=== PATIENT | male | born 1950 | race Caucasian/White ===

== ENCOUNTER 2023-02-16 10:03 | Outpatient (OUT) | payer MEDICARE, SELFPAY ==
[2023-02-16 11:19] LABS: Alanine Aminotransferase 26 U/L (16-63); Albumin Globulin Ratio 1.3; Albumin Level 3.7 g/dL (3.4-5.0); Alkaline Phosphatase 49 U/L (46-116); Anion Gap 11.6; Aspartate Amino Transferase 23 U/L (15-37); BUN Creatinine Ratio 17.6; Calcium 8.9 mg/dL (8.5-10.1); Carbon Dioxide 27.8 mmol/L (21.0-32.0); Chloride 104 mmol/L (98-107); Estimated GFR (African America >60 (>=60); Estimated GFR (Non-African Ame >60 (>=60); Globulin 2.8 g/dL; Glucose 138 mg/dL (74-106); Potassium 4.4 mmol/L (3.5-5.1); Sodium 139 mmol/L (136-145); Total Protein 6.5 g/dL (6.4-8.2)
== END 2023-02-16 10:04 | disposition home or self-care (01) ==
PROVIDERS: PCP Family Medicine
DX: E11.65 Type 2 diabetes mellitus with hyperglycemia (principal); E55.9 Vitamin D deficiency, unspecified; E53.8 Deficiency of other specified B group vitamins
CPT/HCPCS: 36415; 80053; 82306; 82607

== ENCOUNTER 2024-03-13 09:52 | Outpatient (OUT) | payer MEDICARE, SELFPAY ==
[2024-03-13 10:32] LABS: Alanine Aminotransferase 27 U/L (16-63); Albumin Globulin Ratio 1.1; Albumin Level 3.4 g/dL (3.4-5.0); Alkaline Phosphatase 61 U/L (46-116); Anion Gap 14.4; Aspartate Amino Transferase 20 U/L (15-37); Bilirubin Total 0.7 mg/dL (0.2-1.0); Calcium 9.3 mg/dL (8.5-10.1); Carbon Dioxide 27.1 mmol/L (21.0-32.0); Chloride 104 mmol/L (98-107); Chol HDL Ratio 2.5; Cholesterol 150 mg/dL (<=200); Estimated GFR (African America >60 (>=60 mL/min/1.73m^2); Estimated GFR (Non-African Ame >60 (>=60 mL/min/1.73m^2); Globulin 3.1 g/dL; Glucose 175 mg/dL (74-106); HDL Cholesterol 60 mg/dL (40-60); LDL Cholesterol Calculated 64.2 mg/dL; Potassium 4.5 mmol/L (3.5-5.1); Sodium 141 mmol/L (136-145); Total Protein 6.5 g/dL (6.4-8.2); Triglycerides 129 mg/dL (<=150); VLDL CHOLESTEROL 25.8 mg/dL
[2024-03-14 04:11] LABS: Vitamin B12 722 pg/mL (232-1245)
== END 2024-03-13 09:53 | disposition home or self-care (01) ==
LOC: LAB 09:54
PROVIDERS: PCP Family Medicine; Visit Provider Nurse Practitioner Family
DX: E78.5 Hyperlipidemia, unspecified (principal); I10 Essential (primary) hypertension; E55.9 Vitamin D deficiency, unspecified; E11.65 Type 2 diabetes mellitus with hyperglycemia; Z79.4 Long term (current) use of insulin; E53.8 Deficiency of other specified B group vitamins
CPT/HCPCS: 36415; 80053; 80061; 82306; 82607

== ENCOUNTER 2024-07-25 07:14 | Day surgery (SDC) | payer MEDICARE, SELFPAY ==
[2024-07-25] VITALS (9 sets, daily range): BP systolic 157–181; BP diastolic 72–93; PULSE 76–91; TEMP 36.4–36.8; O2SAT 93–95; BMI 28.2
--- NOTE | 2024-07-25 | HP_ITS ---
Date: 07/25/2024 HISTORY OF PRESENT ILLNESS: Patient is a 74-year-old male with a history of type 2 diabetes requiring insulin, hypertension, hyperlipidemia, gastroesophageal reflux disease, who presented to the emergency room this morning with food impaction from last evening. He reports he was eating chicken around 6:00 p.m. and had a piece get lodged in his distal esophagus. He was unable any liquids or even his own saliva. He did present to the emergency room this morning for evaluation. He reports he has had two previous episodes, does not recall how long, but the last one was several years ago. One required EGD. One was treated with medications. He is not on any blood thinners. Denies any pain currently, just the food impaction. Did have a workup in the emergency room including neck x-rays and chest x-ray, as well as laboratory evaluation and EKG, which were all unremarkable. He denies any previous abdominal operations, is on no aspirin, nonsteroidal anti-inflammatory drugs. ALLERGIES: Patient has allergies to penicillin. HOME MEDICATIONS: Include Jardiance, Tresiba, insulin, losartan, magnesium, metformin, potassium, simvastatin, Vitamin B12. PAST SURGICAL HISTORY: He denies previous surgical operations. FAMILY HISTORY: Noncontributory. SOCIAL HISTORY: Patient denies tobacco use or illicit drug use. REVIEW OF SYSTEMS: Ten system review of systems is negative for recent weight loss or weight gain. Denies increased fatigue or light-headedness. Has had no earache or tinnitus. No sinus congestion. No sore throat or hoarseness. No chest pain, palpitations or syncope. No chronic cough, shortness of breath or hemoptysis. No abdominal pain, nausea or vomiting. No diarrhea, constipation or decreased caliber of the stool. No melena, hematochezia or bright red blood per rectum. No dysuria, frequency, urgency or hematuria. No headaches, seizures or tremors. No easy bruising or bleeding. No heat or cold intolerance. No polydipsia, polyphagia or polyuria. PHYSICAL EXAM: VITAL SIGNS: Patient is afebrile. Blood pressure is 171/76. Pulse is 86 and regular. Respiratory rate is 16. O2 saturation is 95% on room air. GENERAL: In general, he is an obese male, in no acute distress. HEENT: Normocephalic, atraumatic. Sclerae anicteric. Conjunctiva not injected. Oral mucosa is moist without lesions. NECK: Supple. There is no adenopathy, thyromegaly or JVD. LUNGS: Clear bilaterally. CARDIAC EXAM: Regular rhythm and rate without appreciable murmurs, rubs or gallops. ABDOMEN: Obese, soft. There are normal bowel sounds. There are no masses, hepatosplenomegaly or hernias. No CVA tenderness. SKIN: Warm and dry without lesions, rashes or ulcers. NEURO EXAM: Non-focal. Non-lateralizing. LABORATORY EVALUATION: Reveals a slight elevation of the white blood cell count at 12,800. H&H and platelet count are normal. Electrolytes are unremarkable. ASSESSMENT: A 74-year-old male with distal food impaction with two previous episodes. PLAN: To proceed with EGD under general anesthesia with removal/reduction of the food bolus. Indications, risks, benefits, alternatives of proceeding were explained extensively to the patient, including risks of bleeding, aspiration, esophageal/gastric/duodenal perforation or anesthetic complications. All of his questions were answered. Informed consent was obtained. CC: Whit Titus M.D. JF
--- NOTE | 2024-07-25 | OP_ITS ---
OPERATION DATE: 07/25/2024 PREOPERATIVE DIAGNOSIS: Food impaction. POSTOPERATIVE DIAGNOSIS: Food impaction with distal esophagitis. PROCEDURE: EGD with removal and reduction of distal esophageal food bolus of chicken. SURGEON: Maik Govea M.D. ANESTHESIA: General endotracheal. ESTIMATED BLOOD LOSS: Zero. INDICATIONS AND CONSENT: Patient is a 74-year-old male with history of food impaction since 6:00 p.m. yesterday. Does have a history of two previous episodes in the past, one requiring EGD. Indications, risks, benefits, alternatives of proceeding with EGD with removal/reduction of food bolus were explained extensively to the patient, including the risks of bleeding, aspiration, esophageal/gastric/duodenal perforation or anesthetic complications. All of his questions were answered. Informed consent was obtained. PROCEDURE: Patient brought to the operating room, placed in the supine position. General anesthesia was induced. He was then placed in the left lateral decubitus position and appropriately monitored and padded. Bite block was placed in the patient?s mouth. Scope was inserted into the oropharynx. Under direct visualization, it was advanced into the esophagus, past the cricopharyngeus, down to the distal esophagus. There was noted to be a large piece of chicken as well as some fluid. The fluid was aspirated. Several pieces of the chicken were grasped with the endoscopic biopsy forceps and brought out through the oropharynx. This allowed breaking up the large food bolus. It was unable to be reduced into the stomach. There was noted to be distal esophagitis, as well as a tortuous distal esophagus. The scope was retroflexed. There was no significant hiatal hernia. The GE junction was noted at approximately 40 cm. There was distal esophagitis and inflammation. No ulceration. No stricture. The remainder of the esophagus was unremarkable. The scope was then withdrawn. Patient tolerated procedure well, was extubated and sent to recovery room in good condition. CC: Whit Titus M.D. JF
--- OUTSIDE RECORDS SUMMARY | 2024-07-25 07:26 | XMS_ITS | CCD ---
Author Organization [facility] Care Team Providers Care Special Education Teachers Name Role Phone Whit Loja Unavailable Scally, Kathryn Unavailable DAMON WOODRUFF Admitting Unavailable DAMON WOODRUFF Consulting Unavailable DAMON WOODRUFF Attending Unavailable FREEDOM, DR WHIT Hernandez Primary Care Unavailable REINECK, DR CARMELO Santacruz Admitting Unavailabl e REINECK, DR CARMELO Santacruz Consulting Unavailabl e REINECK, DR CARMELO Santacruz Attending Unavailabl e LOJA, DR WHIT Hernandez Primary Care Unavailable CHAD MIRANDA Consulting Unavailable REQUEST, NONE LISTED Attending Unavaila ble FREEDOM, DR WHIT Hernandez Primary Care Unavailable REQUEST, NONE LISTED Admitting Unavaila ble REQUEST, NONE LISTED Consulting Unavaila ble REQUEST, NONE LISTED Attending Unavaila ble LOJA, DR WHIT Hernandez Primary Care Unavailable REQUEST, NONE LISTED Admitting Unavaila ble REQUEST, NONE LISTED Consulting Unavaila ble SCALLY, KATHRYN Admitting Unavailable SCALLY, KATHRYN Consulting Unavailable SCALLY KATHRYN Attending Unavailable FREEDOM, DR WHIT Hernandez Primary Care Unavailable MD Whit Loja Primary Care Provider [phone] MD Whit Loja Attending Provider Whit Loja Attending Unavailable Whit Loja Admitting Unavailable Whit Loja Primary Care Unavailable Whit Loja Primary Care Unavailable Scally, Kathryn C Admitting Unavailable Scally, Kathryn C Attending Unavailable SUZIE FISHER Attending Unavailable Allergies Allergy Classification Reported Allergen(s) Allergy Type Date of Onset Reaction(s) Facility (17 sources) Angiotensin-conv erting enzyme inhibitor agent Drug allergy Unknown [facility] Other (18 sources) Penicillin; 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: [penicillin] Drug Allergy Unknown [facility] Repository (1 source) Angiotensin Converting Enzyme (Sukh) Inhibitors Drug allergy (disorder) 12-26-2023 [facility] Repository (1 source) Penicillins Drug allergy (disorder) 07-04-2023 [facility] Repository Medications Current Medications Medication Drug Class(es) Dates Sig (Normalized) Sig (Original) Blood-Glucose Meter (True Metrix Glucose Meter) misc (1 source) Start: 07-01-2023 Blood-Glucose Meter (True Metrix Glucose Meter) misc Active 0 .Route July 01, 2023 12:00am As directed Blood-Glucose Meter,Continuous (Dexcom G7 Brand Marketing Specialist) misc (1 source) Start: 07-01-2023 Blood-Glucose Meter,Continuous (Dexcom G7 Brand Marketing Specialist) misc Active 0 .Route July 01, 2023 12:00am As directed Blood-Glucose Sensor (Dexcom G7 Sensor) device (1 source) Start: 07-01-2023 Blood-Glucose Sensor (Dexcom G7 Sensor) device Active 0 .Route July 01, 2023 12:00am As directed Dexcom G7 Brand Marketing Specialist - (16 sources) Start: 07-13-2022 Dexcom G7 Brand Marketing Specialist - Use to test BG In Vitro Daily for 365 days E11.65 Jun, Active Dexcom G7 Sensor - (20 sources) Start: 09-06-2022 Dexcom G7 Sensor - as directed [facility] Aug, Active Start: 07-13-2022 Dexcom G7 Sens or - Use to test BG In Vitro Change Every 10 days for 90 days E11.65 Jun, Active Dexcom G7 Sensor - as directed [facility] Active empagliflozin 25 mg oral tablet (8 sources) Sodium-Glucose Cotransporter 2 Inhibitor Start: 07-01-2023 take 25 mg by mouth once daily Empagliflozin Active 25 MG PO Daily July 01, 2023 12:00am Start: 02-01-2023 take 1 tablet by tj th every twenty-four hours Jardiance 10 MG 1 tablet Orally Once a day for 14 days samples Jan, Active Start: 02-01-2023 take 1 tablet by tj th every twenty-four hours Jardiance 25 MG 1 tablet Orally Once a day Jan, Active Fish Oils (2 sources) take 1 capsule by mouth once daily Fish Oil 1000 MG 1 capsule Orally Once a day Active glipiZIDE er 10 mg 24 hr extended release oral tablet (1 source) Sulfonylurea take 1 tablet by mouth once daily glipiZIDE ER 10 mg TAKE 1 TABLET BY MOUTH DAILY STOP IF HAVING LOW POST MEAL BLOOD SUGARS Active 3 ml insulin detemir 100 unt/ml pen injector (20 sources) Insulin Analog Start: 06-30-2022 Levemir FlexPen 100 UNIT/ML 25 u Subcutaneous daily for 90 days Jun, Active Levemir FlexPen 100 UNIT/ML 20 u Subcutaneous daily Active 3 ml insulin lispro-aabc 100 unt/ml pen injector (17 sources) Insulin Analog Start: 06-30-2022 Lyumjev KwikPen 100 UNIT/ML as directed Subcutaneous 4 x day for 30 days E11.65 ICR 1:10 and Correction of 1:50 with meals . Expect up to 40 u per day Jun, Active Insulin Lispro-Aabc (1 source) Start: 07-01-2023 inject 1 dose by subcutaneous injection once before mealtime Insulin Lispro-Aabc Active 1 sliding scale dose SUBCUT 3x/Day before meals & bedtime July 01, 2023 12:00am Levemir FlexPen 100 UNIT/ML (4 sources) Start: 06-30-2022 Levemir FlexPen 100 UNIT/ML 25 u Subcutaneous daily for 90 days Jun, Active losartan potassium 25 mg oral tablet (17 sources) Angiotensin 2 Receptor Natalia take 1 tablet by mouth once daily Losartan Potassium 25 mg TAKE ONE TABLET BY MOUTH ONCE DAILY for 90 Active Magnesium (17 sources) take 1 tablet by mouth once daily Magnesium 400 MG 1 tablet with a meal Orally Once a day Active Magnesium - as d irected Orally Active metFORMIN hydrochloride 1000 mg oral tablet (18 sources) Biguanide Start: 07-01-2023 take 1000 mg by mouth twice daily at mealtime Metformin Active 1000 MG PO Twice daily with meals July 01, 2023 12:00am metFORMIN HCl 10 00 MG 1 tablet with a meals BID Orally Twice a day for 90 days Active OneTouch Ultra Mini w/Device (17 sources) OneTouch Ultra M ini w/Device as directed Active potassium 99 mg extended release oral tablet (2 sources) take 1 tablet by mouth once daily Potassium 99 MG 1 tablet Orally Once a day Active simvastatin 40 mg oral tablet (17 sources) HMG-CoA Reductase Inhibitor take 1 tablet by mouth once daily at bedtime Simvastatin 40 mg TAKE ONE TABLET BY MOUTH ONCE DAILY AT BEDTIME for 90 Active True Metrix Blood Glucose Test - (17 sources) True Metrix Bloo d Glucose Test - check blood sugars In Vitro 4 times daily for 90 days or insurance preferred Active Vitamin B 12 100 MCG (9 sources) Vitamin B 12 100 MCG as directed Orally Active vitamin b12 0.1 mg oral lozenge (2 sources) Vitamin B12 Vitamin B 12 100 MCG as directed Orally Active Completed/Discontinued Medications Medication Drug Class(es) Dates Sig (Normalized) Sig (Original) Cholecalciferol (20 sources) Vitamin D Start: 07-12-2022 take 1 capsule by mouth every week Cholecalciferol 1.25 MG (31427 UT) 1 capsule Orally once weekly for 56 days follow with 4000iu OTC daily Jun, Not-Taking Start: 07-12-2022 take 1 capsule by mo ut every week Cholecalciferol 1.25 MG (22811 UT) 1 capsule Orally once weekly for 56 days follow with 4000iu OTC daily Jun, Active take 1 capsule by mo ut every twenty-four hours Vitamin D3 50 MCG (2000 UT) 1 capsule Orally Once a day Active Dexcom G6 Brand Marketing Specialist - (12 sources) Start: 06-30-2022 Dexcom G6 Rece iver - as directed -- daily for 365 day [facility] Jun, Not-Taking Start: 06-30-2022 Dexcom G6 Rece iver - as directed -- daily for 365 day [facility] Jun, Active Dexcom G6 Sensor - (12 sources) Start: 06-30-2022 Dexcom G6 Sens or - as directed sub q change every 10 days for 90 days [facility] Jun, Not-Taking Start: 06-30-2022 Dexcom G6 Sens or - as directed sub q change every 10 days for 90 days [facility] Jun, Active Dexcom G6 Transmitter - (12 sources) Start: 06-30-2022 Dexcom G6 Aldridge smitter - as directed sub q change every 90 days for 90 days [facility] Jun, Not-Taking Start: 06-30-2022 Dexcom G6 Aldridge smitter - as directed sub q change every 90 days for 90 days [facility] Jun, Active Problems Active Problems Problem Classification Problem Date Documented Date Episodic/Chronic Administrative/social admission (7 sources) Dietary counseling and surveillance; 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: [Patient encounter status] Episodic Diabetes mellitus with complications (20 sources) Hyperglycemia due to type 2 diabetes mellitus; 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: [Type 2 diabetes mellitus with hyperglycemia] Onset: 07-06-2022 Chronic Disorders of lipid metabolism (20 sources) Hyperlipidemia; 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: [Hyperlipidemia, unspecified] Onset: 07-09-2022 Chronic E Codes: Natural/environment (2 sources) Exposure to other specified factors, initial encounter; 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: [Bitten or stung by nonvenomous insect and other nonvenomous arthropods, initial encounter] Onset: 09-23-2022 Episodic Essential hypertension (20 sources) Essential hypertension; 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: [Essential (primary) hypertension] Chronic Nutritional deficiencies (20 sources) Vitamin D deficiency; 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: [Vitamin D deficiency, unspecified] Onset: 07-09-2022 Chronic Nutritional deficiencies (6 sources) Deficiency of other specified B group vitamins; 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: [Cobalamin deficiency] Episodic Other aftercare (20 sources) Long-term current use of insulin; 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] 07-01-2023 Episodic Other aftercare (12 sources) [facility] (current) use of insulin; 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: [Long-term (current) use of insulin] Onset: 09-23-2022 Episodic Other aftercare (1 source) Other assisted (current) drug therapy; 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: [OTH PRISON CURRENT DRUG THERAPY] Onset: 09-23-2022 Episodic Other aftercare (1 source) [facility] (current) use of oral hypoglycemic drugs; 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: [PRISON USE ORAL HYPOGLYCEMIC DX] Onset: 09-23-2022 Episodic Other circulatory disease (17 sources) Elevated blood-pressure reading without diagnosis of hypertension; 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: [Elevated blood-pressure reading, without diagnosis of hypertension] Episodic Other injuries and conditions due to external causes (4 sources) Food in esophagus causing other injury, initial encounter; 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: [FOOD ESOPH CAUS OTH INJURY INIT ENC] Onset: 09-22-2022 Episodic Other nervous system disorders (17 sources) Moreland's palsy; 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] Episodic Other non-traumatic joint disorders (17 sources) Pain in right hip joint; 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: [Pain in right hip] Episodic Other non-traumatic joint disorders (7 sources) Shoulder pain; 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: [Pain in left shoulder] Episodic Other non-traumatic joint disorders (10 sources) Pain in left shoulder; 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: [Left shoulder pain] Episodic Other nutritional; endocrine; and metabolic disorders (17 sources) Body mass index 25-29 - overweight; 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: [Body mass index (BMI) 28.0-28.9, adult] Episodic Other nutritional; endocrine; and metabolic disorders (3 sources) Body mass index (BMI) 28.0-28.9, adult Episodic Other nutritional; endocrine; and metabolic disorders (2 sources) Body mass index (BMI) 27.0-27.9, adult; 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: [Body Mass Index 27.0-27.9, adult] Episodic Other nutritional; endocrine; and metabolic disorders (1 source) Overweight in adulthood with body mass index of 25 or more but less than 30; 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: [Body mass index (BMI) 27.0-27.9, adult] 07-01-2023 Episodic Superficial injury; contusion (1 source) Insect bite (nonvenomous), right lower leg, initial encounter Episodic Past or Other Problems Problem Classification Problem Date Documented Da te Episodic/Chronic Other connective tissue disease (3 sources) Facial weakness; 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: [FACIAL WEAKNESS] Onset: 02-25-2022 Episodic Other nervous system disorders (1 source) Moreland's palsy; 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: [BELLS PALSY] Onset: 02-26-2022 Episodic Results Test Name Value Interpretation Reference Range Facility A1C HEMOGLOBINon 05-10-2023 HbA1c (Bld) [Mass fraction] 6.7 % [facility] Other Glucose - FINGER STICKon Glucose [Mass/Vol] 116 mg/dL [facility] Other HbA1c (Bld) [Mass fraction]o n 05-10-2023 [facility] A[facility]C HEMOGLOBINon 02-01-2023 HbA1c (Bld) [Mass fraction] 6.8 % [facility] Other Glucose - FINGER STICKon Glucose [Mass/Vol] 173 mg/dL [facility] Other HbA1c (Bld) [Mass fraction]o n 02-01-2023 A1C HEMOGLOBIN [facility] Other Glucose - FINGER STICKon Glucose [Mass/Vol] 129 mg/dL [facility] Other CBC AUTO DIFFon 09-22-2022 BASO # 0.1 103/ul Normal 0.0-0.1 [facility] Comment on above: Performed By: #### V ITB12, VITAD #### [facility] [address] [place] [address] Dr. Ev Perez Basophils/100 WBC (Bld) 0.7 % Normal 0.2-2.0 [facility] Comment on above: Performed By: #### V ITB12, VITAD #### [facility] [address] [place] [address] Dr. Ev Perez EO # 0.2 103/ul Normal 0.0-0.7 [facility] Comment on above: Performed By: #### V ITB12, VITAD #### [facility] [address] [place] [address] Dr. Ev Perez Eosinophils/100 WBC (Bld) 1.5 % Normal 0.9-7.0 [facility] Comment on above: Performed By: #### V ITB12, VITAD #### [facility] [address] [place] [address] Dr. Ev Perez Erythrocyte distribution width (RBC) [Ratio] 12.6 % Normal 11.0-15.0 [facility] Comment on above: Performed By: #### V ITB12, VITAD #### [facility] [address] [place] [address] Dr. Ev Perez Hematocrit (Bld) [Volume fraction] 44.1 % Normal 42.0-54.0 [facility] Comment on above: Performed By: #### V ITB12, VITAD #### [facility] [address] [place] [address] Dr. Ev Perez Hemoglobin (Bld) [Mass/Vol] 15.1 g/dL Normal 14.0-18.0 [facility] Comment on above: Performed By: #### V ITB12, VITAD #### [facility] [address] [place] [address] Dr. Ev Perez IG # 0.01 10e3/ul Normal 0.00-0.03 [facility] Comment on above: Performed By: #### V ITB12, VITAD #### [facility] [address] [place] [address] Dr. Ev Perez IG % 0.1 % Normal 0.0-0.5 [facility] Comment on above: Performed By: #### V ITB12, VITAD #### [facility] [address] [place] [address] Dr. Ev Perez LYMPH # 1.5 103/ul Normal 1.2-3.8 [facility] Comment on above: Performed By: #### V ITB12, VITAD #### [facility] [address] [place] [address] Dr. Ev Perez Lymphocytes/100 WBC (Bld) 15.6 % Critically low 20.5-60.0 [facility] Comment on above: Performed By: #### V ITB12, VITAD #### [facility] [address] [place] [address] Dr. Ev Perez MANUAL DIFF REQ NO Normal [facility] Comment on above: Performed By: #### V ITB12, VITAD #### [facility] [address] [place] [address] Dr. Ev Perez MCH (RBC) [Entitic mass] 29.5 pg Normal 25.9-34.0 [facility] Comment on above: Performed By: #### V ITB12, VITAD #### [facility] [address] [place] [address] Dr. Ev Perez MCHC (RBC) [Mass/Vol] 34.2 g/dL Normal 29.9-35.2 [facility] Comment on above: Performed By: #### V ITB12, VITAD #### [facility] [address] [place] [address] Dr. Ev Perez MCV (RBC) [Entitic vol] 86.3 fL Normal 80.0-94.0 [facility] Comment on above: Performed By: #### V ITB12, VITAD #### [facility] [address] [place] [address] Dr. Ev Perez MONO # 0.6 103/ul Normal 0.3-0.8 [facility] Comment on above: Performed By: #### V ITB12, VITAD #### [facility] [address] [place] [address] Dr. Ev Perez Monocytes/100 WBC (Bld) 5.6 % Normal 1.7-12.0 [facility] Comment on above: Performed By: #### V ITB12, VITAD #### [facility] [address] [place] [address] Dr. Ev Perez NEUT # 7.4 103/ul Critically high 1.4-6.5 [facility] Comment on above: Performed By: #### V ITB12, VITAD #### [facility] [address] [place] [address] Dr. Ev Perez Neutrophils/100 WBC (Bld) 76.5 % Critically high 43.0-75.0 [facility] Comment on above: Performed By: #### V ITB12, VITAD #### [facility] [address] [place] [address] Dr. Ev Perez Platelet mean volume (Bld) [Entitic vol] 11.4 fL Normal 9.5-13.5 [facility] Comment on above: Performed By: #### V ITB12, VITAD #### [facility] [address] [place] [address] Dr. Ev Perez PLT 180 103/ul Normal 150-450 [facility] Comment on above: Performed By: #### V ITB12, VITAD #### [facility] [address] [place] [address] Dr. Ev Perez RBC 5.11 106/ul Normal 4.70-6.10 [facility] Comment on above: Performed By: #### V ITB12, VITAD #### [facility] [address] [place] [address] Dr. Ev Perez WBC 9.7 103/ul Normal 4.0-11.0 [facility] Comment on above: Performed By: #### V ITB12, VITAD #### [facility] [address] [place] [address] Dr. Ev Perez PROF CHEM 8 (BAS METB)on Anion gap [Moles/Vol] 13.9 mmol/L Normal [facility] Comment on above: Performed By: #### V ITB12, VITAD #### [facility] [address] [place] [address] Dr. Ev Perez Calcium [Mass/Vol] 9.2 mg/dL Normal 8.5-10.1 [facility] Comment on above: Performed By: #### V ITB12, VITAD #### [facility] [address] [place] [address] Dr. Ev Perez Chloride [Moles/Vol] 106 mmol/L Normal 98-107 [facility] Comment on above: Performed By: #### V ITB12, VITAD #### [facility] [address] [place] [address] Dr. Ev Perez CO2 [Moles/Vol] 24.4 mmol/L Normal 21.0-32.0 [facility] Comment on above: Performed By: #### V ITB12, VITAD #### [facility] [address] [place] [address] Dr. Ev Perez Creatinine [Mass/Vol] 0.91 mg/dL Normal 0.70-1.30 [facility] Comment on above: Performed By: #### V ITB12, VITAD #### [facility] [address] [place] [address] Dr. Ev Perez EGFR-AF NEW ZEALANDER >60 Normal >=60 [facility] Comment on above: Performed By: #### V ITB12, VITAD #### [facility] [address] [place], [place] [id number] Dr. Ev Perez EGFR-NON AF NEW ZEALANDER >60 Normal >=60 [facility] Comment on above: Performed By: #### V ITB12, VITAD #### [facility] [address] [address] [address] Ev Perez Glucose [Mass/Vol] 160 mg/dL Critically high 74-106 [facility] Comment on above: Performed By: #### V ITB12, VITAD #### [facility] [address] [address] [address] Ev Perez Potassium [Moles/Vol] 4.3 mmol/L Normal 3.5-5.1 [facility] Comment on above: Performed By: #### V ITB12, VITAD #### [facility] [address] [place] [address] Dr. Ev Perez Sodium [Moles/Vol] 140 mmol/L Normal 136-145 [facility] Comment on above: Performed By: #### V ITB12, VITAD #### [facility] [address] [place] [address] Dr. Ev Perez Urea nitrogen [Mass/Vol] 24.0 mg/dL Critically high 7.0-18.0 [facility] Comment on above: Performed By: #### V ITB12, VITAD #### [facility] [address] [place] [address] Dr. Ev Perez Urea nitrogen/Creatinine [Mass ratio] 26.4 mg/mg Normal [facility] Comment on above: Performed By: #### V ITB12, VITAD #### [facility] [address] [place] [address] Dr. Ev Perez A1C HEMOGLOBINon 09-06-2022 HbA1c (Bld) [Mass fraction] 7.5 % [facility] Other Glucose - FINGER STICKon Glucose [Mass/Vol] 126 mg/dL [facility] Other HbA1c (Bld) [Mass fraction]o n 09-06-2022 A1C HEMOGLOBIN [facility]ring[facility] [employer] Other LIPID PROFILEon 07-06-2022 CHOL-HDL RATIO NORM SEE BELOW Normal [facility] Comment on above: Result Comment: 3.3 - 4.4 LOW RISK 4.4 - 7.1 AVERAGE RISK 7.1 - 11.0 MODERATE RISK >11.0 HIGH RISK Performed By: #### T SH, LIPID, CMP #### [facility] [address] [address] [address] Ev Perez Cholesterol [Mass/Vol] 123 mg/dL Normal <=200 [facility] Comment on above: Performed By: #### T SH, LIPID, CMP #### [facility] [address] [place] [address] Dr. Ev Perez Cholesterol in HDL [Mass/Vol] 47 mg/dL Normal 40-60 [facility] Comment on above: Performed By: #### T SH, LIPID, CMP #### [facility] [address] [place] [address] Dr. Ev Perez Cholesterol in LDL [Mass/Vol] 60.4 mg/dL Normal [facility] Comment on above: Performed By: #### T SH, LIPID, CMP #### [facility] [address] [address] [address] Ev Perez Cholesterol.total/Ch olesterol in HDL [Mass ratio] 2.6 {ratio} Normal [facility] Comment on above: Performed By: #### T SH, LIPID, CMP #### [facility] [address] [place] [address] Dr. Ev Perez HDL NORMAL > or = 60 mg/dl - LOW CARDIOVASCULAR RISK <40 mg/dl - HIGH CARDIOVASCULAR RISK Normal [facility] Comment on above: Performed By: #### T SH, LIPID, CMP #### [facility] [address] [place] [address] Dr. Ev Perez LDL CALC NORMAL SEE BELOW Normal [facility] Comment on above: Result Comment: <100 mg/dl OPTIMAL 100 - 129 mg/dl NEAR OR ABOVE OPTIMAL 130 - 159 mg/dl BORDERLINE HIGH 160 - 189 mg/dl HIGH >190 mg/dl VERY HIGH Performed By: #### T SH, LIPID, CMP #### [facility] [address] [address] [address] Ev Perez Triglyceride [Mass/Vol] 78 mg/dL Normal <=150 [facility] Comment on above: Performed By: #### T SH, LIPID, CMP #### [facility] [address] [address] [address] Ev Perez VLDL CALC 15.6 mg/dL Normal [facility] Comment on above: Performed By: #### T SH, LIPID, CMP #### [facility] [address] [address] [address] Ev Perez MICROALB CREAT RATIO RANDOMo n 07-06-2022 mALB 1.3 mg/L Normal <=30.0 [facility] Comment on above: Performed By: #### M CRR #### [facility] [address] [place] [address] Dr. Ev POWERS CR RATIO 7.2 mg/g Normal 0.0-29.9 [facility] Comment on above: Performed By: #### M CRR #### [facility] [address] [address] [address] Ev Perez MALB CR RATIO RANGE SEE BELOW Normal [facility] Comment on above: Result Comment: NO M ICROALBUMINURIA 0-29 MG/G CLINICAL MICROALBUMINURIA 30-300 MG/G MACROALBUMINURIA >300 MG/G Performed By: #### M CRR #### [facility] [address] [address] [address] Ev Perez URINE CREAT 180.37 mg/dL Normal 20.00-300.00 [facility] Comment on above: Performed By: #### M CRR #### [facility] [address] [address] [address] Ev Perez PROF 14(COMP METB)on 023 Albumin [Mass/Vol] 3.6 g/dL Normal 3.4-5.0 [facility] Comment on above: Performed By: #### T SH, LIPID, CMP #### [facility] [address] [address] [address] Ev Perez Albumin/Globulin [Mass ratio] 1.4 {ratio} Normal [facility] Comment on above: Performed By: #### T SH, LIPID, CMP #### [facility] [address] [address] [address] Ev Perez ALP [Catalytic activity/Vol] 66 U/L Normal 46-116 [facility] Comment on above: Performed By: #### T SH, LIPID, CMP #### [facility] [address] [address] [address] Ev Perez ALT [Catalytic activity/Vol] 35 U/L Normal 16-63 [facility] Comment on above: Performed By: #### T SH, LIPID, CMP #### [facility] [address] [place] [address] Dr. Ev Perez Anion gap [Moles/Vol] 9.2 mmol/L Normal [facility] Comment on above: Performed By: #### T SH, LIPID, CMP #### [facility] [address] [place] [address] Dr. Ev Perez AST [Catalytic activity/Vol] 30 U/L Normal 15-37 [facility] Comment on above: Performed By: #### T SH, LIPID, CMP #### [facility] [address] [place] [address] Dr. Ev Perez Bilirubin [Mass/Vol] 0.7 mg/dL Normal 0.2-1.0 [facility] Comment on above: Performed By: #### T SH, LIPID, CMP #### [facility] [address] [place] [address] Dr. Ev Perez Calcium [Mass/Vol] 9.2 mg/dL Normal 8.5-10.1 [facility] Comment on above: Performed By: #### T SH, LIPID, CMP #### [facility] [address] [place] [address] Dr. Ev Perez Chloride [Moles/Vol] 105 mmol/L Normal 98-107 [facility] Comment on above: Performed By: #### T SH, LIPID, CMP #### [facility] [address] [address] [address] Ev Perez CO2 [Moles/Vol] 30.5 mmol/L Normal 21.0-32.0 [facility] Comment on above: Performed By: #### T SH, LIPID, CMP #### [facility] [address] [address] [address] Ev Perez Creatinine [Mass/Vol] 0.82 mg/dL Normal 0.70-1.30 [facility] Comment on above: Performed By: #### T SH, LIPID, CMP #### [facility] [address] [address] [address] Ev Perez EGFR-AF NEW ZEALANDER >60 Normal >=60 [facility] Comment on above: Performed By: #### T SH, LIPID, CMP #### [facility] [address] [address] [address] Ev Perez EGFR-NON AF NEW ZEALANDER >60 Normal >=60 [facility] Comment on above: Performed By: #### T SH, LIPID, CMP #### [facility] [address] [address] [address] Ev Perez Globulin (S) [Mass/Vol] 2.6 g/dL Normal [facility] Comment on above: Performed By: #### T SH, LIPID, CMP #### [facility] [address] [address] [address] Ev Perez Glucose [Mass/Vol] 194 mg/dL Critically high 74-106 [facility] Comment on above: Performed By: #### T SH, LIPID, CMP #### [facility] [address] [address] [address] Ev Perez Potassium [Moles/Vol] 4.7 mmol/L Normal 3.5-5.1 [facility] Comment on above: Performed By: #### T SH, LIPID, CMP #### [facility] [address] [address] [address] Ev Perez Protein [Mass/Vol] 6.2 g/dL Critically low 6.4-8.2 [facility] Comment on above: Performed By: #### T SH, LIPID, CMP #### [facility] [address] [place] [address] Dr. Ev Perez Sodium [Moles/Vol] 140 mmol/L Normal 136-145 [facility] Comment on above: Performed By: #### T SH, LIPID, CMP #### [facility] [address] [place] [address] Dr. Ev Perez Urea nitrogen [Mass/Vol] 16.0 mg/dL Normal 7.0-18.0 [facility] Comment on above: Performed By: #### T SH, LIPID, CMP #### [facility] [address] [place] [address] Dr. Ev Perez Urea nitrogen/Creatinine [Mass ratio] 19.5 mg/mg Normal [facility] Comment on above: Performed By: #### T SH, LIPID, CMP #### [facility] [address] [place] [address] Dr. Ev Perez TSHon 07-06-2022 TSH 1.954 uIU/mL Normal 0.358-3.740 [facility] Comment on above: Performed By: #### T GUALBERTO, LIPID, CMP #### [facility] [address] [place] [address] Dr. Ev Perez VITAMIN B12on 07-06-2022 Cobalamin (Vitamin B12) [Mass/Vol] 170.0 pg/mL Critically low 193.0-986.0 [facility] Comment on above: Performed By: #### V ITB12, VITAD #### [facility] [address] [place] [address] Dr. Ev Perez VITAMIN D 25 OHon 07-06-2022 VIT D 25-OH 21.9 ng/mL Normal [facility] Comment on above: Performed By: #### V ITB12, VITAD #### [facility] [address] [place] [address] Dr. Ev Perez VIT D RANGES SEE BELOW Normal [facility] Comment on above: Result Comment: <20 ng/mL Vit D deficient 20 - <30 ng/mL Vit D insufficient 30 - 100 ng/mL Vit D sufficient >100 ng/mL Potential Toxicity Performed By: #### V ITB12, VITAD #### [facility] [address] [address] [address] Ev Perez Glucose - FINGER STICKon Glucose [Mass/Vol] 302 mg/dL [facility] Other GLYCOHEMOGLOBIN A1Con 2022 ADA RECOMMENDATION SEE BELOW Normal [facility] Comment on above: Result Comment: ADA RECOMMENDED LIMIT 4.0 - 6.0 ADA THERAPEUTIC TARGET < 7.0 ACTION SUGGESTED > 7.0 Performed By: #### V ITB12, VITAD #### [facility] [address] [place] [address] Dr. Ev Perez Glucose [Mass/Vol] 243 mg/dL Normal [facility] Comment on above: Performed By: #### V ITB12, VITAD #### [facility] [address] [place] [address] Dr. Ev Perez HbA1c (Bld) [Mass fraction] 10.1 % Critically high 4.5-6.2 [facility] Comment on above: Performed By: #### V ITB12, VITAD #### [facility] [address] [place] [address] Dr. Ev Perez CBC AUTO DIFFon 02-25-2022 BASO # 0.1 103/ul Normal 0.0-0.1 [facility] Comment on above: Performed By: #### C BC #### [facility] [address] [place] [address] Dr. Ev Perez Basophils/100 WBC (Bld) 0.8 % Normal 0.2-2.0 [facility] Comment on above: Performed By: #### C BC #### [facility] [address] [place] [address] Dr. Ev Perez EO # 0.5 103/ul Normal 0.0-0.7 [facility] Comment on above: Performed By: #### C BC #### [facility] [address] [place] [address] Dr. Ev Perez Eosinophils/100 WBC (Bld) 6.4 % Normal 0.9-7.0 [facility] Comment on above: Performed By: #### C BC #### [facility] [address] [place] [address] Dr. Ev Perez Erythrocyte distribution width (RBC) [Ratio] 12.5 % Normal 11.0-15.0 [facility] Comment on above: Performed By: #### C BC #### [facility] [address] [place] [address] Dr. Ev Perez Hematocrit (Bld) [Volume fraction] 43.9 % Normal 42.0-54.0 [facility] Comment on above: Performed By: #### C BC #### [facility] [address] [place] [address] Dr. Ev Perez Hemoglobin (Bld) [Mass/Vol] 15.0 g/dL Normal 14.0-18.0 [facility] Comment on above: Performed By: #### C BC #### [facility] [address] [place] [address] Dr. Ev Perez IG # 0.02 10e3/ul Normal 0.00-0.03 [facility] Comment on above: Performed By: #### C BC #### [facility] [address] [place] [address] Dr. Ev Perez IG % 0.3 % Normal 0.0-0.5 [facility] Comment on above: Performed By: #### C BC #### [facility] [address] [place] [address] Dr. Ev Perez LYMPH # 2.2 103/ul Normal 1.2-3.8 [facility] Comment on above: Performed By: #### C BC #### [facility] [address] [place] [address] Dr. Ev Perez Lymphocytes/100 WBC (Bld) 30.6 % Normal 20.5-60.0 [facility] Comment on above: Performed By: #### C BC #### [facility] [address] [place] [address] Dr. Ev Perez MANUAL DIFF REQ NO Normal [facility] Comment on above: Performed By: #### C BC #### [facility] [address] [address] [address] Ev Perez MCH (RBC) [Entitic mass] 29.6 pg Normal 25.9-34.0 [facility] Comment on above: Performed By: #### C BC #### [facility] [address] [address] [address] Ev Perez MCHC (RBC) [Mass/Vol] 34.2 g/dL Normal 29.9-35.2 [facility] Comment on above: Performed By: #### C BC #### [facility] [address] [place] [address] Dr. Ev Perez MCV (RBC) [Entitic vol] 86.6 fL Normal 80.0-94.0 [facility] Comment on above: Performed By: #### C BC #### [facility] [address] [place] [address] Dr. Ev Perez MONO # 0.5 103/ul Normal 0.3-0.8 [facility] Comment on above: Performed By: #### C BC #### [facility] [address] [place] [address] Dr. Ev Perez Monocytes/100 WBC (Bld) 6.7 % Normal 1.7-12.0 [facility] Comment on above: Performed By: #### C BC #### [facility] [address] [place] [address] Dr. Ev Perez NEUT # 3.9 103/ul Normal 1.4-6.5 [facility] Comment on above: Performed By: #### C BC #### [facility] [address] [place] [address] Dr. Ev Perez Neutrophils/100 WBC (Bld) 55.2 % Normal 43.0-75.0 [facility] Comment on above: Performed By: #### C BC #### [facility] [address] [place] [address] Dr. Ev Perez Platelet mean volume (Bld) [Entitic vol] 11.9 fL Normal 9.5-13.5 [facility] Comment on above: Performed By: #### C BC #### [facility] [address] [place], [place] [address] Dr. Ev Perez PLT 154 103/ul Normal 150-450 [facility] Comment on above: Performed By: #### C BC #### [facility] [address] [place], [place] [address] Dr. Ev Perez RBC 5.07 106/ul Normal 4.70-6.10 [facility] Comment on above: Performed By: #### C BC #### [facility] [address] [place], [place] [address] Dr. Ev Perez WBC 7.1 103/ul Normal 4.0-11.0 [facility] Comment on above: Performed By: #### C BC #### [facility] [address] [place], [place] [address] STROKE HEAD WOon 02-26-[address] STROKE HEAD WO Begin Addendum #1 Findings were discussed with Dr. Maame Pruitt at 12:34 hours. Original Report EXAMINATION: CT STROKE HEAD WO HISTORY: Weakness of face muscles left side neck pain x few days, left side facial droop since yesterday COMPARISON: None. TECHNIQUE: CT head spine without IV contrast. Coronal and sagittal reformations were performed. Dose reduction techniques were achieved by using automated exposure control and/or adjustment of mA and/or kV according to patient size and/or use of iterative reconstruction technique. FINDINGS: The lateral ventricles are mildly enlarged. The third and fourth ventricles are midline. There is mild abnormal diminished attenuation in the periventricular white matter and centrum semiovale. A mass is not identified. No intracranial hemorrhage is detected. There is mild symmetrical widening of cortical sulci. A fracture or cortical irregularity is not identified. The visualized paranasal sinuses are clear. The mastoid air cells are normally pneumatized. IMPRESSION: 1. Mild abnormal diminished attenuation in the periventricular white matter and centrum semiovale. Although nonspecific, the most common explanation would be mild chronic small vessel ischemic change. 2. An acute abnormality is not identified. Normal [facility] PROF 14(COMP METB)on 022 Albumin [Mass/Vol] 3.7 g/dL Normal 3.4-5.0 [facility] Comment on above: Performed By: #### C MP #### [facility] [address] [place] [address] Dr. Ev Perez Albumin/Globulin [Mass ratio] 1.3 {ratio} Normal [facility] Comment on above: Performed By: #### C MP #### [facility] [address] [address] [address] Ev Perez ALP [Catalytic activity/Vol] 61 U/L Normal 46-116 [facility] Comment on above: Performed By: #### C MP #### [facility] [address] [place] [address] Dr. Ev Perez ALT [Catalytic activity/Vol] 39 U/L Normal 16-63 [facility] Comment on above: Performed By: #### C MP #### [facility] [address] [place] [address] Dr. Ev Perez Anion gap [Moles/Vol] 11.9 mmol/L Normal [facility] Comment on above: Performed By: #### C MP #### [facility] [address] [place] [address] Dr. Ev Perez AST [Catalytic activity/Vol] 27 U/L Normal 15-37 [facility] Comment on above: Performed By: #### C MP #### [facility] [address] [place] [address] Dr. Ev Perez Bilirubin [Mass/Vol] 1.2 mg/dL Critically high 0.2-1.0 [facility] Comment on above: Performed By: #### C MP #### [facility] [address] [place] [address] Dr. Ev Perez Calcium [Mass/Vol] 9.1 mg/dL Normal 8.5-10.1 [facility] Comment on above: Performed By: #### C MP #### [facility] [address] [place] [address] Dr. Ev Perez Chloride [Moles/Vol] 103 mmol/L Normal 98-107 [facility] Comment on above: Performed By: #### C MP #### [facility] [address] [address] [address] Ev Perez CO2 [Moles/Vol] 25.9 mmol/L Normal 21.0-32.0 [facility] Comment on above: Performed By: #### C MP #### [facility] [address] [address] [address] Ev Perez Creatinine [Mass/Vol] 0.91 mg/dL Normal 0.70-1.30 [facility] Comment on above: Performed By: #### C MP #### [facility] [address] [address] [address] Ev Perez EGFR-AF NEW ZEALANDER >60 Normal >=60 [facility] Comment on above: Performed By: #### C MP #### [facility] [address] [address] [address] Ev Perez EGFR-NON AF NEW ZEALANDER >60 Normal >=60 [facility] Comment on above: Performed By: #### C MP #### [facility] [address] [address] [address] Ev Perez Globulin (S) [Mass/Vol] 2.9 g/dL Normal [facility] Comment on above: Performed By: #### C MP #### [facility] [address] [address] [address] Ev Perez Glucose [Mass/Vol] 269 mg/dL Critically high 74-106 [facility] Comment on above: Performed By: #### C MP #### [facility] [address] [address] [address] Ev Perez Potassium [Moles/Vol] 4.8 mmol/L Normal 3.5-5.1 [facility] Comment on above: Performed By: #### C MP #### [facility] [address] [address] [address] Ev Perez Protein [Mass/Vol] 6.6 g/dL Normal 6.4-8.2 [facility] Comment on above: Performed By: #### C MP #### [facility] [address] [place] [address] Dr. Ev Perez Sodium [Moles/Vol] 136 mmol/L Normal 136-145 [facility] Comment on above: Performed By: #### C MP #### [facility] [address] [place] [address] Dr. Ev Perez Urea nitrogen [Mass/Vol] 15.0 mg/dL Normal 7.0-18.0 [facility] Comment on above: Performed By: #### C MP #### [facility] [address] [place] [address] Dr. Ev Perez Urea nitrogen/Creatinine [Mass ratio] 16.5 mg/mg Normal [facility] Comment on above: Performed By: #### C MP #### [facility] [address] [place] [address] Dr. Ev Perez PROTIMEon 02-25-2022 INR Coag (PPP) [Relative time] 1.03 {INR} Normal [facility] Comment on above: Performed By: #### P T, PTT #### [facility] [address] [place] [address] Dr. Ev Perez INR GUIDELINES SEE BELOW Normal [facility] Comment on above: Result Comment: JESUS RED INR: 2.0 - 3.0 CONDITIONS NOT LISTED BELOW 2.5 - 3.5 FOR PROSTHETIC HEART VALVE REPLACEMENT 2.5 - 3.5 RECURRENT THROMBOSIS Performed By: #### P T, PTT #### [facility] [address] [place] [address] Dr. Ev Perez PT Coag (PPP) [Time] 11.1 s Normal 9.0-11.6 [facility] Comment on above: Performed By: #### P T, PTT #### [facility] [address] [place] [address] Dr. Ev Perez PTTon 02-25-2022 aPTT Coag (Bld) [Time] 26.5 s Normal 22.3-36.2 [facility] Comment on above: Performed By: #### V ITB12, VITAD #### [facility] [address] [place] [address] Dr. Ev Perez TROPONIN, HIGH SENSITIVITYon 02-25-2022 HSTROP 7.0 pg/mL Normal 4.0-76.1 [facility] Comment on above: Result Comment: CUT- OFF POINTS HAVE BEEN ESTABLISHED BASED ON THE FOURTH UNIVERSAL DEFINITIONS OF MYOCARDIAL INFARCTION. THE UPPER REFERENCE LIMIT (URL) OF TROPONIN, DEFINED THE 99TH PERCENTILE OF cTnI DISTRIBUTION IN A REFERENCE POPULATION, HAS BEEN CONFIRMED THE DECISION THRESHOLD FOR [place] DIAGNOSIS. Performed By: #### V ITB12, VITAD #### [facility] [address] [address] [address] Ev Perez GLYCOHEMOGLOBIN A1Con 2021 ADA RECOMMENDATION SEE BELOW Normal [facility] Comment on above: Result Comment: ADA RECOMMENDED LIMIT 4.0 - 6.0 ADA THERAPEUTIC TARGET < 7.0 ACTION SUGGESTED > 7.0 Performed By: #### V ITB12, VITAD #### [facility] [address] [address] [address] Ev Perez Glucose [Mass/Vol] 258 mg/dL Normal [facility] Comment on above: Performed By: #### V ITB12, VITAD #### [facility] [address] [address] [address] Ev Perez HbA1c (Bld) [Mass fraction] 10.6 % Critically high 4.5-6.2 [facility] Comment on above: Performed By: #### V ITB12, VITAD #### [facility] [address] [address] [address] Ev Perez Vital Signs Date Time Vital Sign Value Performing Clinician Facility 07-04-2023 12:26-0500 Diastolic blood pressure 72 mm[Hg] MD Whit Loja Work Phone: [facility] 07-04-2023 12:26-0500 Systolic blood pressure 148 mm[Hg] MD Whit Loja Work Phone: [facility] 07-04-2023 11:37-0500 Body height 168.91 cm MD Whit Loja Work Phone: [facility] 07-04-2023 11:37-0500 Body mass index (BMI) [Ratio] 27.8 kg/m2 MD Whit Loja Work Phone: [facility] 07-04-2023 11:37-0500 Body weight 79.43 kg MD Whit Loja Work Phone: [facility] 07-04-2023 11:37-0500 Heart rate 70 /min MD Whit Loja Work Phone: [facility] 07-04-2023 11:37-0500 Respiratory rate 18 /min MD Whit Loja Work Phone: [facility] 07-04-2023 11:37-0500 SaO2% (BldA) [Mass fraction] 95 % MD Whit Loja Work Phone: [facility] 05-10-2023 10:15-0500 Body height 168.91 cm Kathryn Scally Other [facility] 05-10-2023 10:15-0500 Body mass index (BMI) [Ratio] 27.28 kg/m2 Kathryn Scally Other [facility] Other 05-10-2023 10:15-0500 Body weight 77.84 kg Kathryn Scally Other [facility] Other 05-10-2023 10:15-0500 Body weight 77.83 kg MD Whit Loja Work Phone: [facility] 05-10-2023 10:15-0500 Diastolic blood pressure 84 mm[Hg] Kathryn Scally Other [facility] 05-10-2023 10:15-0500 Respiratory rate 18 /min Kathryn Scally Other [facility] Other 05-10-2023 10:15-0500 SaO2% (BldA) [Mass fraction] 95 % Kathryn Scally Other [facility] Other 05-10-2023 10:15-0500 Systolic blood pressure 144 mm[Hg] Kathryn Scally Other [facility] 02-01-2023 10:15-0400 Body height 168.91 cm Kathryn Scally Other [facility] Other 02-01-2023 10:15-0400 Body mass index (BMI) [Ratio] 28.69 kg/m2 Kathryn Scally Other [facility] Other 02-01-2023 10:15-0400 Body weight 81.87 kg Kathryn Scally Other [facility] Other 02-01-2023 10:15-0400 Diastolic blood pressure 74 mm[Hg] Kathryn Scally Other [facility] Other 02-01-2023 10:15-0400 Respiratory rate 18 /min Kathryn Scally Other [facility] Other 02-01-2023 10:15-0400 SaO2% (BldA) [Mass fraction] 97 % Kathryn Scally Other [facility] Other 02-01-2023 10:15-0400 Systolic blood pressure 142 mm[Hg] Kathryn Scally Other [facility] Other 12-29-2022 11:45-0400 Body height 168.91 cm Whit Loja Other [facility] Other 12-29-2022 11:45-0400 Body mass index (BMI) [Ratio] 30.05 kg/m2 Whit Loja Other [facility] Other 12-29-2022 11:45-0400 Body weight 85.73 kg Whit Loja Other [facility] Other 12-29-2022 11:45-0400 Diastolic blood pressure 78 mm[Hg] Whit Loja Other [facility] Other 12-29-2022 11:45-0400 Systolic blood pressure 142 mm[Hg] Whit Loja Other [facility] Other 11-25-2022 11:00-0400 Body height 168.91 cm Whit Loja Other [facility] Other 11-25-2022 11:00-0400 Body mass index (BMI) [Ratio] 28.61 kg/m2 Whit Loja Other [facility] Other 11-25-2022 11:00-0400 Body weight 81.65 kg Whit Loja Other [facility] Other 11-25-2022 11:00-0400 Diastolic blood pressure 71 mm[Hg] Whit Loja Other [facility] Other 11-25-2022 11:00-0400 Systolic blood pressure 138 mm[Hg] Whit Loja Other [facility] Other 10-26-2022 12:45-0400 Body height 168.91 cm Kathryn Resendiz Other [facility] Other 10-26-2022 12:45-0400 Body mass index (BMI) [Ratio] 28.44 kg/m2 Kathryn Scally Other [facility] Other 10-26-2022 12:45-0400 Body weight 81.15 kg Kathryn Scally Other [facility] Other 10-26-2022 12:45-0400 Diastolic blood pressure 74 mm[Hg] Kathryn Scally Other [facility] Other 10-26-2022 12:45-0400 Respiratory rate 18 /min Kathryn Scally Other [facility] Other 10-26-2022 12:45-0400 SaO2% (BldA) [Mass fraction] 97 % Kathryn Scally Other [facility] Other 10-26-2022 12:45-0400 Systolic blood pressure 138 mm[Hg] Kathryn Scally Other [facility] Other 09-06-2022 11:15-0400 Body height 168.91 cm Kathryn Scally Other [facility] Other 09-06-2022 11:15-0400 Body mass index (BMI) [Ratio] 28.92 kg/m2 Kathryn Scally Other [facility] Other 09-06-2022 11:15-0400 Body weight 82.51 kg Kathryn Scally Other [facility] Other 09-06-2022 11:15-0400 Diastolic blood pressure Kathryn Scally Other [facility] Other 09-06-2022 11:15-0400 Respiratory rate 18 /min Kathryn Scally Other [facility] Other 09-06-2022 11:15-0400 SaO2% (BldA) [Mass fraction] 95 % Kathryn Scally Other [facility] Other 09-06-2022 11:15-0400 Systolic blood pressure 148 mm[Hg] Kathryn Scally Other [facility] Other 06-30-2022 12:00-0500 Body height 168.91 cm Kathryn Scally Other [facility] Other 06-30-2022 12:00-0500 Body mass index (BMI) [Ratio] 29.38 kg/m2 Kathryn Scally Other [facility] Other 06-30-2022 12:00-0500 Body weight 83.83 kg Kathryn Scally Other [facility] Other 06-30-2022 12:00-0500 Diastolic blood pressure 84 mm[Hg] Kathryn Scally Other [facility] Other 06-30-2022 12:00-0500 Respiratory rate 18 /min Kathryn Scally Other [facility] Other 06-30-2022 12:00-0500 SaO2% (BldA) [Mass fraction] 95 % Kathryn Scally Other [facility] Other 06-30-2022 12:00-0500 Systolic blood pressure 152 mm[Hg] Kathryn Scally Other [facility] Other 05-28-2022 11:00-0500 Body height 168.91 cm Whit Loja Other [facility] Other 05-28-2022 11:00-0500 Body mass index (BMI) [Ratio] 29.09 kg/m2 Whit Loja Other [facility] Other 05-28-2022 11:00-0500 Body weight 83.01 kg Whit Loja Other [facility] Other 05-28-2022 11:00-0500 Diastolic blood pressure 82 mm[Hg] Whit Loja Other [facility] [facility] Other 05-28-2022 11:00-0500 SaO2% (BldA) [Mass fraction] 98 % Whit Loja Other [facility] Other 05-28-2022 11:00-0500 Systolic blood pressure 140 mm[Hg] Whit Loja Other [facility] Other Encounters Encounter Date Encounter Type Care Provider Facility Start: 11-29-2023 End: 11-29-2023 ambulatory SUZIE FISHER Not Available Start: 07-04-2023 ambulatory Whit Loja Facility :[facility] Start: 07-04-2023 End: 07-04-2023 Patient encounter procedure MD Whit Loja Work Phone: [facility] Work Phone: Start: 05-19-2023 End: 05-19-2023 ambulatory Kathryn Resendiz Other [facility] Other Start: 05-19-2023 Telephone encounter Kathryn [facility] Start: 05-10-2023 (DM) Diabetes Kathryn [facility] Start: 05-10-2023 End: 05-11-2023 ambulatory MD Whit Loja Work Phone: [facility] Other Start: 05-10-2023 End: 05-10-2023 Discharged Recurring MD Whit Loja Work Phone: [facility] Work Phone: Start: 05-10-2023 End: 05-10-2023 Patient encounter procedure MD Whit Loja Work Phone: [facility] Work Phone: Start: 03-29-2023 End: 03-29-2023 ambulatory Kathryn Resendiz Other [facility] Other Start: 03-29-2023 Nursing evaluation o f patient and report Kathryn Resendiz [facility] Start: 02-01-2023 (DM) Diabetes Kathryn Resendiz [facility] Start: 02-01-2023 End: 02-01-2023 ambulatory Kathryn Resendiz Other [facility] Other Start: 12-29-2022 End: 12-29-2022 ambulatory Whit Loja Other [facility] Other Start: 12-29-2022 Office outpatient vi sit 15 minutes Whit Loja [facility] Start: 12-27-2022 End: 12-27-2022 ambulatory Whit Loja Other [facility] Other Start: 12-27-2022 Telephone encounter Whit Loja [facility] Start: 11-25-2022 End: 11-25-2022 ambulatory Whit Loja Other [facility] Other Start: 11-25-2022 Patient encounter procedure Whit Loja [facility] Start: 10-26-2022 (PUMP/CGM) Pump / Sensor Kathryn Resendiz [facility] Start: 10-26-2022 End: 10-26-2022 ambulatory Kathryn Resendiz Other [facility] Other Start: 10-19-2022 End: 10-19-2022 ambulatory Whit Loja Other [facility] Other Start: 10-19-2022 Telephone encounter Whit Freedom [facility] Start: 10-18-2022 End: 10-18-2022 ambulatory Whit Loja Other [facility] Other Start: 10-18-2022 Telephone encounter Whit Loja [facility] Start: 09-22-2022 End: 09-22-2022 ambulatory DAMON RANJAN Facility: Start: 09-06-2022 (PUMP/CGM) Pump / Sensor Kathryn Resendiz [facility] Start: 09-06-2022 End: 09-06-2022 ambulatory Kathryn Resendiz Other [facility] Other Start: 07-29-2022 End: 07-29-2022 ambulatory Kathryn Resendiz Other [facility] Other Start: 07-29-2022 Nursing evaluation o f patient and report Kathryn Resendiz [facility] Start: 07-13-2022 End: 07-13-2022 ambulatory Kathryn Salasly Other [facility] Other Start: 07-13-2022 Telephone encounter Kathryndiane Salasly [facility] [facility] [facility] Start: 07-06-2022 Telephone encounter Kathryn Josuely [facility] Start: 07-06-2022 End: 07-07-2022 ambulatory KATHRYN SCALLY [employer] Other Start: 07-05-2022 End: 07-05-2022 ambulatory Kathryn Scally Other [facility] Other Start: 07-05-2022 Telephone encounter Kathryn g[facility] Start: 06-30-2022 (New DM) New Diabetes Kathryn Resendiz [facility] Start: 06-30-2022 End: 06-30-2022 ambulatory Kathryn Resendiz Other [facility] Other Start: 05-28-2022 End: 05-28-2022 ambulatory Whit Loja Other [facility] Other Start: 05-28-2022 Office outpatient vi sit 15 minutes Whit Loja [facility] Start: 05-24-2022 Adult health examination Whit Loja Other [facility] Other Start: 05-24-2022 End: 05-25-2022 ambulatory NONE LISTED REQUEST Facility:[facility] Start: 02-25-2022 End: 02-25-[address] CARMELO PRUITT Facility:[facility] Start: 12-09-2021 End: 12-10-2021 ambulatory NONE LISTED REQUEST Facility: Payers Date Payer Category Payer Self-pay 1960 Medicare [id number] 1960 Self-pay [id number] 1950 Unknown [id number] 1950 Unknown [id number] 1950 Unknown [id number] 1950 Unknown [id number] Unknown [id number]..84 [id number] Unknown [id number] Unknown [id number] [id number] Unknown [id number] Social History Date Type Detail Facility Unknown if ever smoked [facility] Other Sex Assigned At Sex Assigned At Bir th [facility] Other Start: 1950 Sex Assigned At Male F [facility] Medical Equipment Procedure Code Equipment Code Equipment Origin al Text Equipment Identifier Dates Start: 07-05-2022 Blood Sugar Diagnostic (Onetouch Ultra Test) strip Start: 07-01-2023 Lancets Start: 07-01-2023 Pen Needle, Diab etic (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) 31 gauge x 5/16 needle Start: 07-01-2023 Clinical Notes 05-28-2022 to 05-19-2023 Note Date & Type Note Facility 05-19-2023 Evaluation note Encounter Date Diagnosis Assessment Notes May, Type 2 diabetes mellitus with hyperglycemia (ICD-10 - E11.65) [facility] Other 12-26-2023 Evaluation note* Encounter Date Diagnosis Assessment Notes Treatment Notes Treatment Clinical Notes Apr, Type 2 diabetes mellitus with hyperglycemia (ICD-10 - E11.65) ASSESSMENT: 1. Controlled, a Type 2 diabetes with A1c of 6.7% down from 7.5. GMI today 6.9 % 2. Progressive improvement in glycemia. Continued reduction of overbasalization appropriately. Will further reduce Levemir to 16 u once daily, soften ISS to 1:50, and dicussed reduction of ICR to 1:15 (from 1:10) if postprandial drops BG. Does well monitoring BG with Dexcom. Tolerating Jardiance (some cost concern but insurance changing). He will continue metformin 1000 mg twice daily we will consider GLP-1 when assured no further low BG. Stressed maintaining hydration encouraged vitamin D and B12, he will have labs soon. We will have him return to clinic in 8 weeks for download see me in 3 months. MAINTAIN SIMPLICITY. BMI improving. DL 8 weeks appt and attempt to initate GLP Ongoing will necessitate CGM for titration of insulin. Research shows that stamina with the current regime may fatigue, as would outcomes and CGM is equitable compared to disease instability. Patient also maintains active lifestyle which increases cumbersome nature of current regime. 3. Patient is alert, oriented and receptive to making changes or counseling. Notes: Seen for an assessment of current glucose pattern, changes in treatment plan, counseling and coordination of care related to diabetes, risks, and benefits of treatment, medications, side effects. Given handouts to reinforce concepts reviewed during counseling, see scanned notes. TOPICS REVIEWED: 1. Time was spent reviewing: a. Basic concepts of diabetes, progressive beta cell , concepts of basal/bolus/correcti ve insulin requirements. Basal: The goal is fasting blood glucose of 90-130mg. IF fasting blood glucose starts to run under 100mg 3x's/ week, decrease dose by 10%. Bolus: The goal is to hold the blood glucose level steady meal to meal. If pt. is going to have increased physical activity after a meal, decrease the schedule meal dose prior to the activity by 30-50%. If pt. skips a meal do not take this dose. Correction: The goal is to correct an elevated glucose back into the 100-150mg range b. Nutrition: Concepts of healthy diet, encouraged to decrease saturated fat in diet and increase non-starchy vegetables and fruits in diet. BMI: Pt. needs to select one small change to decrease caloric intake or increase physical activity to help decrease weight. c. Correct treatment of hypoglycemia, carry a glucose source at all times on your person, in vehicles, and at bedside. Can use glucose tablets/4, four ounces of pop or juice equal to 15 G of carbohydrate. Blood glucose should be 100 mg/dl or higher when driving. d. ADA glucose goals for age and medical complexity reviewed e. Patient questions addressed 2. Activity/exercise: Encouraged to start any form of physical activity. Start low level and increase slowly to a minimal goal of 150 minutes/week. Limit activity to what is allowed by other issues such as cardiac, pulmonary or orthopedic restrictions. 3. Standards of care: Reminded to have an annual dilated eye exam, A1C every 3 months, urine testing for microalbumin once/year, check feet daily and report any cuts or sores that do not appear to be healing. 4. Meter: Plan to check blood glucose: Please check blood glucose levels 4 times/day. Back to back meals reveal effectiveness of bolus dosing. The blood glucose data is used to determine insulin doses and confirm symptoms for hypoglycemia and hyperglcyemia. 5. [facility] 3 [facility]. Contact office if any issues or concerns with patterns of hypoglycemia, hyperglycemia, or diabetes medication issues. 6. Prescriptions: Request refills for Metformin 05-10-2023 uses [employer]. Apr, Vitamin D deficiency (ICD-10 - E55.9) [facility] Vitamin D material was published to portal Apr, Dietary counseling and surveillance (ICD-10 - Z71.3) [facility] Healthy Weight material was published to portal Apr, HTN (hypertension) (ICD-10 - I10) High Blood Pressure: Care Instructions material was published to portal Slightly above goal today, goal systolic under 130, diastolic under 80.-- continue to monitor at home, if sustained above goal notify PCP Apr, [facility] current use of insulin (ICD-10 - Z79.4) Apr, Insulin long-term use (ICD-10 - Z79.4) Apr, Hyperlipidemia LDL goal <100 (ICD-10 - E78.5) [facility] High Cholesterol material was published to portal Apr, Vitamin B 12 deficiency (ICD-10 - E53.8) OTC B12 sublingually 1000 mcg daily. Apr, BMI 27.0-27.9,adult (ICD-10 - Z68.27) Apr, Other [facility] High Cholesterol material was published to [facility] Other 11-14-2023 Evaluation note* Encounter Date Diagnosis Assessment Notes Treatment Notes Treatment Clinical Notes Mar, Type 2 diabetes mellitus with hyperglycemia (ICD-10 - E11.65) Sy came in today for download and evaluation of his Dexcom Report. His average BG was 148 (down from 168), time in range 83% (up from 68%), high 15% (down from 27%), very high 1% (down from 5%), Low less than 1% (up from 0%). The only change that was made at his last visit was adding Jardiance 25mg daily. He said that he is not having any issues with Hydration or urination. He is to continue Lyumjev, Levemir, and Metformin as prescribed. 15 minutes were spent evaluating the patient's report and discussing its findings with him by Elis Borrego RN, [facility]. [place] [facility] Other 09-19-2023 Evaluation note* Encounter Date Diagnosis Assessment Notes Treatment Notes Treatment Clinical Notes Jan, Type 2 diabetes mellitus with hyperglycemia (ICD-10 - E11.65) ASSESSMENT: 1. Uncontrolled, a Type 2 diabetes with A1c of 6.8% down from 7.5. GMI today 7.4 % 2. Progressive improvement in glycemia. Slight overbasalization and making room for Jardiance, will reduce Levemir to 20 units once daily noting decreased vegetables at any time of day running under 100 consistently a.m. fasting or otherwise. We will continue Lyumjev insulin to carb ratio of 1 unit for every 10 carbohydrates and 1 unit for every 40 mg/dL above goal. He will continue metformin 1000 mg twice daily we will consider GLP-1 in the future. We will start Jardiance 10 mg x 2 weeks then escalate to prescription dose of 25 mg thereafter. Stressed maintaining hydration encouraged vitamin D and B12, he will have labs soon. We will have him return to clinic in 8 weeks for download see me in 3 months. Consider GLP1RA next. MAINTAIN SIMPLICITY. He does desire some weight loss, defers today return to clinic in 3 months. Ongoing will necessitate CGM for titration of insulin. Research shows that stamina with the current regime may fatigue, as would outcomes and CGM is equitable compared to disease instability. Patient also maintains active lifestyle which increases cumbersome nature of current regime. 3. Patient is alert, oriented and receptive to making changes or counseling. Notes: Seen for an assessment of current glucose pattern, changes in treatment plan, counseling and coordination of care related to diabetes, risks, and benefits of treatment, medications, side effects. Given handouts to reinforce concepts reviewed during counseling, see scanned notes. TOPICS REVIEWED: 1. Time was spent reviewing: a. Basic concepts of diabetes, progressive beta cell , concepts of basal/bolus/correcti ve insulin requirements. Basal: The goal is fasting blood glucose of 90-130mg. IF fasting blood glucose starts to run under 100mg 3x's/ week, decrease dose by 10%. Bolus: The goal is to hold the blood glucose level steady meal to meal. If pt. is going to have increased physical activity after a meal, decrease the schedule meal dose prior to the activity by 30-50%. If pt. skips a meal do not take this dose. Correction: The goal is to correct an elevated glucose back into the 100-150mg range b. Nutrition: Concepts of healthy diet, encouraged to decrease saturated fat in diet and increase non-starchy vegetables and fruits in diet. BMI: Pt. needs to select one small change to decrease caloric intake or increase physical activity to help decrease weight. c. Correct treatment of hypoglycemia, carry a glucose source at all times on your person, in vehicles, and at bedside. Can use glucose tablets/4, four ounces of pop or juice equal to 15 G of carbohydrate. Blood glucose should be 100 mg/dl or higher when driving. d. ADA glucose goals for age and medical complexity reviewed e. Patient questions addressed 2. Activity/exercise: Encouraged to start any form of physical activity. Start low level and increase slowly to a minimal goal of 150 minutes/week. Limit activity to what is allowed by other issues such as cardiac, pulmonary or orthopedic restrictions. 3. Standards of care: Reminded to have an annual dilated eye exam, A1C every 3 months, urine testing for microalbumin once/year, check feet daily and report any cuts or sores that do not appear to be healing. 4. Meter: Plan to check blood glucose: Please check blood glucose levels 4 times/day. Back to back meals reveal effectiveness of bolus dosing. The blood glucose data is used to determine insulin doses and confirm symptoms for hypoglycemia and hyperglcyemia. 5. [facility] 3 months. Contact office if any issues or concerns with patterns of hypoglycemia, hyperglycemia, or diabetes medication issues. 6. Prescriptions: None needed at this time 02-01-2023. Jan, Vitamin D deficiency (ICD-10 - E55.9) [facility] Vitamin D material was published to portal Jan, Dietary counseling and surveillance (ICD-10 - Z71.3) [facility] [employer] Healthy Weight material was published to portal Jan, HTN (hypertension) (ICD-10 - I10) High Blood Pressure: Care Instructions material was published to portal Slightly above goal today, 138/74, goal systolic under 130, diastolic under 80. Jan, [employer] [employer] current use of insulin (ICD-10 - Z79.4) Jan, Insulin long-term use (ICD-10 - Z79.4) Jan, Hyperlipidemia LDL goal <100 (ICD-10 - E78.5) [facility] High Cholesterol material was published to portal Jan, BMI 28.0-28.9,adult (ICD-10 - Z68.28) Jan, Vitamin B 12 deficiency (ICD-10 - E53.8) OTC B12 sublingually 1000 mcg daily. Jan, Other [facility] About High Cholesterol material was published to portal [facility] Other 08-16-2023 Evaluation note* Encounter Date Diagnosis Assessment Notes Treatment Notes Treatment Clinical Notes Dec, Insect bite (nonvenomous), right lower leg, initial encounter (ICD-10 - S80.861A) Does not appear infected. Pt states it is improved. No further med or treatment is indicated. Dec, Bitten or stung by nonvenomous insect and other nonvenomous arthropods, initial encounter (ICD-10 - W57.XXXA) Dec, Hyperglycemia due to type 2 diabetes mellitus (ICD-10 - E11.65) Healthy diet and exercise encouraged. Weight loss helps to reduce blood sugars and A1C. Wear supportive shoes, avoid open toed shoes. Check feet daily. [facility] Other 07-13-2023 Evaluation note* Encounter Date Diagnosis Assessment Notes Treatment Notes Treatment Clinical Notes Nov, Medicare annual wellness visit, subsequent (ICD-10 - Z00.00) Personalized health advice was given to the beneficiary including a written plan for screenings discussed and provided. Advanced care planning reviewed and/or information given as requested. Additional counseling was provided here today in regards to, [ ]. The above visit was performed by [ ], under direct supervision of [ ]. Document reviewed and amended by provider signed below. Nov, Vitamin D deficiency (ICD-10 - E55.9) chronic problem. taking supplement. reviewed labs from 11/24 w pt Nov, Type 2 diabetes mellitus with hyperglycemia (ICD-10 - E11.65) chronic problem A1C 6.6 - immensely improved. Was previously consistently >10. Continue to follow with diabetes clinic. [facility] Other 06-13-2023 Evaluation note* Encounter Date Diagnosis Assessment Notes Treatment Notes Treatment Clinical Notes Oct, Type 2 diabetes mellitus with hyperglycemia (ICD-10 - E11.65) ASSESSMENT: 1. Uncontrolled, a Type 2 diabetes with A1c of 7.5% down from 10.1. GMI today 7.3% 2. Blood glucose showing significant improvement likely component of Dexcom surveillance, GMI today is consistent with hemoglobin A1c. We will reduce his Levemir to 23 units once daily, I have increased his prandial coverage from 1-50 to 1-40 insulin sliding scale and insulin to carb ratio was maintained at 1 unit for every 10 g carbohydrates. He is able to provide good examples. He will also continue metformin 1000 mg twice daily. We did discuss vitamin B12 sublingually secondary to metformin and vitamin B12 deficiency. Marisela hernandez will consider GLP-1 RA or SGLT2 next visit. He does desire some weight loss, defers today return to clinic in 3 months. Ongoing will necessitate CGM for titration of insulin. Research shows that stamina with the current regime may fatigue, as would outcomes and CGM is equitable compared to disease instability. Patient also maintains active lifestyle which increases cumbersome nature of current regime. 3. Patient is alert, oriented and receptive to making changes or counseling. Notes: Seen for an assessment of current glucose pattern, changes in treatment plan, counseling and coordination of care related to diabetes, risks, and benefits of treatment, medications, side effects. Given handouts to reinforce concepts reviewed during counseling, see scanned notes. TOPICS REVIEWED: 1. Time was spent reviewing: a. Basic concepts of diabetes, progressive beta cell , concepts of basal/bolus/correc tive insulin requirements. Basal: The goal is fasting blood glucose of 90-130mg. IF fasting blood glucose starts to run under 100mg 3x's/ week, decrease dose by 10%. Bolus: The goal is to hold the blood glucose level steady meal to meal. If pt. is going to have increased physical activity after a meal, decrease the schedule meal dose prior to the activity by 30-50%. If pt. skips a meal do not take this dose. Correction: The goal is to correct an elevated glucose back into the 100-150mg range b. Nutrition: Concepts of healthy diet, encouraged to decrease saturated fat in diet and increase non-starchy vegetables and fruits in diet. BMI: Pt. needs to select one small change to decrease caloric intake or increase physical activity to help decrease weight. c. Correct treatment of hypoglycemia, carry a glucose source at all times on your person, in vehicles, and at bedside. Can use glucose tablets/4, four ounces of pop or juice equal to 15 G of carbohydrate. Blood glucose should be 100 mg/dl or higher when driving. d. ADA glucose goals for age and medical complexity reviewed e. Patient questions addressed 2. Activity/exercise: Encouraged to start any form of physical activity. Start low level and increase slowly to a minimal goal of 150 minutes/week. Limit activity to what is allowed by other issues such as cardiac, pulmonary or orthopedic restrictions. 3. Standards of care: Reminded to have an annual dilated eye exam, A1C every 3 months, urine testing for microalbumin once/year, check feet daily and report any cuts or sores that do not appear to be healing. 4. Meter: Plan to check blood glucose: Please check blood glucose levels 4 times/day. Back to back meals reveal effectiveness of bolus dosing. The blood glucose data is used to determine insulin doses and confirm symptoms for hypoglycemia and hyperglcyemia. 5. [facility] in 3 months. Contact office if any issues or concerns with patterns of hypoglycemia, hyperglycemia, or diabetes medication issues. 6. Prescriptions: None needed at this time Oct, Vitamin D deficiency (ICD-10 - E55.9) Learning About Vitamin D material was published to portal Oct, Dietary counseling and surveillance (ICD-10 - Z71.3) Learning About Healthy Weight material was published to portal Oct, HTN (hypertension) (ICD-10 - I10) High Blood Pressure: Care Instructions material was published to portal Slightly above goal today, 138/74, goal systolic under 130, diastolic under 80. Oct, [employer] [employer] current use of insulin (ICD-10 - Z79.4) Oct, Insulin long-term use (ICD-10 - Z79.4) Oct, Hyperlipidemia LDL goal <100 (ICD-10 - E78.5) [facility] High Cholesterol material was published to portal 13 Sean, 2023 BMI 28.0-28.9,adult (ICD-10 - Z68.28) Oct, Vitamin B 12 deficiency (ICD-10 - E53.8) OTC B12 sublingually 1000 mcg daily. Oct, Other Learning About High Cholesterol material was published to portal [facility] Other 06-06-2023 Evaluation note* Encounter Date Diagnosis Assessment Notes Treatment Notes Treatment Clinical Notes Oct, Type 2 diabetes mellitus with hyperglycemia (ICD-10 - E11.65) [facility] Other 06-05-2023 Evaluation note* Encounter Date Diagnosis Assessment Notes Treatment Notes Treatment Clinical Notes Oct, Type 2 diabetes mellitus with hyperglycemia (ICD-10 - E11.65) [facility] Other 04-24-2023 Evaluation note* Encounter Date Diagnosis Assessment Notes Treatment Notes Treatment Clinical Notes Aug, Type 2 diabetes mellitus with hyperglycemia (ICD-10 - E11.65) ASSESSMENT: 1. Uncontrolled, a Type 2 diabetes with A1c of 7.5% down from 10.1. 2. Blood glucose showing significant improvement likely component of Dexcom surveillance, GMI today is consistent with hemoglobin A1c. We will reduce his Levemir to 24 units once daily, I have increased his prandial coverage from 1-50 to 1-40 insulin sliding scale and insulin to carb ratio was maintained at 1 unit for every 10 g carbohydrates. He is able to provide good examples. He will also continue metformin 1000 mg twice daily. We did discuss vitamin B12 sublingually secondary to metformin and vitamin B12 deficiency. We will consider GLP-1 RA or SGLT2 next visit. He does desire some weight loss, no cardiovascular history. Return to clinic in 8 weeks Ongoing will necessitate CGM for titration of insulin. Research shows that stamina with the current regime may fatigue, as would outcomes and CGM is equitable compared to disease instability. Patient also maintains active lifestyle which increases cumbersome nature of current regime. 3. Patient is alert, oriented and receptive to making changes or counseling. Notes: Seen for an assessment of current glucose pattern, changes in treatment plan, counseling and coordination of care related to diabetes, risks, and benefits of treatment, medications, side effects. Given handouts to reinforce concepts reviewed during counseling, see scanned notes. TOPICS REVIEWED: 1. Time was spent reviewing: a. Basic concepts of diabetes, progressive beta cell , concepts of basal/bolus/correct brittany insulin requirements. Basal: The goal is fasting blood glucose of 90-130mg. IF fasting blood glucose starts to run under 100mg 3x's/ week, decrease dose by 10%. Bolus: The goal is to hold the blood glucose level steady meal to meal. If pt. is going to have increased physical activity after a meal, decrease the schedule meal dose prior to the activity by 30-50%. If pt. skips a meal do not take this dose. Correction: The goal is to correct an elevated glucose back into the 100-150mg range b. Nutrition: Concepts of healthy diet, encouraged to decrease saturated fat in diet and increase non-starchy vegetables and fruits in diet. BMI: Pt. needs to select one small change to decrease caloric intake or increase physical activity to help decrease weight. c. Correct treatment of hypoglycemia, carry a glucose source at all times on your person, in vehicles, and at bedside. Can use glucose tablets/4, four ounces of pop or juice equal to 15 G of carbohydrate. Blood glucose should be 100 mg/dl or higher when driving. d. ADA glucose goals for age and medical complexity reviewed e. Patient questions addressed 2. Activity/exercise: Encouraged to start any form of physical activity. Start low level and increase slowly to a minimal goal of 150 minutes/week. Limit activity to what is allowed by other issues such as cardiac, pulmonary or orthopedic restrictions. 3. Standards of care: Reminded to have an annual dilated eye exam, A1C every 3 months, urine testing for microalbumin once/year, check feet daily and report any cuts or sores that do not appear to be healing. 4. Meter: Plan to check blood glucose: Please check blood glucose levels 4 times/day. Back to back meals reveal effectiveness of bolus dosing. The blood glucose data is used to determine insulin doses and confirm symptoms for hypoglycemia and hyperglcyemia. 5. [facility] Contact office if any issues or concerns with patterns of hypoglycemia, hyperglycemia, or diabetes medication issues. 6. Prescriptions: None needed at this time 09-06-2022. Aug, Vitamin D deficiency (ICD-10 - E55.9) Learning About Vitamin D material was published to portal Aug, Dietary counseling and surveillance (ICD-10 - Z71.3) Learning About Healthy Weight material was published to [email or web address] Aug, HTN (hypertension) (ICD-10 - I10) High Blood Pressure: Care Instructions material was published to portal Above goal today, discussed goal of <130/80-- Could lconsider Jardiance Aug, [facility] current use of insulin (ICD-10 - Z79.4) Aug, Insulin long-term use (ICD-10 - Z79.4) Aug, Hyperlipidemia LDL goal <100 (ICD-10 - E78.5) Learning About High Cholesterol material was published to [email or web address] Aug, BMI 28.0-28.9,adult (ICD-10 - Z68.28) Aug, Vitamin B 12 deficiency (ICD-10 - E53.8) OTC B12 sublingually 1000 mcg daily. Aug, Other Learning About High Cholesterol material was published to [employer] Other 03-16-2023 Evaluation note* Encounter Date Diagnosis Assessment Notes Treatment Notes Treatment Clinical Notes Jul, Type 2 diabetes mellitus with hyperglycemia (ICD-10 - E11.65) Sy came in today for Dexcom G7 training. He brought a sensor and a reciever. He installed the G7 coleman on his phone and logged in. He was taught how to apply the sensor using the coleman instructions and handouts. He successfully applied the sensor to the back of his right arm and was assisted in placing the over patch by Mikayla Rene Pharm-D Candidate. His [employer] account was linked with the office account. He brought his cholecalciferol 1.25 (50,000 IU) with him and asked if 50,0000Iu was dangerous. We explained that taking it weekly is recomended and that after 8 weeks he to switch to 4000IU daily. He was also told to take 1000mcg B12 OTC daily. 45 minutes were spent Educating the pateint by Elis Borrego RN, [facility]. [facility] Other 02-15-2023 Evaluation note* Encounter Date Diagnosis Assessment Notes Treatment Notes Treatment Clinical Notes Jun, Type 2 diabetes mellitus with hyperglycemia (ICD-10 - E11.65) ASSESSMENT: 1. Uncontrolled, a Type 2 diabetes with A1c of 10.1% 05/24/22 2. Blood glucose levels are persistently above goal May A1c is consistent of mid year 2021 in the 10% range. He is on Levemir 25 units once daily has been since 2020 i [employer], having only daily BG levels and once daily checks. He takes metformin 1000 mg p.o. twice daily both of these medication should continue for now. Will optimize with Lab work and review Dexcom pro (placed today) for further evaluation he is to continue glipizide 10 mg with meals but discontinue if he has postmeal low blood sugars. He will initiate Lyumjev 1 unit for every 50 mg/dL above goal. This should be cut in half at hour of sleep and scale starts greater than 200 mg/dL. Ongoing will necessitate CGM for titration of insulin. Research shows that stamina with the current regime may fatigue, as would outcomes and CGM is equitable compared to disease instability. Patient also maintains active lifestyle which increases cumbersome nature of current regime. Instructed to have fasting labs soon and return for DexcomPro download in 10 days. He should RTC with me in 8 weeks 3. Patient is alert, oriented and receptive to making changes or counseling. Notes: Seen for an assessment of current glucose pattern, changes in treatment plan, counseling and coordination of care related to diabetes, risks, and benefits of treatment, medications, side effects. Given handouts to reinforce concepts reviewed during counseling, see scanned notes. TOPICS REVIEWED: 1. Time was spent reviewing: a. Basic concepts of diabetes, progressive beta cell , concepts of basal/bolus/correc tive insulin requirements. Basal: The goal is fasting blood glucose of 90-130mg. IF fasting blood glucose starts to run under 100mg 3x's/ week, decrease dose by 10%. Bolus: The goal is to hold the blood glucose level steady meal to meal. If pt. is going to have increased physical activity after a meal, decrease the schedule meal dose prior to the activity by 30-50%. If pt. skips a meal do not take this dose. Correction: The goal is to correct an elevated glucose back into the 100-150mg range b. Nutrition: Concepts of healthy diet, encouraged to decrease saturated fat in diet and increase non-starchy vegetables and fruits in diet. BMI: Pt. needs to select one small change to decrease caloric intake or increase physical activity to help decrease weight. c. Correct treatment of hypoglycemia, carry a glucose source at all times on your person, in vehicles, and at bedside. Can use glucose tablets/4, four ounces of pop or juice equal to 15 G of carbohydrate. Blood glucose should be 100 mg/dl or higher when driving. d. ADA glucose goals for age and medical complexity reviewed e. Patient questions addressed 2. Activity/exercise: Encouraged to start any form of physical activity. Start low level and increase slowly to a minimal goal of 150 minutes/week. Limit activity to what is allowed by other issues such as cardiac, pulmonary or orthopedic restrictions. 3. Standards of care: Reminded to have an annual dilated eye exam, A1C every 3 months, urine testing for microalbumin once/year, check feet daily and report any cuts or sores that do not appear to be healing. 4. Meter: Plan to check blood glucose: Please check blood glucose levels 4 times/day. Back to back meals reveal effectiveness of bolus dosing. The blood glucose data is used to determine insulin doses and confirm symptoms for hypoglycemia and hyperglcyemia. 5. [facility]. Contact office if any issues or concerns with patterns of hypoglycemia, hyperglycemia, or diabetes medication issues. 6. Prescriptions: None needed at this time. Jun, Vitamin D deficiency (ICD-10 - E55.9) Learning About Vitamin D material was published to portal Jun, Dietary counseling and surveillance (ICD-10 - Z71.3) Learning About Healthy Weight material was published to portal Jun, HTN (hypertension) (ICD-10 - I10) High Blood Pressure: Care Instructions material was published to portal Jun, [facility] [employer] current use of insulin (ICD-10 - Z79.4) Jun, Insulin long-term use (ICD-10 - Z79.4) Jun, Hyperlipidemia LDL goal <100 (ICD-10 - E78.5) Learning About High Cholesterol material was published to portal Jun, Other Learning About High Cholesterol material was published to portal [facility] Other 01-13-2023 Evaluation note* Encounter Date Diagnosis Assessment Notes Treatment Notes Treatment Clinical Notes May, Hyperglycemia due to type 2 diabetes mellitus (ICD-10 - E11.65) Increasing levemir from 20 to 25 units pt agrees to referral to [facility]. 13 May, 2022 Essential hypertension (ICD-10 - I10) Blood pressure remains well controlled at this time. Denies cardiac symptoms. Shows no signs or symptoms or poor control. Patient to continue with above medication and we will continue to monitor. Advised to pay attention to body and symptoms. Any developing patterns. Stay well hydrated. [facility] Other Chief complaint+Reason for visit Narrative* Chief Complaint Dm DM Reason for Visit BMI 27.0-27.9,adult Dietary counseling and surveillance HTN (hypertension) Hyperlipidemia [facility] current use of insulin Type 2 diabetes mellitus with hyperglycemia Vitamin B 12 deficiency Vitamin D deficiency [facility] Work Phone: Evaluation noteNo InformationNort [employer] Other Evaluation note* Diagnosis Onset Date Resolution Status BMI 27.0-27.9,adult acute Dietary counseling and surveillance acute HTN (hypertension) acute Hyperlipidemia acute [facility] [employer] current use of insulin acute Type 2 diabetes mellitus with hyperglycemia acute Vitamin B 12 deficiency acut e Vitamin D deficiency acute [facility] Work Phone: History general Narrative - Reported* Type Description Date 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 Medical History BMI 28.0-28.9,adult Medical History Essential hypertension Medical History Hyperglycemia due to type 2 diab etes mellitus Medical History Left shoulder pain Medical History Hyperlipidemia Medical History Right hip pain Medical History Encounter for wellness examinati on in adult Surgical History tonsillectomy Surgical History EGD for food bolus 2017 Surgical History cataract surgery 01/2022, 2 Hospitalization History See Above Hospitalization History Moreland's Palsy 02/2022 [facility] Other History general Narrative - Reported* Type Description Date 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 Medical History BMI 28.0-28.9,adult Medical History Essential hypertension Medical History Hyperglycemia due to type 2 diab etes mellitus Medical History Left shoulder pain Medical History Hyperlipidemia Medical History Right hip pain Medical History Encounter for wellness examinati on in adult Surgical History tonsillectomy Surgical History EGD for food bolus 2017 Surgical History cataract surgery 01/2022, 11/202 2 Hospitalization History See Above Hospitalization History Moreland's Palsy 02/2022 Hospitalization History [facility] [place] [place] [facility] Other Reason for visit NarrativeDM 3 month F/U, Referral Whit [facility] Other Reason for visit NarrativeDM, DM 3 month F/U, Referral [facility] Other Reason for Referral Reason 06/30/22 Type 2 di abetes. A1C 10.1 Diagnosis 1 Hyperglycemia due to type 2 diabetes mellitus (E11.65) Referral Organization [facility] Referring Provider First Name Whit Referring Provider Last Name Freedom Referring Provider Specialty [facility] Referred Organization [facility] Referred Provider Kathryn Resenidz Referred Address [address],[place], [place],[address] Referred Provider Specialty Nurse Glenn melendez Referral Priority Routine Referral Appointment Date 2022-06-30 General Notes Meenu Kearney 03:40:17 PM >received today, notes locked, attachments made, referral faxed Meenu Kearney 06/04/2022 11:06:33 AM >pt scheduled Meenu Kearney 07/01/2022 12:18:44 PM >waiting for notes to be locked Meenu Kearney 07/06/2022 02:56:18 PM >consult notes are locked and TE was sent for review. closing referral Summary Purpose Family History No Family History Records Found Relationship Condition Age at Onset Recorded Date/T ike father Unknown Disorder of lung Unknown Not Specified Unknown Advance Directives No Advanced Directives Records Found Advance Directive Response Recorded Date/ Time Advance Directives No June 11:01am Additional Source Comments REASON FOR VISIT (unrecogniz ed section and content) 3 MONTH CHECK UP MBReferral Whit Rodgers refill pen needlesREFERRAL NOTESDCS DexcomDEXCOM G7DM, Referral Whit SadlerillRefillReferral Whit PegueronessClinicalRED AND ITCHY AROUND BUG BITE R CALF/ANKLEdownload dexcomDS Refill Metformin (unrecognized sect ion and content) No Status Records FoundNo Status Records FoundNo Status Records Found INFORMATION SOURCE (unrecogn ized section and content) DATE CREATED AUTHOR 09/24/2022 [facility] DATE CREATED AUTHOR AUTHOR'S ORGANIZ ATION 07/05/2023 [facility] DATE CREATED AUTHOR AUTHOR'S ORGANIZ ATION 12/03/2023 [facility] [employer] Care Teams (unrecognized sec tion and content) Team Status: Active Member Role Status Dates Whit Loja MD Primary Care Provider Active Team Status: Inactive Member Role Status Dates Kathryn Resendiz APRN Attending Provider Active Start: May 10, 2023 End: May 10, 2023 Team Status: Inactive Member Role Status Dates Wiht Loja MD Primary Care Provide r, Attending Provider Active Start: May 10, 2023 End: May 10, 2023 Team Status: Inactive Member Role Status Dates Whit Loja MD Primary Care Provider Active Start: July 04, 2023 End: July 04, 2023 Kathryn Resendiz APRN Attending Provider Active Start: July 04, 2023 End: July 04, 2023 Goals (unrecognized section and content) Goals may be documented in a n alternate section FOR RECORDS PERTAINING TO PATIENTS WHO ARE OR HAVE BEEN ENROLLED IN A CHEMICAL DEPENDENCY/SUBSTANCEABUSE PROGRAM, SOME INFORMATION MAY BE OMITTED. This clinical summary was aggregated from multiple sources. Caution should be exercised in using it in the provision of clinical care. This summary normalizes information from multiple sources, and as a consequence, information in this document may materially change the coding, format and clinical context of patient data. In addition, data may be omitted in some cases. CLINICAL DECISIONS SHOULD BE BASED ON THE PRIMARY CLINICAL RECORDS. [employer] provides no warranty or guarantee of the accuracy or completeness of information in this document.
[2024-07-25] MEDS: GLUCAGON 1 MG/ML VIAL IV (07:41)
--- NOTE | 2024-07-25 07:46 | PC.NURSE ---
PT HERE FOR FOOD BOLUS SINCE LAST NIGHT AFTER EATING CHICKEN. H/O HIATAL HERNIA. UNABLE TO KEEP DOWN SECRETIONS
--- NOTE | 2024-07-25 08:08 | XR_ITS ---
The [address] [address] Patient Name: SY ELI MRN: [id number] date: 1950 Sex: M Assigned Patient Location: ER Current Patient Location: ER Accession/Order Number: [id number] Exam Date: 07/25/2024 08:23 Report Date: 07/25/2024 08:27 At the request of: NASEEM KO DO Procedure: XR chest 2V CLINICAL DATA: History of hiatal hernia. Difficulty keeping food down after eating chicken. Possible food stuck in esophagus. SOFT TISSUE NECK - 2 views COMPARISON: None AP and lateral views were obtained. The epiglottis appears slightly prominent. There is no enlargement of the tonsils or adenoids. No prevertebral soft tissue swelling or subcutaneous air is seen. The airway is patent. There is mild degenerative change at the spine. No radiopaque foreign bodies are noted. XR/XR chest 2V IMPRESSION: NO RADIOPAQUE FOREIGN BODIES. POSSIBLE MILDLY PROMINENT EPIGLOTTIS. CLINICAL CORRELATION IS RECOMMENDED. PA AND LATERAL CHEST: COMPARISON: None There is no focal parenchymal consolidation, effusion or pneumothorax. The cardiac, hilar and mediastinal silhouettes are within normal limits. There is no vascular congestion. The visualized bony thorax is intact. Mild endplate spurring is seen at the spine. No radiopaque foreign bodies are noted. IMPRESSION: NO ACUTE CARDIOPULMONARY ABNORMALITY. Impression dictated by: Jeimy Estrada M.D.07/25/2024 8:27 AM Dictation Location: [place] [address] Electronically authenticated by: [id number] Y Date: 07/25/2024 08:27
--- NOTE | 2024-07-25 08:08 | XR_ITS ---
The [address] [address] Patient Name: SY ELI MRN: [id number] date: 1950 Sex: M Assigned Patient Location: ER Current Patient Location: ER Accession/Order Number: [id number] Exam Date: 07/25/2024 08:23 Report Date: 07/25/2024 08:27 At the request of: NASEEM KO DO Procedure: XR chest 2V CLINICAL DATA: History of hiatal hernia. Difficulty keeping food down after eating chicken. Possible food stuck in esophagus. SOFT TISSUE NECK - 2 views COMPARISON: None AP and lateral views were obtained. The epiglottis appears slightly prominent. There is no enlargement of the tonsils or adenoids. No prevertebral soft tissue swelling or subcutaneous air is seen. The airway is patent. There is mild degenerative change at the spine. No radiopaque foreign bodies are noted. XR/XR soft tissue neck IMPRESSION: NO RADIOPAQUE FOREIGN BODIES. POSSIBLE MILDLY PROMINENT EPIGLOTTIS. CLINICAL CORRELATION IS RECOMMENDED. PA AND LATERAL CHEST: COMPARISON: None There is no focal parenchymal consolidation, effusion or pneumothorax. The cardiac, hilar and mediastinal silhouettes are within normal limits. There is no vascular congestion. The visualized bony thorax is intact. Mild endplate spurring is seen at the spine. No radiopaque foreign bodies are noted. IMPRESSION: NO ACUTE CARDIOPULMONARY ABNORMALITY. Impression dictated by: Jeimy Estrada M.D.07/25/2024 8:27 AM Dictation Location: [place] [address] Electronically authenticated by: [id number] Y Date: 07/25/2024 08:27
--- NOTE | 2024-07-25 08:14 | ED.GENADUL1 ---
HPI HPI - General Adult General Chief complaint: Dental/Oral Stated complaint: DIFFICULTY SWALLOWING Time Seen by Provider: 07/25/24 07:48 Source: patient Mode of arrival: walk-in Limitations: no limitations History of Present Illness HPI narrative: Patient presents to ED complaining of esophageal food bolus. He said this has happened twice in the past. At one time he was able to pass it with medication here and another time he had to go get a scope to get it taken out. He said he ate chicken last night and it got stuck. He said it has been stuck for about 12 hours. He said even his spit will come back up. He has tried everything he can try at home but has been unable to get any relief. If he tries to drink water it just stays down for a few seconds and then comes back out. Patient denies any abdominal pain or chest pain he just said he feels that something is stuck. He is alert and oriented no acute distress, airway intact. Related Data Home Medications ?Medication ?Instructions ?Recorded ?Confirmed empagliflozin 25 mg tablet 25 mg PO DAILY 07/25/24 07/25/24 (Jardiance) insulin degludec 100 unit/mL (3 14 unit subcut DAILY 07/25/24 07/25/24 mL) subcutaneous pen (Tresiba FlexTouch U-100 insulin) insulin lispro-aabc 100 unit/mL 1 sliding scale dose subcut 07/25/24 07/25/24 subcutaneous pen (Lyumjev KwikPen USEASDIRECTD U-100 Insulin) losartan 100 mg tablet 100 mg PO DAILY 07/25/24 07/25/24 magnesium 500 mg tablet 500 mg PO DAILY 07/25/24 07/25/24 metformin 1,000 mg tablet 1,000 mg PO BID 07/25/24 07/25/24 potassium 99 mg tablet 99 mg PO DAILY 07/25/24 07/25/24 simvastatin 40 mg tablet 40 mg PO .qhs 07/25/24 07/25/24 vitamin B12 1,000 mcg-folic acid 1 tab sublingual DAILY 07/25/24 07/25/24 400 mcg sublingual tablet Previous Rx's ?Medication ?Instructions ?Recorded pantoprazole 40 mg tablet,delayed 40 mg PO DAILY 8 weeks #56 tabs 07/25/24 release (Protonix) Allergies Allergy/AdvReac Type Severity Reaction Status Date / Time Penicillins Allergy Unknown Unknown Verified 07/25/24 07:27 Opioid HPI Opioid Management Most Recent Opioid Data: Last Pain Assessment 07/25/24 10:20 Review of Systems ROS Status of ROS 10 or more systems reviewed and unremarkable except as noted in history and below [facility] Medical History (Updated 07/25/24 @ 09:27 by Josseline Dai) GERD (gastroesophageal reflux disease) ?K21.9 - Gastro-esophageal reflux disease without esophagitis (ICD-10) Elevated cholesterol ?E78.00 - Pure hypercholesterolemia, unspecified (ICD-10) Hypertension ?I10 - Essential (primary) hypertension (ICD-10) Diabetes ?E11.9 - Type 2 diabetes mellitus without complications (ICD-10) Social History Little interest or pleasure in doing things: not at all Feeling down, depressed, or hopeless: not at all Exam Narrative Exam Narrative: General: alert, no acute distress Cardiovascular: regular rate and rhythm, normal peripheral perfusion. Respiratory: Lungs CTA, respirations non labored. Extremities: no deformity, no trauma. Neurological: oriented x 4, LOC appropriate for age. Abdomen soft nontender nondistended no rebound no guarding Airway intact Constitutional Vital Signs, click to edit/add: Last Vital Signs Temp 97.6 F 07/25/24 10:05 Pulse 86 07/25/24 10:05 Resp 14 07/25/24 10:05 BP 171/76 H 07/25/24 10:05 Pulse Ox 95 07/25/24 10:05 O2 Del Method Room Air 07/25/24 10:20 Course Vital Signs Vital signs: Vital Signs Temperature 98.2 F 07/25/24 07:21 Pulse Rate 91 H 07/25/24 07:21 Respiratory Rate 18 07/25/24 07:21 Blood Pressure 181/93 H 07/25/24 07:21 Pulse Oximetry 95 07/25/24 07:21 Oxygen Delivery Method Room Air 07/25/24 07:21 Temperature 97.6 F 07/25/24 10:05 Pulse Rate 86 07/25/24 10:05 Respiratory Rate 14 07/25/24 10:05 Blood Pressure 171/76 H 07/25/24 10:05 Pulse Oximetry 95 07/25/24 10:05 Oxygen Delivery Method Room Air 07/25/24 10:20 Medical Decision Making MDM Narrative Medical decision making narrative: Patient was given IV glucagon without success. He thought maybe when he vomited he relieved some of the obstruction however when we tried water again he was unable to keep anything down. He is also not able to keep secretions in. He has had this issue for 12 hours now without relief. I called and spoke to Dr. Beasley who is here in OR today. He said he would send down for the patient requested some labs and an EKG and they will do a scope to relieve the esophageal food bolus. Patient was comfortable with this care plan. Patient was sent from ED up to the OR for a scope. Patient was stable. Differential Diagnosis Differential Diagnosis: Esophageal food bolus esophageal stricture Medical Records Medical records reviewed: Yes I reviewed the patient's medical records Lab Data Lab results reviewed: Yes I reviewed the patient's lab results Labs: Lab Results 07/25/24 Range/Units 08:49 WBC 12.8 H (4.0-11.0) 10^3/uL RBC 5.55 (4.70-6.10) 10^6/uL Hgb 16.3 (14.0-18.0) g/dL Hct 50.0 (42.0-54.0) % MCV 90.1 (80.0-94.0) fL MCH 29.4 (25.9-34.0) pg MCHC 32.6 (29.9-35.2) g/dL RDW 12.6 (11.0-15.0) % Plt Count 183 (150-450) 10^3/uL MPV 11.4 (9.5-13.5) fL Neut % (Auto) 81.5 H (43.0-75.0) % Lymph % (Auto) 12.1 L (20.5-60.0) % [place]ome % (Auto) 4.9 (1.7-12.0) % Eos % (Auto) 0.6 L (0.9-7.0) % Baso % (Auto) 0.5 (0.2-2.0) % Neut # (Auto) 10.4 H (1.4-6.5) 10^3/uL Lymph # (Auto) 1.5 (1.2-3.8) 10^3/uL [place] # (Auto) 0.6 (0.3-0.8) 10^3/uL Eos # (Auto) 0.1 (0.0-0.7) 10^3/uL Baso # (Auto) 0.1 (0.0-0.1) 10^3/uL Abs Immat Gran (auto) 0.05 H (0.00-0.03) 10^3/uL Imm/Tot Granulo (auto) 0.4 (0.0-0.5) % Sodium 142 (136-145) mmol/L Potassium 4.5 (3.5-5.1) mmol/L Chloride 106 (98-107) mmol/L Carbon Dioxide 26.0 (21.0-32.0) mmol/L Anion Gap 14.5 BUN 27.0 H (7.0-18.0) mg/dL Creatinine 1.07 (0.70-1.30) mg/dL Est GFR ( Amer) >60 (>=60 mL/min/1.73m^2) Est GFR (Non-Af Amer) >60 (>=60 mL/min/1.73m^2) BUN/Creatinine Ratio 25.2 Glucose 153 H (74-106) mg/dL Calcium 9.5 (8.5-10.1) mg/dL Total Bilirubin 0.9 (0.2-1.0) mg/dL AST 25 (15-37) U/L ALT 22 (16-63) U/L Alkaline Phosphatase 63 (46-116) U/L Total Protein 6.9 (6.4-8.2) g/dL Albumin 4.1 (3.4-5.0) g/dL Globulin 2.8 g/dL Albumin/Globulin Ratio 1.5 ECG Data Attestation: ?I have reviewed the pertinent ECG results. Discharge Plan Discharge Patient Disposition: Admitted to Surgery Discharge Date/Time: 07/25/24 09:00
--- NOTE | 2024-07-25 08:37 | ECG_ITS ---
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 Measurements Intervals [place] Rate: 75 P: 36 AK: 172 QRS: 18 QRSD: 138 T: 11 QT: 396 QTc: 425 Interpretive Statements 1100 Sinus rhythm 2450 Right bundle branch block 6220 Possible left atrial enlargement 7300 Indeterminate axis 9150 abnormal ECG Compared to ECG 02/25/2022 11:52:38 Right bundle-branch block now present Left-axis deviation no longer present Electronically Signed On 07-25-2024 9:30:44 EDT by ANISHA OLMSTEAD M.D.
[2024-07-25 08:59] LABS: Basophils Absolute Auto 0.1 10^3/uL (0.0-0.1); Basophils Percent Auto 0.5 % (0.2-2.0); Eosinophils Absolute Auto 0.1 10^3/uL (0.0-0.7); Eosinophils Percent Auto 0.6 % (0.9-7.0); Hemoglobin 16.3 g/dL (14.0-18.0); Immature Granulocytes Abs Auto 0.05 10^3/uL (0.00-0.03); Immature Granulocytes Pct Auto 0.4 % (0.0-0.5); Lymphocytes Absolute Auto 1.5 10^3/uL (1.2-3.8); Lymphocytes Percent Auto 12.1 % (20.5-60.0); Mean Corpuscular HGB Conc 32.6 g/dL (29.9-35.2); Mean Corpuscular Hemoglobin 29.4 pg (25.9-34.0); Mean Corpuscular Volume 90.1 fL (80.0-94.0); Mean Platelet Volume 11.4 fL (9.5-13.5); Monocytes Absolute Auto 0.6 10^3/uL (0.3-0.8); Monocytes Percent Auto 4.9 % (1.7-12.0); Neutrophils Absolute Auto 10.4 10^3/uL (1.4-6.5); Neutrophils Percent Auto 81.5 % (43.0-75.0); Platelet Count 183 10^3/uL (150-450); Red Blood Count 5.55 10^6/uL (4.70-6.10); Red Cell Distribution Width 12.6 % (11.0-15.0); White Blood Count 12.8 10^3/uL (4.0-11.0)
[2024-07-25] MEDS: LACTATED RINGER'S SOLUTION 1,000 ML 50 ML IV (09:00)
[2024-07-25 09:19] LABS: Alanine Aminotransferase 22 U/L (16-63); Albumin Globulin Ratio 1.5; Albumin Level 4.1 g/dL (3.4-5.0); Alkaline Phosphatase 63 U/L (46-116); Anion Gap 14.5; Aspartate Amino Transferase 25 U/L (15-37); BUN Creatinine Ratio 25.2; Bilirubin Total 0.9 mg/dL (0.2-1.0); Calcium 9.5 mg/dL (8.5-10.1); Chloride 106 mmol/L (98-107); Estimated GFR (African America >60 (>=60 mL/min/1.73m^2); Estimated GFR (Non-African Ame >60 (>=60 mL/min/1.73m^2); Globulin 2.8 g/dL; Glucose 153 mg/dL (74-106); Potassium 4.5 mmol/L (3.5-5.1); Sodium 142 mmol/L (136-145); Total Protein 6.9 g/dL (6.4-8.2)
--- NOTE | 2024-07-25 09:21 | PC.NURSE ---
Emesis of foamy sputum
--- OUTSIDE RECORDS SUMMARY | 2024-07-25 09:32 | XMS_ITS | CCD ---
Author Organization [facility] Care Team Providers Care Metaphysicist Name Role Phone Whit Loja Unavailable Scally, [...] Unavailable MD Whit Loja Primary Care Provider MD Whit Loja Attending Provider Whit Loja Attending Unavailable Whit Loja Admitting Unavailable Whit Loja Primary Care Unavailable Whit Loja Primary Care Unavailable Scally, Kathryn C Admitting Unavailable Scally, Kathryn C Attending Unavailable SUZIE FISHER Attending Unavailable Allergies Allergy Classification Reported Allergen(s) Allergy Type Date of Onset Reaction(s) Facility (17 sources) Angiotensin-conv erting enzyme inhibitor agent Drug allergy Unknown inDplay Other (18 sources) Penicillin; 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: [penicillin] Drug Allergy Unknown [facility] Repository (1 source) Angiotensin Converting Enzyme (Sukh) Inhibitors Drug allergy (disorder) 12-26-2023 [facility] Repository (1 source) Penicillins Drug allergy (disorder) 07-04-2023 [facility] Repository Medications Current Medications Medication Drug Class(es) Dates Sig (Normalized) Sig (Original) Blood-Glucose Meter (True Metrix Glucose Meter) misc (1 source) Start: 07-01-2023 Blood-Glucose Meter (True Metrix Glucose Meter) misc Active 0 .Route July 01, 2023 12:00am As directed Blood-Glucose Meter,Continuous (Dexcom G7 Metaphysicist) misc (1 source) Start: 07-01-2023 Blood-Glucose Meter,Continuous (Dexcom G7 Metaphysicist) misc Active 0 .Route July 01, 2023 12:00am As directed Blood-Glucose Sensor (Dexcom G7 Sensor) device (1 source) Start: 07-01-2023 Blood-Glucose Sensor (Dexcom G7 Sensor) device Active 0 .Route July 01, 2023 12:00am As directed Dexcom G7 Metaphysicist - (16 sources) Start: 07-13-2022 Dexcom G7 Metaphysicist - Use to test BG In Vitro Daily for 365 days E11.65 Jun, Active Dexcom G7 Sensor - (20 sources) Start: 09-06-2022 Dexcom G7 Sensor - as directed [facility] Aug, Active Start: 07-13-2022 Dexcom G7 Sens or - Use to test BG In Vitro Change Every 10 days for 90 days E11.65 Jun, Active Dexcom G7 Sensor - as directed [facility] Active empagliflozin 25 mg oral tablet (8 [...] by mouth every week Cholecalciferol 1.25 MG (91018 UT) 1 capsule Orally once weekly for 56 days follow with 4000iu OTC daily Jun, Not-Taking Start: 07-12-2022 take 1 capsule by mo ut every week Cholecalciferol 1.25 MG (66961 UT) 1 capsule Orally once weekly for 56 days follow with 4000iu OTC daily Jun, Active take 1 capsule by mo ut every twenty-four hours Vitamin D3 50 MCG (2000 UT) 1 capsule Orally Once a day Active Dexcom G6 Metaphysicist - (12 sources) Start: 06-30-2022 Dexcom G6 Rece iver - as directed -- daily for 365 day [facility] Jun, Not-Taking Start: 06-30-2022 Dexcom G6 Rece iver - as directed -- daily for 365 day [facility] Jun, Active Dexcom G6 Sensor - (12 sources) Start: 06-30-2022 Dexcom G6 Sens or - as directed sub q change every 10 days for 90 days [facility] Jun, Not-Taking Start: 06-30-2022 Dexcom G6 Sens or - as directed sub q change every 10 days for 90 days [facility] Jun, Active Dexcom G6 Transmitter - (12 sources) Start: 06-30-2022 Dexcom G6 Aldridge smitter - as directed sub q change every 90 days for 90 days [facility] Jun, Not-Taking Start: 06-30-2022 Dexcom G6 Aldridge smitter - as directed sub q change every 90 days for 90 days [facility] Jun, Active Problems Active Problems Problem Classification [...] sources) Long-term current use of insulin; 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] 07-01-2023 Episodic Other aftercare (12 sources) retirement (current) use of insulin; 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: [Long-term (current) use of insulin] Onset: 09-23-2022 Episodic Other aftercare (1 source) Other fpc (current) drug therapy; 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: [OTH [facility] CURRENT DRUG THERAPY] Onset: 09-23-2022 Episodic Other aftercare (1 source) retirement (current) use of oral hypoglycemic drugs; 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: [[facility] USE ORAL HYPOGLYCEMIC DX] Onset: 09-23-2022 Episodic [...] 05-10-2023 HbA1c (Bld) [Mass fraction] 6.7 % inDplay Other Glucose - FINGER STICKon Glucose [Mass/Vol] 116 mg/dL inDplay Other HbA1c (Bld) [Mass fraction]o n 05-10-2023 A1C HEMOGLOBIN [employer] [facility] Other A1C HEMOGLOBINon 02-01-2023 HbA1c (Bld) [Mass fraction] 6.8 % inDplay Other Glucose - FINGER STICKon Glucose [Mass/Vol] 173 mg/dL in[employer] Other HbA1c (Bld) [Mass fraction]o n 02-01-2023 A1C HEMOGLOBIN [employer] [facility] [employer] Other Glucose - FINGER STICKon Glucose [Mass/Vol] 129 mg/dL in[employer]play Other CBC AUTO DIFFon 09-22-2022 BASO # 0.1 103/ul Normal 0.0-0.1 [facility] Comment on above: Performed By: #### V ITB12, VITAD #### [facility] [address] [place] [address] Dr. Ev Perez Basophils/100 WBC (Bld) 0.7 % Normal 0.2-2.0 [facility] Comment on above: Performed By: #### V ITB12, VITAD #### [facility] [address] [place] [address] Dr. Ev Perez EO # 0.2 103/ul Normal 0.0-0.7 [facility] Comment on above: Performed By: #### V ITB12, VITAD #### [facility] [address] [place] [address] Dr. Ev Perez Eosinophils/100 WBC (Bld) 1.5 % Normal 0.9-7.0 [facility] Comment on above: Performed By: #### V ITB12, VITAD #### [facility] [address] [place] [address] Dr. Ev Perez Erythrocyte distribution width (RBC) [Ratio] 12.6 % Normal 11.0-15.0 [facility] Comment on above: Performed By: #### V ITB12, VITAD #### [facility] [address] [place] [address] Dr. Ev Perez Hematocrit (Bld) [Volume fraction] 44.1 % Normal 42.0-54.0 [facility] Comment on above: Performed By: #### V ITB12, VITAD #### [facility] [address] [place] [address] Dr. Ev Perez Hemoglobin (Bld) [Mass/Vol] 15.1 g/dL Normal 14.0-18.0 [facility] Comment on above: Performed By: #### V ITB12, VITAD #### [facility] [address] [place] [address] Dr. Ev Perez IG # 0.01 10e3/ul Normal 0.00-0.03 [facility] Comment on above: Performed By: #### V ITB12, VITAD #### [facility] [address] [place] [address] Dr. Ev Perez IG % 0.1 % Normal 0.0-0.5 [facility] Comment on above: Performed By: #### V ITB12, VITAD #### [facility] [address] [place] [address] Dr. Ev Perez LYMPH # 1.5 103/ul Normal 1.2-3.8 [facility] Comment on above: Performed By: #### V ITB12, VITAD #### [facility] [address] [place] [address] Dr. Ev Perez Lymphocytes/100 WBC (Bld) 15.6 % Critically low 20.5-60.0 [facility] Comment on above: Performed By: #### V ITB12, VITAD #### [facility] [address] [place] [address] Dr. Ev Perez MANUAL DIFF REQ NO Normal [facility] Comment on above: Performed By: #### V ITB12, VITAD #### [facility] [address] [place] [address] Dr. Ev Perez MCH (RBC) [Entitic mass] 29.5 pg Normal 25.9-34.0 [facility] Comment on above: Performed By: #### V ITB12, VITAD #### [facility] [address] [place] [address] Dr. Ev Perez MCHC (RBC) [Mass/Vol] 34.2 g/dL Normal 29.9-35.2 [facility] Comment on above: Performed By: #### V ITB12, VITAD #### [facility] [address] [place] [address] Dr. Ev Perez MCV (RBC) [Entitic vol] 86.3 fL Normal 80.0-94.0 [facility] Comment on above: Performed By: #### V ITB12, VITAD #### [facility] [address] [place] [address] Dr. Ev Perez MONO # 0.6 103/ul Normal 0.3-0.8 [facility] Comment on above: Performed By: #### V ITB12, VITAD #### [facility] [address] [place] [address] Dr. Ev Perez Monocytes/100 WBC (Bld) 5.6 % Normal 1.7-12.0 [facility] Comment on above: Performed By: #### V ITB12, VITAD #### [facility] [address] [place] [address] Dr. Ev Perez NEUT # 7.4 103/ul Critically high 1.4-6.5 [facility] Comment on above: Performed By: #### V ITB12, VITAD #### [facility] [address] [place] [address] Dr. Ev Perez Neutrophils/100 WBC (Bld) 76.5 % Critically high 43.0-75.0 [facility] Comment on above: Performed By: #### V ITB12, VITAD #### [facility] [address] [place] [address] Dr. Ev Perez Platelet mean volume (Bld) [Entitic vol] 11.4 fL Normal 9.5-13.5 [facility] Comment on above: Performed By: #### V ITB12, VITAD #### [facility] [address] [place] [address] Dr. Ev Perez PLT 180 103/ul Normal 150-450 [facility] Comment on above: Performed By: #### V ITB12, VITAD #### [facility] [address] [place] [address] Dr. Ev Perez RBC 5.11 106/ul Normal 4.70-6.10 [facility] Comment on above: Performed By: #### V ITB12, VITAD #### [facility] [address] [place] [address] Dr. Ev Perez WBC 9.7 103/ul Normal 4.0-11.0 [facility] Comment on above: Performed By: #### V ITB12, VITAD #### [facility] [address] [place] [address] Dr. Ev Perez PROF CHEM 8 (BAS METB)on Anion gap [Moles/Vol] 13.9 mmol/L Normal [facility] Comment on above: Performed By: #### V ITB12, VITAD #### [facility] [address] [place] [address] Dr. Ev Perez Calcium [Mass/Vol] 9.2 mg/dL Normal 8.5-10.1 [facility] Comment on above: Performed By: #### V ITB12, VITAD #### [facility] [address] [place] [address] Dr. Ev Perez Chloride [Moles/Vol] 106 mmol/L Normal 98-107 [facility] Comment on above: Performed By: #### V ITB12, VITAD #### [facility] [address] [place] [address] Dr. Ev Perez CO2 [Moles/Vol] 24.4 mmol/L Normal 21.0-32.0 [facility] Comment on above: Performed By: #### V ITB12, VITAD #### [facility] [address] [place] [address] Dr. Ev Perez Creatinine [Mass/Vol] 0.91 mg/dL Normal 0.70-1.30 [facility] Comment on above: Performed By: #### V ITB12, VITAD #### [facility] [address] [place] [address] Dr. Ev Perez EGFR-AF CITIZEN [place] >60 Normal >=60 [facility] Comment on above: Performed By: #### V ITB12, VITAD #### [facility] [address] [place], [place] [id number] Dr. Ev Perez EGFR-NON AF CITIZEN OF [place] >60 Normal >=60 [facility] Comment on above: Performed By: #### V ITB12, VITAD #### [facility] [address] [address] [address] Ev Perez Glucose [Mass/Vol] 160 mg/dL Critically high 74-106 [facility] Comment on above: Performed By: #### V ITB12, VITAD #### [facility] [address] [address] [address] Ev Perez Potassium [Moles/Vol] 4.3 mmol/L Normal 3.5-5.1 [facility] Comment on above: Performed By: #### V ITB12, VITAD #### [facility] [address] [place] [address] Dr. Ev Perez Sodium [Moles/Vol] 140 mmol/L Normal 136-145 [facility] Comment on above: Performed By: #### V ITB12, VITAD #### [facility] [address] [place] [address] Dr. Ev Perez Urea nitrogen [Mass/Vol] 24.0 mg/dL Critically high 7.0-18.0 [facility] Comment on above: Performed By: #### V ITB12, VITAD #### [facility] [address] [place] [address] Dr. Ev Perez Urea nitrogen/Creatinine [Mass ratio] 26.4 mg/mg Normal [facility] Comment on above: Performed By: #### V ITB12, VITAD #### [facility] [address] [place] [address] Dr. Ev Perez A1C HEMOGLOBINon 09-06-2022 HbA1c (Bld) [Mass fraction] 7.5 % inDplay Other Glucose - FINGER STICKon Glucose [Mass/Vol] 126 mg/dL in[employer]play Other HbA1c (Bld) [Mass fraction]o n 09-06-2022 A1C HEMOGLOBIN [employer] [facility] [employer] Other LIPID PROFILEon 07-06-2022 CHOL-HDL RATIO NORM SEE BELOW Normal [facility] Comment on above: Result Comment: 3.3 - 4.4 LOW RISK 4.4 - 7.1 AVERAGE RISK 7.1 - 11.0 MODERATE RISK >11.0 HIGH RISK Performed By: #### T SH, LIPID, CMP #### [facility] [address] [address] [address] Ev Perez Cholesterol [Mass/Vol] 123 mg/dL Normal <=200 [facility] Comment on above: Performed By: #### T SH, LIPID, CMP #### [facility] [address] [place] [address] Dr. Ev Perez Cholesterol in HDL [Mass/Vol] 47 mg/dL Normal 40-60 [facility] Comment on above: Performed By: #### T SH, LIPID, CMP #### [facility] [address] [place] [address] Dr. Ev Perez Cholesterol in LDL [Mass/Vol] 60.4 mg/dL Normal [facility] Comment on above: Performed By: #### T SH, LIPID, CMP #### [facility] [address] [address] [address] Ev Perez Cholesterol.total/Ch olesterol in HDL [Mass ratio] 2.6 {ratio} Normal [facility] Comment on above: Performed By: #### T SH, LIPID, CMP #### [facility] [address] [place] [address] Dr. Ev Perez HDL NORMAL > or = 60 mg/dl - LOW CARDIOVASCULAR RISK <40 mg/dl - HIGH CARDIOVASCULAR RISK Normal [facility] Comment on above: Performed By: #### T SH, LIPID, CMP #### [facility] [address] [place] [address] Dr. Ev Perez LDL CALC NORMAL SEE BELOW Normal [facility] Comment on above: Result Comment: <100 mg/dl OPTIMAL 100 - 129 mg/dl NEAR OR ABOVE OPTIMAL 130 - 159 mg/dl BORDERLINE HIGH 160 - 189 mg/dl HIGH >190 mg/dl VERY HIGH Performed By: #### T SH, LIPID, CMP #### [facility] [address] [address] [address] Ev Perez Triglyceride [Mass/Vol] 78 mg/dL Normal <=150 [facility] Comment on above: Performed By: #### T SH, LIPID, CMP #### [facility] [address] [address] [address] Ev Perez VLDL CALC 15.6 mg/dL Normal [facility] Comment on above: Performed By: #### T SH, LIPID, CMP #### [facility] [address] [address] [address] Ev Perez MICROALB CREAT RATIO RANDOMo n 07-06-2022 mALB 1.3 mg/L Normal <=30.0 [facility] Comment on above: Performed By: #### M CRR #### [facility] [address] [place] [address] Dr. Ev POWERS CR RATIO 7.2 mg/g Normal 0.0-29.9 [facility] Comment on above: Performed By: #### M CRR #### [facility] [address] [address] [address] Ev Perez MALB CR RATIO RANGE SEE BELOW Normal [facility] Comment on above: Result Comment: NO M ICROALBUMINURIA 0-29 MG/G CLINICAL MICROALBUMINURIA 30-300 MG/G MACROALBUMINURIA >300 MG/G Performed By: #### M CRR #### [facility] [address] [address] [address] Ev Perez URINE CREAT 180.37 mg/dL Normal 20.00-300.00 [facility] Comment on above: Performed By: #### M CRR #### [facility] [address] [address] [address] Ev Perez PROF 14(COMP METB)on 023 Albumin [Mass/Vol] 3.6 g/dL Normal 3.4-5.0 [facility] Comment on above: Performed By: #### T SH, LIPID, CMP #### [facility] [address] [address] [address] vE Perez Albumin/Globulin [Mass ratio] 1.4 {ratio} Normal [facility] Comment on above: Performed By: #### T SH, LIPID, CMP #### [facility] [address] [address] [address] Ev Perez ALP [Catalytic activity/Vol] 66 U/L Normal 46-116 [facility] Comment on above: Performed By: #### T SH, LIPID, CMP #### [facility] [address] [address] [address] Ev Perez ALT [Catalytic activity/Vol] 35 U/L Normal 16-63 [facility] Comment on above: Performed By: #### T SH, LIPID, CMP #### [facility] [address] [place] [address] Dr. Ev Perez Anion gap [Moles/Vol] 9.2 mmol/L Normal [facility] Comment on above: Performed By: #### T SH, LIPID, CMP #### [facility] [address] [place] [address] Dr. Ev Perez AST [Catalytic activity/Vol] 30 U/L Normal 15-37 [facility] Comment on above: Performed By: #### T SH, LIPID, CMP #### [facility] [address] [place] [address] Dr. Ev Peerz Bilirubin [Mass/Vol] 0.7 mg/dL Normal 0.2-1.0 [facility] Comment on above: Performed By: #### T SH, LIPID, CMP #### [facility] [address] [place] [address] Dr. Ev Perez Calcium [Mass/Vol] 9.2 mg/dL Normal 8.5-10.1 [facility] Comment on above: Performed By: #### T SH, LIPID, CMP #### [facility] [address] [place] [address] Dr. Ev Perez Chloride [Moles/Vol] 105 mmol/L Normal 98-107 [facility] Comment on above: Performed By: #### T SH, LIPID, CMP #### [facility] [address] [address] [address] Ev Perez CO2 [Moles/Vol] 30.5 mmol/L Normal 21.0-32.0 [facility] Comment on above: Performed By: #### T SH, LIPID, CMP #### [facility] [address] [address] [address] Ev Perez Creatinine [Mass/Vol] 0.82 mg/dL Normal 0.70-1.30 [facility] Comment on above: Performed By: #### T SH, LIPID, CMP #### [facility] [address] [address] [address] Ev Perez EGFR-AF CITIZEN [place] >60 Normal >=60 [facility] Comment on above: Performed By: #### T SH, LIPID, CMP #### [facility] [address] [address] [address] Ev Perez EGFR-NON AF CITIZEN [place] >60 Normal >=60 [facility] Comment on above: Performed By: #### T SH, LIPID, CMP #### [facility] [address] [address] [address] Ev Perez Globulin (S) [Mass/Vol] 2.6 g/dL Normal [facility] Comment on above: Performed By: #### T SH, LIPID, CMP #### [facility] [address] [address] [address] Ev Perez Glucose [Mass/Vol] 194 mg/dL Critically high 74-106 [facility] Comment on above: Performed By: #### T SH, LIPID, CMP #### [facility] [address] [address] [address] Ev Perez Potassium [Moles/Vol] 4.7 mmol/L Normal 3.5-5.1 [facility] Comment on above: Performed By: #### T SH, LIPID, CMP #### [facility] [address] [address] [address] Ev Perez Protein [Mass/Vol] 6.2 g/dL Critically low 6.4-8.2 [facility] Comment on above: Performed By: #### T SH, LIPID, CMP #### [facility] [address] [place] [address] Dr. Ev Perez Sodium [Moles/Vol] 140 mmol/L Normal 136-145 [facility] Comment on above: Performed By: #### T SH, LIPID, CMP #### [facility] [address] [place] [address] Dr. Ev Perez Urea nitrogen [Mass/Vol] 16.0 mg/dL Normal 7.0-18.0 [facility] Comment on above: Performed By: #### T SH, LIPID, CMP #### [facility] [address] [place] [address] Dr. Ev Perez Urea nitrogen/Creatinine [Mass ratio] 19.5 mg/mg Normal [facility] Comment on above: Performed By: #### T SH, LIPID, CMP #### [facility] [address] [place] [address] Dr. Ev Perez TSHon 07-06-2022 TSH 1.954 uIU/mL Normal 0.358-3.740 [facility] Comment on above: Performed By: #### T GUALBERTO, LIPID, CMP #### [facility] [address] [place] [address] Dr. Ev Perez VITAMIN B12on 07-06-2022 Cobalamin (Vitamin B12) [Mass/Vol] 170.0 pg/mL Critically low 193.0-986.0 [facility] Comment on above: Performed By: #### V ITB12, VITAD #### [facility] [address] [place] [address] Dr. Ev Perez VITAMIN D 25 OHon 07-06-2022 VIT D 25-OH 21.9 ng/mL Normal [facility] Comment on above: Performed By: #### V ITB12, VITAD #### [facility] [address] [place] [address] Dr. Ev Perez VIT D RANGES SEE BELOW Normal [facility] Comment on above: Result Comment: <20 ng/mL Vit D deficient 20 - <30 ng/mL Vit D insufficient 30 - 100 ng/mL Vit D sufficient >100 ng/mL Potential Toxicity Performed By: #### V ITB12, VITAD #### [facility] [address] [address] [address] Ev Perez Glucose - FINGER STICKon Glucose [Mass/Vol] 302 mg/dL [employer] Other GLYCOHEMOGLOBIN A1Con 2022 ADA RECOMMENDATION SEE BELOW Normal [facility] Comment on above: Result Comment: ADA RECOMMENDED LIMIT 4.0 - 6.0 ADA THERAPEUTIC TARGET < 7.0 ACTION SUGGESTED > 7.0 Performed By: #### V ITB12, VITAD #### [facility] [address] [place] [address] Dr. Ev Perez Glucose [Mass/Vol] 243 mg/dL Normal [facility] Comment on above: Performed By: #### V ITB12, VITAD #### [facility] [address] [place] [address] Dr. Ev Perez HbA1c (Bld) [Mass fraction] 10.1 % Critically high 4.5-6.2 [facility] Comment on above: Performed By: #### V ITB12, VITAD #### [facility] [address] [place] [address] Dr. Ev Perez CBC AUTO DIFFon 02-25-2022 BASO # 0.1 103/ul Normal 0.0-0.1 [facility] Comment on above: Performed By: #### C BC #### [facility] [address] [place] [address] Dr. Ev Perez Basophils/100 WBC (Bld) 0.8 % Normal 0.2-2.0 [facility] Comment on above: Performed By: #### C BC #### [facility] [address] [place] [address] Dr. Ev Perez EO # 0.5 103/ul Normal 0.0-0.7 [facility] Comment on above: Performed By: #### C BC #### [facility] [address] [place] [address] Dr. Ev Perez Eosinophils/100 WBC (Bld) 6.4 % Normal 0.9-7.0 [facility] Comment on above: Performed By: #### C BC #### [facility] [address] [place] [address] Dr. Ev Perez Erythrocyte distribution width (RBC) [Ratio] 12.5 % Normal 11.0-15.0 [facility] Comment on above: Performed By: #### C BC #### [facility] [address] [place] [address] Dr. Ev Perez Hematocrit (Bld) [Volume fraction] 43.9 % Normal 42.0-54.0 [facility] Comment on above: Performed By: #### C BC #### [facility] [address] [place] [address] Dr. Ev Perez Hemoglobin (Bld) [Mass/Vol] 15.0 g/dL Normal 14.0-18.0 [facility] Comment on above: Performed By: #### C BC #### [facility] [address] [place] [address] Dr. Ev Perez IG # 0.02 10e3/ul Normal 0.00-0.03 [facility] Comment on above: Performed By: #### C BC #### [facility] [address] [place] [address] Dr. Ev Perez IG % 0.3 % Normal 0.0-0.5 [facility] Comment on above: Performed By: #### C BC #### [facility] [address] [place] [address] Dr. Ev Perez LYMPH # 2.2 103/ul Normal 1.2-3.8 [facility] Comment on above: Performed By: #### C BC #### [facility] [address] [place] [address] Dr. Ev Perez Lymphocytes/100 WBC (Bld) 30.6 % Normal 20.5-60.0 [facility] Comment on above: Performed By: #### C BC #### [facility] [address] [place] [address] Dr. Ev Perez MANUAL DIFF REQ NO Normal [facility] Comment on above: Performed By: #### C BC #### [facility] [address] [address] [address] Ev Perez MCH (RBC) [Entitic mass] 29.6 pg Normal 25.9-34.0 [facility] Comment on above: Performed By: #### C BC #### [facility] [address] [address] [address] Ev Perez MCHC (RBC) [Mass/Vol] 34.2 g/dL Normal 29.9-35.2 [facility] Comment on above: Performed By: #### C BC #### [facility] [address] [place] [address] Dr. Ev Perez MCV (RBC) [Entitic vol] 86.6 fL Normal 80.0-94.0 [facility] Comment on above: Performed By: #### C BC #### [facility] [address] [place] [address] Dr. Ev Perez MONO # 0.5 103/ul Normal 0.3-0.8 [facility] Comment on above: Performed By: #### C BC #### [facility] [address] [place] [address] Dr. Ev Perez Monocytes/100 WBC (Bld) 6.7 % Normal 1.7-12.0 [facility] Comment on above: Performed By: #### C BC #### [facility] [address] [place] [address] Dr. Ev Perez NEUT # 3.9 103/ul Normal 1.4-6.5 [facility] Comment on above: Performed By: #### C BC #### [facility] [address] [place] [address] Dr. Ev Perez Neutrophils/100 WBC (Bld) 55.2 % Normal 43.0-75.0 [facility] Comment on above: Performed By: #### C BC #### [facility] [address] [place] [address] Dr. Ev Perez Platelet mean volume (Bld) [Entitic vol] 11.9 fL Normal 9.5-13.5 [facility] Comment on above: Performed By: #### C BC #### [facility] [address] [place], [place] [address] Dr. Ev Perez PLT 154 103/ul Normal 150-450 [facility] Comment on above: Performed By: #### C BC #### [facility] [address] [place], [place] [address] Dr. Ev Perez RBC 5.07 106/ul Normal 4.70-6.10 [facility] Comment on above: Performed By: #### C BC #### [facility] [address] [place], [place] [address] Dr. Ev Perez WBC 7.1 103/ul Normal 4.0-11.0 [facility] Comment on above: Performed By: #### C BC #### [facility] [address] [place], [place] [address] STROKE HEAD WOon [...] acute abnormality is not identified. Normal [facility] PROF 14(COMP METB)on 022 Albumin [Mass/Vol] 3.7 g/dL Normal 3.4-5.0 [facility] Comment on above: Performed By: #### C MP #### [facility] [address] [place] [address] Dr. Ev Perez Albumin/Globulin [Mass ratio] 1.3 {ratio} Normal [facility] Comment on above: Performed By: #### C MP #### [facility] [address] [address] [address] Ev Perez ALP [Catalytic activity/Vol] 61 U/L Normal 46-116 [facility] Comment on above: Performed By: #### C MP #### [facility] [address] [place] [address] Dr. Ev Perez ALT [Catalytic activity/Vol] 39 U/L Normal 16-63 [facility] Comment on above: Performed By: #### C MP #### [facility] [address] [place] [address] Dr. Ev Perez Anion gap [Moles/Vol] 11.9 mmol/L Normal [facility] Comment on above: Performed By: #### C MP #### [facility] [address] [place] [address] Dr. Ev Perez AST [Catalytic activity/Vol] 27 U/L Normal 15-37 [facility] Comment on above: Performed By: #### C MP #### [facility] [address] [place] [address] Dr. Ev Perez Bilirubin [Mass/Vol] 1.2 mg/dL Critically high 0.2-1.0 [facility] Comment on above: Performed By: #### C MP #### [facility] [address] [place] [address] Dr. Ev Perez Calcium [Mass/Vol] 9.1 mg/dL Normal 8.5-10.1 [facility] Comment on above: Performed By: #### C MP #### [facility] [address] [place] [address] Dr. Ev Perez Chloride [Moles/Vol] 103 mmol/L Normal 98-107 [facility] Comment on above: Performed By: #### C MP #### [facility] [address] [address] [address] Ev Perez CO2 [Moles/Vol] 25.9 mmol/L Normal 21.0-32.0 [facility] Comment on above: Performed By: #### C MP #### [facility] [address] [address] [address] Ev Perez Creatinine [Mass/Vol] 0.91 mg/dL Normal 0.70-1.30 [facility] Comment on above: Performed By: #### C MP #### [facility] [address] [address] [address] Ev Perez EGFR-AF CITIZEN OF [place] >60 Normal >=60 [facility] Comment on above: Performed By: #### C MP #### [facility] [address] [address] [address] Ev Perez EGFR-NON AF CITIZEN OF [place] >60 Normal >=60 [facility] Comment on above: Performed By: #### C MP #### [facility] [address] [address] [address] Ev Perez Globulin (S) [Mass/Vol] 2.9 g/dL Normal [facility] Comment on above: Performed By: #### C MP #### [facility] [address] [address] [address] Ev Perez Glucose [Mass/Vol] 269 mg/dL Critically high 74-[address] [facility] Comment on above: Performed By: #### C MP #### [facility] [address] [address] [address] Ev Perez Potassium [Moles/Vol] 4.8 mmol/L Normal 3.5-5.1 [facility] Comment on above: Performed By: #### C MP #### [facility] [address] [address] [address] Ev Perez Protein [Mass/Vol] 6.6 g/dL Normal 6.4-8.2 [facility] Comment on above: Performed By: #### C MP #### [facility] [address] [place] [address] Dr. Ev Perez Sodium [Moles/Vol] 136 mmol/L Normal 136-145 [facility] Comment on above: Performed By: #### C MP #### [facility] [address] [place] [address] Dr. Ev Perez Urea nitrogen [Mass/Vol] 15.0 mg/dL Normal 7.0-18.0 [facility] Comment on above: Performed By: #### C MP #### [facility] [address] [place] [address] Dr. Ev Perez Urea nitrogen/Creatinine [Mass ratio] 16.5 mg/mg Normal [facility] Comment on above: Performed By: #### C MP #### [facility] [address] [place] [address] Dr. Ev Perez PROTIMEon 02-25-2022 INR Coag (PPP) [Relative time] 1.03 {INR} Normal [facility] Comment on above: Performed By: #### P T, PTT #### [facility] [address] [place] [address] Dr. Ev Perez INR GUIDELINES SEE BELOW Normal [facility] Comment on above: Result Comment: JESUS RED INR: 2.0 - 3.0 CONDITIONS NOT LISTED BELOW 2.5 - 3.5 FOR PROSTHETIC HEART VALVE REPLACEMENT 2.5 - 3.5 RECURRENT THROMBOSIS Performed By: #### P T, PTT #### [facility] [address] [place] [address] Dr. Ev Perez PT Coag (PPP) [Time] 11.1 s Normal 9.0-11.6 [facility] Comment on above: Performed By: #### P T, PTT #### [facility] [address] [place] [address] Dr. Ev Perez PTTon 02-25-2022 aPTT Coag (Bld) [Time] 26.5 s Normal 22.3-36.2 [facility] Comment on above: Performed By: #### V ITB12, VITAD #### [facility] [address] [place] [address] Dr. Ev Perez TROPONIN, HIGH SENSITIVITYon 02-25-2022 HSTROP 7.0 pg/mL Normal 4.0-76.1 [facility] Comment on above: Result Comment: CUT- OFF POINTS HAVE BEEN ESTABLISHED BASED ON THE FOURTH UNIVERSAL DEFINITIONS OF MYOCARDIAL INFARCTION. THE UPPER REFERENCE LIMIT (URL) OF TROPONIN, DEFINED THE 99TH PERCENTILE OF cTnI DISTRIBUTION IN A REFERENCE POPULATION, HAS BEEN CONFIRMED THE DECISION THRESHOLD FOR [place] DIAGNOSIS. Performed By: #### V ITB12, VITAD #### [facility] [address] [address] [address] Ev Perez GLYCOHEMOGLOBIN A1Con 2021 ADA RECOMMENDATION SEE BELOW Normal [facility] Comment on above: Result Comment: ADA RECOMMENDED LIMIT 4.0 - 6.0 ADA THERAPEUTIC TARGET < 7.0 ACTION SUGGESTED > 7.0 Performed By: #### V ITB12, VITAD #### [facility] [address] [address] [address] Ev Perez Glucose [Mass/Vol] 258 mg/dL Normal [facility] Comment on above: Performed By: #### V ITB12, VITAD #### [facility] [address] [address] [address] Ev Perez HbA1c (Bld) [Mass fraction] 10.6 % Critically high 4.5-6.2 [facility] Comment on above: Performed By: #### V ITB12, VITAD #### [facility] [address] [address] [address] Ev Perez Vital Signs Date Time Vital Sign Value Performing Clinician Facility 07-04-2023 12:26-0500 Diastolic blood pressure 72 mm[Hg] MD Whit Loja Work Phone: [facility] 07-04-2023 12:26-0500 Systolic blood pressure 148 mm[Hg] MD Whit Loja Work Phone: [facility] 07-04-2023 11:37-0500 Body height 168.91 cm MD Whit Loja Work Phone: [facility] 07-04-2023 11:37-0500 Body mass index (BMI) [Ratio] 27.8 kg/m2 MD Whit Loja Work Phone: [facility] 07-04-2023 11:37-0500 Body weight 79.43 kg MD Whit Loja Work Phone: [facility] 07-04-2023 11:37-0500 Heart rate 70 /min MD Whit Loja Work Phone: [facility] 07-04-2023 11:37-0500 Respiratory rate 18 /min MD Whit Loja Work Phone: [facility] 07-04-2023 11:37-0500 SaO2% (BldA) [Mass fraction] 95 % MD Whit Loja Work Phone: [facility] 05-10-2023 10:15-0500 Body height 168.91 cm Kathryn Scally Other [facility] 05-10-2023 10:15-0500 Body mass index (BMI) [Ratio] 27.28 kg/m2 Kathryn Scally Other [facility] Other 05-10-2023 10:15-0500 Body weight 77.84 kg Kathryn Scally Other [employer] [facility] Other 05-10-2023 10:15-0500 Body weight 77.83 kg MD Whit Loja Work Phone: [facility] 05-10-2023 10:15-0500 Diastolic blood pressure 84 mm[Hg] Kathryn Scally Other [facility] 05-10-2023 10:15-0500 Respiratory rate 18 /min Kathryn Scally Other [facility] Other 05-10-2023 10:15-0500 SaO2% (BldA) [Mass fraction] 95 % Kathryn Scally Other [facility] Other 05-10-2023 10:15-0500 Systolic blood pressure 144 mm[Hg] Kathryn Scally Other [facility] 02-01-2023 10:15-0400 Body height 168.91 cm Kathryn Scally Other [facility] Other 02-01-2023 10:15-0400 Body mass index (BMI) [Ratio] 28.69 kg/m2 Kathryn Scally Other [facility] Other 02-01-2023 10:15-0400 Body weight 81.87 kg Kathryn Scally Other [facility] Other 02-01-2023 10:15-0400 Diastolic blood pressure 74 mm[Hg] Kathryn Scally Other [facility] Other 02-01-2023 10:15-0400 Respiratory rate 18 /min Kathryn Scally Other [facility] Other 02-01-2023 10:15-0400 SaO2% (BldA) [Mass fraction] 97 % Kathryn Scally Other [facility] Other 02-01-2023 10:15-0400 Systolic blood pressure 142 mm[Hg] Kathryn Scally Other [facility] Other 12-29-2022 11:45-0400 Body height 168.91 cm Whit Loja Other [facility] Other 12-29-2022 11:45-0400 Body mass index (BMI) [Ratio] 30.05 kg/m2 Whit Loja Other [facility] Other 12-29-2022 11:45-0400 Body weight 85.73 kg Whit Loja Other [facility] Other 12-29-2022 11:45-0400 Diastolic blood pressure 78 mm[Hg] Whit Loja Other [facility] Other 12-29-2022 11:45-0400 Systolic blood pressure 142 mm[Hg] Whit Loja Other [facility] Other 11-25-2022 11:00-0400 Body height 168.91 cm Whit Loja Other [facility] Other 11-25-2022 11:00-0400 Body mass index (BMI) [Ratio] 28.61 kg/m2 Whit Loja Other [facility] Other 11-25-2022 11:00-0400 Body weight 81.65 kg Whit Loja Other [facility] Other 11-25-2022 11:00-0400 Diastolic blood pressure 71 mm[Hg] Whit Loja Other [facility] Other 11-25-2022 11:00-0400 Systolic blood pressure 138 mm[Hg] Whit Loja Other [facility] Other 10-26-2022 12:45-0400 Body height 168.91 cm Kathryn Resendiz Other [facility] Other 10-26-2022 12:45-0400 Body mass index (BMI) [Ratio] 28.44 kg/m2 Kathryn Scally Other [facility] Other 10-26-2022 12:45-0400 Body weight 81.15 kg Kathryn Scally Other [facility] Other 10-26-2022 12:45-0400 Diastolic blood pressure 74 mm[Hg] Kathryn Scally Other [facility] Other 10-26-2022 12:45-0400 Respiratory rate 18 /min Kathryn Scally Other [facility] Other 10-26-2022 12:45-0400 SaO2% (BldA) [Mass fraction] 97 % Kathryn Scally Other [facility] Other 10-26-2022 12:45-0400 Systolic blood pressure 138 mm[Hg] Kathryn Scally Other [facility] Other 09-06-2022 11:15-0400 Body height 168.91 cm Kathryn Scally Other [facility] Other 09-06-2022 11:15-0400 Body mass index (BMI) [Ratio] 28.92 kg/m2 Kathryn Scally Other [facility] Other 09-06-2022 11:15-0400 Body weight 82.51 kg Kathryn Scally Other [facility] Other 09-06-2022 11:15-0400 Diastolic blood pressure Kathryn Scally Other [facility] Other 09-06-2022 11:15-0400 Respiratory rate 18 /min Kathryn Scally Other [facility] Other 09-06-2022 11:15-0400 SaO2% (BldA) [Mass fraction] 95 % Kathryn Scally Other [facility] Other 09-06-2022 11:15-0400 Systolic blood pressure 148 mm[Hg] Kathryn Scally Other [facility] Other 06-30-2022 12:00-0500 Body height 168.91 cm Kathryn Scally Other [facility] Other 06-30-2022 12:00-0500 Body mass index (BMI) [Ratio] 29.38 kg/m2 Kathryn Scally Other [facility] Other 06-30-2022 12:00-0500 Body weight 83.83 kg Kathryn Scally Other [facility] Other 06-30-2022 12:00-0500 Diastolic blood pressure 84 mm[Hg] Kathryn Scally Other [facility] Other 06-30-2022 12:00-0500 Respiratory rate 18 /min Kathryn Scally Other [facility] Other 06-30-2022 12:00-0500 SaO2% (BldA) [Mass fraction] 95 % Kathryn Scally Other [facility] Other 06-30-2022 12:00-0500 Systolic blood pressure 152 mm[Hg] Kathryn Scally Other [facility] Other 05-28-2022 11:00-0500 Body height 168.91 cm Whit Loja Other [facility] Other 05-28-2022 11:00-0500 Body mass index (BMI) [Ratio] 29.09 kg/m2 Whit Loja Other [facility] Other 05-28-2022 11:00-0500 Body weight 83.01 kg Whit Loja Other [facility] Other 05-28-2022 11:00-0500 Diastolic blood pressure 82 mm[Hg] Whit Loja Other [facility] Other 05-28-2022 11:00-0500 SaO2% (BldA) [Mass fraction] 98 % Whit Loja Other [facility] Other 05-28-2022 11:00-0500 Systolic blood pressure 140 mm[Hg] Whit Loja Other [facility] Other Encounters Encounter Date Encounter Type Care Provider Facility Start: 11-29-2023 End: 11-29-2023 ambulatory SUZIE FISHER Not Available Start: 07-04-2023 ambulatory Whit Loja Facility :[facility] Start: 07-04-2023 End: 07-04-2023 Patient encounter procedure MD Whit Loja Work Phone: [facility] Work Phone: Start: 05-19-2023 End: 05-19-2023 ambulatory Kathryn Resendiz Other [facility] Other Start: 05-19-2023 Telephone encounter Kathryn [facility] Start: 05-10-2023 (DM) Diabetes Kathryn savage [facility] Start: 05-10-2023 End: 05-11-2023 ambulatory MD Whit Loja Work Phone: [employer] Other Start: 05-10-2023 End: 05-10-2023 Discharged Recurring MD Whit Loja Work Phone: [facility] Work Phone: Start: 05-10-2023 End: 05-10-2023 Patient encounter procedure MD Whit Loja Work Phone: [facility] Work Phone: Start: 03-29-2023 End: 03-29-2023 ambulatory Kathryn Resendiz Other [facility] Other Start: 03-29-2023 Nursing evaluation o f patient and report Kathryn Resendiz [facility] Start: 02-01-2023 (DM) Diabetes Kathryn Resendiz [facility] Start: 02-01-2023 End: 02-01-2023 ambulatory Kathryn Resendiz Other [facility] Other Start: 12-29-2022 End: 12-29-2022 ambulatory Whit Loja Other [facility] Other Start: 12-29-2022 Office outpatient vi sit 15 minutes Whit Loja [facility] Start: 12-27-2022 End: 12-27-2022 ambulatory Whit Loja Other [facility] Other Start: 12-27-2022 Telephone encounter Whit Loja [facility] Start: 11-25-2022 End: 11-25-2022 ambulatory Whit Loja Other [facility] Other Start: 11-25-2022 Patient encounter procedure Whit Loja [facility] Start: 10-26-2022 (PUMP/CGM) Pump / Sensor Kathryn Resendiz [facility] Start: 10-26-2022 End: 10-26-2022 ambulatory Kathryn Resendiz Other [facility] Other Start: 10-19-2022 End: 10-19-2022 ambulatory Whit Loja Other [facility] Other Start: 10-19-2022 Telephone encounter Whit Freedom [facility] Start: 10-18-2022 End: 10-18-2022 ambulatory Whit Loja Other [facility] Other Start: 10-18-2022 Telephone encounter Whit Loja [facility] Start: 09-22-2022 End: 09-22-2022 ambulatory DAMON RANJAN Facility: Start: 09-06-2022 (PUMP/CGM) Pump / Sensor Kathryn Resendiz [facility] Start: 09-06-2022 End: 09-06-2022 ambulatory Kathryn Resendiz Other [facility] Other Start: 07-29-2022 End: 07-29-2022 ambulatory Kathryn Resendiz Other [facility] Other Start: 07-29-2022 Nursing evaluation o f patient and report Kathryn Resendiz [facility] Start: 07-13-2022 End: 07-13-2022 ambulatory Kathryn Salasly Other [facility] Other Start: 07-13-2022 Telephone encounter Kathryndiane Salasly [facility] [place] [facility] Start: 07-06-2022 Telephone encounter Kathryn Josuely [facility] Start: 07-06-2022 End: 07-07-2022 ambulatory KATHRYN SCALLY [employer] Other Start: 07-05-2022 End: 07-05-2022 ambulatory Kathryn Scally Other [facility] Other Start: 07-05-2022 Telephone encounter Kathryn gage [facility] Start: 06-30-2022 (New DM) New Diabetes Kathryn Resendiz [facility] Start: 06-30-2022 End: 06-30-2022 ambulatory Kathryn Resendiz Other [facility] Other Start: 05-28-2022 End: 05-28-2022 ambulatory Whit Loja Other [facility] Other Start: 05-28-2022 Office outpatient vi sit 15 minutes Whit Loja [facility] Start: 05-24-2022 Adult health examination Whit Loja Other [facility] Other Start: 05-24-2022 End: 05-25-2022 ambulatory NONE LISTED REQUEST Facility:[facility] Start: 02-25-2022 End: 02-25-[address] CARMELO PRUITT Facility:[facility] Start: 12-09-2021 End: 12-10-2021 ambulatory NONE LISTED REQUEST Facility: Payers Date Payer Category Payer Self-pay 1960 Medicare [id number] 1960 Self-pay [id number] 1950 Unknown [id number] 1950 Unknown [id number] 1950 Unknown [id number] 1950 Unknown [id number] [id number] Unknown [id number] 2..84 [id number] Unknown [id number] [id number] Unknown [id number] 2.16.8 [id number] Unknown [id number] [id number] Social History Date Type Detail Facility Unknown if ever smoked [facility] Other Sex Assigned At Sex Assigned At Bir th [facility] Other Start: 1950 Sex Assigned At Male F [facility] Medical Equipment Procedure Code Equipment Code [...] diabetes mellitus with hyperglycemia (ICD-10 - E11.65) [employer] Other 12-26-2023 Evaluation note* Encounter Date Diagnosis [...] Prescriptions: Request refills for Metformin 05-10-2023 uses [facility]. Apr, Vitamin D deficiency (ICD-10 - E55.9) [...] if sustained above goal notify PCP Apr, retirement current use of insulin (ICD-10 - Z79.4) Apr, Insulin long-term use (ICD-10 - Z79.4) Apr, Hyperlipidemia LDL goal <100 (ICD-10 - E78.5) Learning About High Cholesterol material was published to portal Apr, Vitamin B 12 deficiency (ICD-10 - E53.8) OTC B12 sublingually 1000 mcg daily. Apr, BMI 27.0-27.9,adult (ICD-10 - Z68.27) Apr, Other Learning About High Cholesterol material was published to [employer] Other 11-14-2023 Evaluation note* Encounter Date Diagnosis [...] findings with him by Elis Borrego RN, [facility]. [employer] Other 09-19-2023 Evaluation note* Encounter Date Diagnosis [...] systolic under 130, diastolic under 80. 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 Jan, Other [employer] About High Cholesterol material was published to portal [employer] Other 08-16-2023 Evaluation note* Encounter Date Diagnosis [...] avoid open toed shoes. Check feet daily. [facility] Other 07-13-2023 Evaluation note* Encounter Date Diagnosis [...] >10. Continue to follow with diabetes clinic. [facility] Other 06-13-2023 Evaluation note* Encounter Date Diagnosis [...] systolic under 130, diastolic under 80. 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) [...] High Cholesterol material was published to portal [employer] Other 06-06-2023 Evaluation note* Encounter Date Diagnosis Assessment Notes Treatment Notes Treatment Clinical Notes Oct, Type 2 diabetes mellitus with hyperglycemia (ICD-10 - E11.65) [employer] Other 06-05-2023 Evaluation note* Encounter Date Diagnosis Assessment Notes Treatment Notes Treatment Clinical Notes Oct, Type 2 diabetes mellitus with hyperglycemia (ICD-10 - E11.65) [employer] Other 04-24-2023 Evaluation note* Encounter Date Diagnosis [...] About Healthy Weight material was published to [employer] Aug, HTN (hypertension) (ICD-10 - I10) High Blood Pressure: Care Instructions material was published to portal Above goal today, discussed goal of <130/80-- Could lconsider Jardiance Aug, retirement current use of insulin (ICD-10 - Z79.4) Aug, Insulin long-term use (ICD-10 - Z79.4) Aug, Hyperlipidemia LDL goal <100 (ICD-10 - E78.5) Learning About High Cholesterol material was published to [employer] Aug, BMI 28.0-28.9,adult (ICD-10 - Z68.28) Aug, Vitamin B 12 deficiency (ICD-10 - E53.8) OTC B12 sublingually 1000 mcg daily. Aug, Other Learning About High Cholesterol material was published to [employer] Other 03-16-2023 Evaluation note* Encounter Date Diagnosis [...] Educating the pateint by Elis Borrego RN, [facility]. 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 Any developing patterns. Stay well hydrated. 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 Type 2 diabetes mellitus with hyperglycemia acute Vitamin B 12 deficiency acut e Vitamin D deficiency acute [facility] Work Phone: History general Narrative - [...] See Above Hospitalization History More[place]'s Palsy 02/2022 [employer] Other History general Narrative - Reported* Type [...] Hospitalization History [facility]- [facility] [place] [facility] Other Reason for visit NarrativeDM 3 month F/U, Referral Whit [employer]j[facility] Other Reason for visit NarrativeDM, DM 3 month F/U, Referral Whit Loj[facility] Other Reason for Referral Reason 06/30/22 Type 2 di abetes. A1C 10.1 Diagnosis 1 Hyperglycemia due to type 2 diabetes mellitus (E11.65) Referral Organization [facility] Referring Provider First Name Whit Referring Provider Last Name Freedom Referring Provider Specialty [facility] Referred Organization [facility] Referred Provider Kathryn Resendiz Referred Address [address],[place], [place],[address] Referred Provider Specialty Nurse Glenn melendez Referral [...] DATE CREATED AUTHOR AUTHOR'S ORGANIZ ATION 07/05/2023 [facility] DATE CREATED AUTHOR AUTHOR'S ORGANIZ ATION 12/03/2023 [facility] [employer] Care Teams (unrecognized sec tion and content) Team Status: Active Member Role Status Dates Whit Loja MD Primary Care Provider Active Team Status: Inactive Member Role Status Dates Kathryn Resendiz APRN Attending Provider Active Start: May 10, 2023 End: May 10, 2023 Team Status: Inactive Member Role Status Dates Whit Loja MD Primary Care Provide r, Attending [...] BE BASED ON THE PRIMARY CLINICAL RECORDS. [employer] provides no warranty or guarantee of the accuracy or completeness of information in this document.
== END 2024-07-25 11:05 | disposition home or self-care (01) ==
LOC: ER 08:42 → SURGOUT 09:16
PROVIDERS: Emergency Provider Emergency Medicine; PCP Family Medicine; Visit Provider Surgery
PROC: (CPT 43247; principal; 2024-07-25 09:00)
DX: T18.128A Food in esophagus causing other injury, initial encounter (principal); W44.F3XA Food entering into or through a natural orifice, initial encounter; E11.9 Type 2 diabetes mellitus without complications; Z79.4 Long term (current) use of insulin; I10 Essential (primary) hypertension; E78.5 Hyperlipidemia, unspecified; Z79.84 Long term (current) use of oral hypoglycemic drugs; E66.9 Obesity, unspecified; K21.00 Gastro-esophageal reflux disease with esophagitis, without bleeding; Z68.28 Body mass index [BMI] 28.0-28.9, adult
CPT/HCPCS: 43247; 36415; 70360; 71046; 80053; 85025; 93005; 96374; 99285; J0330; J1100; J1610; J2250; J2405; J2704

== ENCOUNTER 2024-11-07 10:30 | Outpatient (OUT) | payer MEDICARE, SELFPAY ==
--- OUTSIDE RECORDS SUMMARY | 2024-11-07 10:49 | XMS_ITS | CCD ---
Author Organization [facility] Care Team Providers Care Bible Teacher Name Role Phone Whit Loja Unavailable ScalKathryn mills Unavailable DAMON WOODRUFF Admitting Unavailable DAMON WOODRUFF Consulting Unavailable DAMON WOODRUFF Attending Unavailable FREEDOM, DR WHIT [facility] Unavailable REINECK, DR CARMELO Santacruz Admitting Unavailabl e REINECK, DR CARMELO Santacruz Consulting Unavailabl e REINECK, DR CARMELO Santacruz Attending Unavailabl e LOJA, DR WHIT [facility] Unavailable CHAD MIRANDA Consulting Unavailable REQUEST, NONE LISTED Attending Unavaila ble FREEDOM, DR WHIT [facility] Unavailable REQUEST, NONE LISTED Admitting Unavaila ble REQUEST, NONE LISTED Consulting Unavaila ble REQUEST, NONE LISTED Attending Unavaila ble LOJA, DR WHIT [facility] Unavailable REQUEST, NONE LISTED Admitting Unavaila ble REQUEST, NONE LISTED Consulting Unavaila ble SCALLY, KATHRYN Admitting Unavailable SCALLY, KATHRYN Consulting Unavailable SCALLY, KATHRYN Attending Unavailable FREEDOM, DR WHIT [facility] Unavailable MD Whit Loja Primary Care Provider MD Whit Loja Attending Provider [phone] Whit Loja Attending Unavailable Whit Loja Admitting Unavailable Whit Loja Primary Care Unavailable Whit Loja Primary Care Unavailable Scally, Kathryn C Admitting Unavailable Scally, Kathryn C Attending Unavailable SUZIE FISHER Attending Unavailable Chad BOX Attending Unavailable Allergies Allergy Classification Reported Allergen(s) Allergy Type Date of Onset Reaction(s) Facility (17 sources) Angiotensin-con verting enzyme inhibitor agent Drug allergy Unknown [facility] Other (18 sources) Penicillin; 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: [penicillin] Drug Allergy Unknown [facility] Repository (1 source) Angiotensin Converting Enzyme (Sukh) Inhibitors Drug allergy (disorder) 12-26-202 3 [facility] Repository (6 sources) Penicillins Drug allergy (disorder) 4 Unknown Reaction [facility] Repository Comment on above: Pt is unsure of reac tion as this was discovered early in childhood. (5 sources) ozempic Propensity to adverse reactions 4 depression [facility] Comment on above: loss of interest, le tharaldair Medications Current Medications Medication Drug Class(es) Dates Sig (Normalized) Sig (Original) Blood-Glucose Meter (Onetouch Ultra2 Meter) misc (5 sources) Start: 08-01-2024 Blood-Glucose Meter (Onetouch Ultra2 Meter) misc Active 0 .Route August 01, 2024 12:00am As directed Start: 08-01-2024 Blood-Glucose Meter (Onetouch Ultra2 Meter) misc Active 0 .ROUTE August 01, 2024 12:00am As directed Blood-Glucose Meter,Continuo us (Dexcom G7 Pusher Runner) misc (3 sources) Start: 07-01-2023 Blood-Glucose Meter,Continuous (Dexcom G7 Pusher Runner) misc Active 0 .Route July 01, 2023 1:00am As directed Start: 07-01-2023 Blood-Glucose Meter,Continuous (Dexcom G7 Pusher Runner) misc Active 0 .Route July 01, 2023 12:00am As directed Blood-Glucose Sensor (Dexcom G7 Sensor) device (11 sources) Start: 05-11-2024 Blood-Glucose Sensor (Dexcom G7 Sensor) device Active 0 .ROUTE .COMPLEX 9 May 11, 2024 9:30am CHANGE every 10 DAYS as directed Start: 07-01-2023 End: 05-11-2024 Blood-Glucose Sensor (Dexcom G7 Sensor) device Discontinued 0 .Route July 01, 2023 1:00am May 11, 2024 9:30am As directed Start: 07-01-2023 Blood-Glucose Sensor (Dexcom G7 Sensor) device Active 0 .Route July 01, 2023 12:00am As directed Blood-Glucose,Pusher Runner,Cont (Dexcom G7 Pusher Runner) misc (3 sources) Start: 07-01-2023 Blood-Glucose,Pusher Runner,Cont (Dexcom G7 Pusher Runner) misc Active 0 .Route July 01, 2023 1:00am As directed cholecalciferol 0.05 mg oral capsule (20 sources) Vitamin D Start: 10-04-2023 take 1 capsule by mouth once daily Cholecalciferol (Vitamin D3) 50 mcg (2,000 unit) capsule Active 50 MCG PO Daily October 04, 2023 12:00am Start: 07-12-2022 take 1 capsule by mo uth every week Cholecalciferol 1.25 MG (18342 UT) 1 capsule Orally once weekly for 56 days follow with 4000iu OTC daily Jun, Not-Taking Start: 07-12-2022 take 1 capsule by mo uth every week Cholecalciferol 1.25 MG (56614 UT) 1 capsule Orally once weekly for 56 days follow with 4000iu OTC daily Jun, Active take 1 capsule by mo uth every twenty-four hours Vitamin D3 50 MCG (2000 UT) 1 capsule Orally Once a day Active Dexcom G7 Pusher Runner - (16 sources) Start: 07-13-2022 Dexcom G7 Rece iver - Use to test BG In Vitro Daily for 365 days E11.65 Jun, Active Dexcom G7 Sensor - (20 sources) Start: 09-06-2022 Dexcom G7 Sens or - as directed [facility] Aug, Active Start: 07-13-2022 Dexcom G7 Sens or - Use to test BG In Vitro Change Every 10 days for 90 days E11.65 Jun, Active Dexcom G7 Sensor - as directed [facility] Active Fish Oils (2 sources) take 1 [...] MEAL BLOOD SUGARS Active 3 ml insulin aspart, human 100 unt/ml pen injector (1 source) Insulin Analog Start: 10-24-2024 Insulin Aspart (Niacinamide) (Fiasp Flextouch U-100 Insulin) 100 unit/mL (3 mL) insulin pen Active 1 sliding scale dose SUBCUT Use as Directed October 24, 2024 12:00am Insulin Degludec (Tresiba Flextouch U-100) 100 unit/mL (3 mL) insulin pen (6 sources) Start: 10-24-2024 Insulin Degludec (Tresiba Flextouch U-100) 100 unit/mL (3 mL) insulin pen Active 13 UNIT SUBCUT Daily October 24, 2024 11:14am Start: 08-01-2024 End: 10-24-2024 Insulin Degludec (Tresiba Fl extouch U-100) 100 unit/mL (3 mL) insulin pen Discontinued 14 UNIT SUBCUT Daily August 01, 2024 12:00am October 24, 2024 11:18am Start: 08-01-2024 Insulin Deglud ec (Tresiba Flextouch U-100) 100 unit/mL (3 mL) insulin pen Active 14 UNIT SUBCUT Daily August 01, 2024 12:00am 3 ml insulin lispro-aabc 100 unt/ml pen [...] for 90 days Jun, Active losartan potassium 100 mg oral tablet (20 sources) Angiotensin 2 Receptor Natalia Start: 03-12-2024 End: 05-23-2024 take 1 tablet by mouth once daily Losartan 100 mg tablet Active 100 MG PO Daily May 23, 2024 3:20pm Start: 12-20-2023 End: 03-12-2024 take 1 tablet by mouth once daily Losartan 50 mg tablet Discontinued 0 .ROUTE .COMPLEX December 20, 2023 1:52pm March 12, 2024 3:59pm TAKE 1 TABLET BY MOUTH EVERY DAY Start: 09-26-2023 End: 12-20-2023 take 1 tablet by mouth once daily Losartan 50 mg tablet Discontinued 50 MG PO daily September 26, 2023 12:00am December 20, 2023 1:52pm take 1 tablet by tj th once daily Losartan Potassium 25 mg TAKE ONE TABLET BY MOUTH ONCE DAILY for 90 Active Magnesium (17 sources) take 1 tablet by tj th once daily Magnesium 400 MG 1 tablet with a meal Orally Once a day Active Magnesium - as d irected Orally Active magnesium oxide 400 mg oral tablet (5 sources) Start: 10-04-2023 take 1 tablet by mouth once daily Magnesium Oxide 400 mg (241.3 mg magnesium) tablet Active 400 MG PO Daily October 04, 2023 12:00am mecobalamin 1 mg chewable tablet (5 sources) Start: 10-04-2023 take 1 tablet by mouth once daily Mecobalamin (Vitamin B12) 1,000 mcg tablet,chewable Active 1000 MCG PO Daily October 04, 2023 12:00am metFORMIN hydrochloride 1000 mg oral tablet (20 sources) Biguanide Start: 11-04-2023 End: 04-19-2024 take 1 tablet by mouth twice daily at mealtime Metformin 1,000 mg tablet Active 0 .ROUTE .COMPLEX 180 April 19, 2024 9:03am TAKE 1 TABLET BY MOUTH TWICE A DAY WITH MEALS FOR 90 DAYS Start: 07-01-2023 End: 11-04-2023 take 1 tablet by mouth twice daily at mealtime Metformin 1,000 mg tablet Discontinued 1000 MG PO Twice daily with meals July 01, 2023 1:00am November 04, 2023 1:35pm metFORMIN HCl 10 00 MG 1 tablet with a meals BID Orally Twice a day for 90 days Active Wearable Intelligence w/Device (17 sources) Myoonet ini w/Device as directed Active pioglitazone 15 mg oral tablet (1 source) Peroxisome Proliferator Receptor alpha Agonist, Peroxisome Proliferator Receptor gamma Agonist, Thiazolidinedione Start: 025 take 1 tablet by mouth once daily Pioglitazone 15 mg tablet Active 15 MG PO Daily October 24, 2024 12:00am potassium 99 mg extended release oral tablet (2 sources) take 1 tablet by mouth once daily Potassium 99 MG 1 tablet Orally Once a day Active potassium gluconate 2.5 meq oral tablet (5 sources) Start: 024 take 1 tablet by mouth once daily Potassium Gluconate 595 mg (99 mg) tablet Active 595 MG PO Daily October 04, 2023 12:00am simvastatin 40 mg oral tablet (20 sources) HMG-CoA Reductase Inhibitor Start: take 1 tablet by mouth once daily at bedtime Simvastatin 40 mg tablet Active 0 .ROUTE .COMPLEX 90 April 07, 2024 8:15am TAKE 1 TABLET BY MOUTH EVERY DAY AT BEDTIME Start: 10-04-2023 End: 04-07-2024 take 1 tablet by mouth once daily Simvastatin 40 mg tablet Discontinued 40 MG PO Daily October 04, 2023 12:00am April 07, 2024 8:15am take 1 tablet by tj th once daily at bedtime Simvastatin 40 mg TAKE ONE TABLET BY MOUTH ONCE DAILY AT BEDTIME for 90 Active True Metrix Blood Glucose Te st - (17 sources) True Metrix Bloo d Glucose Test - check blood sugars In Vitro 4 times daily for 90 days or insurance preferred Active Vitamin B 12 100 MCG (9 sources) Vitamin B 12 100 MCG as directed Orally Active vitamin b12 0.1 mg oral loze nge (2 sources) Vitamin B12 Vitamin B 12 100 MCG as directed Orally Active Completed/Discontinued Medications Medication Drug Class(es) Dates Sig (Normalized) Sig (Original) Blood-Glucose Meter (True Metrix Glucose Meter) misc (6 sources) Start: 07-01-2023 End: 08-01-2024 Blood-Glucose Meter (True Metrix Glucose Meter) misc Discontinued 0 .Route July 01, 2023 1:00am August 01, 2024 10:03am As directed Start: 07-01-2023 Blood-Glucose Meter (True Metrix Glucose Meter) misc Active 0 .Route July 01, 2023 12:00am As directed Dexcom G6 Pusher Runner - (12 sources) Start: 06-30-2022 Dexcom G6 Rece iver - as directed -- daily for 365 day [facility] Jun, Not-Taking Start: 06-30-2022 Dexcom G6 Rece iver - as directed -- daily for 365 day [facility] Jun, Active Dexcom G6 Sensor - (12 sources) Start: 06-30-2022 Dexcom G6 Sens or - as directed sub q change every 10 days for 90 days [facility] Jun, Not-Taking Start: 06-30-2022 Dexcom G6 Sens or - as directed sub q change every 10 days for 90 days [facility] Jun, Active Dexcom G6 Transmitter - (12 sources) Start: 06-30-2022 Dexcom G6 Aldridge smitter - as directed sub q change every 90 days for 90 days [facility] Jun, Not-Taking Start: 06-30-2022 Dexcom G6 Aldridge smitter - as directed sub q change every 90 days for 90 days [facility] Jun, Active empagliflozin 25 mg oral tablet (20 sources) Sodium-Glucose Cotransporter 2 Inhibitor Start: 10-03-2023 End: 06-06-2024 take 1 tablet by mouth once daily Empagliflozin (Jardiance) 25 mg tablet Discontinued 25 MG PO Daily April 19, 2024 9:03am June 06, 2024 11:14am Start: 08-25-2023 End: 10-03-2023 take 1 tablet by mouth once daily Empagliflozin (Jardiance) 25 mg tablet Discontinued 0 .ROUTE .COMPLEX August 25, 2023 5:47pm October 03, 2023 4:31pm TAKE 1 TABLET BY MOUTH EVERY DAY Start: 07-01-2023 End: 08-25-2023 take 1 tablet by mouth once daily Empagliflozin 25 mg tablet Discontinued 25 MG PO Daily July 01, 2023 1:00am August 25, 2023 6:50am Start: 02-01-2023 take 1 tablet by tj th every twenty-four hours Jardiance 10 MG 1 tablet Orally Once a day for 14 days samples Jan, Active Start: 02-01-2023 take 1 tablet by tj th every twenty-four hours Jardiance 25 MG 1 tablet Orally Once a day Jan, Active 3 ml insulin detemir 100 unt/ml pen injector (20 sources) Insulin Analog Start: 01-11-2024 End: 08-01-2024 Insulin Detemir U-100 (Levemir Flexpen) 100 unit/mL (3 mL) insulin pen Discontinued 15 UNIT SUBCUT Daily at bedtime January 11, 2024 10:00am August 01, 2024 10:02am Titrate to 30 u daily Start: 06-30-2022 Levemir FlexPe n 100 UNIT/ML 25 u Subcutaneous daily for 90 days Jun, Active Levemir FlexPen 100 UNIT/ML 20 u Subcutaneous daily Active Insulin Detemir U-100 (Levem ir Flexpen) 100 unit/mL (3 mL) insulin pen (15 sources) Start: 12-01-2023 End: 01-11-2024 Insulin Detemir U-100 (Levem ir Flexpen) 100 unit/mL (3 mL) insulin pen Discontinued 16 UNIT SUBCUT Daily at bedtime December 01, 2023 6:57am January 11, 2024 10:01am Titrate to 30 u daily Start: 10-04-2023 End: 12-01-2023 Insulin Detemir U-100 (Levem ir Flexpen) 100 unit/mL (3 mL) insulin pen Discontinued 16 UNIT SUBCUT Daily at bedtime October 04, 2023 11:22am December 01, 2023 6:58am Start: 09-26-2023 End: 10-04-2023 Insulin Detemir U-100 (Levem ir Flexpen) 100 unit/mL (3 mL) insulin pen Discontinued 15 UNIT SUBCUT Daily at bedtime September 26, 2023 12:00am October 04, 2023 11:26am Insulin Lispro-Aabc 100 unit/mL insulin pen (5 sources) Start: 07-01-2023 End: 10-24-2024 inject 1 dose by subcutaneous injection once before mealtime Insulin Lispro-Aabc 100 unit/mL insulin pen Discontinued 1 sliding scale dose SUBCUT 3x/Day before meals & bedtime July 01, 2023 1:00am October 24, 2024 11:16am Start: 07-01-2023 inject 1 dose by sub cutaneous injection once before mealtime Insulin Lispro-Aabc 100 unit/mL insulin pen Active 1 sliding scale dose SUBCUT 3x/Day before meals & bedtime July 01, 2023 1:00am omega-3 fatty acids (Fish Oil) (5 sources) Start: 10-04-2023 End: 11-15-2023 take 1000 mg by mouth once daily omega-3 fatty acids (Fish Oil) Discontinued 0 PO Daily October 04, 2023 12:00am November 15, 2023 10:02am 1000 mg orally daily; pantoprazole 40 mg delayed release oral tablet (4 sources) Proton Pump Inhibitor Start: 08-08-2024 End: 10-24-2024 take 1 tablet by mouth once daily Pantoprazole 40 mg tablet,delayed release (DR/EC) Discontinued 40 MG PO Daily August 08, 2024 12:00am October 24, 2024 11:17am Problems Active Problems Problem Classification Problem Date Documented Date Episodic/Chronic Administrative/social admission (18 sources) Dietary counseling and surveillance; 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: [Patient [...] nonvenomous arthropods, initial encounter] Onset: 09-23-2022 Episodic Esophageal disorders (6 sources) Esophagitis; 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: [Esophagitis determined by endoscopy] 08-08-2024 Episodic Essential hypertension (20 sources) Essential hypertension; 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: [Essential (primary) hypertension] Chronic Nutritional deficiencies (20 sources) Vitamin D deficiency; 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: [Vitamin D deficiency, unspecified] Onset: 07-09-2022 Chronic Nutritional deficiencies (17 sources) Deficiency of other specified B group vitamins; 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: [Cobalamin deficiency] Episodic Other aftercare (20 sources) Long-term current use of insulin; 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: [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] 07-01-2023 Episodic Other aftercare (18 sources) senior living (current) use of insulin; 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: [Long-term (current) use of insulin] Onset: 09-23-2022 Episodic Other aftercare (1 source) Other longterm (current) drug therapy; 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: [OTH OCCUPATIONAL THERAPY ASST CURRENT DRUG THERAPY] Onset: 09-23-2022 Episodic Other aftercare (1 source) 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 drugs; 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: [[facility] USE ORAL HYPOGLYCEMIC DX] Onset: 09-23-2022 Episodic Other circulatory disease (17 sources) Elevated blood-pressure reading without diagnosis of hypertension; 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: [Elevated blood-pressure reading, without diagnosis of hypertension] Episodic Other injuries and conditions due to external causes (7 sources) Food in esophagus causing other injury, initial encounter; 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: [Foreign body in esophagus] Onset: 09-22-2022 Episodic Other injuries and conditions due to external causes (3 sources) Food lodged in esophagus; 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: [Food in esophagus causing other injury, initial encounter] 08-08-2024 Episodic Other nervous system disorders (17 sources) [...] Episodic Other nutritional; endocrine; and metabolic disorders (8 sources) Body mass index (BMI) 27.0-27.9, adult; 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: [Body Mass Index 27.0-27.9, adult] Episodic Other nutritional; endocrine; and metabolic disorders (6 sources) Overweight in adulthood with body mass index [...] Test Name Value Interpretation Reference Range Facility HbA1c HPLC (Bld) [Mass fract ion]on 08-01-2024 HbA1c (Bld) [Mass fraction] Hemoglobin A1c/Hemoglobin.total in Blood by HPLC [facility] No Panel Informationon 08-01 Bedside Glucose 140 [facility] Basophils Auto (Bld) [#/Vol] on 07-25-2024 Basophils (Bld) [#/Vol] Automated basophil count 0.0-0.1 [facility] Basophils/100 WBC Auto (Bld) on 07-25-2024 Basophils/100 WBC (Bld) Automated basophil % 0.2-2.0 [facility] Eosinophils/100 WBC Auto (Bl d)on 07-25-2024 Eosinophils/100 WBC (Bld) Automated eosinophil % Low 0.9-7.0 [facility] Erythrocyte distribution wid th Auto (RBC) [Ratio]on 07-25-2024 Erythrocyte distribution width (RBC) [Ratio] Erythrocyte distribution width [Ratio] by Automated count 11.0-15.0 [facility] Estimated glomerular filtrat ion rate (GFR) non- Americanon 07-25-2024 GFR/1.73 sq M.predicted among non-blacks MDRD (S/P/Bld) [Vol rate/Area] Estimated glomerular filtration rate (GFR) non- >=60 mL/min/1.73m 2 [facility] Globulin Calc (S) [Mass/Vol] on 07-25-2024 Globulin (S) [Mass/Vol] Serum globulin measurement by calculation (mass/volume) [facility] Hematocrit Auto (Bld) [Volum e fraction]on 07-25-2024 Hematocrit (Bld) [Volume fraction] Hematocrit [Volume Fraction] of Blood by Automated count 42.0-54.0 [facility] Hemoglobin [Mass/volume] in Bloodon 07-25-2024 Hemoglobin (Bld) [Mass/Vol] Hemoglobin [Mass/volume] in Blood 14.0-18.0 [facility] Laboratory - Chemistry and C hemistry - challengeon 07-25-2024 Albumin [Mass/Vol] 4.1 g/dL 3.4-5.0 [facility] ALP [Catalytic activity/Vol] 63 U/L 46-116 [facility] ALT [Catalytic activity/Vol] 22 U/L 16-63 [facility] AST [Catalytic activity/Vol] 25 U/L 15-37 [facility] Bilirubin [Mass/Vol] 0.9 mg/dL 0.2-1.0 [facility] Calcium [Mass/Vol] 9.5 mg/dL 8.5-10.1 [facility] Chloride [Moles/Vol] 106 mmol/L 98-107 [facility] CO2 [Moles/Vol] 26.0 mmol/L 21.0-32.0 [facility] Creatinine [Mass/Vol] 1.07 mg/dL 0.70-1.30 [facility] GFR/1.73 sq M.predicted MDRD (S/P/Bld) [Vol rate/Area] mL/min/{1.73_m2} >=60 mL/min/1.73m 2 [facility] Glucose [Mass/Vol] 153 mg/dL High 74-106 [facility] Potassium [Moles/Vol] 4.5 mmol/L 3.5-5.1 [facility] Protein [Mass/Vol] 6.9 g/dL 6.4-8.2 [facility] Sodium [Moles/Vol] 142 mmol/L 136-145 [facility] Urea nitrogen [Mass/Vol] 27.0 mg/dL High 7.0-18.0 [facility] Urea nitrogen/Creatinine [Mass ratio] 25.2 mg/mg [facility] Laboratory - Hematology and Cell countson 07-25-2024 Immature granulocytes/100 WBC (Bld) 0.4 % 0.0-0.5 [facility] Leukocytes [#/volume] correc fabián for nucleated erythrocytes in Blood by Automated counon 07-25-2024 WBC corrected for nucl RBC Auto (Bld) [#/Vol] Leukocytes [#/volume] corrected for nucleated erythrocytes in Blood by Automated coun High 4.0-11.0 [facility] Lymphocytes Auto (Bld) [#/Vo l]on 07-25-2024 Lymphocytes (Bld) [#/Vol] Lymphocytes [#/volume] in Blood by Automated count 1.2-3.8 [facility] Lymphocytes/100 WBC Auto (Bl d)on 07-25-2024 Lymphocytes/100 WBC (Bld) Lymphocytes/100 leukocytes in Blood by Automated count Low 20.5-60.0 [facility] MCH Auto (RBC) [Entitic mass ]on 07-25-2024 MCH (RBC) [Entitic mass] MCH [Entitic mass] by Automated count 25.9-34.0 [facility] MCHC Auto (RBC) [Mass/Vol]on 07-25-2024 MCHC (RBC) [Mass/Vol] MCHC [Mass/volume] by Automated count 29.9-35.2 [facility] MCV Auto (RBC) [Entitic vol] on 07-25-2024 MCV (RBC) [Entitic vol] MCV [Entitic volume] by Automated count 80.0-94.0 [facility] Monocytes Auto (Bld) [#/Vol] on 07-25-2024 Monocytes (Bld) [#/Vol] Automated blood monocyte count 0.3-0.8 [facility] Monocytes/100 WBC Auto (Bld) on 07-25-2024 Monocytes/100 WBC (Bld) Automated monocyte % 1.7-12.0 [facility] Neutrophils Auto (Bld) [#/Vo l]on 07-25-2024 Neutrophils (Bld) [#/Vol] Neutrophils [#/volume] in Blood by Automated count High 1.4-6.5 [facility] Neutrophils/100 WBC Auto (Bl d)on 07-25-2024 Neutrophils/100 WBC (Bld) Automated neutrophil % High 43.0-75.0 [facility] No Panel Informationon 07-25 Eosinophils # (Auto) 0.1 10 3/uL 0.0-0.7 [facility] Immature Granulocyte # (Auto) 0.05 10 3/uL High 0.00-0.03 [facility] Platelet mean volume Auto (B ld) [Entitic vol]on 07-25-2024 Platelet mean volume (Bld) [Entitic vol] Platelet mean volume [Entitic volume] in Blood by Automated count 9.5-13.5 [facility] Platelets Auto (Bld) [#/Vol] on 07-25-2024 Platelets (Bld) [#/Vol] Platelets [#/volume] in Blood by Automated count 150-450 [facility] RBC Auto (Bld) [#/Vol]on RBC (Bld) [#/Vol] Erythrocytes [#/volume] in Blood by Automated count 4.70-6.10 [facility] Serum or plasma albumin/glob ulin mass ratioon 07-25-2024 Albumin/Globulin [Mass ratio] Serum or plasma albumin/globulin mass ratio [facility] Serum or plasma anion gap de terminationon 07-25-2024 Anion gap [Moles/Vol] Serum or plasma anion gap determination [facility] A1C HEMOGLOBINon 05-10-2023 HbA1c (Bld) [Mass fraction] 6.7 % [facility] Other Glucose - FINGER STICKon Glucose [Mass/Vol] 116 mg/dL [facility] Other HbA1c (Bld) [Mass fraction]o n 05-10-2023 A1C HEMOGLOBIN [facility] Other A1C HEMOGLOBINon 02-01-2023 HbA1c (Bld) [Mass fraction] 6.8 % [facility] Other Glucose - FINGER STICKon Glucose [Mass/Vol] 173 mg/dL [facility] Other HbA1c (Bld) [Mass fraction]o n 02-01-2023 A1C HEMOGLOBIN [facility] Other Glucose - FINGER STICKon Glucose [Mass/Vol] 129 mg/dL [facility] Other CBC AUTO DIFFon 09-22-2022 BASO # 0.1 103/ul Normal 0.0-0.1 [facility] Comment on above: Performed By: #### V ITB12, VITAD #### [facility] [address] [place] [address] Dr. Ev Perez Basophils/100 WBC (Bld) 0.7 % Normal 0.2-2.0 [facility] Comment on above: Performed By: #### V ITB12, VITAD #### [facility] [address] [place] [address] Dr. Ev Perez EO # 0.2 103/ul Normal 0.0-0.7 [facility] Comment on above: Performed By: #### V ITB12, VITAD #### [facility] [address] [place] [address] Dr. Ev Perez Eosinophils/100 WBC (Bld) 1.5 % Normal 0.9-7.0 [facility] Comment on above: Performed By: #### V ITB12, VITAD #### [facility] [address] [place] [address] Dr. Ev Perez Erythrocyte distribution width (RBC) [Ratio] 12.6 % Normal 11.0-15.0 [facility] Comment on above: Performed By: #### V ITB12, VITAD #### [facility] [address] [place] [address] Dr. Ev Perez Hematocrit (Bld) [Volume fraction] 44.1 % Normal 42.0-54.0 [facility] Comment on above: Performed By: #### V ITB12, VITAD #### [facility] [address] [place] [address] Dr. Ev Perez Hemoglobin (Bld) [Mass/Vol] 15.1 g/dL Normal 14.0-18.0 [facility] Comment on above: Performed By: #### V ITB12, VITAD #### [facility] [address] [place] [address] Dr. Ev Perez IG # 0.01 10e3/ul Normal 0.00-0.03 [facility] Comment on above: Performed By: #### V ITB12, VITAD #### [facility] [address] [place] [address] Dr. Ev Perez IG % 0.1 % Normal 0.0-0.5 [facility] Comment on above: Performed By: #### V ITB12, VITAD #### [facility] [address] [place] [address] Dr. Ev Perez LYMPH # 1.5 103/ul Normal 1.2-3.8 [facility] Comment on above: Performed By: #### V ITB12, VITAD #### [facility] [address] [place] [address] Dr. Ev Perez Lymphocytes/100 WBC (Bld) 15.6 % Critically low 20.5-60.0 [facility] Comment on above: Performed By: #### V ITB12, VITAD #### [facility] [address] [place] [address] Dr. Ev Perez MANUAL DIFF REQ NO Normal [facility] Comment on above: Performed By: #### V ITB12, VITAD #### [facility] [address] [place] [address] Dr. Ev Perez MCH (RBC) [Entitic mass] 29.5 pg Normal 25.9-34.0 [facility] Comment on above: Performed By: #### V ITB12, VITAD #### [facility] [address] [place] [address] Dr. Ev Perez MCHC (RBC) [Mass/Vol] 34.2 g/dL Normal 29.9-35.2 [facility] Comment on above: Performed By: #### V ITB12, VITAD #### [facility] [address] [place] [address] Dr. Ev Perez MCV (RBC) [Entitic vol] 86.3 fL Normal 80.0-94.0 [facility] Comment on above: Performed By: #### V ITB12, VITAD #### [facility] [address] [place] [address] Dr. Ev Perez MONO # 0.6 103/ul Normal 0.3-0.8 [facility] Comment on above: Performed By: #### V ITB12, VITAD #### [facility] [address] [place] [address] Dr. Ev Perez Monocytes/100 WBC (Bld) 5.6 % Normal 1.7-12.0 [facility] Comment on above: Performed By: #### V ITB12, VITAD #### [facility] [address] [place] [address] Dr. Ev Perez NEUT # 7.4 103/ul Critically high 1.4-6.5 [facility] Comment on above: Performed By: #### V ITB12, VITAD #### [facility] [address] [place] [address] Dr. Ev Perez Neutrophils/100 WBC (Bld) 76.5 % Critically high 43.0-75.0 [facility] Comment on above: Performed By: #### V ITB12, VITAD #### [facility] [address] [place] [address] Dr. Ev Perez Platelet mean volume (Bld) [Entitic vol] 11.4 fL Normal 9.5-13.5 [facility] Comment on above: Performed By: #### V ITB12, VITAD #### [facility] [address] [place] [address] Dr. Ev Perez PLT 180 103/ul Normal 150-450 [facility] Comment on above: Performed By: #### V ITB12, VITAD #### [facility] [address] [place] [address] Dr. Ev Perez RBC 5.11 106/ul Normal 4.70-6.10 [facility] Comment on above: Performed By: #### V ITB12, VITAD #### [facility] [address] [place] [address] Dr. Ev Perez WBC 9.7 103/ul Normal 4.0-11.0 [facility] Comment on above: Performed By: #### V ITB12, VITAD #### [facility] [address] [place] [address] Dr. Ev Perez PROF CHEM 8 (BAS METB)on Anion gap [Moles/Vol] 13.9 mmol/L Normal [facility] Comment on above: Performed By: #### V ITB12, VITAD #### [facility] [address] [place] [address] Dr. Ev Perez Calcium [Mass/Vol] 9.2 mg/dL Normal 8.5-10.1 [facility] Comment on above: Performed By: #### V ITB12, VITAD #### [facility] [address] [address] [address] Ev Perez Chloride [Moles/Vol] 106 mmol/L Normal 98-107 [facility] Comment on above: Performed By: #### V ITB12, VITAD #### [facility] [address] [address] [address] Ev Perez CO2 [Moles/Vol] 24.4 mmol/L Normal 21.0-32.0 [facility] Comment on above: Performed By: #### V ITB12, VITAD #### [facility] [address] [address] [address] Ev Perez Creatinine [Mass/Vol] 0.91 mg/dL Normal 0.70-1.30 [facility] Comment on above: Performed By: #### V ITB12, VITAD #### [facility] [address] [address] [address] Ev Perez EGFR-AF [place] >60 Normal >=60 [facility] Comment on above: Performed By: #### V ITB12, VITAD #### [facility] [address] [address] [address] Ev Perez EGFR-NON AF [place] >60 Normal >=60 [facility] Comment on above: Performed By: #### V ITB12, VITAD #### [facility] [address] [address] [address] Ev Perez Glucose [Mass/Vol] 160 mg/dL Critically high 74-106 [facility] Comment on above: Performed By: #### V ITB12, VITAD #### [facility] [address] [address] [address] Ev Perez Potassium [Moles/Vol] 4.3 mmol/L Normal 3.5-5.1 [facility] Comment on above: Performed By: #### V ITB12, VITAD #### [facility] [address] [address] [address] Ev Perez Sodium [Moles/Vol] 140 mmol/L Normal 136-145 [facility] Comment on above: Performed By: #### V ITB12, VITAD #### [facility] [address] [address] [address] Ev Perez Urea nitrogen [Mass/Vol] 24.0 mg/dL Critically high 7.0-18.0 [facility] Comment on above: Performed By: #### V ITB12, VITAD #### [facility] [address] [address] [address] Ev Perez Urea nitrogen/Creatinine [Mass ratio] 26.4 mg/mg Normal [facility] Comment on above: Performed By: #### V ITB12, VITAD #### [facility] [address] [place] [address] Dr. Ev Perez A1C HEMOGLOBINon 09-06-2022 HbA1c (Bld) [Mass fraction] 7.5 % [employer] Other Glucose - FINGER STICKon Glucose [Mass/Vol] 126 mg/dL [employer] Other HbA1c (Bld) [Mass fraction]o n 09-06-2022 A[facility]C [facility]IN [facility] LIP[facility] PROFILEon 07-06-2022 CHOL-HDL RATIO NORM SEE BELOW Normal [facility] Comment on above: Result Comment: 3.3 - 4.4 LOW RISK 4.4 - 7.1 AVERAGE RISK 7.1 - 11.0 MODERATE RISK >11.0 HIGH RISK Performed By: #### T SH, LIPID, CMP #### [facility] [address] [place] [address] Dr. Ev Perez Cholesterol [Mass/Vol] 123 mg/dL Normal <=200 [facility] Comment on above: Performed By: #### T SH, LIPID, CMP #### [facility] [address] [place] [address] Dr. Ev Perez Cholesterol in HDL [Mass/Vol] 47 mg/dL Normal 40-60 [facility] Comment on above: Performed By: #### T SH, LIPID, CMP #### [facility] [address] [address] [address] Ev Perez Cholesterol in LDL [Mass/Vol] 60.4 mg/dL Normal [facility] Comment on above: Performed By: #### T SH, LIPID, CMP #### [facility] [address] [place] [address] Dr. Ev Perez Cholesterol.total/Ch olesterol in HDL [Mass ratio] 2.6 {ratio} Normal [facility] Comment on above: Performed By: #### T SH, LIPID, CMP #### [facility] [address] [place] [address] Dr. Ev Perez HDL NORMAL > or = 60 mg/dl - LOW CARDIOVASCULAR RISK <40 mg/dl - HIGH CARDIOVASCULAR RISK Normal [facility] Comment on above: Performed By: #### T GUALBERTO, LIPID, CMP #### [facility] [address] [place] [address] Dr. Ev Perez LDL CALC NORMAL SEE BELOW Normal [facility] Comment on above: Result Comment: <100 mg/dl OPTIMAL 100 - 129 mg/dl NEAR OR ABOVE OPTIMAL 130 - 159 mg/dl BORDERLINE HIGH 160 - 189 mg/dl HIGH >190 mg/dl VERY HIGH Performed By: #### T GUALBERTO, LIPID, CMP #### [facility] [address] [place] [address] Dr. Ev Perez Triglyceride [Mass/Vol] 78 mg/dL Normal <=150 [facility] Comment on above: Performed By: #### T GUALBERTO, LIPID, CMP #### [facility] [address] [place] [address] Dr. Ev Perez VLDL CALC 15.6 mg/dL Normal [facility] Comment on above: Performed By: #### T SH, LIPID, CMP #### [facility] [address] [place] [address] Dr. Ev Perez MICROALB CREAT RATIO RANDOMo n 07-06-2022 mALB 1.3 mg/L Normal <=30.0 [facility] Comment on above: Performed By: #### M CRR #### [facility] [address] [place] [address] Dr. Ev POWERS CR RATIO 7.2 mg/g Normal 0.0-29.[address] [facility] Comment on above: Performed By: #### M CRR #### [facility] [address] [address] [address] Ev Perez MALB CR RATIO RANGE SEE BELOW Normal [facility] Comment on above: Result Comment: NO M ICROALBUMINURIA 0-29 MG/G CLINICAL MICROALBUMINURIA 30-300 MG/G MACROALBUMINURIA >300 MG/G Performed By: #### M CRR #### [facility] [address] [address] [address] Ev Perez URINE CREAT 180.37 mg/dL Normal 20.00-300.00 [facility] Comment on above: Performed By: #### M CRR #### [facility] [address] [address] [address] Ev Perez PROF 14(COMP METB)on 023 Albumin [Mass/Vol] 3.6 g/dL Normal 3.4-5.0 [facility] Comment on above: Performed By: #### T SH, LIPID, CMP #### [facility] [address] [address] [address] Ev Perez Albumin/Globulin [Mass ratio] 1.4 {ratio} Normal [facility] Comment on above: Performed By: #### T SH, LIPID, CMP #### [facility] [address] [address] [address] Ev Perez ALP [Catalytic activity/Vol] 66 U/L Normal 46-116 [facility] Comment on above: Performed By: #### T SH, LIPID, CMP #### [facility] [address] [address] [address] Ev Perez ALT [Catalytic activity/Vol] 35 U/L Normal 16-63 [facility] Comment on above: Performed By: #### T SH, LIPID, CMP #### [facility] [address] [address] [address] Ev Perez Anion gap [Moles/Vol] 9.2 mmol/L Normal [facility] Comment on above: Performed By: #### T SH, LIPID, CMP #### [facility] [address] [place] [address] Dr. Ev Perez AST [Catalytic activity/Vol] 30 U/L Normal 15-37 [facility] Comment on above: Performed By: #### T SH, LIPID, CMP #### [facility] [address] [place] [address] Dr. Ev Perez Bilirubin [Mass/Vol] 0.7 mg/dL Normal 0.2-1.0 [facility] Comment on above: Performed By: #### T SH, LIPID, CMP #### [facility] [address] [place] [address] Dr. Ev Perez Calcium [Mass/Vol] 9.2 mg/dL Normal 8.5-10.1 [facility] Comment on above: Performed By: #### T SH, LIPID, CMP #### [facility] [address] [place] [address] Dr. Ev Perez Chloride [Moles/Vol] 105 mmol/L Normal 98-107 [facility] Comment on above: Performed By: #### T SH, LIPID, CMP #### [facility] [address] [place] [address] Dr. Ev Perez CO2 [Moles/Vol] 30.5 mmol/L Normal 21.0-32.0 [facility] Comment on above: Performed By: #### T SH, LIPID, CMP #### [facility] [address] [place] [address] Dr. Ev Perez Creatinine [Mass/Vol] 0.82 mg/dL Normal 0.70-1.30 [facility] Comment on above: Performed By: #### T SH, LIPID, CMP #### [facility] [address] [place] [address] Dr. Ev Perez EGFR-AF [place] >60 Normal >=60 [facility] Comment on above: Performed By: #### T SH, LIPID, CMP #### [facility] [address] [place] [address] Dr. Ev Perez EGFR-NON AF [place] >60 Normal >=60 [facility] Comment on above: Performed By: #### T SH, LIPID, CMP #### [facility] [address] [address] [address] Ev Perez Globulin (S) [Mass/Vol] 2.6 g/dL Normal [facility] Comment on above: Performed By: #### T SH, LIPID, CMP #### [facility] [address] [address] [address] Ev Perez Glucose [Mass/Vol] 194 mg/dL Critically high 74-106 [facility] Comment on above: Performed By: #### T SH, LIPID, CMP #### [facility] [address] [place] [address] Dr. Ev Perez Potassium [Moles/Vol] 4.7 mmol/L Normal 3.5-5.1 [facility] Comment on above: Performed By: #### T SH, LIPID, CMP #### [facility] [address] [place] [address] Dr. Ev Perez Protein [Mass/Vol] 6.2 g/dL Critically low 6.4-8.2 [facility] Comment on above: Performed By: #### T SH, LIPID, CMP #### [facility] [address] [place] [address] Dr. Ev Perez Sodium [Moles/Vol] 140 mmol/L Normal 136-145 [facility] Comment on above: Performed By: #### T SH, LIPID, CMP #### [facility] [address] [place] [address] Dr. Ev Perez Urea nitrogen [Mass/Vol] 16.0 mg/dL Normal 7.0-18.0 [facility] Comment on above: Performed By: #### T SH, LIPID, CMP #### [facility] [address] [place] [address] Dr. Ev Perez Urea nitrogen/Creatinine [Mass ratio] 19.5 mg/mg Normal [facility] Comment on above: Performed By: #### T SH, LIPID, CMP #### [facility] [address] [place] [address] Dr. Ev Perez TSHon 07-06-2022 TSH 1.954 uIU/mL Normal 0.358-3.740 [facility] Comment on above: Performed By: #### T SH, LIPID, CMP #### [facility] [address] [place] [address] Dr. Ev Perez VITAMIN B12on 07-06-2022 Cobalamin (Vitamin B12) [Mass/Vol] 170.0 pg/mL Critically low 193.0-986.0 [facility] Comment on above: Performed By: #### V ITB12, VITAD #### [facility] [address] [place] [address] Dr. Ev Perez VITAMIN D 25 OHon 07-06-2022 VIT D 25-OH 21.9 ng/mL Normal [facility] Comment on above: Performed By: #### V ITB12, VITAD #### [facility] [address] [place] [address] Dr. Ev Perez VIT D RANGES SEE BELOW Normal [facility] Comment on above: Result Comment: <20 ng/mL Vit D deficient 20 - <30 ng/mL Vit D insufficient 30 - 100 ng/mL Vit D sufficient >100 ng/mL Potential Toxicity Performed By: #### V ITB12, VITAD #### [facility] [address] [place] [address] Dr. Ev Perez Glucose - FINGER STICKon Glucose [Mass/Vol] 302 mg/dL [employer] Other GLYCOHEMOGLOBIN A1Con 2022 ADA RECOMMENDATION SEE BELOW Normal [facility] Comment on above: Result Comment: ADA RECOMMENDED LIMIT 4.0 - 6.0 ADA THERAPEUTIC TARGET < 7.0 ACTION SUGGESTED > 7.0 Performed By: #### V ITB12, VITAD #### [facility] [address] [place] [address] Dr. Ev Perez Glucose [Mass/Vol] 243 mg/dL Normal [facility] Comment on above: Performed By: #### V ITB12, VITAD #### [facility] [address] [address] [address] Ev Perez HbA1c (Bld) [Mass fraction] 10.1 % Critically high 4.5-6.2 [facility] Comment on above: Performed By: #### V ITB12, VITAD #### [facility] [address] [place] [address] Dr. Ev Perez CBC AUTO DIFFon 02-25-2022 BASO # 0.1 103/ul Normal 0.0-0.1 [facility] Comment on above: Performed By: #### C BC #### [facility] [address] [place] [address] Dr. Ev Perez Basophils/100 WBC (Bld) 0.8 % Normal 0.2-2.0 [facility] Comment on above: Performed By: #### C BC #### [facility] [address] [place] [address] Dr. Ev Perez EO # 0.5 103/ul Normal 0.0-0.7 [facility] Comment on above: Performed By: #### C BC #### [facility] [address] [place] [address] Dr. Ev Perez Eosinophils/100 WBC (Bld) 6.4 % Normal 0.9-7.0 [facility] Comment on above: Performed By: #### C BC #### [facility] [address] [place] [address] Dr. Ev Perez Erythrocyte distribution width (RBC) [Ratio] 12.5 % Normal 11.0-15.0 [facility] Comment on above: Performed By: #### C BC #### [facility] [address] [place] [address] Dr. Ev Perez Hematocrit (Bld) [Volume fraction] 43.9 % Normal 42.0-54.0 [facility] Comment on above: Performed By: #### C BC #### [facility] [address] [place] [address] Dr. Ev Perez Hemoglobin (Bld) [Mass/Vol] 15.0 g/dL Normal 14.0-18.0 [facility] Comment on above: Performed By: #### C BC #### [facility] [address] [place] [address] Dr. Ev Perez IG # 0.02 10e3/ul Normal 0.00-0.03 [facility] Comment on above: Performed By: #### C BC #### [facility] [address] [place] [address] Dr. Ev Perez IG % 0.3 % Normal 0.0-0.5 [facility] Comment on above: Performed By: #### C BC #### [facility] [address] [place] [address] Dr. Ev Perez LYMPH # 2.2 103/ul Normal 1.2-3.8 [facility] Comment on above: Performed By: #### C BC #### [facility] [address] [place] [address] Dr. Ev Perez Lymphocytes/100 WBC (Bld) 30.6 % Normal 20.5-60.0 [facility] Comment on above: Performed By: #### C BC #### [facility] [address] [place] [address] Dr. Ev Perez MANUAL DIFF REQ NO Normal [facility] Comment on above: Performed By: #### C BC #### [facility] [address] [place] [address] Dr. Ev Perez MCH (RBC) [Entitic mass] 29.6 pg Normal 25.9-34.0 [facility] Comment on above: Performed By: #### C BC #### [facility] [address] [place] [address] Dr. Ev Perez MCHC (RBC) [Mass/Vol] 34.2 g/dL Normal 29.9-35.2 [facility] Comment on above: Performed By: #### C BC #### [facility] [address] [place] [address] Dr. Ev Perez MCV (RBC) [Entitic vol] 86.6 fL Normal 80.0-94.0 [facility] Comment on above: Performed By: #### C BC #### [facility] [address] [place] [address] Dr. Ev Perez MONO # 0.5 103/ul Normal 0.3-0.8 [facility] Comment on above: Performed By: #### C BC #### [facility] [address] [place] [address] Dr. Ev Perez Monocytes/100 WBC (Bld) 6.7 % Normal 1.7-12.0 [facility] Comment on above: Performed By: #### C BC #### [facility] [address] [place] [address] Dr. Ev Perez NEUT # 3.9 103/ul Normal 1.4-6.5 [facility] Comment on above: Performed By: #### C BC #### [facility] [address] [place] [address] Dr. Ev Perez Neutrophils/100 WBC (Bld) 55.2 % Normal 43.0-75.0 [facility] Comment on above: Performed By: #### C BC #### [facility] [address] [place] [address] Dr. Ev Perez Platelet mean volume (Bld) [Entitic vol] 11.9 fL Normal 9.5-13.5 [facility] Comment on above: Performed By: #### C BC #### [facility] [address] [place] [address] Dr. Ev Perez PLT 154 103/ul Normal 150-450 [facility] Comment on above: Performed By: #### C BC #### [facility] [address] [place] [address] Dr. Ev Perez RBC 5.07 106/ul Normal 4.70-6.10 [facility] Comment on above: Performed By: #### C BC #### [facility] [address] [place] [address] Dr. Ev Perez WBC 7.1 103/ul Normal 4.0-11.0 [facility] Comment on above: Performed By: #### C BC #### [facility] [address] [place] [address] STROKE HEAD WOon [...] acute abnormality is not identified. Normal [facility] PROF 14(COMP METB)on 022 Albumin [Mass/Vol] 3.7 g/dL Normal 3.4-5.0 [facility] Comment on above: Performed By: #### C MP #### [facility] [address] [place] [address] Dr. Ev Perez Albumin/Globulin [Mass ratio] 1.3 {ratio} Normal [facility] Comment on above: Performed By: #### C MP #### [facility] [address] [address] [address] Ev Perez ALP [Catalytic activity/Vol] 61 U/L Normal 46-116 [facility] Comment on above: Performed By: #### C MP #### [facility] [address] [address] [address] Ev Perez ALT [Catalytic activity/Vol] 39 U/L Normal 16-63 [facility] Comment on above: Performed By: #### C MP #### [facility] [address] [address] [address] Ev Perez Anion gap [Moles/Vol] 11.9 mmol/L Normal [facility] Comment on above: Performed By: #### C MP #### [facility] [address] [place] [address] Dr. vE Perez AST [Catalytic activity/Vol] 27 U/L Normal 15-37 [facility] Comment on above: Performed By: #### C MP #### [facility] [address] [address] [address] Ev Perez Bilirubin [Mass/Vol] 1.2 mg/dL Critically high 0.2-1.0 [facility] Comment on above: Performed By: #### C MP #### [facility] [address] [place] [address] Dr. Ev Perez Calcium [Mass/Vol] 9.1 mg/dL Normal 8.5-10.1 [facility] Comment on above: Performed By: #### C MP #### [facility] [address] [place] [address] Dr. Ev Perez Chloride [Moles/Vol] 103 mmol/L Normal 98-107 [facility] Comment on above: Performed By: #### C MP #### [facility] [address] [place] [address] Dr. Ev Perez CO2 [Moles/Vol] 25.9 mmol/L Normal 21.0-32.0 [facility] Comment on above: Performed By: #### C MP #### [facility] [address] [place] [address] Dr. Ev Perez Creatinine [Mass/Vol] 0.91 mg/dL Normal 0.70-1.30 [facility] Comment on above: Performed By: #### C MP #### [facility] [address] [place] [address] Dr. Ev Perez EGFR-AF [place] >60 Normal >=60 [facility] Comment on above: Performed By: #### C MP #### [facility] [address] [place] [address] Dr. Ev Perez EGFR-NON AF [place] >60 Normal >=60 [facility] Comment on above: Performed By: #### C MP #### [facility] [address] [place] [address] Dr. Ev Perez Globulin (S) [Mass/Vol] 2.9 g/dL Normal [facility] Comment on above: Performed By: #### C MP #### [facility] [address] [address] [address] Ev Perez Glucose [Mass/Vol] 269 mg/dL Critically high 74-106 [facility] Comment on above: Performed By: #### C MP #### [facility] [address] [place] [address] Dr. Ev Perez Potassium [Moles/Vol] 4.8 mmol/L Normal 3.5-5.1 [facility] Comment on above: Performed By: #### C MP #### [facility] [address] [place] [address] Dr. Ev Perez Protein [Mass/Vol] 6.6 g/dL Normal 6.4-8.2 [facility] Comment on above: Performed By: #### C MP #### [facility] [address] [place] [address] Dr. Ev Perez Sodium [Moles/Vol] 136 mmol/L Normal 136-145 [facility] Comment on above: Performed By: #### C MP #### [facility] [address] [place] [address] Dr. Ev Perez Urea nitrogen [Mass/Vol] 15.0 mg/dL Normal 7.0-18.0 [facility] Comment on above: Performed By: #### C MP #### [facility] [address] [place] [address] Dr. Ev Perez Urea nitrogen/Creatinine [Mass ratio] 16.5 mg/mg Normal [facility] Comment on above: Performed By: #### C MP #### [facility] [address] [place] [address] Dr. Ev Perez PROTIMEon 02-25-2022 INR Coag (PPP) [Relative time] 1.03 {INR} Normal [facility] Comment on above: Performed By: #### P T, PTT #### [facility] [address] [place] [address] Dr. Ev Perez INR GUIDELINES SEE BELOW Normal [facility] Comment on above: Result Comment: JESUS RED INR: 2.0 - 3.0 CONDITIONS NOT LISTED BELOW 2.5 - 3.5 FOR PROSTHETIC HEART VALVE REPLACEMENT 2.5 - 3.5 RECURRENT THROMBOSIS Performed By: #### P T, PTT #### [facility] [address] [place] [address] Dr. Ev Perez PT Coag (PPP) [Time] 11.1 s Normal 9.0-11.6 [facility] Comment on above: Performed By: #### P T, PTT #### [facility] [address] [place] [address] Dr. Ev Perez PTTon 02-25-2022 aPTT Coag (Bld) [Time] 26.5 s Normal 22.3-36.2 [facility] Comment on above: Performed By: #### V ITB12, VITAD #### [facility] [address] [place] [address] Dr. Ev Perez TROPONIN, HIGH SENSITIVITYon 02-25-2022 HSTROP 7.0 pg/mL Normal 4.0-76.1 [facility] Comment on above: Result Comment: CUT- OFF POINTS HAVE BEEN ESTABLISHED BASED ON THE FOURTH UNIVERSAL DEFINITIONS OF MYOCARDIAL INFARCTION. THE UPPER REFERENCE LIMIT (URL) OF TROPONIN, DEFINED THE 99TH PERCENTILE OF cTnI DISTRIBUTION IN A REFERENCE POPULATION, HAS BEEN CONFIRMED THE DECISION THRESHOLD FOR MO DIAGNOSIS. Performed By: #### V ITB12, VITAD #### [facility] [address] [place] [address] Dr. Ev Perez GLYCOHEMOGLOBIN A1Con 2021 ADA RECOMMENDATION SEE BELOW Normal [facility] Comment on above: Result Comment: ADA RECOMMENDED LIMIT 4.0 - 6.0 ADA THERAPEUTIC TARGET < 7.0 ACTION SUGGESTED > 7.0 Performed By: #### V ITB12, VITAD #### [facility] [address] [address] [address] Ev Perez Glucose [Mass/Vol] 258 mg/dL Normal [facility] Comment on above: Performed By: #### V ITB12, VITAD #### [facility] [address] [address] [address] Ev Perez HbA1c (Bld) [Mass fraction] 10.6 % Critically high 4.5-6.2 [facility] Comment on above: Performed By: #### V ITB12, VITAD #### [facility] [address] [address] [address] Ev Perez Vital Signs Date Time Vital Sign Value Performing Clinician Facility 10-24-2024 11:11-0400 Body height 166.37 cm [facility] 10-24-2024 11:11-0400 Body mass index (BMI) [Ratio] 30.6 kg/m2 [facility] 10-24-2024 11:11-0400 Body weight 84.7 kg [facility] 10-24-2024 11:11-0400 Diastolic blood pressure 65 mm[Hg] [facility] 10-24-2024 11:11-0400 Heart rate 66 /min [facility] 10-24-2024 11:11-0400 Respiratory rate 18 /min [facility] 10-24-2024 11:11-0400 SaO2% (BldA) [Mass fraction] 97 % [facility] 10-24-2024 11:11-0400 Systolic blood pressure 132 mm[Hg] [facility] 10-15-2024 10:58-0400 Body height 166.37 cm [facility] 10-15-2024 10:58-0400 Body mass index (BMI) [Ratio] 27.3 kg/m2 [facility] 10-15-2024 10:58-0400 Body weight 75.86 kg [facility] 10-15-2024 10:58-0400 Diastolic blood pressure 74 mm[Hg] [facility] 10-15-2024 10:58-0400 Heart rate 71 /min [facility] 10-15-2024 10:58-0400 Respiratory rate 12 /min [facility] 10-15-2024 10:58-0400 SaO2% (BldA) [Mass fraction] 96 % [facility] 10-15-2024 10:58-0400 Systolic blood pressure 148 mm[Hg] [facility] 08-08-2024 10:38-0400 Body height 166.37 cm [facility] 08-08-2024 10:38-0400 Body mass index (BMI) [Ratio] 30.2 kg/m2 [facility] 08-08-2024 10:38-0400 Body weight 83.57 kg [facility] 08-08-2024 10:38-0400 Diastolic blood pressure 84 mm[Hg] [facility] 08-08-2024 10:38-0400 Heart rate 81 /min [facility] 08-08-2024 10:38-0400 Systolic blood pressure 148 mm[Hg] [facility] 08-01-2024 09:54-0400 Body height 166.37 cm [facility] 08-01-2024 09:54-0400 Body mass index (BMI) [Ratio] 30 kg/m2 [facility] 08-01-2024 09:54-0400 Body weight 83.2 kg [facility] 08-01-2024 09:54-0400 Diastolic blood pressure 80 mm[Hg] [facility] 08-01-2024 09:54-0400 Heart rate 76 /min [facility] 08-01-2024 09:54-0400 Respiratory rate 18 /min [facility] 08-01-2024 09:54-0400 SaO2% (BldA) [Mass fraction] 95 % [facility] 08-01-2024 09:54-0400 Systolic blood pressure 132 mm[Hg] [facility] 07-04-2023 12:26-0500 Diastolic blood pressure 72 mm[Hg] MD Whit Loja Work Phone: [facility] 07-04-2023 12:26-0500 Systolic blood pressure 148 mm[Hg] MD Whit Loja Work Phone: [facility] 07-04-2023 11:37-0500 Body height 168.91 cm MD Whit Loja Work Phone: [facility] 07-04-2023 11:37-0500 Body mass index (BMI) [Ratio] 27.8 kg/m2 MD Whit Loja Work Phone: [facility] 07-04-2023 11:37-0500 Body weight 79.43 kg MD Whit Loja Work Phone: [facility] 07-04-2023 11:37-0500 Heart rate 70 /min MD Whit Loja Work Phone: [facility] 07-04-2023 11:37-0500 Respiratory rate 18 /min MD Whit Loja Work Phone: [facility] 07-04-2023 11:37-0500 SaO2% (BldA) [Mass fraction] 95 % MD Whit Loja Work Phone: [facility] 05-10-2023 10:15-0500 Body height 168.91 cm Kathryn Scally Other [facility] 05-10-2023 10:15-0500 Body mass index (BMI) [Ratio] 27.28 kg/m2 Kathryn Scally Other [facility] [employer] Other 05-10-2023 10:15-0500 Body weight 77.84 kg Kathryn Scally Other [facility] [employer] Other 05-10-2023 10:15-0500 Body weight 77.83 kg MD Whit Loja Work Phone: [facility] 05-10-2023 10:15-0500 Diastolic blood pressure 84 mm[Hg] Kathryn Scally Other [facility] 05-10-2023 10:15-0500 Respiratory rate 18 /min Kathryn Scally Other [employer] Other 05-10-2023 10:15-0500 SaO2% (BldA) [Mass fraction] 95 % Kathryn Scally Other [employer] Other 05-10-2023 10:15-0500 Systolic blood pressure 144 mm[Hg] Kathryn Scally Other [facility] 02-01-2023 10:15-0400 Body height 168.91 cm Kathryn Scally Other [employer] Other 02-01-2023 10:15-0400 Body mass index (BMI) [Ratio] 28.69 kg/m2 Kathryn Scally Other [employer] Other 02-01-2023 10:15-0400 Body weight 81.87 kg Kathryn Scally Other [employer] Other 02-01-2023 10:15-0400 Diastolic blood pressure 74 mm[Hg] Kathryn Scally Other [employer] Other 02-01-2023 10:15-0400 Respiratory rate 18 /min Kathryn Scally Other [employer] Other 02-01-2023 10:15-0400 SaO2% (BldA) [Mass fraction] 97 % Kathryn Scally Other [employer] Other 02-01-2023 10:15-0400 Systolic blood pressure 142 mm[Hg] Kathryn Scally Other [employer] Other 12-29-2022 11:45-0400 Body height 168.91 cm Whit Loja Other [employer] Other 12-29-2022 11:45-0400 Body mass index (BMI) [Ratio] 30.05 kg/m2 Whit Loja Other [employer] Other 12-29-2022 11:45-0400 Body weight 85.73 kg Whit Loja Other [employer] Other 12-29-2022 11:45-0400 Diastolic blood pressure 78 mm[Hg] Whit Loja Other [employer] Other 12-29-2022 11:45-0400 Systolic blood pressure 142 mm[Hg] Whit Loja Other [employer] Other 11-25-2022 11:00-0400 Body height 168.91 cm Whit Loja Other [employer] Other 11-25-2022 11:00-0400 Body mass index (BMI) [Ratio] 28.61 kg/m2 Whit Loja Other [employer] Other 11-25-2022 11:00-0400 Body weight 81.65 kg Whit Loja Other [employer] Other 11-25-2022 11:00-0400 Diastolic blood pressure 71 mm[Hg] Whit Loja Other [employer] Other 11-25-2022 11:00-0400 Systolic blood pressure 138 mm[Hg] Whit Loja Other [employer] Other 10-26-2022 12:45-0400 Body height 168.91 cm Kathryn Bautista Other [employer] Other 10-26-2022 12:45-0400 Body mass index (BMI) [Ratio] 28.44 kg/m2 Kathryn Scally Other [employer] Other 10-26-2022 12:45-0400 Body weight 81.15 kg Kathryn Scally Other [employer] Other 10-26-2022 12:45-0400 Diastolic blood pressure 74 mm[Hg] Kathryn Scally Other [employer] Other 10-26-2022 12:45-0400 Respiratory rate 18 /min Kathryn Scally Other [employer] Other 10-26-2022 12:45-0400 SaO2% (BldA) [Mass fraction] 97 % Kathryn Scally Other [employer] Other 10-26-2022 12:45-0400 Systolic blood pressure 138 mm[Hg] Kathryn Scally Other [employer] Other 09-06-2022 11:15-0400 Body height 168.91 cm Kathryn Scally Other [employer] Other 09-06-2022 11:15-0400 Body mass index (BMI) [Ratio] 28.92 kg/m2 Kathryn Scally Other [employer] Other 09-06-2022 11:15-0400 Body weight 82.51 kg Kathryn Scally Other [employer] Other 09-06-2022 11:15-0400 Diastolic blood pressure Kathryn Scally Other [employer] Other 09-06-2022 11:15-0400 Respiratory rate 18 /min Kathryn Scally Other [employer] Other 09-06-2022 11:15-0400 SaO2% (BldA) [Mass fraction] 95 % Kathryn Scally Other [employer] Other 09-06-2022 11:15-0400 Systolic blood pressure 148 mm[Hg] Kathryn Scally Other [employer] Other 06-30-2022 12:00-0500 Body height 168.91 cm Kathryn Scally Other [employer] Other 06-30-2022 12:00-0500 Body mass index (BMI) [Ratio] 29.38 kg/m2 Kathryn Scally Other [employer] Other 06-30-2022 12:00-0500 Body weight 83.83 kg Kathryn Scally Other [employer] Other 06-30-2022 12:00-0500 Diastolic blood pressure 84 mm[Hg] Kathryn Scally Other [employer] Other 06-30-2022 12:00-0500 Respiratory rate 18 /min Kathryn Scally Other [employer] Other 06-30-2022 12:00-0500 SaO2% (BldA) [Mass fraction] 95 % Kathryn Scally Other [employer] Other 06-30-2022 12:00-0500 Systolic blood pressure 152 mm[Hg] Kathryn Bautista Other [employer] Other 05-28-2022 11:00-0500 Body height 168.91 cm Whit Loja Other [employer] Other 05-28-2022 11:00-0500 Body mass index (BMI) [Ratio] 29.09 kg/m2 Whit Loja Other [employer] Other 05-28-2022 11:00-0500 Body weight 83.01 kg Whit Loja Other [facility] [employer] Other 05-28-2022 11:00-0500 Diastolic blood pressure 82 mm[Hg] Whit Loja Other [employer] Other 05-28-2022 11:00-0500 SaO2% (BldA) [Mass fraction] 98 % Whit Loja Other [facility] Other 05-28-2022 11:00-0500 Systolic blood pressure 140 mm[Hg] Whit Loja Other [employer] Other Encounters Encounter Date Encounter Type Care Provider Facility Start: 10-24-2024 End: 10-24-2024 ambulatory [facility] Work Phone: Start: 10-24-2024 End: 10-24-2024 Patient encounter procedure [facility] Work Phone: Start: 10-15-2024 End: 10-15-2024 ambulatory [facility] Work Phone: Start: 10-15-2024 End: 10-15-2024 Patient encounter procedure [facility] Work Phone: Start: 09-12-2024 End: 09-12-2024 ambulatory [facility] Work Phone: Start: 09-12-2024 End: 09-12-2024 Patient encounter procedure [facility] Work Phone: Start: 08-08-2024 End: 08-08-2024 ambulatory [facility] Work Phone: Start: 08-08-2024 End: 08-08-2024 Patient encounter procedure [facility] Work Phone: Start: 08-06-2024 Non-patient / Non-visit [facility] Work Phone: Start: 08-01-2024 End: 08-01-2024 ambulatory [facility] Work Phone: Start: 08-01-2024 End: 08-01-2024 Patient encounter procedure [facility] Work Phone: Start: 07-26-2024 ambulatory Chad BOX Facility:[facility] Start: 07-25-2024 Non-patient / Non-visit [facility] Work Phone: Start: 07-25-2024 End: 07-25-2024 ambulatory Chad BOX Facility:[id number] Start: 06-12-2024 End: 06-12-2024 Patient encounter procedure [facility] Work Phone: Start: 11-29-2023 End: 11-29-2023 ambulatory SUZIE FISHER Not Available Start: 09-26-2023 Patient encounter procedure [facility] Start: 07-04-2023 ambulatory Whit Loja Facility :[facility] Start: 07-04-2023 End: 07-04-2023 Patient encounter procedure MD Whit Loja Work Phone: [facility] Work Phone: Start: 05-19-2023 End: 05-19-2023 ambulatory Kathryn Bautista Other [facility] [employer] Other Start: 05-19-2023 Telephone encounter Kathryn gage [facility] Start: 05-10-2023 (DM) Diabetes Kathryn Cook [facility] Start: 05-10-2023 End: 05-11-2023 ambulatory MD Whit Loja Work Phone: [facility] Other Start: 05-10-2023 End: 05-10-2023 Discharged Recurring MD [facility] Work Phone: Start: 05-10-2023 End: 05-10-2023 Patient encounter procedure MD Whit Loja Work Phone: [facility] Work Phone: Start: 03-29-2023 End: 03-29-2023 ambulatory Kathryn Bautista Other [facility] Other Start: 03-29-2023 Nursing evaluation o f patient and report Kathryn Vivas [facility] Start: 02-01-2023 (DM) Diabetes Kathryn Cook [facility] Start: 02-01-2023 End: 02-01-2023 ambulatory Kathryn Bautista Other [facility] Other Start: 12-29-2022 End: 12-29-2022 ambulatory Whit Loja Other [facility] Other Start: 12-29-2022 Office outpatient vi sit 15 minutes Whit Loja [facility] Start: 12-27-2022 End: 12-27-2022 ambulatory Whit Loja Other [facility] Other Start: 12-27-2022 Telephone encounter Whit Loja [facility] Start: 11-25-2022 End: 11-25-2022 ambulatory Whit Loja Other [facility] Other Start: 11-25-2022 Patient encounter procedure Whit Loja [facility] Start: 10-26-2022 (PUMP/CGM) Pump / Sensor Kathryn Scally [facility] Start: 10-26-2022 End: 10-26-2022 ambulatory Kathryn Scally Other [facility] Other Start: 10-19-2022 End: 10-19-2022 ambulatory Whit Loja Other [facility] Other Start: 10-19-2022 Telephone encounter Whit Loja [facility] Start: 10-18-2022 End: 10-18-2022 ambulatory Whit Loja Other [facility] Other Start: 10-18-2022 Telephone encounter Whit Loja [facility] Start: 09-22-2022 End: 09-22-2022 ambulatory DAMON CUSTER Facility: Start: 09-06-2022 (PUMP/CGM) Pump / Sensor Kathryn Scally [facility] Start: 09-06-2022 End: 09-06-2022 ambulatory Kathryn Scally Other [facility] Other Start: 07-29-2022 End: 07-29-2022 ambulatory Kathryn Scally Other [facility] Other Start: 07-29-2022 Nursing evaluation o f patient and report Kathryn Scally [facility] Start: 07-13-2022 End: 07-13-2022 ambulatory Kathryn Scally Other [facility] Other Start: 07-13-2022 Telephone encounter Kathryn Josuely [facility] Start: 07-06-2022 Telephone encounter Kathryn Scally [facility] [employer] Start: 07-06-2022 End: 07-07-2022 ambulatory KATHRYN BAUTISTA [facility] [employer] Other Start: 07-05-2022 End: 07-05-2022 ambulatory Kathryn Bautista Other [facility] Other Start: 07-05-2022 Telephone encounter Kathryn Back [facility] Start: 06-30-2022 (New DM) New Diabetes Kathryn Bautista [facility] Start: 06-30-2022 End: 06-30-2022 ambulatory Kathryn Bautista Other [facility] Other Start: 05-28-2022 End: 05-28-2022 ambulatory Whit Loja Other [facility] Other Start: 05-28-2022 Office outpatient vi sit 15 minutes Whit Loja [facility] Start: 05-24-2022 Adult health examination Whit Loja Other [facility] Other Start: 05-24-2022 End: 05-25-2022 ambulatory NONE LISTED REQUEST Facility:[facility] Start: 02-25-2022 End: 02-25-[address] CARMELO PRUITT Facility:[facility] Start: 12-09-2021 End: 12-10-2021 ambulatory NONE LISTED REQUEST Facility:[facility] Plan of Treatment Date Care Activity Detail Author Comprehensive metabo lic 2000 panel - Serum or Plasma [facility] enter [facility] Payers Date Payer Category Payer Self-pay 1960 Medicare [id number]. [id number] 1960 Self-pay [id number] 1950 Unknown [id number] 2.16.84 [id number] 1950 Unknown [id number] 2.16.84 [id number] 1950 Unknown [id number] 2.16.84 [id number] 1949 Unknown [id number] 2.16.84 [id number] 1950 Unknown [id number] 2.16.8 [id number] Unknown [id number] 2.16.84 [id number] Unknown [id number] 2.16.84 [id number] Unknown [id number] 2.16.8 [id number] Unknown [id number] 2.16.8 [id number] Social History Date Type Detail Facility Unknown if ever smoked [facility] Other Sex Assigned At Sex Assigned At Bir th [facility] Other Start: 1950 Sex Assigned At Male F [facility] Start: 10-04-2023 Tobacco smoking status NHIS Never smoked tobacco (finding) [facility] Start: 08-01-2024 End: 10-24-2024 Sex Male (finding) [facility] Medical Equipment Procedure Code Equipment Code Equipment Origin al Text Equipment Identifier Dates Start: 07-05-2022 Blood Sugar Diagnostic (Onetouch Ultra Test) strip Start: 07-01-2023 Lancets Start: 07-01-2023 Pen Needle, Diab etic (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) 31 gauge x 5/16 needle Start: 07-01-2023 Blood Sugar Diagnostic (Onetouch Ultra Test) strip Start: 08-01-2024 Lancets (Onetouc h Delica Plus Lancet) 33 gauge misc Start: 08-01-2024 Lancets 33 gauge misc Start: 07-01-2023 Pen Needle, Diab etic (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) 31 gauge x 5/16 needle Start: 07-01-2023 Pen Needle, Diab etic (Bd Ultra-Fine Mini Pen Needle) 31 gauge x 3/16 needle Start: 07-12-2023 Blood Sugar Diagnostic (Onetouch Ultra Test) strip Start: 07-01-2023 End: 11-15-2023 Blood Sugar Diagnostic (Onetouch Ultra Test) strip Start: 08-01-2024 Lancets (Onetouc h Delica Plus Lancet) 33 gauge misc Start: 08-01-2024 Lancets 33 gauge misc Start: 07-01-2023 Pen Needle, Diab etic (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) 31 gauge x 5/16 needle Start: 07-01-2023 Pen Needle, Diab etic (Bd Ultra-Fine Mini Pen Needle) 31 gauge x 3/16 needle Start: 07-12-2023 Blood Sugar Diagnostic (Onetouch Ultra Test) strip Start: 07-01-2023 End: 11-15-2023 Blood Sugar Diagnostic (Onetouch Ultra Test) strip Start: 08-01-2024 Lancets (Onetouc h Delica Plus Lancet) 33 gauge misc Start: 08-01-2024 Lancets 33 gauge misc Start: 07-01-2023 Pen Needle, Diab etic (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) 31 gauge x 5/16 needle Start: 07-01-2023 Pen Needle, Diab etic (Bd Ultra-Fine Mini Pen Needle) 31 gauge x 3/16 needle Start: 07-12-2023 Blood Sugar Diagnostic (Onetouch Ultra Test) strip Start: 07-01-2023 End: 11-15-2023 Blood Sugar Diagnostic (Onetouch Ultra Test) strip Start: 08-01-2024 Lancets (Onetouc h Delica Plus Lancet) 33 gauge misc Start: 08-01-2024 Lancets 33 gauge misc Start: 07-01-2023 Pen Needle, Diab etic (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) 31 gauge x 5/16 needle Start: 07-01-2023 Pen Needle, Diab etic (Bd Ultra-Fine Mini Pen Needle) 31 gauge x 3/16 needle Start: 07-12-2023 Blood Sugar Diagnostic (Onetouch Ultra Test) strip Start: 07-01-2023 End: 11-15-2023 Blood Sugar Diagnostic (Onetouch Ultra Test) strip Start: 08-01-2024 Lancets (Onetouc h Delica Plus Lancet) 33 gauge misc Start: 08-01-2024 Pen Needle, Diab etic (Bd Ultra-Fine Mini Pen Needle) 31 gauge x 3/16 needle Start: 07-12-2023 Blood Sugar Diagnostic (Onetouch Ultra Test) strip Start: 07-01-2023 End: 11-15-2023 Lancets 33 gauge misc Start: 07-01-2023 End: 10-24-2024 Pen Needle, Diab etic (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) 31 gauge x 5/16 needle Start: 07-01-2023 End: 10-24-2024 Clinical Notes 05-28-2022 to 08-01-2024 Note Date & Type Note Facility 08-01-2024 Evaluation note Diagnosis Onset Date Resolution BMI 27.0-27.9,adult acute August 01, 2024 9:43am Dietary counseling and surveillance acute August 01, 2024 9:43am HTN (hypertension) acute August 01, 2024 9:43am Hyperlipidemia acute July 9:43am 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 acute August 01, 2024 9:43am Type 2 diabetes mellitus with hyperglycemia acute August 01 9:43am Vitamin B 12 deficiency acute [facility] 2024 9:43am Vitamin D deficiency acute [facility] 2024 9:43am Esophagitis determined by endoscopy acute August 08, 2024 10:25am Food impaction of esophagus acute August 08, 2024 10:25am Type 2 diabetes mellitus with hyperglycemia acute August 08 10:25am Type 2 diabetes mellitus with hyperglycemia acute September 12 9:58am [facility] Work Phone: 1(395) 665-773403-19-2025 Evaluation note* Diagnosis Onset Date Resolution Status Admit Date BMI 27.0-27.9,adult acute August 01, 2024 9:43am Dietary counseling and surveillance acute August 01, 2024 9:43am HTN (hypertension) acute August 01, 2024 9:43am Hyperlipidemia acute July 9:43am 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 acu te August 01, 2024 9:43am Type 2 diabetes mellitus wit h hyperglycemia acute August 01, 2024 9:43am Vitamin B 12 deficiency acute [facility] 2024 9:43am Vitamin D deficiency acute [facility] 2024 9:43am Esophagitis determined by endoscopy acute August 08, 2024 10:25am Food impaction of esophagus acute August 08, 2024 10:25am Type 2 diabetes mellitus wit h hyperglycemia acute August 08, 2024 10:25am Type 2 diabetes mellitus wit h hyperglycemia acute September 12, 2024 9:58am HTN (hypertension) acute October 152024 10:44am Hyperlipidemia acute October 15, 2024 10:44am Medicare annual wellness vis it, subsequent acute October 15, 2024 1 0:44am Type 2 diabetes mellitus wit h hyperglycemia acute October 15, 2024 1 0:44am [facility] Work Phone: 1(523) 434-502603-19-2025 Evaluation note* Diagnosis Onset Date Resolution Status Admit Date BMI 27.0-27.9,adult acute August 01, 2024 9:43am Dietary counseling and surveillance acute August 01, 2024 9:43am HTN (hypertension) acute August 01, 2024 9:43am Hyperlipidemia acute July 9:43am senior living current use of insulin acu te August 01, 2024 9:43am Type 2 diabetes mellitus wit h hyperglycemia acute August 01, 2024 9:43am Vitamin B 12 deficiency acute [facility] 2024 9:43am Vitamin D deficiency acute [facility] 2024 9:43am Esophagitis determined by endoscopy acute August 08, 2024 10:25am Food impaction of esophagus acute August 08, 2024 10:25am Type 2 diabetes mellitus wit h hyperglycemia acute August 08, 2024 10:25am Type 2 diabetes mellitus wit h hyperglycemia acute September 12, 2024 9:58am HTN (hypertension) acute October 152024 10:44am Hyperlipidemia acute October 15, 2024 10:44am Medicare annual wellness vis it, subsequent acute October 15, 2024 1 0:44am Type 2 diabetes mellitus wit h hyperglycemia acute October 15, 2024 1 0:44am BMI 27.0-27.9,adult acute Sy[facility] 11th, 2025 10:58am Dietary counseling and surveillance acute October 24, 2024 10:58am HTN (hypertension) acute October 142024 10:58am Hyperlipidemia acute October 24, 2024 10:58am 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 acu te October 24, 2024 10:58am Type 2 diabetes mellitus wit h hyperglycemia acute October 24, 2024 10:58am Vitamin B 12 deficiency acute J 2024 10:58am Vitamin D deficiency acute October 24, 2024 10:58am [facility] Work Phone: 1(235) 883-628601-28-2025 Evaluation note* Diagnosis Onset Date Resolution Status Admit Date Type 2 diabetes mellitus wit h hyperglycemia acute June 12 10:49am BMI 27.0-27.9,adult acute August 01, 2024 9:43am Dietary counseling and surveillance acute August 01, 2024 9:43am HTN (hypertension) acute August 01, 2024 9:43am Hyperlipidemia acute July 9:43am 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 acu te August 01, 2024 9:43am Type 2 diabetes mellitus wit h hyperglycemia acute August 01, 2024 9:43am Vitamin B 12 deficiency acute [facility] 2024 9:43am Vitamin D deficiency acute Travis 2024 9:43am [facility] Work Phone: 1(213) 458-822701-04-2024 Evaluation note* Encounter Date Diagnosis Assessment Notes Treatment Notes Treatment Clinical Notes May, Type 2 diabetes mellitus with hyperglycemia (ICD-10 - E11.65) [facility] Other 12-26-2023 Evaluation note* Encounter Date Diagnosis [...] Prescriptions: Request refills for Metformin 05-10-2023 uses [facility]. 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 Apr, BMI 27.0-27.9,adult (ICD-10 - Z68.27) Apr, Other [employer] material was published to [employer] Other 11-14-2023 Evaluation note* Encounter Date Diagnosis Assessment Notes Treatment Notes Treatment Clinical Notes Mar, Type 2 diabetes mellitus with hyperglycemia (ICD-10 - E11.65) Jayme came in today for download and evaluation [...] findings with him by Elis Borrego RN, [facility]. [facility] Other 09-19-2023 Evaluation note* Encounter Date Diagnosis [...] systolic under 130, diastolic under 80. Jan, senior living current use of insulin (ICD-10 - Z79.4) Jan, Insulin long-term use (ICD-10 - Z79.4) Jan, Hyperlipidemia LDL goal <100 (ICD-10 - E78.5) [employer] material was published to portal Jan, BMI 28.0-28.9,adult (ICD-10 - Z68.28) Jan, Vitamin B 12 deficiency (ICD-10 - E53.8) OTC B12 sublingually 1000 mcg daily. Jan, Other [employer] material was published to [employer] Other 08-16-2023 Evaluation note* Encounter Date Diagnosis [...] avoid open toed shoes. Check feet daily. [employer] Other 07-13-2023 Evaluation note* Encounter Date Diagnosis [...] >10. Continue to follow with diabetes clinic. [employer] Other 06-13-2023 Evaluation note* Encounter Date Diagnosis [...] secondary to metformin and vitamin B12 deficiency. W david will consider GLP-1 RA or SGLT2 next [...] systolic under 130, diastolic under 80. Oct, senior living current use of insulin (ICD-10 - Z79.4) Oct, Insulin long-term use (ICD-10 - Z79.4) Oct, Hyperlipidemia LDL goal <100 (ICD-10 - E78.5) [employer] material was published to portal Oct, BMI 28.0-28.9,adult (ICD-10 - Z68.28) Oct, Vitamin B 12 deficiency (ICD-10 - E53.8) OTC B12 sublingually 1000 mcg daily. Oct, Other [employer] material was published to portal [employer] Other 06-06-2023 Evaluation note* Encounter Date Diagnosis Assessment Notes Treatment Notes Treatment Clinical Notes Oct, Type 2 diabetes mellitus with hyperglycemia (ICD-10 - E11.65) [employer] Other 06-05-2023 Evaluation note* Encounter Date Diagnosis Assessment Notes Treatment Notes Treatment Clinical Notes Oct, Type 2 diabetes mellitus with hyperglycemia (ICD-10 - E11.65) [employer] Other 04-24-2023 Evaluation note* Encounter Date Diagnosis [...] Healthy Weight material was published to portal Aug, HTN (hypertension) (ICD-10 - I10) High Blood Pressure: Care Instructions material was published to portal Above goal today, discussed goal of <130/80-- Could lconsider Jardiance Aug, 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 Aug, Other [employer] material was published to [employer] Other 03-16-2023 Evaluation note* Encounter Date Diagnosis Assessment Notes Treatment Notes Treatment Clinical Notes Jul, Type 2 diabetes mellitus with hyperglycemia (ICD-10 - E11.65) Jayme came in today for [employer] training. He brought a sensor and [...] Educating the pateint by Elis Borrego RN, [facility]. [facility] Other 02-15-2023 Evaluation note* Encounter Date Diagnosis Assessment Notes Treatment Notes Treatment Clinical Notes Jun, Type 2 diabetes mellitus with hyperglycemia (ICD-10 - E11.65) ASSESSMENT: 1. Uncontrolled, a Type 2 diabetes with A1c of 10.1% 05/24/22 2. Blood glucose levels are persistently above goal May A1c is consistent of mid 2021 in the 10% range. He is [...] Instructions material was published to portal Jun, senior living current use of insulin (ICD-10 - Z79.4) Jun, Insulin long-term use (ICD-10 - Z79.4) Jun, Hyperlipidemia LDL goal <100 (ICD-10 - E78.5) [employer] material was published to portal Jun, Other [employer] material was published to portal [employer] Other 01-13-2023 Evaluation note* Encounter Date Diagnosis Assessment Notes Treatment Notes Treatment Clinical Notes May, Hyperglycemia due to type 2 diabetes mellitus (ICD-10 - E11.65) Increasing levemir from 20 to 25 units pt agrees to referral to Diabetes Clinic. May, Essential hypertension (ICD-10 - I10) Blood pressure remains well controlled at this time. Denies cardiac symptoms. Shows no signs or symptoms or poor control. Patient to continue with above medication and we will continue to monitor. Advised to pay attention to body and symptoms. Any developing patterns. Stay well hydrated. [employer] Other Chief complaint+Reason for visit Narrative* Chief Complaint Dm DM Reason for Visit BMI 27.0-27.9,adult Dietary counseling and surveillance HTN (hypertension) Hyperlipidemia senior living current use of insulin Type 2 diabetes mellitus with hyperglycemia Vitamin B 12 deficiency Vitamin D deficiency [facility] Work Phone: Evaluation [facility]No [facility] Other Evaluation note* Diagnosis Onset Date Resolution Status BMI 27.0-27.9,adult acute Dietary counseling and surveillance acute HTN (hypertension) acute Hyperlipidemia acute 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 acute Type 2 diabetes mellitus with hyperglycemia acute Vitamin B 12 deficiency acut e Vitamin D deficiency acute [facility] Work Phone: History general Narrative [...] tonsillectomy Surgical History EGD for food bolus 2018 Surgical History cataract surgery 01/2022, 2 Hospitalization History See Above Hospitalization History [place]'s Palsy 02/2022 [employer] Other [facility] general Narrative - Reported* Type Description Date [...] Hospitalization History [facility] [place] [place] [facility] [employer] Other Reason for visit NarrativeDM 3 month F/U, Referral [facility] Other [employer] for visit NarrativeDM, DM 3 month F/U, Referral [facility] Other Reason for Referral Reason 06/30/22 Type 2 di abetes. A1C 10.1 Diagnosis 1 Hyperglycemia due to type 2 diabetes mellitus (E11.65) Referral Organization [facility] Referring Provider First Name Whit Referring Provider Last Name Freedom Referring Provider Specialty Family [facility] Referred Organization [facility] Referred Provider Kathryn Bautista Referred Address [address],[place], [place],[address] Referred Provider Specialty Nurse Glenn melendez Referral [...] review. closing referral Summary Purpose Family History Relationship Condition Age at Onset Recorded Date/T ike father Unknown Disorder of lung Unknown Not Specified Unknown Relationship Condition Age at Onset Recorded Date/T ike father Unknown Disorder of lung Unknown mother Unknown Advance Directives Advance Directive Response Recorded Date/ Time Advance Directives No June 11:01am Advance Directive Response Recorded Date/ Time Advance Directives No June 12:01pm Chief Complaint and Reason for Visit Chief Complaint Admit Date 8 week June 12, 2024 1 0:49am 3 month-DMN f/u August 01, 2024 9:4 3am Reason for Visit Admit Date Type 2 diabetes mellitus with hyperglyce [facility] June 12, 2024 10:49am BMI 27.0-27.9,adult August 01, 2024 9:4 3am Dietary counseling and surveillance [facility] 2024 9:43am HTN (hypertension) August 01, 2024 9:4 3am Hyperlipidemia August 01, 2024 9:4 3am 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 July 142024 9:43am Type 2 diabetes mellitus with hyperglyce [facility] August 01, 2024 9:43am Vitamin B 12 deficiency August 01, 2024 9:43am Vitamin D deficiency August 01, 2024 9: 43am Chief Complaint Admit Date 8 week June 12, 2024 1 0:49am 3 month-DMN f/u August 01, 2024 9:4 3am Amb Documentation August 06, 2024 10: 44am [facility] August 08, 2024 10: 25am Chief Complaint Admit Date 3 month-DMN f/u August 01, 2024 9:4 3am Amb Documentation August 06, 2024 10: 44am [facility] August 08, 2024 10: 25am 5 week-on phone September 12, 2024 9:5 8am Reason for Visit Admit Date BMI 27.0-27.9,adult August 01, 2024 9:4 3am Dietary counseling and surveillance [facility] 2024 9:43am HTN (hypertension) August 01, 2024 9:4 3am Hyperlipidemia August 01, 2024 9:4 3am 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 July 142024 9:43am Type 2 diabetes mellitus with hyperglyce [facility] August 01, 2024 9:43am Vitamin B 12 deficiency August 01, 2024 9:43am Vitamin D deficiency August 01, 2024 9: 43am Esophagitis determined by endoscopy [facility] 2024 10:25am Food impaction of esophagus August 08, 2024 10:25am Type 2 diabetes mellitus with hyperglyce [facility] August 08, 2024 10:25am Type 2 diabetes mellitus with hyperglyce cory September 12, 2024 9:58am Chief Complaint Admit Date 3 month-DMN f/u August 01, 2024 9:4 3am Amb Documentation August 06, 2024 10: 44am [facility] August 08, 2024 10: 25am 5 week-on phone September 12, 2024 9:5 8am Wellness October 15, 2024 10:44 am Reason for Visit Admit Date BMI 27.0-27.9,adult August 01, 2024 9:4 3am Dietary counseling and surveillance [facility] 2024 9:43am HTN (hypertension) August 01, 2024 9:4 3am Hyperlipidemia August 01, 2024 9:4 3am senior living current use of insulin July 142024 9:43am Type 2 diabetes mellitus with hyperglyce cory August 01, 2024 9:43am Vitamin B 12 deficiency August 01, 2024 9:43am Vitamin D deficiency August 01, 2024 9: 43am Esophagitis determined by endoscopy [facility] 2024 10:25am Food impaction of esophagus August 08, 2024 10:25am Type 2 diabetes mellitus with hyperglyce cory August 08, 2024 10:25am Type 2 diabetes mellitus with hyperglyce cory September 12, 2024 9:58am HTN (hypertension) October 15, 2024 10:44 am Hyperlipidemia October 15, 2024 10:44 am Medicare annual wellness visit, subseque nt October 15, 2024 10:44am Type 2 diabetes mellitus with hyperglyce [facility] October 15, 2024 10:44am Chief Complaint Admit Date 3 month-DMN f/u August 01, 2024 9:4 3am Amb Documentation August 06, 2024 10: 44am [facility] August 08, 2024 10: 25am 5 week-on phone September 12, 2024 9:5 8am Wellness October 15, 2024 10:44 am 12 week-DMN f/u October 24, 2024 10:5 8am Reason for Visit Admit Date BMI 27.0-27.9,adult August 01, 2024 9:4 3am Dietary counseling and surveillance [facility] 2024 9:43am HTN (hypertension) August 01, 2024 9:4 3am Hyperlipidemia August 01, 2024 9:4 3am senior living current use of insulin July 142024 9:43am Type 2 diabetes mellitus with hyperglyce cory August 01, 2024 9:43am Vitamin B 12 deficiency August 01, 2024 9:43am Vitamin D deficiency August 01, 2024 9: 43am Esophagitis determined by endoscopy [facility] 2024 10:25am Food impaction of esophagus August 08, 2024 10:25am Type 2 diabetes mellitus with hyperglyce cory August 08, 2024 10:25am Type 2 diabetes mellitus with hyperglyce cory September 12, 2024 9:58am HTN (hypertension) October 15, 2024 10:44 am Hyperlipidemia October 15, 2024 10:44 am Medicare annual wellness visit, subseque nt October 15, 2024 10:44am Type 2 diabetes mellitus with hyperglyce cory October 15, 2024 10:44am BMI 27.0-27.9,adult October 24, 2024 10:5 8am Dietary counseling and surveillance October 24, 2024 10:58am HTN (hypertension) October 24, 2024 10:5 8am Hyperlipidemia October 24, 2024 10:5 8am senior living current use of insulin October 242024 10:58am Type 2 diabetes mellitus with hyperglyce cory October 24, 2024 10:58am Vitamin B 12 deficiency October 24, 2024 10:58am Vitamin D deficiency October 24, 2024 10: 58am Additional Source Comments REASON FOR VISIT (unrecogniz ed section and content) 3 MONTH CHECK UP MBReferral Whit Rodgers refill pen needlesREFERRAL NOTESDCS DexcomDEXCOM G7DM, Referral Whit LojaRefillRefillReferral Whit PegueronessClinicalRED AND ITCHY AROUND BUG BITE R CALF/ANKLEdownload dexcomDS Refill Metformin (unrecognized sect ion and content) No Status Records FoundNo Status Records FoundNo Status Records FoundNo Status Records Found INFORMATION SOURCE (unrecogn ized section and content) DATE CREATED AUTHOR 09/24/2022 [facility] DATE CREATED AUTHOR AUTHOR'S ORGANIZ ATION 07/05/2023 [facility] DATE CREATED AUTHOR AUTHOR'S ORGANIZ ATION 12/03/2023 [facility] EPIC DATE CREATED AUTHOR AUTHOR'S ORGANIZ ATION 08/06/2024 [facility] Care Teams (unrecognized sec tion and content) Team Status: Active Member Role Status Dates Whit Loja MD Primary Care Provider Active Team Status: Inactive Member Role Status Dates Kathryn Bautista APRN Attending Provider Active Start: August 01, 2024 End: August 01, 2024 NON STAFF Primary Care Provider Active Start: August 01, 2024 End: August 01, 2024 Team Status: Active Member Role Status Dates NON STAFF Primary Care Provider Active Start: August 06, 2024 Marli Arellano CMA Attending Provider Active Start: August 06, 2024 Team Status: Inactive Member Role Status Dates Whit Loja MD Primary Care Provide r, Attending Provider Active Start: August 08, 2024 End: August 08, 2024 Team Status: Inactive Member Role Status Dates Aaron Borrego RN Attending Provider Active St art: September 12, 2024 End: September 12, 2024 Kathryn Bautista APRN Active Star t: September 12, 2024 End: September 12, 2024 Whit Loja MD Primary Care Provider Active Start: September 12, 2024 End: September 12, 2024 Team Status: Inactive Member Role Status Dates Whit Loja MD Primary Care Provide r, Attending Provider Active Start: October 15, 2024 End: October 15, 2024 Team Status: Inactive Member Role Status Dates Kathryn Bautista APRN Attending Provider Active Start: October 24, 2024 End: October 24, 2024 Whit Loja MD Primary Care Provider Active Start: October 24, 2024 End: October 24, 2024 Team Status: Active Member Role Status Dates Whit Loja MD Primary Care Provider Active Team Status: Active Member Role Status Dates NON STAFF Primary Care Provider Active Start: July 25, 2024 Suzie Parson DO Attending Provider Active Sta rt: July 25, 2024 Team Status: Inactive Member Role Status Dates Kathryn Bautista APRN Attending Provider Active Start: August 01, 2024 End: August 01, 2024 NON STAFF Primary Care Provider Active Start: August 01, 2024 End: August 01, 2024 Team Status: Active Member Role Status Dates NON STAFF Primary Care Provider Active Start: August 06, 2024 Marli Arellano CMA Attending Provider Active Start: August 06, 2024 Team Status: Inactive Member Role Status Dates Whit Loja MD Primary Care Provide r, Attending Provider Active Start: August 08, 2024 End: August 08, 2024 Team Status: Inactive Member Role Status Dates Aaron Borrego RN Attending Provider Active St art: September 12, 2024 End: September 12, 2024 Kathryn Bautista APRN Active Star t: September 12, 2024 End: September 12, 2024 Whit Loja MD Primary Care Provider Active Start: September 12, 2024 End: September 12, 2024 Team Status: Inactive Member Role Status Dates Kathryn Bautista APRN Attending Provider Active Start: May 10, 2023 End: May 10, 2023 Team Status: Inactive Member Role Status Dates Whit Loja MD Primary Care Provide r, Attending Provider Active Start: May 10, 2023 End: May 10, 2023 Team Status: Inactive Member Role Status Dates Whit Loja MD Primary Care Provider Active Start: July 04, 2023 End: July 04, 2023 Kathryn Bautista , [employer] Attending Provider Active Start: July 04, 2023 End: July 04, 2023 Team Status: Active Member Role Status Dates NON STAFF Primary Care Provider Active Team Status: Inactive Member Role Status Dates Zhanna Sheridan RN Attending Provider Active Start: June 12, 2024 End: June 12, 2024 Kathryn Bautista [employer] Active Star t: June 12, 2024 End: June 12, 2024 NON STAFF Primary Care Provider Active Start: June 12, 2024 End: June 12, 2024 Team Status: Inactive Member Role Status Dates Whit Loja MD Primary Care Provide r, Attending Provider Active Start: October 15, 2024 End: October 15, 2024 Team Status: Inactive Member Role Status Dates Kathryn Bautista APRN Attending Provider Active Start: October 24, 2024 End: October 24, 2024 Whit Loja MD Primary Care Provider Active Start: October 24, 2024 End: October 24, 2024 Goals (unrecognized section and content) Goals may [...] BE BASED ON THE PRIMARY CLINICAL RECORDS. [facility] [employer] [facility]. provides no warranty or guarantee of the accuracy or completeness of information in this document.
[2024-11-07 11:15] LABS: Alanine Aminotransferase 22 U/L (16-63); Albumin Globulin Ratio 1.2; Albumin Level 3.3 g/dL (3.4-5.0); Alkaline Phosphatase 59 U/L (46-116); Anion Gap 11.7; Aspartate Amino Transferase 16 U/L (15-37); BUN Creatinine Ratio 31.6; Bilirubin Total 0.7 mg/dL (0.2-1.0); Calcium 8.8 mg/dL (8.5-10.1); Chloride 106 mmol/L (98-107); Chol HDL Ratio 2.1; Cholesterol 126 mg/dL (<=200); Estimated GFR (African America >60 (>=60 mL/min/1.73m^2); Estimated GFR (Non-African Ame >60 (>=60 mL/min/1.73m^2); Globulin 2.8 g/dL; Glucose 118 mg/dL (74-106); HDL Cholesterol 59 mg/dL (40-60); Potassium 4.7 mmol/L (3.5-5.1); Sodium 140 mmol/L (136-145); Total Protein 6.1 g/dL (6.4-8.2); Triglycerides 70 mg/dL (<=150)
[2024-11-07 13:09] LABS: Creatinine Urine Random 132.54 mg/dL (20.00-300.00); Microalbumin Urine Random <1.3 mg/dL (<=30.0)
== END 2024-11-07 10:31 | disposition home or self-care (01) ==
LOC: LAB 10:31
PROVIDERS: PCP Family Medicine; Visit Provider Family Medicine
DX: E78.5 Hyperlipidemia, unspecified (principal); E11.65 Type 2 diabetes mellitus with hyperglycemia; Z79.4 Long term (current) use of insulin
CPT/HCPCS: 36415; 80053; 80061; 82043; 82570

== ENCOUNTER 2025-02-20 08:55 | Outpatient (OUT) | payer MEDICARE, SELFPAY ==
--- OUTSIDE RECORDS SUMMARY | 2025-02-20 09:00 | XMS_ITS | CCD ---
Author Organization [facility] CliniSyid Care Team Providers Care Machine Shop Worker Name Role Phone Whit Titus Unavailable Kathryn Bautista Unavailable DAMON WOODRUFF Admitting Unavailable DAMON WOODRUFF Consulting Unavailable DAMON WOODRUFF Attending Unavailable FREEDOM, DR WHIT Hernandez Primary Care Unavailable RISHIECK, DR CARMELO Santacruz Admitting Unavailabl e REINECK, DR CARMELO Santacruz Consulting Unavailabl e REINECK, DR CARMELO Santacruz Attending Unavailmary e FREEDOM, DR WHIT Hernandez Primary Care Unavailable CHAD MIRANDA Consulting Unavailable REQUEST, NONE LISTED Attending Unavaila ble FREEDOM, DR WHIT Hernandez Primary Care Unavailable REQUEST, NONE LISTED Admitting Unavaila ble REQUEST, NONE LISTED Consulting Unavaila ble REQUEST, NONE LISTED Attending Unavaila ble FREEDOM, DR WHIT Hernandez Primary Care Unavailable REQUEST, NONE LISTED Admitting Unavaila ble REQUEST, NONE LISTED Consulting Unavaila ble SCALLY, KATHRYN Admitting Unavailable SCALLY, KATHRYN Consulting Unavailable SCALLY, KATHRYN Attending Unavailable FREEDOM, DR WHIT Hernandez Primary Care Unavailable MD Whit Titus Primary Care Provider [phone] MD Whit Titus Attending Provider [phone] Whit Titus Attending Unavailable Whit Titus Admitting Unavailable Whit Titus Primary Care Unavailable Whit Titus Primary Care Unavailable Scally, Kathryn Ramirez Admitting Unavailable Scally, Kathryn C Attending Unavailable Chad BOX Attending Unavailable Whit Titus MD Primary Care Provider [phone] SUZIE LIZ Attending Unavailable Whit Titus MD Primary Care Provider Whit Titus MD Attending Provider [phone] Astrid SENIOR SQL DBAKathryn Attending Provider Aaron Borrego RN Attending Provider Whit Bernardo MD Primary Care Provider [phone] Whit Titus MD Attending Provider Kathryn Bautista APRN Attending Provider Allergies Allergy Classification Reported Allergen(s) Allergy Type Date of Onset Reaction(s) Facility (17 sources) Angiotensin-con verting enzyme inhibitor agent Drug allergy Unknown [facility] [employer] Other (18 sources) Penicillin; 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: [penicillin] Drug Allergy Unknown [facility] Repository (1 source) Angiotensin Converting Enzyme (Sukh) Inhibitors Drug allergy (disorder) 3 [facility] Repository (8 sources) Penicillins Drug allergy (disorder) 4 Unknown Reaction [facility] Repository Comment on above: Pt is unsure of reac tion as this was discovered early in childhood. (7 sources) ozempic Propensity to adverse reactions 4 depression [facility] Comment on above: loss of interest, robyn perkins (2 sources) Penicillins Drug Allergy 4 Unknown [facility] Medications Current Medications Medication Drug Class(es) Dates Sig (Normalized) Sig (Original) Blood-Glucose Meter (Onetouch Ultra2 Meter) misc (7 sources) Start: 08-01-2024 Blood-Glucose Meter (Onetouch Ultra2 Meter) misc Active 0 .Route August 01, 2024 12:00am As directed Start: 08-01-2024 Blood-Glucose Meter (Onetouch Ultra2 Meter) misc Active 0 .ROUTE August 01, 2024 12:00am As directed Blood-Glucose Meter,Continuo us (Dexcom G7 Tile Molder) misc (3 sources) Start: 07-01-2023 Blood-Glucose Meter,Continuous (Dexcom G7 Tile Molder) misc Active 0 .Route July 01, 2023 1:00am As directed Start: 07-01-2023 Blood-Glucose Meter,Continuous (Dexcom G7 Tile Molder) misc Active 0 .Route July 01, 2023 12:00am As directed Blood-Glucose Sensor (Dexcom G7 Sensor) device (15 sources) Start: 05-11-2024 Blood-Glucose Sensor (Dexcom G7 [...] .Route July 01, 2023 12:00am As directed Blood-Glucose,Tile Molder,Cont (Dexcom G7 Tile Molder) misc (5 sources) Start: 07-01-2023 Blood-Glucose,Tile Molder,Cont (Dexcom G7 Tile Molder) misc Active 0 .Route July 01, 2023 1:00am As directed cholecalciferol 0.05 mg oral capsule (20 sources) Vitamin D Start: 10-04-2023 take 1 capsule by mouth once daily Cholecalciferol (Vitamin D3) 50 mcg (2,000 unit) capsule Active 50 MCG PO Daily October 04, 2023 12:00am Complies with drug therapy Start: 07-12-2022 take 1 capsule by mo [facility] every week Cholecalciferol 1.25 MG (72908 UT) 1 capsule Orally once weekly for 56 days follow with 4000iu OTC daily Jun, Not-Taking Start: 07-12-2022 take 1 capsule by mo ut every week Cholecalciferol 1.25 MG (08817 UT) 1 capsule Orally once weekly for 56 days follow with 4000iu OTC daily Jun, Active take 1 capsule by mo [facility] every twenty-four hours Vitamin D3 50 MCG (2000 UT) 1 capsule Orally Once a day Active Dexcom G7 Tile Molder - (16 sources) Start: 07-13-2022 Dexcom G7 Rece iver - Use to test BG In Vitro Daily for 365 days E11.65 Jun, Active Dexcom G7 Sensor - (20 sources) Start: 09-06-2022 Dexcom G7 Sens or - as directed [facility] Aug, Active Start: 07-13-2022 Dexcom G7 Sens or - Use to test BG In Vitro Change Every 10 days for 90 days E11.65 Jun, Active Dexcom G7 Sensor - as directed [facility] Active Fish Oils (2 sources) take 1 [...] insulin aspart, human 100 unt/ml pen injector (3 sources) Insulin Analog Start: 10-24-2024 Insulin Aspart (Niacinamide) (Fiasp Flextouch U-100 Insulin) 100 unit/mL (3 mL) insulin pen Active 1 sliding scale dose SUBCUT Use as Directed October 24, 2024 12:00am Complies with drug therapy 3 ml insulin degludec 100 unt/ml pen injector (5 sources) Insulin Analog Start: 01-23-2025 Insulin Degludec (Tresiba Flextouch U-100) 100 unit/mL (3 mL) insulin pen Active 11 UNIT SUBCUT Daily January 23, 2025 10:18am Complies with drug therapy Start: 10-24-2024 End: 01-23-2025 Insulin Degludec (Tresiba Fl extouch U-100) 100 unit/mL (3 mL) insulin pen Discontinued 13 UNIT SUBCUT Daily October 24, 2024 11:14am January 23, 2025 10:21am Start: 08-01-2024 End: 10-24-2024 Insulin Degludec (Tresiba Fl extouch U-100) 100 unit/mL (3 mL) insulin pen Discontinued 14 UNIT SUBCUT Daily August 01, 2024 12:00am October 24, 2024 11:18am Insulin Degludec (Tresiba Flextouch U-100) 100 unit/mL (3 mL) insulin pen (6 sources) Start: 10-24-2024 Insulin Deglud ec (Tresiba Flextouch U-100) 100 [...] UNIT SUBCUT Daily August 01, 2024 12:00am Insulin Lispro-Aabc (1 source) Start: 07-01-2023 inject [...] MG PO Daily May 23, 2024 3:20pm Complies with drug therapy Start: 12-20-2023 End: 03-12-2024 take 1 tablet [...] Active magnesium oxide 400 mg oral tablet (7 sources) Start: 10-04-2023 take 1 tablet by mouth once daily Magnesium Oxide 400 mg (241.3 mg magnesium) tablet Active 400 MG PO Daily October 04, 2023 12:00am Complies with drug therapy mecobalamin 1 mg chewable tablet (9 sources) Start: 10-04-2023 Methylcobalami n 1 MG chewable tablet Daily 10/04/2023 Active Start: 10-04-2023 End: 01-23-2025 take 1 tablet by mouth once daily Mecobalamin (Vitamin B12) 1,000 mcg tablet,chewable Discontinued 1000 MCG PO Daily October 04, 2023 12:00am January 23, 2025 10:18am [employer] Mini w/Device (17 sources) OneTouch Ultra M ini w/Device as directed Active pioglitazone 15 mg oral tablet (3 sources) Peroxisome Proliferator Receptor alpha Agonist, Peroxisome Proliferator Receptor gamma Agonist, Thiazolidinedione Start: take 1 tablet by mouth once daily Pioglitazone 15 mg tablet Active 15 MG PO Daily October 24, 2024 12:00am Complies with drug therapy potassium 99 mg extended release oral tablet (2 sources) take 1 tablet by mouth once daily Potassium 99 MG 1 tablet Orally Once a day Active potassium gluconate 2.5 meq oral tablet (7 sources) Start: take 1 tablet by mouth once daily Potassium Gluconate 595 mg (99 mg) tablet Active 595 MG PO Daily October 04, 2023 12:00am Complies with drug therapy simvastatin 40 mg oral tablet (20 sources) HMG-CoA Reductase Inhibitor Start: End: take 1 tablet by mouth once daily at bedtime Simvastatin 40 mg tablet Active 0 .ROUTE .COMPLEX January 16, 2025 8:44am TAKE 1 TABLET BY MOUTH EVERY DAY AT BEDTIME Complies with drug therapy Start: 10-04-2023 End: 04-07-2024 take 1 tablet [...] 12 100 MCG as directed Orally Active Vitamin B Complex capsule (1 source) Start: 01-23-2025 take 1 capsule by mouth once daily Vitamin B Complex capsule Active 1 CAP PO Daily January 23, 2025 12:00am administer with a meal Complies with drug therapy vitamin b12 0.1 mg oral lozenge (2 sources) Vitamin B12 Vitamin B 12 100 MCG as directed Orally Active Completed/Discontinued Medications Medication Drug Class(es) Dates Sig (Normalized) Sig (Original) Blood-Glucose Meter (True Metrix Glucose Meter) misc (8 sources) Start: 07-01-2023 End: 08-01-2024 Blood-Glucose Meter (True Metrix Glucose Meter) [facility] [place] 0 .Route July 01, 2023 1:00am August 01, 2024 10:03am As directed Start: 07-01-2023 Blood-Glucose Meter (True Metrix Glucose Meter) [facility] [place] 0 .Route July 01, 2023 12:00am As directed Dexcom G6 Tile Molder - (12 sources) Start: 06-30-2022 Dexcom G6 Rece iver - as directed -- daily for 365 day [facility] Jun, Not-Taking Start: 06-30-2022 Dexcom G6 Rece iver - as directed -- daily for 365 day [facility] Jun, Active Dexcom G6 Sensor - (12 sources) Start: 06-30-2022 Dexcom G6 Sens or - as directed sub q change every 10 days for 90 days [facility] Jun, Not-Taking Start: 06-30-2022 Dexcom G6 Sens or - as directed sub q change every 10 days for 90 days [facility] Jun, Active Dexcom G6 Transmitter - (12 sources) Start: 06-30-2022 Dexcom G6 Aldridge smitter - as directed sub q change every 90 days for 90 days [facility] Jun, Not-Taking Start: 06-30-2022 Dexcom G6 Aldridge smitter - as directed sub q change every 90 days for 90 days [facility] Jun, Active empagliflozin 25 mg oral tablet (20 sources) Sodium-Glucose Cotransporter 2 Inhibitor Start: 10-03-2023 End: 11-15-2024 take 1 tablet by mouth once daily Empagliflozin (Jardiance) 25 mg tablet Discontinued 25 MG PO Daily October 03, 2023 4:30pm November 29, 2023 7:19pm Start: 08-25-2023 End: 10-03-2023 take 1 tablet [...] 10:02am Titrate to 30 u daily Start: 12-01-2023 End: 01-11-2024 Insulin Detemir U-100 [...] 26, 2023 12:00am October 04, 2023 11:26am Start: 06-30-2022 Levemir FlexPe n 100 UNIT/ML [...] 26, 2023 12:00am October 04, 2023 11:26am 3 ml insulin lispro-aabc 100 unt/ml pen injector (19 sources) Insulin Analog Start: 07-01-2023 End: 10-24-2024 inject 1 dose by subcutaneous injection once before mealtime Insulin Lispro-Aabc 100 unit/mL insulin pen Discontinued 1 sliding scale dose SUBCUT 3x/Day before meals & bedtime July 01, 2023 1:00am October 24, 2024 11:16am Start: 06-30-2022 Lyumgiuliano OswaldPe n 100 UNIT/ML as directed Subcutaneous 4 x day for 30 days E11.65 ICR 1:10 and Correction of 1:50 with meals . Expect up to 40 u per day Jun, Active Insulin Lispro-Aabc 100 unit/mL insulin pen (5 [...] meals & bedtime July 01, 2023 1:00am metFORMIN hydrochloride 1000 mg oral tablet (20 sources) Biguanide Start: 11-04-2023 End: 11-15-2024 take 1 tablet by mouth twice daily at mealtime Metformin 1,000 mg tablet Discontinued 0 .ROUTE .COMPLEX 180 April 19, 2024 9:03am November 15, 2024 4:24pm TAKE 1 TABLET BY MOUTH TWICE A [...] Twice a day for 90 days Active omega-3 fatty acids (Fish Oil) (7 sources) Start: 10-04-2023 End: 11-15-2023 take 1000 mg by mouth once daily omega-3 fatty acids (Fish Oil) Discontinued 0 PO Daily October 04, 2023 12:00am November 15, 2023 10:02am 1000 mg orally daily; pantoprazole 40 mg delayed release oral tablet (6 sources) Proton Pump Inhibitor Start: 08-08-2024 End: 10-24-2024 take 1 tablet by mouth once daily Pantoprazole 40 mg tablet,delayed release (DR/EC) Discontinued 40 MG PO Daily August 08, 2024 12:00am October 24, 2024 11:17am Problems Active Problems Problem Classification Problem Date Documented Date Episodic/Chronic Administrative/social admission (20 sources) Dietary counseling and surveillance; 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: [Patient encounter status] Episodic Cataract (2 sources) After-cataract of bilateral eyes; 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: [Other secondary cataract, bilateral] 12-03-2024 Chronic Diabetes mellitus with complications (20 sources) Hyperglycemia due to type 2 diabetes mellitus; 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: [Type 2 diabetes mellitus with hyperglycemia] Onset: 07-06-2022 Chronic Diabetes mellitus without complication (1 source) Type 2 diabetes mellitus; 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: [Type 2 diabetes mellitus without complications] 12-03-2024 Chronic Disorders of lipid metabolism (20 sources) Hyperlipidemia; 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: [Hyperlipidemia, unspecified] Onset: 07-09-2022 Chronic E Codes: Natural/environment (2 sources) Exposure to other specified factors, initial encounter; 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: [Bitten or stung by nonvenomous insect and other nonvenomous arthropods, initial encounter] Onset: 09-23-2022 Episodic Esophageal disorders (8 sources) Esophagitis; 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: [Esophagitis determined by endoscopy] 08-08-2024 Episodic Essential hypertension (20 sources) Essential hypertension; 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: [Essential (primary) hypertension] Chronic Nutritional deficiencies (20 sources) Vitamin D deficiency; 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: [Vitamin D deficiency, unspecified] Onset: 07-09-2022 Chronic Nutritional deficiencies (20 sources) Deficiency of other specified B group vitamins; 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: [Cobalamin deficiency] Episodic Other aftercare (20 sources) Long-term current use of insulin; 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: [intermediate project manager (current) use of insulin] 07-01-2023 Episodic Other aftercare (18 sources) custodial (current) use of insulin; 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: [Long-term (current) use of insulin] Onset: 09-23-2022 Episodic Other aftercare (1 source) Other terminal gauger (current) drug therapy; 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: [OTH FDC CURRENT DRUG THERAPY] Onset: 09-23-2022 Episodic Other aftercare (1 source) intermediate project manager (current) use of oral hypoglycemic drugs; 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: [FDC USE ORAL HYPOGLYCEMIC DX] Onset: 09-23-2022 Episodic Other circulatory disease (17 sources) Elevated blood-pressure reading without diagnosis of hypertension; 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: [Elevated blood-pressure reading, without diagnosis of hypertension] Episodic Other injuries and conditions due to external causes (7 sources) Food in esophagus causing other injury, initial encounter; 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: [Foreign body in esophagus] Onset: 09-22-2022 Episodic Other injuries and conditions due to external causes (5 sources) Food lodged in esophagus; 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: [Food [...] Episodic Other nutritional; endocrine; and metabolic disorders (10 sources) Overweight in adulthood with body mass [...] Test Name Value Interpretation Reference Range Facility Cholesterol in LDL Calc [Mas s/Vol]Ordered By: Whit Titus on 11-07-2024 Cholesterol in LDL [Mass/Vol] 53.0 mg/dL [facility] Comment on above: <100 mg/dl [id number] 0-129 mg/dl NEAR OR ABOVE [id number] mg/dl BORDERLINE [id number] mg/dl HIGH>190 mg/dl VERY HIGH Cholesterol in VLDL Calc [Ma ss/Vol]Ordered By: Whit Titus on 11-07-2024 Cholesterol in VLDL [Mass/Vol] 14.0 mg/dL [facility] Estimated glomerular filtrat ion rate (GFR) non- AmericanOrdered By: Whit Titus on 11-07-2024 GFR/1.73 sq M.predicted among non-blacks MDRD (S/P/Bld) [Vol rate/Area] mL/min/{1.73_m2} >=60 mL/min/1.73m 2 [facility] Globulin Calc (S) [Mass/Vol] Ordered By: Whit Titus on 11-07-2024 Globulin (S) [Mass/Vol] 2.8 g/dL F [facility] Laboratory - Chemistry and C hemistry - challengeOrdered By: Whit Titus on 11-07-2024 Albumin [Mass/Vol] 3.3 g/dL Low 3.4-5.0 [facility] ALP [Catalytic activity/Vol] 59 U/L 46-116 [facility] ALT [Catalytic activity/Vol] 22 U/L 16-63 [facility] AST [Catalytic activity/Vol] 16 U/L 15-37 [facility] Bilirubin [Mass/Vol] 0.7 mg/dL 0.2-1.0 [facility] Calcium [Mass/Vol] 8.8 mg/dL 8.5-10.1 [facility] Chloride [Moles/Vol] 106 mmol/L 98-107 [facility] Cholesterol [Mass/Vol] 126 mg/dL <=200 [facility] Cholesterol in HDL [Mass/Vol] 59 mg/dL 40-60 [facility] Comment on above: > or =60 mg/dl - LOW CARDIOVASCULAR RISK<40 mg/dl - HIGH CARDIOVASCULAR RISK CO2 [Moles/Vol] 27.0 mmol/L 21.0-32.0 [facility] Creatinine [Mass/Vol] 0.76 mg/dL 0.70-1.30 [facility] GFR/1.73 sq M.predicted MDRD (S/P/Bld) [Vol rate/Area] mL/min/{1.73_m2} >=60 mL/min/1.73m 2 [facility] Glucose [Mass/Vol] 118 mg/dL High 74-106 [facility] Potassium [Moles/Vol] 4.7 mmol/L 3.5-5.1 [facility] Protein [Mass/Vol] 6.1 g/dL Low 6.4-8.2 [facility] Sodium [Moles/Vol] 140 mmol/L 136-145 [facility] Triglyceride [Mass/Vol] 70 mg/dL <=150 F [facility] Urea nitrogen [Mass/Vol] 24.0 mg/dL High 7.0-18.0 [facility] Urea nitrogen/Creatinine [Mass ratio] 31.6 mg/mg [facility] Microalbumin [Mass/volume] i n UrineOrdered By: Whit Titus on 11-07-2024 Albumin DL <= 20 mg/L (U) [Mass/Vol] mg/dL <=30.0 [facility] No Panel InformationOrdered By: Whit Titus on 11-07-2024 Urine Random Creatinine 132.54 mg/dL 20.00-300. 00 [facility] Serum or plasma albumin/glob ulin mass ratioOrdered By: Whit Titus on 11-07-2024 Albumin/Globulin [Mass ratio] 1.2 {ratio} [facility] Serum or plasma anion gap de terminationOrdered By: Whit Titus on 11-07-2024 Anion gap [Moles/Vol] 11.7 mmol/L Fi [facility] Serum or plasma total choles terol/high density lipoprotein (HDL) cholesterol mass ratOrdered By: Whit Titus on 11-07-2024 Cholesterol.total/Yamilka sterol in HDL [Mass ratio] 2.1 {ratio} [facility] Comment on above: 3.3 - 4.4 LOW RISK4. 4 - 7.1 AVERAGE RISK7.1 - 11.0 MODERATE RISK>11.0 HIGH RISK No Panel Informationon 10-24 Bedside Glucose 129 [facility] HbA1c HPLC (Bld) [Mass fract ion]on 08-01-2024 HbA1c (Bld) [Mass fraction] Hemoglobin A1c/Hemoglobin.tota l in Blood by HPLC [facility] No Panel Informationon 08-01 Bedside Glucose 140 [facility] Basophils Auto (Bld) [#/Vol] on 07-25-2024 Basophils (Bld) [#/Vol] Automated basoph il count 0.0-0.1 [facility] Basophils/100 WBC Auto (Bld) on 07-25-2024 Basophils/100 WBC (Bld) Automated basoph il % 0.2-2.0 [facility] Eosinophils/100 WBC Auto (Bl d)on 07-25-2024 Eosinophils/100 WBC (Bld) Automated eosinophil % Low 0.9-7.0 [facility] Erythrocyte distribution wid th Auto (RBC) [Ratio]on 07-25-2024 Erythrocyte distribution width (RBC) [Ratio] Erythrocyte distribution width [Ratio] by Automated count 11.0-15.0 [facility] Estimated glomerular filtrat ion rate (GFR) non- Americanon 07-25-2024 GFR/1.73 sq M.predicted among non-blacks MDRD (S/P/Bld) [Vol rate/Area] Estimated glomerular filtration rate (GFR) non- >=60 mL/min/1.73m 2 [facility] Globulin Calc (S) [Mass/Vol] on 07-25-2024 Globulin (S) [Mass/Vol] Serum globulin measurement by calculation (mass/volume) [facility] Hematocrit Auto (Bld) [Volum e fraction]on 07-25-2024 Hematocrit (Bld) [Volume fraction] Hematocrit [Volume Fraction] of Blood by Automated count 42.0-54.0 [facility] Hemoglobin [Mass/volume] in Bloodon 07-25-2024 Hemoglobin (Bld) [Mass/Vol] Hemoglobin [Mass/volume] in Blood 14.0-18.0 [facility] Laboratory - Chemistry and C hemistry - challengeon 07-25-2024 Albumin [Mass/Vol] 4.1 g/dL 3.4-5.0 [facility] ALP [Catalytic activity/Vol] 63 U/L 46-116 [facility] ALT [Catalytic activity/Vol] 22 U/L 16-63 [facility] AST [Catalytic activity/Vol] 25 U/L 15-37 [facility] Bilirubin [Mass/Vol] 0.9 mg/dL 0.2-1.0 [facility] Calcium [Mass/Vol] 9.5 mg/dL 8.5-10.1 [facility] Chloride [Moles/Vol] 106 mmol/L 98-107 [facility] CO2 [Moles/Vol] 26.0 mmol/L 21.0-32.0 [facility] Creatinine [Mass/Vol] 1.07 mg/dL 0.70-1.30 [facility] GFR/1.73 sq M.predicted MDRD (S/P/Bld) [Vol rate/Area] mL/min/{1.73_m2} >=60 mL/min/1.73m 2 [facility] Glucose [Mass/Vol] 153 mg/dL High 74-106 [facility] Potassium [Moles/Vol] 4.5 mmol/L 3.5-5.1 [facility] Protein [Mass/Vol] 6.9 g/dL 6.4-8.2 [facility] Sodium [Moles/Vol] 142 mmol/L 136-145 [facility] Urea nitrogen [Mass/Vol] 27.0 mg/dL High 7.0-18.0 [facility] Urea nitrogen/Creatinine [Mass ratio] 25.2 mg/mg [facility] Laboratory - Hematology and Cell countson 07-25-2024 Immature granulocytes/100 WBC (Bld) 0.4 % 0.0-0.5 [facility] Leukocytes [#/volume] correc fabián for nucleated erythrocytes in Blood by Automated counon 07-25-2024 WBC corrected for nucl RBC Auto (Bld) [#/Vol] Leukocytes [#/volume] corrected for nucleated erythrocytes in Blood by Automated coun High 4.0-11.0 [facility] Lymphocytes Auto (Bld) [#/Vo l]on 07-25-2024 Lymphocytes (Bld) [#/Vol] Lymphocytes [#/volume] in Blood by Automated count 1.2-3.8 [facility] Lymphocytes/100 WBC Auto (Bl d)on 07-25-2024 Lymphocytes/100 WBC (Bld) Lymphocytes/100 leukocytes in Blood by Automated count Low 20.5-60.0 [facility] MCH Auto (RBC) [Entitic mass ]on 07-25-2024 MCH (RBC) [Entitic mass] MCH [Entitic mass] by Automated count 25.9-34.0 [facility] MCHC Auto (RBC) [Mass/Vol]on 07-25-2024 MCHC (RBC) [Mass/Vol] MCHC [Mass/volume] by Automated count 29.9-35.2 [facility] MCV Auto (RBC) [Entitic vol] on 07-25-2024 MCV (RBC) [Entitic vol] MCV [Entitic volume] by Automated count 80.0-94.0 [facility] Monocytes Auto (Bld) [#/Vol] on 07-25-2024 Monocytes (Bld) [#/Vol] Automated blood monocyte count 0.3-0.8 [facility] Monocytes/100 WBC Auto (Bld) on 07-25-2024 Monocytes/100 WBC (Bld) Automated monocy te % 1.7-12.0 [facility] Neutrophils Auto (Bld) [#/Vo l]on 07-25-2024 Neutrophils (Bld) [#/Vol] Neutrophils [#/volume] in Blood by Automated count High 1.4-6.5 [facility] Neutrophils/100 WBC Auto (Bl d)on 07-25-2024 Neutrophils/100 WBC (Bld) Automated neutrophil % High 43.0-75.0 [facility] No Panel Informationon 07-25 Eosinophils # (Auto) 0.1 10 3/uL 0.0-0.7 [facility] Immature Granulocyte # (Auto) 0.05 10 3/uL High 0.00-0.03 [facility] Platelet mean volume Auto (B ld) [Entitic vol]on 07-25-2024 Platelet mean volume (Bld) [Entitic vol] Platelet mean volume [Entitic volume] in Blood by Automated count 9.5-13.5 [facility] Platelets Auto (Bld) [#/Vol] on 07-25-2024 Platelets (Bld) [#/Vol] Platelets [#/volume] in Blood by Automated count 150-450 [facility] RBC Auto (Bld) [#/Vol]on RBC (Bld) [#/Vol] Erythrocytes [#/volume] in Blood by Automated count 4.70-6.10 [facility] Serum or plasma albumin/glob ulin mass ratioon 07-25-2024 Albumin/Globulin [Mass ratio] Serum or plasma albumin/globulin mass ratio [facility] Serum or plasma anion gap de terminationon 07-25-2024 Anion gap [Moles/Vol] Serum or plasma anion gap determination [facility] A1C HEMOGLOBINon 05-10-2023 HbA1c (Bld) [Mass fraction] 6.7 % [employer] Other Glucose - FINGER STICKon Glucose [Mass/Vol] 116 mg/dL [employer] Other HbA1c (Bld) [Mass fraction]o n 05-10-2023 A1C HEMOGLOBIN [facility] Other A1C HEMOGLOBINon 02-01-2023 HbA1c (Bld) [Mass fraction] 6.8 % [employer] Other Glucose - FINGER STICKon Glucose [Mass/Vol] 173 mg/dL [employer] Other HbA1c (Bld) [Mass fraction]o n 02-01-2023 A1C HEMOGLOBIN [employer] [facility] Other Glucose - FINGER STICKon Glucose [Mass/Vol] 129 mg/dL [employer] Other CBC AUTO DIFFon 09-22-2022 BASO # 0.1 103/ul Normal 0.0-0.1 [facility] Comment on above: Performed By: #### V ITB12, VITAD #### [facility] [address] [address] [address] Ev Perez Basophils/100 WBC (Bld) 0.7 % Normal 0.2-2.0 [facility] Comment on above: Performed By: #### V ITB12, VITAD #### [facility] [address] [address] [address] Ev Perez EO # 0.2 103/ul Normal 0.0-0.7 [facility] Comment on above: Performed By: #### V ITB12, VITAD #### [facility] Laboratory [address] [address] [address] Ev Perez Eosinophils/100 WBC (Bld) 1.5 % Normal 0.9-7.0 [facility] Comment on above: Performed By: #### V ITB12, VITAD #### [facility] [address] [place] [address] Dr. Ev Perez Erythrocyte distribution width (RBC) [Ratio] 12.6 % Normal 11.0-15.0 [facility] Comment on above: Performed By: #### V ITB12, VITAD #### [facility] [address] [place] [address] Dr. Ev Perez Hematocrit (Bld) [Volume fraction] 44.1 % Normal 42.0-54.0 [facility] Comment on above: Performed By: #### V ITB12, VITAD #### [facility] [address] [place] [address] Dr. Ev Perez Hemoglobin (Bld) [Mass/Vol] 15.1 g/dL Normal 14.0-18.0 [facility] Comment on above: Performed By: #### V ITB12, VITAD #### [facility] [address] [place] [address] Dr. Ev Perez IG # 0.01 10e3/ul Normal 0.00-0.03 [facility] Comment on above: Performed By: #### V ITB12, VITAD #### [facility] [address] [place] [address] Dr. Ev Perez IG % 0.1 % Normal 0.0-0.5 [facility] Comment on above: Performed By: #### V ITB12, VITAD #### [facility] [address] [place] [address] Dr. Ev Perez LYMPH # 1.5 103/ul Normal 1.2-3.8 [facility] Comment on above: Performed By: #### V ITB12, VITAD #### [facility] [address] [place] [address] Dr. Ev Perez Lymphocytes/100 WBC (Bld) 15.6 % Critically low 20.5-60.0 [facility] Comment on above: Performed By: #### V ITB12, VITAD #### [facility] [address] [place] [address] Dr. Ev Perez MANUAL DIFF REQ NO Normal [facility] Comment on above: Performed By: #### V ITB12, VITAD #### [facility] [address] [place] [address] Dr. Ev Perez MCH (RBC) [Entitic mass] 29.5 pg Normal 25.9-34.0 [facility] Comment on above: Performed By: #### V ITB12, VITAD #### [facility] [address] [place] [address] Dr. Ev Perez MCHC (RBC) [Mass/Vol] 34.2 g/dL Normal 29.9-35.2 [facility] Comment on above: Performed By: #### V ITB12, VITAD #### [facility] [address] [place] [address] Dr. Ev ePrez MCV (RBC) [Entitic vol] 86.3 fL Normal 80.0-94.0 [facility] Comment on above: Performed By: #### V ITB12, VITAD #### [facility] [address] [place] [address] Dr. Ev Perez MONO # 0.6 103/ul Normal 0.3-0.8 [facility] Comment on above: Performed By: #### V ITB12, VITAD #### [facility] [address] [place] [address] Dr. Ev Perez Monocytes/100 WBC (Bld) 5.6 % Normal 1.7-12.0 [facility] Comment on above: Performed By: #### V ITB12, VITAD #### [facility] [address] [place] [address] Dr. Ev Perez NEUT # 7.4 103/ul Critically high 1.4-6.5 [facility] Comment on above: Performed By: #### V ITB12, VITAD #### [facility] [address] [place] [address] Dr. Ev Perez Neutrophils/100 WBC (Bld) 76.5 % Critically high 43.0-75.0 [facility] Comment on above: Performed By: #### V ITB12, VITAD #### [facility] [address] [place] [address] Dr. Ev Perez Platelet mean volume (Bld) [Entitic vol] 11.4 fL Normal 9.5-13.5 [facility] Comment on above: Performed By: #### V ITB12, VITAD #### [facility] [address] [place] [address] Dr. Ev Perez PLT 180 103/ul Normal 150-450 [facility] Comment on above: Performed By: #### V ITB12, VITAD #### [facility] [address] [place] [address] Dr. Ev Perez RBC 5.11 106/ul Normal 4.70-6.10 [facility] Comment on above: Performed By: #### V ITB12, VITAD #### [facility] [address] [place] [address] Dr. Ev Perez WBC 9.7 103/ul Normal 4.0-11.0 [facility] Comment on above: Performed By: #### V ITB12, VITAD #### [facility] [address] [place] [address] Dr. Ev Perez PROF CHEM 8 (BAS METB)on Anion gap [Moles/Vol] 13.9 mmol/L Normal [facility] Comment on above: Performed By: #### V ITB12, VITAD #### [facility] [address] [place] [address] Dr. Ev Perez Calcium [Mass/Vol] 9.2 mg/dL Normal 8.5-10.1 [facility] Comment on above: Performed By: #### V ITB12, VITAD #### [facility] [address] [place] [address] Dr. Ev Perez Chloride [Moles/Vol] 106 mmol/L Normal 98-107 [facility] Comment on above: Performed By: #### V ITB12, VITAD #### [facility] [address] [place] [address] Dr. Ev Perez CO2 [Moles/Vol] 24.4 mmol/L Normal 21.0-32.0 [facility] Comment on above: Performed By: #### V ITB12, VITAD #### [facility] [address] [address] [address] Ev Perez Creatinine [Mass/Vol] 0.91 mg/dL Normal 0.70-1.30 [facility] Comment on above: Performed By: #### V ITB12, VITAD #### [facility] [address] [address] [address] Ev Perez EGFR-AF BHUTANESE >60 Normal >=60 [facility] Comment on above: Performed By: #### V ITB12, VITAD #### [facility] [address] [address] [address] Ev Perez EGFR-NON AF BHUTANESE >60 Normal >=60 [facility] Comment on above: Performed By: #### V ITB12, VITAD #### [facility] [address] [address] [address] Ev Perez Glucose [Mass/Vol] 160 mg/dL Critically high 74-106 [facility] Comment on above: Performed By: #### V ITB12, VITAD #### [facility] [address] [place] [address] Dr. Ev Perez Potassium [Moles/Vol] 4.3 mmol/L Normal 3.5-5.1 [facility] Comment on above: Performed By: #### V ITB12, VITAD #### [facility] [address] [address] [address] Ev Perez Sodium [Moles/Vol] 140 mmol/L Normal 136-145 [facility] Comment on above: Performed By: #### V ITB12, VITAD #### [facility] [address] [address] [address] Ev Perez Urea nitrogen [Mass/Vol] 24.0 mg/dL Critically high 7.0-18.0 [facility] Comment on above: Performed By: #### V ITB12, VITAD #### [facility] [address] [address] [address] vE Perez Urea nitrogen/Creatinine [Mass ratio] 26.4 mg/mg Normal [facility] Comment on above: Performed By: #### V ITB12, VITAD #### [facility] [address] [address] [address] Ev Perez A1C HEMOGLOBINon 09-06-2022 HbA1c (Bld) [Mass fraction] 7.5 % [facility] [employer] Other Glucose - FINGER STICKon Glucose [Mass/Vol] 126 mg/dL [employer] Other HbA1c (Bld) [Mass fraction]o n 09-06-2022 A1C HEMOGLOBIN [facility] [employer] Other LIPID PROFILEon 07-06-2022 CHOL-HDL RATIO NORM SEE BELOW Normal [facility] Comment on above: Result Comment: 3.3 - 4.4 LOW RISK 4.4 - 7.1 AVERAGE RISK 7.1 - 11.0 MODERATE RISK >11.0 HIGH RISK Performed By: #### T SH, LIPID, CMP #### [facility] [address] [place] [address] Dr. Ev Perez Cholesterol [Mass/Vol] 123 mg/dL Normal <=200 [facility] Comment on above: Performed By: #### T SH, LIPID, CMP #### [facility] [address] [place] [address] Dr. Ev Perez Cholesterol in HDL [Mass/Vol] 47 mg/dL Normal 40-60 [facility] Comment on above: Performed By: #### T SH, LIPID, CMP #### [facility] [address] [place] [address] Dr. Ev Perez Cholesterol in LDL [Mass/Vol] 60.4 mg/dL Normal [facility] Comment on above: Performed By: #### T SH, LIPID, CMP #### [facility] [address] [place] [address] Dr. Ev Perez Cholesterol.total/Yamilka sterol in HDL [Mass ratio] 2.6 {ratio} Normal [facility] Comment on above: Performed By: #### T SH, LIPID, CMP #### [facility] [address] [address] [address] Ev Perez HDL NORMAL > or = 60 mg/dl - LOW CARDIOVASCULAR RISK <40 mg/dl - HIGH CARDIOVASCULAR RISK Normal [facility] Comment on above: Performed By: #### T SH, LIPID, CMP #### [facility] [address] [address] [address] Ev Perez LDL CALC NORMAL SEE BELOW Normal [facility] Comment on above: Result Comment: <100 mg/dl OPTIMAL 100 - 129 mg/dl NEAR OR ABOVE OPTIMAL 130 - 159 mg/dl BORDERLINE HIGH 160 - 189 mg/dl HIGH >190 mg/dl VERY HIGH Performed By: #### T SH, LIPID, CMP #### [facility] [address] [address] [address] Ev Perez Triglyceride [Mass/Vol] 78 mg/dL Normal <=150 [facility] Comment on above: Performed By: #### T SH, LIPID, CMP #### [facility] [address] [address] [address] Ev Perez VLDL CALC 15.6 mg/dL Normal [facility] Comment on above: Performed By: #### T SH, LIPID, CMP #### [facility] [address] [address] [address] Ev Perez MICROALB CREAT RATIO RANDOMo n 07-06-2022 mALB 1.3 mg/L Normal <=30.0 [facility] Comment on above: Performed By: #### M CRR #### [facility] [address] [address] [address] Ev Perez MALB CR RATIO 7.2 mg/g Normal 0.0-29.9 [facility] Comment on above: Performed By: #### M CRR #### [facility] [address] [address] [address] Ev Peerz MALB CR RATIO RANGE SEE BELOW Normal [facility] Comment on above: Result Comment: NO M ICROALBUMINURIA 0-29 MG/G CLINICAL MICROALBUMINURIA 30-300 MG/G MACROALBUMINURIA >300 MG/G Performed By: #### M CRR #### [facility] [address] [place] [address] Dr. Ev Perez URINE CREAT 180.37 mg/dL Normal 20.00-300.00 [facility] Comment on above: Performed By: #### M CRR #### [facility] [address] [address] [address] Ev Perez PROF 14(COMP METB)on 023 Albumin [Mass/Vol] 3.6 g/dL Normal 3.4-5.0 [facility] Comment on above: Performed By: #### T SH, LIPID, CMP #### [facility] [address] [place] [address] Dr. vE Perez Albumin/Globulin [Mass ratio] 1.4 {ratio} Normal [facility] Comment on above: Performed By: #### T SH, LIPID, CMP #### [facility] [address] [place] [address] Dr. Ev Perez ALP [Catalytic activity/Vol] 66 U/L Normal 46-116 [facility] Comment on above: Performed By: #### T SH, LIPID, CMP #### [facility] [address] [place] [address] Dr. Ev Perez ALT [Catalytic activity/Vol] 35 U/L Normal 16-63 [facility] Comment on above: Performed By: #### T SH, LIPID, CMP #### [facility] [address] [place] [address] Dr. Ev Perez Anion gap [Moles/Vol] 9.2 mmol/L Normal [facility] Comment on above: Performed By: #### T SH, LIPID, CMP #### [facility] [address] [place] [address] Dr. Ev Perez AST [Catalytic activity/Vol] 30 U/L Normal 15-37 [facility] Comment on above: Performed By: #### T SH, LIPID, CMP #### [facility] [address] [address] [address] Ev Perez Bilirubin [Mass/Vol] 0.7 mg/dL Normal 0.2-1.0 [facility] Comment on above: Performed By: #### T SH, LIPID, CMP #### [facility] [address] [place] [address] Dr. Ev Perez Calcium [Mass/Vol] 9.2 mg/dL Normal 8.5-10.1 [facility] Comment on above: Performed By: #### T SH, LIPID, CMP #### [facility] [address] [place] [address] Dr. Ev Perez Chloride [Moles/Vol] 105 mmol/L Normal 98-107 [facility] Comment on above: Performed By: #### T SH, LIPID, CMP #### [facility] [address] [place] [address] Dr. Ev Perez CO2 [Moles/Vol] 30.5 mmol/L Normal 21.0-32.0 [facility] Comment on above: Performed By: #### T SH, LIPID, CMP #### [facility] [address] [place] [address] Dr. Ev Perez Creatinine [Mass/Vol] 0.82 mg/dL Normal 0.70-1.30 [facility] Comment on above: Performed By: #### T SH, LIPID, CMP #### [facility] [address] [place] [address] Dr. Ev Perez EGFR-AF BHUTANESE >60 Normal >=60 [facility] Comment on above: Performed By: #### T SH, LIPID, CMP #### [facility] [address] [place] [address] Dr. Ev Perez EGFR-NON AF BHUTANESE >60 Normal >=60 [facility] Comment on above: Performed By: #### T SH, LIPID, CMP #### [facility] [address] [place] [address] Dr. Ev Perez Globulin (S) [Mass/Vol] 2.6 g/dL Normal [facility] Comment on above: Performed By: #### T SH, LIPID, CMP #### [facility] [address] [address] [address] Ev Perez Glucose [Mass/Vol] 194 mg/dL Critically high 74-106 [facility] Comment on above: Performed By: #### T SH, LIPID, CMP #### [facility] [address] [address] [address] Ev Perez Potassium [Moles/Vol] 4.7 mmol/L Normal 3.5-5.1 [facility] Comment on above: Performed By: #### T SH, LIPID, CMP #### [facility] [address] [address] [address] Ev Perez Protein [Mass/Vol] 6.2 g/dL Critically low 6.4-8.2 [facility] Comment on above: Performed By: #### T SH, LIPID, CMP #### [facility] [address] [address] [address] Ev Perez Sodium [Moles/Vol] 140 mmol/L Normal 136-145 [facility] Comment on above: Performed By: #### T SH, LIPID, CMP #### [facility] [address] [address] [address] Ev Perez Urea nitrogen [Mass/Vol] 16.0 mg/dL Normal 7.0-18.0 [facility] Comment on above: Performed By: #### T GUALBERTO, LIPID, CMP #### [facility] [address] [address] [address] Ev Perez Urea nitrogen/Creatinine [Mass ratio] 19.5 mg/mg Normal [facility] Comment on above: Performed By: #### T SH, LIPID, CMP #### [facility] [address] [address] [address] Ev Perez TSHon 07-06-2022 TSH 1.954 uIU/mL Normal 0.358-3.740 [facility] Comment on above: Performed By: #### T GUALBERTO, LIPID, CMP #### [facility] [address] [address] [address] Ev Perez VITAMIN B12on 07-06-2022 Cobalamin (Vitamin B12) [Mass/Vol] 170.0 pg/mL Critically low 193.0-986.0 [facility] Comment on above: Performed By: #### V ITB12, VITAD #### [facility] [address] [place] [address] Dr. Ev Perez VITAMIN D 25 OHon 07-06-2022 VIT D 25-OH 21.9 ng/mL Normal [facility] Comment on above: Performed By: #### V ITB12, VITAD #### [facility] [address] [place] [address] Dr. Ev Perez VIT D RANGES SEE BELOW Normal [facility] Comment on above: Result Comment: <20 ng/mL Vit D deficient 20 - <30 ng/mL Vit D insufficient 30 - 100 ng/mL Vit D sufficient >100 ng/mL Potential Toxicity Performed By: #### V ITB12, VITAD #### [facility] [address] [place] [address] Dr. Ev Perez Glucose - FINGER STICKon Glucose [Mass/Vol] 302 mg/dL [employer] Other GLYCOHEMOGLOBIN A1Con 2022 ADA RECOMMENDATION SEE BELOW Normal [facility] Comment on above: Result Comment: ADA RECOMMENDED LIMIT 4.0 - 6.0 ADA THERAPEUTIC TARGET < 7.0 ACTION SUGGESTED > 7.0 Performed By: #### V ITB12, VITAD #### [facility] [address] [place] [address] Dr. Ev Perez Glucose [Mass/Vol] 243 mg/dL Normal [facility] Comment on above: Performed By: #### V ITB12, VITAD #### [facility] [address] [place] [address] Dr. Ev Perez HbA1c (Bld) [Mass fraction] 10.1 % Critically high 4.5-6.2 [facility] Comment on above: Performed By: #### V ITB12, VITAD #### [facility] [address] [place] [address] Dr. Ev Perez CBC AUTO DIFFon 02-25-2022 BASO # 0.1 103/ul Normal 0.0-0.1 [facility] Comment on above: Performed By: #### C BC #### [facility] [address] [place] [address] Dr. Ev Perez Basophils/100 WBC (Bld) 0.8 % Normal 0.2-2.0 [facility] Comment on above: Performed By: #### C BC #### [facility] [address] [place] [address] Dr. Ev Perez EO # 0.5 103/ul Normal 0.0-0.7 [facility] Comment on above: Performed By: #### C BC #### [facility] [address] [place] [address] Dr. Ev Perez Eosinophils/100 WBC (Bld) 6.4 % Normal 0.9-7.0 [facility] Comment on above: Performed By: #### C BC #### [facility] [address] [place] [address] Dr. Ev Perez Erythrocyte distribution width (RBC) [Ratio] 12.5 % Normal 11.0-15.0 [facility] Comment on above: Performed By: #### C BC #### [facility] [address] [place] [address] Dr. Ev Perez Hematocrit (Bld) [Volume fraction] 43.9 % Normal 42.0-54.0 [facility] Comment on above: Performed By: #### C BC #### [facility] [address] [place] [address] Dr. Ev Perez Hemoglobin (Bld) [Mass/Vol] 15.0 g/dL Normal 14.0-18.0 [facility] Comment on above: Performed By: #### C BC #### [facility] [address] [place] [address] Dr. Ev Perez IG # 0.02 10e3/ul Normal 0.00-0.03 [facility] Comment on above: Performed By: #### C BC #### [facility] [address] [place] [address] Dr. Ev Perez IG % 0.3 % Normal 0.0-0.5 [facility] Comment on above: Performed By: #### C BC #### [facility] [address] [place] [address] Dr. Ev Perez LYMPH # 2.2 103/ul Normal 1.2-3.8 [facility] Comment on above: Performed By: #### C BC #### [facility] [address] [place] [address] Dr. Ev Perez Lymphocytes/100 WBC (Bld) 30.6 % Normal 20.5-60.0 [facility] Comment on above: Performed By: #### C BC #### [facility] [address] [place] [address] Dr. Ev Perez MANUAL DIFF REQ NO Normal [facility] Comment on above: Performed By: #### C BC #### [facility] [address] [place] [address] Dr. Ev Perez MCH (RBC) [Entitic mass] 29.6 pg Normal 25.9-34.0 [facility] Comment on above: Performed By: #### C BC #### [facility] [address] [place] [address] Dr. Ev Perez MCHC (RBC) [Mass/Vol] 34.2 g/dL Normal 29.9-35.2 [facility] Comment on above: Performed By: #### C BC #### [facility] [address] [place] [address] Dr. Ev Perez MCV (RBC) [Entitic vol] 86.6 fL Normal 80.0-94.0 [facility] Comment on above: Performed By: #### C BC #### [facility] [address] [place] [address] Dr. Ev Perez MONO # 0.5 103/ul Normal 0.3-0.8 [facility] Comment on above: Performed By: #### C BC #### [facility] [address] [place] [address] Dr. Ev Perez Monocytes/100 WBC (Bld) 6.7 % Normal 1.7-12.0 [facility] Comment on above: Performed By: #### C BC #### [facility] [address] [place] [address] Dr. Ev Perez NEUT # 3.9 103/ul Normal 1.4-6.5 [facility] Comment on above: Performed By: #### C BC #### [facility] [address] [place] [address] Dr. Ev Perez Neutrophils/100 WBC (Bld) 55.2 % Normal 43.0-75.0 [facility] Comment on above: Performed By: #### C BC #### [facility] [address] [place] [address] Dr. Ev Perez Platelet mean volume (Bld) [Entitic vol] 11.9 fL Normal 9.5-13.5 [facility] Comment on above: Performed By: #### C BC #### [facility] [address] [place] [address] Dr. Ev Perez PLT 154 103/ul Normal 150-450 [facility] Comment on above: Performed By: #### C BC #### [facility] [address] [place] [address] Dr. Ev Perez RBC 5.07 106/ul Normal 4.70-6.10 [facility] Comment on above: Performed By: #### C BC #### [facility] [address] [place] [address] Dr. Ev Perez WBC 7.1 103/ul Normal 4.0-11.0 [facility] Comment on above: Performed By: #### C BC #### [facility] [address] [place] [address] STROKE HEAD WOon [...] acute abnormality is not identified. Normal [facility] PROF 14(COMP METB)on 022 Albumin [Mass/Vol] 3.7 g/dL Normal 3.4-5.0 [facility] Comment on above: Performed By: #### C MP #### [facility] [address] [place] [address] Dr. Ev Perez Albumin/Globulin [Mass ratio] 1.3 {ratio} Normal [facility] Comment on above: Performed By: #### C MP #### [facility] [address] [place] [address] Dr. Ev Perez ALP [Catalytic activity/Vol] 61 U/L Normal 46-116 [facility] Comment on above: Performed By: #### C MP #### [facility] [address] [place] [address] Dr. Ev Perez ALT [Catalytic activity/Vol] 39 U/L Normal 16-63 [facility] Comment on above: Performed By: #### C MP #### [facility] [address] [place] [address] Dr. Ev Perez Anion gap [Moles/Vol] 11.9 mmol/L Normal [facility] Comment on above: Performed By: #### C MP #### [facility] [address] [place] [address] Dr. Ev Perez AST [Catalytic activity/Vol] 27 U/L Normal 15-37 [facility] Comment on above: Performed By: #### C MP #### [facility] [address] [place] [address] Dr. Ev Perez Bilirubin [Mass/Vol] 1.2 mg/dL Critically high 0.2-1.0 [facility] Comment on above: Performed By: #### C MP #### [facility] [address] [place] [address] Dr. Ev Perez Calcium [Mass/Vol] 9.1 mg/dL Normal 8.5-10.1 [facility] Comment on above: Performed By: #### C MP #### [facility] [address] [place] [address] Dr. Ev Perez Chloride [Moles/Vol] 103 mmol/L Normal 98-107 [facility] Comment on above: Performed By: #### C MP #### [facility] [address] [place] [address] Dr. Ev Perez CO2 [Moles/Vol] 25.9 mmol/L Normal 21.0-32.0 [facility] Comment on above: Performed By: #### C MP #### [facility] [address] [place] [address] Dr. Ev Perez Creatinine [Mass/Vol] 0.91 mg/dL Normal 0.70-1.30 [facility] Comment on above: Performed By: #### C MP #### [facility] [address] [place] [address] Dr. Ev Perez EGFR-AF BHUTANESE >60 Normal >=60 [facility] Comment on above: Performed By: #### C MP #### [facility] [address] [place] [address] Dr. Ev Perez EGFR-NON AF BHUTANESE >60 Normal >=60 [facility] Comment on above: Performed By: #### C MP #### [facility] [address] [place] [address] Dr. Ev Perez Globulin (S) [Mass/Vol] 2.9 g/dL Normal [facility] Comment on above: Performed By: #### C MP #### [facility] [address] [address] [address] Ev Perez Glucose [Mass/Vol] 269 mg/dL Critically high 74-106 [facility] Comment on above: Performed By: #### C MP #### [facility] [address] [address] [address] Ev Perez Potassium [Moles/Vol] 4.8 mmol/L Normal 3.5-5.1 [facility] Comment on above: Performed By: #### C MP #### [facility] [address] [address] [address] Ev Perez Protein [Mass/Vol] 6.6 g/dL Normal 6.4-8.2 [facility] Comment on above: Performed By: #### C MP #### [facility] [address] [address] [address] Ev Perez Sodium [Moles/Vol] 136 mmol/L Normal 136-145 [facility] Comment on above: Performed By: #### C MP #### [facility] [address] [address] [address] Ev Perez Urea nitrogen [Mass/Vol] 15.0 mg/dL Normal 7.0-18.0 [facility] Comment on above: Performed By: #### C MP #### [facility] [address] [address] [address] Ev Perez Urea nitrogen/Creatinine [Mass ratio] 16.5 mg/mg Normal [facility] Comment on above: Performed By: #### C MP #### [facility] [address] [address] [address] Ev Perez PROTIMEon 02-25-2022 INR Coag (PPP) [Relative time] 1.03 {INR} Normal [facility] Comment on above: Performed By: #### P T, PTT #### [facility] [address] [address] [address] Ev Perez INR GUIDELINES SEE BELOW Normal [facility] Comment on above: Result Comment: JESUS RED INR: 2.0 - 3.0 CONDITIONS NOT LISTED BELOW 2.5 - 3.5 FOR PROSTHETIC HEART VALVE REPLACEMENT 2.5 - 3.5 RECURRENT THROMBOSIS Performed By: #### P T, PTT #### [facility] [address] [place] [address] Dr. Ev Perez PT Coag (PPP) [Time] 11.1 s Normal 9.0-11.6 [facility] Comment on above: Performed By: #### P T, PTT #### [facility] [address] [place] [address] Dr. Ev Perez PTTon 02-25-2022 aPTT Coag (Bld) [Time] 26.5 s Normal 22.3-36.2 [facility] Comment on above: Performed By: #### V ITB12, VITAD #### [facility] [address] [place] [address] Dr. Ev Perez TROPONIN, HIGH SENSITIVITYon 02-25-2022 HSTROP 7.0 pg/mL Normal 4.0-76.1 [facility] Comment on above: Result Comment: CUT- OFF POINTS HAVE BEEN ESTABLISHED BASED ON THE FOURTH UNIVERSAL DEFINITIONS OF MYOCARDIAL INFARCTION. THE UPPER REFERENCE LIMIT (URL) OF TROPONIN, DEFINED THE 99TH PERCENTILE OF cTnI DISTRIBUTION IN A REFERENCE POPULATION, HAS BEEN CONFIRMED THE DECISION THRESHOLD FOR [place] DIAGNOSIS. Performed By: #### V ITB12, VITAD #### [facility] [address] [place] [address] Dr. Ev Perez GLYCOHEMOGLOBIN A1Con 2021 ADA RECOMMENDATION SEE BELOW Normal [facility] Comment on above: Result Comment: ADA RECOMMENDED LIMIT 4.0 - 6.0 ADA THERAPEUTIC TARGET < 7.0 ACTION SUGGESTED > 7.0 Performed By: #### V ITB12, VITAD #### [facility] [address] [place] [address] Dr. Ev Perez Glucose [Mass/Vol] 258 mg/dL Normal [facility] Comment on above: Performed By: #### V ITB12, VITAD #### [facility] [address] [place] [address] Dr. Ev Perez HbA1c (Bld) [Mass fraction] 10.6 % Critically high 4.5-6.2 [facility] Comment on above: Performed By: #### V ITB12, VITAD #### [facility] [address] [address] [address] Ev Perez Vital Signs Date Time Vital Sign Value Performing Clinician Facility 01-23-2025 10:35-0400 Diastolic blood pressure 66 mm[Hg] Whit Titus MD Work Phone: [facility] 01-23-2025 10:35-0400 Systolic blood pressure 146 mm[Hg] Whit Titus MD Work Phone: [facility] 01-23-2025 10:16-0400 Body height 166.37 cm Whit Titus MD Work Phone: [facility] 01-23-2025 10:16-0400 Body mass index (BMI) [Ratio] 31.6 kg/m2 Whit Titus MD Work Phone: [facility] 01-23-2025 10:16-0400 Body weight 87.5 kg Whit Titus MD Work Phone: [facility] 01-23-2025 10:16-0400 Heart rate 70 /min Whit Titus MD Work Phone: [facility] 01-23-2025 10:16-0400 Respiratory rate 18 /min Whit Titus MD Work Phone: [facility] 01-23-2025 10:16-0400 SaO2% (BldA) [Mass fraction] 95 % Whit Titus MD Work Phone: [facility] 10-24-2024 11:11-0400 Body height 166.37 cm [facility] 10-24-2024 11:11-0400 Body mass index (BMI) [Ratio] 30.6 kg/m2 [facility] 10-24-2024 11:11-0400 Body weight 84.7 kg [facility] 10-24-2024 11:11-0400 Diastolic blood pressure 65 mm[Hg] [facility] 10-24-2024 11:11-0400 Heart rate 66 /min [facility] 10-24-2024 11:11-0400 Respiratory rate 18 /min [facility] 10-24-2024 11:11-0400 SaO2% (BldA) [Mass fraction] 97 % [facility] 10-24-2024 11:11-0400 Systolic blood pressure 132 mm[Hg] [facility] 10-15-2024 10:58-0400 Body height 166.37 cm [facility] 10-15-2024 10:58-0400 Body mass index (BMI) [Ratio] 27.3 kg/m2 [facility] 10-15-2024 10:58-0400 Body weight 75.86 kg [facility] 10-15-2024 10:58-0400 Diastolic blood pressure 74 mm[Hg] [facility] 10-15-2024 10:58-0400 Heart rate 71 /min [facility] 10-15-2024 10:58-0400 Respiratory rate 12 /min [facility] 10-15-2024 10:58-0400 SaO2% (BldA) [Mass fraction] 96 % [facility] 10-15-2024 10:58-0400 Systolic blood pressure 148 mm[Hg] [facility] 08-08-2024 10:38-0400 Body height 166.37 cm [facility] 08-08-2024 10:38-0400 Body mass index (BMI) [Ratio] 30.2 kg/m2 [facility] 08-08-2024 10:38-0400 Body weight 83.57 kg [facility] 08-08-2024 10:38-0400 Diastolic blood pressure 84 mm[Hg] [facility] 08-08-2024 10:38-0400 Heart rate 81 /min [facility] 08-08-2024 10:38-0400 Systolic blood pressure 148 mm[Hg] [facility] 08-01-2024 09:54-0400 Body height 166.37 cm [facility] 08-01-2024 09:54-0400 Body mass index (BMI) [Ratio] 30 kg/m2 [facility] 08-01-2024 09:54-0400 Body weight 83.2 kg [facility] 08-01-2024 09:54-0400 Diastolic blood pressure 80 mm[Hg] [facility] 08-01-2024 09:54-0400 Heart rate 76 /min [facility] 08-01-2024 09:54-0400 Respiratory rate 18 /min [facility] 08-01-2024 09:54-0400 SaO2% (BldA) [Mass fraction] 95 % [facility] 08-01-2024 09:54-0400 Systolic blood pressure 132 mm[Hg] [facility] 07-04-2023 12:26-0500 Diastolic blood pressure 72 mm[Hg] MD Whit Titus Work Phone: [facility] 07-04-2023 12:26-0500 Systolic blood pressure 148 mm[Hg] MD Wiht Titus Work Phone: [facility] 07-04-2023 11:37-0500 Body height 168.91 cm MD Whit Titus Work Phone: [facility] 07-04-2023 11:37-0500 Body mass index (BMI) [Ratio] 27.8 kg/m2 MD Whit Titus Work Phone: [facility] 07-04-2023 11:37-0500 Body weight 79.43 kg MD Whit Titus Work Phone: [facility] 07-04-2023 11:37-0500 Heart rate 70 /min MD Whit Titus Work Phone: [facility] 07-04-2023 11:37-0500 Respiratory rate 18 /min MD Whit Titus Work Phone: [facility] 07-04-2023 11:37-0500 SaO2% (BldA) [Mass fraction] 95 % MD Whit Titus Work Phone: [facility] 05-10-2023 10:15-0500 Body height 168.91 cm Kathryn Scally Other [facility] 05-10-2023 10:15-0500 Body mass index (BMI) [Ratio] 27.28 kg/m2 Kathryn Scally Other [employer] Other 05-10-2023 10:15-0500 Body weight 77.84 kg Kathryn Scally Other [employer] Other 05-10-2023 10:15-0500 Body weight 77.83 kg MD Whit Titus Work Phone: [facility] 05-10-2023 10:15-0500 Diastolic blood pressure 84 mm[Hg] Kathryn Scally Other [facility] 05-10-2023 10:15-0500 Respiratory rate 18 /min Kathryn Scally Other [employer] Other 05-10-2023 10:15-0500 SaO2% (BldA) [Mass fraction] 95 % Kathryn Scally Other [employer] Other 05-10-2023 10:15-0500 Systolic blood pressure 144 mm[Hg] Kathryn Scally Other [facility] 02-01-2023 10:15-0400 Body height 168.91 cm Kathryn Scally Other [employer] Other 02-01-2023 10:15-0400 Body mass index (BMI) [Ratio] 28.69 kg/m2 Kathryn Scally Other [employer] Other 02-01-2023 10:15-0400 Body weight 81.87 kg Kathryn Scally Other [employer] Other 02-01-2023 10:15-0400 Diastolic blood pressure 74 mm[Hg] Kathryn Scally Other [employer] Other 02-01-2023 10:15-0400 Respiratory rate 18 /min Kathryn Scally Other [employer] Other 02-01-2023 10:15-0400 SaO2% (BldA) [Mass fraction] 97 % Kathryn Scally Other [employer] Other 02-01-2023 10:15-0400 Systolic blood pressure 142 mm[Hg] Kathryn Scally Other [employer] Other 12-29-2022 11:45-0400 Body height 168.91 cm Whit Titus Other [employer] Other 12-29-2022 11:45-0400 Body mass index (BMI) [Ratio] 30.05 kg/m2 Whit Titus Other [employer] Other 12-29-2022 11:45-0400 Body weight 85.73 kg Whit Titus Other [employer] Other 12-29-2022 11:45-0400 Diastolic blood pressure 78 mm[Hg] Whit Titus Other [employer] Other 12-29-2022 11:45-0400 Systolic blood pressure 142 mm[Hg] Whit Titus Other [employer] Other 11-25-2022 11:00-0400 Body height 168.91 cm Whit Titus Other [employer] Other 11-25-2022 11:00-0400 Body mass index (BMI) [Ratio] 28.61 kg/m2 Whit Titus Other [employer] Other 11-25-2022 11:00-0400 Body weight 81.65 kg Whit Freedom Other [employer] Other 11-25-2022 11:00-0400 Diastolic blood pressure 71 mm[Hg] Whit Freedom Other [employer] Other 11-25-2022 11:00-0400 Systolic blood pressure 138 mm[Hg] Whit Freedom Other [employer] Other 10-26-2022 12:45-0400 Body height 168.91 cm Kathryn Scally Other [employer] Other 10-26-2022 12:45-0400 Body mass index (BMI) [Ratio] 28.44 kg/m2 Kathryn Scally Other [employer] Other 10-26-2022 12:45-0400 Body weight 81.15 kg Kathryn Scally Other [employer] Other 10-26-2022 12:45-0400 Diastolic blood pressure 74 mm[Hg] Kathryn Scally Other [employer] Other 10-26-2022 12:45-0400 Respiratory rate 18 /min Kathryn Scally Other [employer] Other 10-26-2022 12:45-0400 SaO2% (BldA) [Mass fraction] 97 % Kathryn Scally Other [employer] Other 10-26-2022 12:45-0400 Systolic blood pressure 138 mm[Hg] Kathryn Scally Other [employer] Other 09-06-2022 11:15-0400 Body height 168.91 cm Kathryn Scally Other [employer] Other 09-06-2022 11:15-0400 Body mass index (BMI) [Ratio] 28.92 kg/m2 Kathryn Scally Other [employer] Other 09-06-2022 11:15-0400 Body weight 82.51 kg Kathryn Scally Other [employer] Other 09-06-2022 11:15-0400 Diastolic blood pressure Kathryn Scally Other [employer] Other 09-06-2022 11:15-0400 Respiratory rate 18 /min Kathryn Scally Other [employer] Other 09-06-2022 11:15-0400 SaO2% (BldA) [Mass fraction] 95 % Kathryn Scally Other [employer] Other 09-06-2022 11:15-0400 Systolic blood pressure 148 mm[Hg] Kathryn Scally Other [employer] Other 06-30-2022 12:00-0500 Body height 168.91 cm Kathryn Scally Other [employer] Other 06-30-2022 12:00-0500 Body mass index (BMI) [Ratio] 29.38 kg/m2 Kathryn Scally Other [employer] Other 06-30-2022 12:00-0500 Body weight 83.83 kg Kathryn Scally Other [employer] Other 06-30-2022 12:00-0500 Diastolic blood pressure 84 mm[Hg] Kathryn Scally Other [employer] Other 06-30-2022 12:00-0500 Respiratory rate 18 /min Kathryn Scally Other [employer] Other 06-30-2022 12:00-0500 SaO2% (BldA) [Mass fraction] 95 % Kathryn Scally Other [employer] Other 06-30-2022 12:00-0500 Systolic blood pressure 152 mm[Hg] Kathryn Scally Other [employer] Other 05-28-2022 11:00-0500 Body height 168.91 cm Whit Titus Other [employer] Other 05-28-2022 11:00-0500 Body mass index (BMI) [Ratio] 29.09 kg/m2 Whit Titus Other [employer] Other 05-28-2022 11:00-0500 Body weight 83.01 kg Whit Titus Other [employer] Other 05-28-2022 11:00-0500 Diastolic blood pressure 82 mm[Hg] Whit Titus Other [employer] Other 05-28-2022 11:00-0500 SaO2% (BldA) [Mass fraction] 98 % Whit Titus Other [employer] Other 05-28-2022 11:00-0500 Systolic blood pressure 140 mm[Hg] Whit Titus Other [facility] [employer] Other Encounters Encounter Date Encounter Type Care Provider Facility Start: 01-23-2025 End: 01-23-2025 ambulatory Whit Titus MD Work Phone: [facility] Work Phone: Start: 01-23-2025 End: 01-23-2025 Patient encounter procedure Kathryn Ramirez Astrid [employer] -[facility] Work Phone: Start: 12-21-2024 End: 12-21-2024 ambulatory Whit Titus MD Work Phone: [facility] Work Phone: Start: 12-21-2024 End: 12-21-2024 Patient encounter procedure Aaron Borrego -[facility] Work Phone: Start: 12-03-2024 End: 12-03-2024 Bamboo flowsheet Suzie Liz MD Work Phone: [facility] Start: 12-03-2024 End: 12-03-2024 Bamboo flowsheet Suzie Liz MD Work Phone: [facility] Start: 12-03-2024 End: 12-03-2024 ambulatory SUZIE LIZ Not Available Start: 11-07-2024 Non-patient / Non-visit Whit fox MD -[facility] [employer] Work Phone: Start: 10-24-2024 End: 10-24-2024 ambulatory [facility] Work Phone: Start: 10-24-2024 End: 10-24-2024 Patient encounter procedure [facility] Work Phone: Start: 10-15-2024 End: 10-15-2024 ambulatory [facility] Work Phone: Start: 10-15-2024 End: 10-15-2024 Patient encounter procedure [facility] Physician [facility] Work Phone: Start: 09-12-2024 End: 09-12-2024 ambulatory [facility] Work Phone: Start: 09-12-2024 End: 09-12-2024 Patient encounter procedure [facility] Physician [facility] Work Phone: Start: 08-08-2024 End: 08-08-2024 ambulatory [facility] Work Phone: Start: 08-08-2024 End: 08-08-2024 Patient encounter procedure [facility] Physician [facility] Work Phone: Start: 08-06-2024 Non-patient / Non-visit [facility] Physician [facility] Work Phone: Start: 08-01-2024 End: 08-01-2024 ambulatory [facility] Work Phone: Start: 08-01-2024 End: 08-01-2024 Patient encounter procedure [facility] Work Phone: Start: 07-26-2024 ambulatory Chad MOHRL Facility:[facility] Start: 07-25-2024 Non-patient / Non-visit [facility] Physician [facility] [employer] Work Phone: Start: 07-25-2024 End: 07-25-2024 ambulatory Chad Blancas [employer] Facility:[id number] Start: 06-12-2024 End: 06-12-2024 Patient encounter procedure [facility] Physician [facility] Work Phone: Start: 09-26-2023 Patient encounter procedure [facility] Start: 07-04-2023 ambulatory Whit Titus Facility :[facility] Start: 07-04-2023 End: 07-04-2023 Patient encounter procedure MD Whit Titus Work Phone: [facility] Physician [facility] Work Phone: Start: 05-19-2023 End: 05-19-2023 ambulatory Kathryn Bautista Other [employer] Other Start: 05-19-2023 Telephone encounter Kathryn [facility] Start: 05-10-2023 (DM) Diabetes Kathryn Cook [facility] Start: 05-10-2023 End: 05-11-2023 ambulatory MD Whit Titus Work Phone: [employer] Other Start: 05-10-2023 End: 05-10-2023 Discharged Recurring MD [facility] Work Phone: Start: 05-10-2023 End: 05-10-2023 Patient encounter procedure MD Whit Titus Work Phone: [facility] Physician [facility] Work Phone: Start: 03-29-2023 End: 03-29-2023 ambulatory Kathryn Bautista Other [employer] Other Start: 03-29-2023 Nursing evaluation o f patient and report Kathryn Bautista [facility] Start: 02-01-2023 (DM) Diabetes Kathryn Cook ds [facility] Start: 02-01-2023 End: 02-01-2023 ambulatory Kathryn Bautista Other [employer] Other Start: 12-29-2022 End: 12-29-2022 ambulatory Whit Titus Other [employer] Other Start: 12-29-2022 Office outpatient vi sit [address] [facility] Start: 12-27-2022 End: 12-27-2022 ambulatory Whit Titus Other [employer] Other Start: 12-27-2022 [address] Titus [facility] Start: 11-25-2022 End: 11-25-2022 ambulatory Whit Titus Other [employer] Other Start: 11-25-2022 Patient encounter procedure Whit Titus [facility] Start: 10-26-2022 (PUMP/CGM) Pump / Sensor Kathryn Scally [facility] Start: 10-26-2022 End: 10-26-2022 ambulatory Kathryn Scally Other [employer] Other Start: 10-19-2022 End: 10-19-2022 ambulatory Whit Titus Other [employer] Other Start: 10-19-2022 [address] Whit Titus [facility] Start: 10-18-2022 End: 10-18-2022 ambulatory Whit Titus Other [employer] Other Start: 10-18-2022 Telephone [address] Whit Titus [facility] Start: 09-22-2022 End: 09-22-2022 ambulatory DAMON RANJAN Facility: Start: 09-06-2022 (PUMP/CGM) Pump / Sensor Kathryn Scally [facility] Start: 09-06-2022 End: 09-06-2022 ambulatory Kathryn Scally Other [employer] Other Start: 07-29-2022 End: 07-29-2022 ambulatory Kathryn Scally Other [employer] Other Start: 07-29-2022 Nursing evaluation o f patient and report Kathryn Scally [facility] Start: 07-13-2022 End: 07-13-2022 ambulatory Kathryn Scally Other [employer] Other Start: 07-13-2022 Telephone encounter Kathryn gage [facility] Start: 07-06-2022 Telephone encounter Kathryn Back [facility] [employer] Start: 07-06-2022 End: 07-07-2022 ambulatory KATHRYN BAUTISTA [facility] [employer] Other Start: 07-05-2022 End: 07-05-2022 ambulatory Kathryn Bautista Other [employer] Other Start: 07-05-2022 Telephone encounter Kathryn gage [facility] Start: 06-30-2022 (New DM) New Diabetes Kathryn Bautista [facility] Start: 06-30-2022 End: 06-30-2022 ambulatory Kathryn Bautista Other [employer] Other Start: 05-28-2022 End: 05-28-2022 ambulatory Whit Titus Other [employer] Other Start: 05-28-2022 Office outpatient vi sit [address] [facility] Start: 05-24-2022 Adult health examination Whit Titus Other [employer] Other Start: 05-24-2022 End: 05-25-2022 ambulatory NONE LISTED REQUEST Facility:[facility] Start: 02-25-2022 End: 02-25-[address] CARMELO PRUITT Facility:[facility] Start: 12-09-2021 End: 12-10-2021 ambulatory NONE LISTED REQUEST Facility:[facility] Procedures Date Procedure Procedure Detail Performing Clinician Start: 12-03-2024 End: 12-03-2024 [facility] medical xm&eval comprhnsv estab pt 1/> Type 2 diabetes mellitus without complication, without long-term current use of insulin (HCC) Suzie Liz MD Work Phone: Comment on above: Type 2 diabetes amanda itus without complication, without long- term current use of insulin (HCC) (Primary Dx); PCO (posterior capsular opacification), bilateral; Pseudophakia Plan of Treatment Date Care Activity Detail Author Start: 01-14-2025 Influenza vaccination Influenz a Vaccine (#1) [facility] Start: 12-03-2024 End: 12-03-2024 Patient encounter procedure 12/03/2024 11:00 AM EDT Office Visit [facility] [address] [place] [address] Suzie Liz MD [address] [place] [address] Arrived [facility] Comment on above: Arrived Start: 1950 Screening for malign ant neoplasm of colon [facility] Comprehensive metabo lic 1999 panel - Serum or Plasma [facility] Glutamate decarboxyl ase 65 Ab [Units/volume] in Serum [facility] Insulin Ab [Units/vo lume] in Serum [facility] Insulin C-peptide measurement [facility] Pancreatic islet becky l Ab [Titer] in Serum [facility] Immunizations Immunization Date Immunization Notes Care Provider Fa cility 02-20-2024 influenza virus vacc ine, unspecified formulation Suzie Liz MD Work Phone: [facility] Payers Date Payer Category Payer Medicare (Managed Care) MARY CALDERA [id number] 2022 Self-pay 1960 Medicare [id number] 1960 Self-pay [id number] 1950 Unknown [id number] 1950 Unknown [id number] [id number] 1950 Unknown [id number] [id number] 1950 Unknown [id number] [id number] 1950 Unknown [id number] [id number] Unknown [id number] [id number] Unknown [id number] [id number] Unknown [id number] [id number] Unknown [id number] [id number] Social History Date Type Detail Facility Unknown if ever smoked [facility] [employer] Other Sex Assigned At [employer] Other Start: 1950 Sex Assigned At Male F [facility] Start: 10-04-2023 End: 01-23-2025 Tobacco smoking status OKIS Never smoked tobacco (finding) [facility] Start: 08-01-2024 End: 10-24-2024 Sex Male (finding) [facility] Tobacco smoking status [facility] Tobacco smoking consumption unknown [facility] Start: 1950 Sex assigned at Not on file [facility] Medical Equipment Procedure Code Equipment Code Equipment [...] x 5/16 needle Start: 07-01-2023 End: 10-24-2024 Blood Sugar Diagnostic (Onetouch Ultra Test) strip [...] x 5/16 needle Start: 07-01-2023 End: 10-24-2024 Blood Sugar Diagnostic (Onetouch Ultra Test) strip [...] (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) 31 gauge x 16 needle Start: 07-01-2023 End: 10-24-2024 Clinical Notes 05-28-2022 to 12-21-2024 Note Date & Type Note Facility 12-21-2024 Evaluation note Diagnosis Onset Date Resolution Type 2 diabetes mellitus with hyperglycemia acute December 21, 8:47am BMI 27.0-27.9,adult acute 2024 10:06am Dietary counseling and surveillance acute January 23, 2025 10:06am HTN (hypertension) acute 2024 10:06am Hyperlipidemia acute January 23, 2025 10:06am 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 acute January 23, 2025 10:06am Type 2 diabetes mellitus with hyperglycemia acute January 10:06am Vitamin B 12 deficiency acute S eptemb2024 10:06am Vitamin D deficiency acute Jan 10:06am [facility] Work Phone: 1(510) 866-358907-21-2025 History of Present illness Narrative* Suzie Liz MD - 12/03/2024 11:00 AM EDT Allergies Allergen Reactions Penicillins Unknown Past Medical History: Diagnosis Date Cataract Diabetes mellitus (HCC) Dry eyes Assessment/Plan Diabetes Mellitus without sign of diabetic retinopathy on dilated retinal examination today OU: Discussed the pathophysiology of diabetes and its effect on the eye. Stressed the importance of strong glucose control. Advised of importance of at least yearly dilated examinations, but to contact us immediately for any problems or concerns. [id number] Evaluation note* Diagnosis Onset Date Resolution Status Admit Date HTN (hypertension) acute October 152024 10:44am Hyperlipidemia acute October 15, 2024 10:44am Medicare annual wellness vis it, subsequent acute October 15, 2024 1 0:44am Type 2 diabetes mellitus wit h hyperglycemia acute October 15, 2024 1 0:44am BMI 27.0-27.9,adult acute October 24, 2024 10:58am Dietary counseling and surveillance acute October 24, 2024 10:58am HTN (hypertension) acute October 142024 10:58am Hyperlipidemia acute October 24, 2024 10:58am custodial current use of insulin acu te October 24, 2024 10:58am Type 2 diabetes mellitus wit h hyperglycemia acute October 24, 2024 10:58am Vitamin B 12 deficiency acute J 2024 10:58am Vitamin D deficiency acute October 24, 2024 10:58am Type 2 diabetes mellitus wit h hyperglycemia acute December 21, 2024 8:47am [facility] Work Phone: 1(635) 215-788703-19-2025 Evaluation note* Diagnosis Onset Date Resolution Status Admit Date BMI 27.0-27.9,adult acute August 01, 2024 9:43am Dietary counseling and surveillance acute August 01, 2024 9:43am HTN (hypertension) acute August 01, 2024 9:43am Hyperlipidemia acute July 9:43am 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 acu te August 01, 2024 9:43am Type 2 diabetes mellitus wit h hyperglycemia acute August 01, 2024 9:43am Vitamin B 12 deficiency acute [facility] 2024 9:43am Vitamin D deficiency acute [facility] 2024 9:43am Esophagitis determined by endoscopy acute August 08, 2024 10:25am Food impaction of esophagus acute August 08, 2024 10:25am Type 2 diabetes mellitus wit h hyperglycemia acute August 08, 2024 10:25am Type 2 diabetes mellitus wit h hyperglycemia acute September 12, 2024 9:58am [facility] Work Phone: 1(905) 519-369603-19-2025 Evaluation note* Diagnosis Onset Date Resolution Status Admit Date BMI 27.0-27.9,adult acute August 01, 2024 9:43am Dietary counseling and surveillance acute August 01, 2024 9:43am HTN (hypertension) acute August 01, 2024 9:43am Hyperlipidemia acute July 9:43am 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 acu te August 01, 2024 9:43am Type 2 diabetes mellitus wit h hyperglycemia acute August 01, 2024 9:43am Vitamin B 12 deficiency acute [facility] 2024 9:43am Vitamin D deficiency [...] hyperglycemia acute October 15, 2024 1 0:44am [facility] Work Phone: 1(638) 230-678103-19-2025 Evaluation note* Diagnosis Onset Date Resolution Status Admit Date BMI 27.0-27.9,adult acute August 01, 2024 9:43am Dietary counseling and surveillance acute August 01, 2024 9:43am HTN (hypertension) acute August 01, 2024 9:43am Hyperlipidemia acute July 9:43am 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 acu te August 01, 2024 9:43am Type 2 diabetes mellitus wit h hyperglycemia acute August 01, 2024 9:43am Vitamin B 12 deficiency acute [facility] 2024 9:43am Vitamin D deficiency acute [facility] 2024 9:43am Esophagitis determined by endoscopy acute [...] 15, 2024 1 0:44am BMI 27.0-27.9,adult acute October 24, 2024 10:58am Dietary counseling and surveillance acute October 24, 2024 10:58am HTN (hypertension) acute October 142024 10:58am Hyperlipidemia acute October 24, 2024 10:58am custodial current use of insulin acu te October 24, 2024 10:58am Type 2 diabetes mellitus wit h hyperglycemia acute October 24, 2024 10:58am Vitamin B 12 deficiency acute J une 2024 10:58am Vitamin D deficiency acute October 24, 2024 10:58am [facility] Work Phone: 1([phone]) 700-284601-28-2025 Evaluation note* Diagnosis Onset Date Resolution Status Admit Date Type 2 diabetes mellitus wit h hyperglycemia acute June 12 10:49am BMI 27.0-27.9,adult acute August 01, 2024 9:43am Dietary counseling and surveillance acute August 01, 2024 9:43am HTN (hypertension) acute August 01, 2024 9:43am Hyperlipidemia acute July 9:43am 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 acu te August 01, 2024 9:43am Type 2 diabetes mellitus wit h hyperglycemia acute August 01, 2024 9:43am Vitamin B 12 deficiency acute [facility] 2024 9:43am Vitamin D deficiency acute Travis 2024 9:43am [facility] Work Phone: 1(172) 814-880901-04-2024 Evaluation note* Encounter Date Diagnosis Assessment Notes Treatment Notes Treatment Clinical Notes May, Type 2 diabetes mellitus with hyperglycemia (ICD-10 - E11.65) [employer] Other 12-26-2023 Evaluation note* Encounter Date Diagnosis [...] Prescriptions: Request refills for Metformin 05-10-2023 uses [employer]. Apr, Vitamin D deficiency (ICD-10 - E55.9) Learning About Vitamin D material was published to portal Apr, Dietary counseling and surveillance (ICD-10 - Z71.3) Learning About Healthy Weight material was published to [employer] Apr, HTN (hypertension) (ICD-10 - I10) High Blood Pressure: Care Instructions material was published to portal Slightly above goal today, goal systolic under 130, diastolic under 80.-- continue to monitor at home, if sustained above goal notify PCP Apr, custodial current use of insulin (ICD-10 - Z79.4) Apr, Insulin long-term use (ICD-10 - Z79.4) Apr, Hyperlipidemia LDL goal <100 (ICD-10 - E78.5) [facility] About High Cholesterol material was published to portal Apr, Vitamin B 12 deficiency (ICD-10 - E53.8) OTC B12 sublingually 1000 mcg daily. Apr, BMI 27.0-27.9,adult (ICD-10 - Z68.27) Apr, Other Learning About High Cholesterol material was published to [employer] Other 11-14-2023 Evaluation note* Encounter Date Diagnosis [...] findings with him by Elis Borrego RN, [facility]. [employer] Other 09-19-2023 Evaluation note* Encounter Date Diagnosis [...] Pressure: Care Instructions material was published to [employer] Slightly above goal today, 138/74, goal systolic under 130, diastolic under 80. 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 Jan, Other [facility] About High Cholesterol material was published to [employer] Other 08-16-2023 Evaluation note* Encounter Date Diagnosis [...] avoid open toed shoes. Check feet daily. [employer] Other 07-13-2023 Evaluation note* Encounter Date Diagnosis [...] >10. Continue to follow with diabetes clinic. [employer] Other 06-13-2023 Evaluation note* Encounter Date Diagnosis [...] systolic under 130, diastolic under 80. 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 Oct, Other [facility] About High Cholesterol material was published to [employer] Other 06-06-2023 Evaluation note* Encounter Date Diagnosis Assessment Notes Treatment Notes Treatment Clinical Notes Oct, Type 2 diabetes mellitus with hyperglycemia (ICD-10 - E11.65) [employer] Other 06-05-2023 Evaluation note* Encounter Date Diagnosis Assessment Notes Treatment Notes Treatment Clinical Notes Oct, Type 2 diabetes mellitus with hyperglycemia (ICD-10 - E11.65) [employer] Other 04-24-2023 Evaluation note* Encounter Date Diagnosis [...] About Vitamin D material was published to [employer] Aug, Dietary counseling and surveillance (ICD-10 - Z71.3) Learning About Healthy Weight material was published to portal Aug, HTN (hypertension) (ICD-10 - I10) High Blood Pressure: Care Instructions material was published to [employer] Above goal today, discussed goal of <130/80-- Could lconsider Jardiance Aug, custodial current use of insulin (ICD-10 - Z79.4) Aug, Insulin long-term use (ICD-10 - Z79.4) Aug, Hyperlipidemia LDL goal <100 (ICD-10 - E78.5) [facility] About High Cholesterol material was published to [employer] Aug, BMI 28.0-28.9,adult (ICD-10 - Z68.28) Aug, Vitamin B 12 deficiency (ICD-10 - E53.8) OTC B12 sublingually 1000 mcg daily. Aug, Other Learning About High Cholesterol material was published to [employer] Other 03-16-2023 Evaluation note* Encounter Date Diagnosis Assessment Notes Treatment Notes Treatment Clinical Notes Jul, Type 2 diabetes mellitus with hyperglycemia (ICD-10 - E11.65) Jayme came in today for [employer] training. He brought a sensor and [...] Educating the pateint by Elis Borrego RN, [facility]. [employer] Other 02-15-2023 Evaluation note* Encounter Date Diagnosis [...] Instructions material was published to portal Jun, custodial current use of insulin (ICD-10 - Z79.4) Jun, Insulin long-term use (ICD-10 - Z79.4) Jun, Hyperlipidemia LDL goal <100 (ICD-10 - E78.5) [facility] About High Cholesterol material was published to portal Jun, Other Learning About High Cholesterol material was published to portal [employer] Other 01-13-2023 Evaluation note* Encounter Date Diagnosis [...] symptoms. Any developing patterns. Stay well hydrated. [employer] Other Chief complaint+Reason for visit Narrative* Chief Complaint Dm DM Reason for Visit BMI 27.0-27.9,adult Dietary counseling and surveillance HTN (hypertension) Hyperlipidemia custodial current use of insulin Type 2 diabetes mellitus with hyperglycemia Vitamin B 12 deficiency Vitamin D deficiency [facility] Work Phone: Evaluation noteNo [employer] Other Evaluation note* Diagnosis Onset Date Resolution Status BMI 27.0-27.9,adult acute Dietary counseling and surveillance acute HTN (hypertension) acute Hyperlipidemia acute custodial current use of insulin acute Type 2 diabetes mellitus with hyperglycemia acute Vitamin B 12 deficiency acut e Vitamin D deficiency acute [facility] Work Phone: Evaluation note* Diagnosis Type 2 diabetes mellitus without complication, without long-term current use of insulin (HCC)- Primary PCO (posterior capsular opacification), bilateral Unspecified after-cataract Pseudophakia Lens replaced by other means documented in this encounter [facility] N[facility] - Reported* Type Description Date [...] See Above Hospitalization History [facility]'s Palsy 02/2022 [employer] Other History general Narrative - Reported* Type [...] Hospitalization History [facility]- [facility] [place] [employer] Other Reason for referral (narrative)No reason for referral information [facility] Work Phone: Reason for visit NarrativeDM 3 month F/U, Referral Whit [employer] Other Reason for visit NarrativeDM, DM 3 month F/U, Referral Whit [employer] Other Reason for Referral Reason 06/30/22 Type 2 di abetes. A1C 10.1 Diagnosis 1 Hyperglycemia due to type 2 diabetes mellitus (E11.65) Referral Organization [facility] kimi Referring Provider First Name Whit Referring Provider Last Name Freedom Referring Provider Specialty [facility] Referred Organization [facility] Referred Provider Kathryn Bautista Referred Address [address] [place] [address],[address],[place], [place],[address] Referred Provider Specialty Nurse Glenn melendez Referral [...] Date Type 2 diabetes mellitus with hyperglyce [facility] June 12, 2024 10:49am BMI 27.0-27.9,adult August 01, 2024 9:4 3am Dietary counseling and surveillance [facility] 2024 9:43am HTN (hypertension) August 01, 2024 9:4 3am Hyperlipidemia August 01, 2024 9:4 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 July 142024 9:43am Type 2 diabetes mellitus with hyperglyce [facility] August 01, 2024 9:43am Vitamin B 12 [...] 2024 9:4 3am Dietary counseling and surveillance [facility] 2024 9:43am HTN (hypertension) August 01, 2024 9:4 3am Hyperlipidemia August 01, 2024 9:4 3am custodial current 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 of 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 July 142024 9:43am Type 2 diabetes mellitus with hyperglyce cory August 01, 2024 9:43am Vitamin B 12 deficiency August 01, 2024 9:43am Vitamin D deficiency August 01, 2024 9: 43am Esophagitis determined by endoscopy [facility] 2024 10:25am Food impaction of esophagus August [...] 2024 9:4 3am Dietary counseling and surveillance [facility] 2024 9:43am HTN (hypertension) August 01, 2024 9:4 3am Hyperlipidemia August 01, 2024 9:4 3am custodial current use of insulin July 142024 9:43am Type 2 diabetes mellitus with hyperglyce cory August 01, 2024 9:43am Vitamin B 12 deficiency August 01, 2024 9:43am Vitamin D deficiency August 01, 2024 9: 43am Esophagitis determined by endoscopy [facility] 2024 10:25am Food impaction of esophagus August [...] with hyperglyce cory October 15, 2024 10:44am Chief Complaint Admit [...] 2024 9:4 3am Dietary counseling and surveillance [facility] 2024 9:43am HTN (hypertension) August 01, 2024 9:4 3am Hyperlipidemia August 01, 2024 9:4 3am custodial current use of insulin July 142024 9:43am Type 2 diabetes mellitus with hyperglyce cory August 01, 2024 9:43am Vitamin B 12 deficiency August 01, 2024 9:43am Vitamin D deficiency August 01, 2024 9: 43am Esophagitis determined by endoscopy [facility] dejah 2024 10:25am Food impaction of esophagus August [...] 8am Hyperlipidemia October 24, 2024 10:5 8am 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 October 242024 10:58am Type 2 diabetes mellitus with hyperglyce cory October 24, 2024 10:58am Vitamin B 12 deficiency October 24, 2024 10:58am Vitamin D deficiency October 24, 2024 10: 58am Chief Complaint Admit Date Wellness October 15, 2024 10:44 am 12 week-DMN f/u October 24, 2024 10:5 8am 8 week-On phone December 21, 2024 8:4 7am Reason for Visit Admit Date HTN (hypertension) October 15, 2024 10:44 am Hyperlipidemia October 15, 2024 10:44 am Medicare annual wellness visit, sam nt October 15, 2024 10:44am Type 2 diabetes mellitus with hyperglyce cory October 15, 2024 10:44am BMI 27.0-27.9,adult October 24, 2024 10:5 8am Dietary counseling and surveillance October 24, 2024 10:58am HTN (hypertension) October 24, 2024 10:5 8am Hyperlipidemia October 24, 2024 10:5 8am custodial current use of insulin October 242024 10:58am Type 2 diabetes mellitus with hyperglyce cory October 24, 2024 10:58am Vitamin B 12 deficiency October 24, 2024 10:58am Vitamin D deficiency October 24, 2024 10: 58am Type 2 diabetes mellitus with hyperglyce cory December 21, 2024 8:47am Chief Complaint Admit Date 8 week-On phone December 21, 2024 8:4 7am 5 week after DL January 23, 2025 10:06am Reason for Visit Admit Date Type 2 diabetes mellitus with hyperglyce cory December 21, 2024 8:47am BMI 27.0-27.9,adult January 23, 2025 10:06am Dietary counseling and surveillance Jan ember 2024 10:06am HTN (hypertension) January 23, 2025 10:06am Hyperlipidemia January 23, 2025 10:06am custodial current use of insulin Septemb er 2024 10:06am Type 2 diabetes mellitus with hyperglyce cory January 23, 2025 10:06am Vitamin B 12 deficiency January 23, 2025 10:06am Vitamin D deficiency January 23 10:06am Additional Source Comments REASON FOR VISIT (unrecogniz ed section and content) Reason Comments Diabetic Eye Exam (unrecognized sect ion and content) No Status Records FoundNo Status Records FoundNo Status Records FoundNo Status Records Found INFORMATION SOURCE (unrecogn ized section and content) DATE CREATED AUTHOR [facility]/24/2022 [facility] DATE CREATED AUTHOR AUTHOR'S ORGANIZ ATION 07/05/2023 [facility] DATE CREATED AUTHOR AUTHOR'S ORGANIZ ATION 08/06/2024 [facility] DATE CREATED AUTHOR AUTHOR'S ORGANIZ ATION 12/04/2024 [facility] Care Teams (unrecognized sec tion and content) Team Status: Active Member Role Status Dates Whit Titus MD Primary Care Provider Active Team Status: Active Member Role Status Dates Whit Titus MD Primary Care Provider Active Start: November 07, 2024 Whit Titus MD Attending Provider Active St art: November 07, 2024 Team Status: Inactive Member Role Status Dates Whit Titus MD Primary Care Provider Active Start: December 21, 2024 End: December 21, 2024 Aaron Borrego RN Attending Provider Active St art: December 21, 2024 End: December 21, 2024 Team Status: Inactive Member Role Status Dates Whit Titus MD Primary Care Provider Active Start: January 23, 2025 End: January 23, 2025 Kathryn Bautista APRN Attending Provider Active Start: January 23, 2025 End: January 23, 2025 Team Status: Active Member Role Status Dates Whit Titus MD Primary Care Provider Active Team Status: [...] Status: Inactive Member Role Status Dates Whit Titus MD Primary Care Provide r, Attending Provider Active Start: August 08, 2024 End: August 08, 2024 Team Status: Inactive Member Role Status Dates Aaron Borrego RN Attending Provider Active St art: September 12, 2024 End: September 12, 2024 Kathryn Bautista APRN Active Star t: September 12, 2024 End: September 12, 2024 Whit Titus MD Primary Care Provider Active Start: September 12, 2024 End: September 12, 2024 Team Status: Inactive Member Role Status Dates Whit Titus MD Primary Care Provide r, Attending Provider Active Start: October 15, 2024 End: October 15, 2024 Team Status: Inactive Member Role Status Dates Kathryn Bautista APRN Attending Provider Active Start: October 24, 2024 End: October 24, 2024 Whit Titus MD Primary Care Provider Active Start: October [...] Status: Inactive Member Role Status Dates Whit Titus MD Primary Care Provide r, Attending Provider Active Start: May 10, 2023 End: May 10, 2023 Team Status: Inactive Member Role Status Dates Whit Titus MD Primary Care Provider Active Start: July 04, 2023 End: July 04, 2023 Kathryn Bautista APRN Attending Provider Active Start: July 04, 2023 End: July 04, 2023 Team Status: Active Member Role Status Dates NON STAFF Primary Care Provider Active Team Status: Inactive Member Role Status Dates Zhanna Sheridan RN Attending Provider Active Start: June 12, 2024 End: June 12, 2024 Kathryn Bautista APRN Active Star t: June 12, 2024 End: June 12, 2024 NON STAFF Primary Care Provider Active Start: June 12, 2024 End: June 12, 2024 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 Start Date End Date Whit Titus MD [address] [place] [address] PCP - General Family Medicine 11/29/23 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 Start Date End Date Whit Titus MD [address] [place] [address] PCP - General Family Medicine 11/29/23 Team Status: Inactive Member Role Status Dates Whit Titus MD Primary Care Provider Active Start: October 15, 2024 End: October 15, 2024 Whit Titus MD Attending Provider Active St art: October 15, 2024 End: October 15, 2024 Team Status: Active Member Role Status Dates Whit Titus MD Primary Care Provider Active Start: November 07, 2024 Whit Titus MD Attending Provider Active St art: November 07, 2024 Team Status: Inactive Member Role Status Dates Whit Titus MD Primary Care Provider Active Start: December 21, 2024 End: December 21, 2024 Aaron Borrego RN Attending Provider Active St art: December 21, 2024 End: December 21, 2024 Team Status: Inactive Member Role Status Dates Whit Titus MD Primary Care Provider Active Start: January 23, 2025 End: January 23, 2025 Kathryn Bautista APRN Attending Provider Active Start: January 23, 2025 End: January 23, 2025 Goals (unrecognized section and content) Goals may [...] BE BASED ON THE PRIMARY CLINICAL RECORDS. [facility] [employer] provides no warranty or guarantee of the accuracy or completeness of information in this document.
[2025-02-20 10:20] LABS: Alanine Aminotransferase 33 U/L (16-63); Albumin Globulin Ratio 1.2; Albumin Level 3.7 g/dL (3.4-5.0); Alkaline Phosphatase 59 U/L (46-116); Anion Gap 12.1; Aspartate Amino Transferase 27 U/L (15-37); Blood Urea Nitrogen 19.0 mg/dL (7.0-18.0); Calcium 9.1 mg/dL (8.5-10.1); Carbon Dioxide 28.4 mmol/L (21.0-32.0); Chloride 104 mmol/L (98-107); Estimated GFR (African America >60 (>=60 mL/min/1.73m^2); Estimated GFR (Non-African Ame >60 (>=60 mL/min/1.73m^2); Globulin 3.1 g/dL; Glucose 137 mg/dL (74-106); Potassium 4.5 mmol/L (3.5-5.1); Sodium 140 mmol/L (136-145); Total Protein 6.8 g/dL (6.4-8.2)
[2025-02-21 05:07] LABS: Vitamin B12 472 pg/mL (232-1245)
== END 2025-02-20 08:56 | disposition home or self-care (01) ==
PROVIDERS: PCP Family Medicine; Visit Provider Family Medicine
DX: E11.65 Type 2 diabetes mellitus with hyperglycemia (principal); Z79.4 Long term (current) use of insulin; E78.5 Hyperlipidemia, unspecified; E55.9 Vitamin D deficiency, unspecified; E78.2 Mixed hyperlipidemia; I10 Essential (primary) hypertension
CPT/HCPCS: 36415; 80053; 82043; 82306; 82570; 82607; 83525; 84681; 86341

== ENCOUNTER 2025-04-15 09:39 | Outpatient (OUT) | payer MEDICARE, SELFPAY ==
--- OUTSIDE RECORDS SUMMARY | 2025-04-15 09:41 | XMS_ITS | Clinical Summary ---
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 Name Role Phone Whit Titus MD Primary Care Provider [phone] Allergies Active AllergyReactionsCriticalityNoted IywbLuubafeaMgcrewfgvagMalljca80/02/2024 Medications MedicationSigDispense QuantityRefillsLast FilledStart DateEnd DateStatus empagliflozin (Jardiance) 25 MG Daily10/03/2023ctive losartan (Cozaar) 50 MG tablet daily09/26/2023ctive metFORMIN (Glucophage) 1000 MG tablet .AJUTTIP4311/04/2023ctive Methylcobalamin 1 MG chewable tablet Daily10/04/2023ctive simvastatin (Zocor) 40 MG tablet Daily10/04/2023ctive Active Problems No known active problems Social History Tobacco UseTypesPacks/DayYears UsedDateSmoking Tobacco: Never AssessedSex and Gender InformationValueDate RecordedSex Assigned at BirthNot on fileLegal Sex Male07/28/2022 8:25 PM EDTGender IdentityNot on fileSexual OrientationNot on file Last Filed Vital Signs Vital SignReadingTime TakenCommentsBlood Pressure--Pulse--Temperature-- Respiratory Rate--Oxygen Saturation--Inhaled Oxygen Concentration--Kdsehh98.6 kg (180 lb)05/27/2021 12:00 PM NLCEkdtma349.2 cm (5' 7 )05/27/2021 12:00 PM ESTBody Mass Index28.19005/27/2021 12:00 PM EST Plan of Treatment DateTypeDepartmentCare Team (Latest Contact Info)Mbjpkapywio91/23/2026 11:00 AM EDTOffice Visit [facility] [address] [place] [address] Camila Liz MD [address] [place] [address] Health MaintenanceDue DateLast DoneCommentsCT Balxdcsmmncb1949Colonoscopy 1950Colorectal Cancer Gfjmsymju1949FIT-DNA1949FIT1950 FOBT1950 3683Qjlysyoamjjsp1949COVID-19 Vaccine ( season) , 02/09/2021, 07/17/2020, Additional history existsInfluenza Vaccine (#1)51, 03/07/2023, 03/03/2022, Additional history existsPneumococcal Vaccine: 65+ ZvorbBajrofdjv08/27/2020, 07/04/2017 Insurance * Guarantor: Jayme Babin TypeRelation to PatientDate of BirthPhone Billing AddressPersonal/EtpwhpPwhx1950 [address] [place] [address] Care Teams Team MemberRelationshipSpecialtyStart DateEnd Date Whit Titus MD [address] [place] [address] PCP - GeneralFamily Medicine7/16/24
--- OUTSIDE RECORDS SUMMARY | 2025-04-15 09:52 | XMS_ITS | CCD ---
Author Organization [facility] CliniSyms Care Team Providers Care Serging Machine Operator Name Role Phone Whit Titus Unavailable Kathryn Resendiz Unavailable DAMON WOODRUFF Admitting Unavailable DAMON WOODRUFF Consulting Unavailable DAMON WOODRUFF Attending Unavailable FREEDOM, DR WHIT [facility] Unavailable RISHIECK, DR CARMELO Santacruz Admitting Unavailabl e REINECK, DR CARMELO Santacruz Consulting Unavailabl e REINECK, DR CARMELO Santacruz Attending Unavailmary e FREEDOM, DR WHIT [facility] Unavailable CHAD [...] WHIT [facility] Unavailable MD Whit Titus Primary Care Provider MD Whit Titus Attending Provider [phone] Whit Titus Attending Unavailable Whit Titus Admitting Unavailable Whit Titus Primary Care Unavailable Whit Titus Primary Care Unavailable Scally, Kathryn Ramirez Admitting Unavailable Scally, Kathryn C Attending Unavailable Chad BOX Attending Unavailable Whit Titus MD Primary Care Provider [phone] SUZIE LIZ Attending Unavailable Whit Titus MD Primary Care Provider [phone] Whit Titus MD Attending Provider Astrid FREEZER WORKERKathryn Attending Provider Aaron Borrego RN Attending Provider Whit Bernardo MD Primary Care Provider [phone] Whit Titus MD Attending Provider Kathryn Resendiz APRN Attending Provider Allergies Allergy ClassificationReported Allergen(s)Allergy TypeDate of OnsetReaction(s) Facility (17 sources)Angiotensin-converting enzyme inhibitor agentDrug allergyUnknow SuperDimension Other (18 sources)Penicillin; 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: [penicillin]Drug AllergyUnknoMercy [facility] Repository (1 source)Angiotensin Converting Enzyme (Sukh) InhibitorsDrug allergy (disorder) 01-55-8027PaiifsoivLutheran Hospital Repository (8 sources)PenicillinsDrug allergy (disorder)34-46-5927Ebbxdam ReactionLutheran Hospital RepositoryComment on above:Pt is unsure of reaction as this was discovered early in childhood. (7 sources)ozempicPropensity to adverse mlcpknzey03-28-8257pfnofvzbjsLmhvgatgj Regional Medical CenterComment on above:loss of interest, lethargy (2 sources)PenicillinsDrug Ngrfjjq95-84-2710PnjhskaTJNS Healthcare Medications Current Medications MedicationDrug Class(es)DatesSig (Normalized)Sig (Original)Blood-Glucose Meter (Onetouch Ultra2 Meter) misc (7 sources)Start: 07-20-2559Ccwxk-Glucose Meter (Onetouch Ultra2 Meter) misc Active 0 .Route August 01, 2024 12:00am As directedStart: 47-09-8158Scrcy- Glucose Meter (Onetouch Ultra2 Meter) misc Active 0 .ROUTE August 01, 2024 12:00am As directedBlood-Glucose Meter,Continuous (Dexcom G7 History Card Clerk) misc (3 sources)Start: 36-52-4780Kreho-Glucose Meter,Continuous (Dexcom G7 History Card Clerk) misc Active 0 .Route July 01, 2023 1:00amAs directedStart: 07-01-2023 Blood-Glucose Meter,Continuous (Dexcom G7 History Card Clerk) misc Active 0 .Route July 01, 2023 12:00am As directedBlood-Glucose Sensor (Dexcom G7 Sensor) device (15 sources)Start: 70-10-2275Hknvf-Glucose Sensor (Dexcom G7 Sensor) device Active 0 .ROUTE .COMPLEX 9 May 11, 2024 9:30am CHANGE every 10 DAYS as directedStart: 07-01-2023 End: 52-99-3496Zoend-Glucose Sensor (Dexcom G7 Sensor) device Discontinued 0 .Route July 01, 2023 1:00am May 11, 2024 9:30am As directedStart: 96-45-3172Cpcyt-Glucose Sensor (Dexcom G7 Sensor) device Active 0 .Route July 01, 2023 12:00am As directedBlood-Glucose,History Card Clerk,Cont (Dexcom G7 History Card Clerk) misc (5 sources)Start: 61-27-7135Jdaef-Glucose,History Card Clerk,Cont (Dexcom G7 History Card Clerk) misc Active 0 .Route July 01, 2023 1:00am Asdirectedcholecalciferol 0.05 mg oral capsule (20 sources)Vitamin DStart: 69-39-3727lumj 1 capsule by mouth once daily Cholecalciferol (Vitamin D3) 50 mcg (2,000 unit) capsule Active 50 MCG PO Daily October 04, 2023 12:00am Complies with drug therapyStart: 12-21-8276wqwj 1 capsule by mouth every weekCholecalciferol 1.25 MG (97358 UT) 1 capsule Orally once weekly for 56 days follow with 4000iu OTC daily Jun, Not-TakingStart: 01-32-9557pylk 1 capsule by mouth every weekCholecalciferol 1.25 MG (73831 UT) 1 capsule Orally once weekly for 56 days follow with 4000iu OTC daily Jun, Activetake 1 capsule by mouth every twenty-four hoursVitamin D3 50 MCG (2000 UT) 1 capsule Orally Once a day ActiveDexcom G7 History Card Clerk - (16 sources)Start: 43-85-1099Clvzmm G7 History Card Clerk - Use to test BG In Vitro Daily for 365 days E11.65 Jun, ActiveDexcom G7 Sensor - (20 sources)Start: 75-56-8939Mttyph G7 Sensor - as directed [facility] Aug, ActiveStart: 91-69-1650Tulstc G7 Sensor - Use to test BG In Vitro Change Every 10 days for 90 days E11.65 Jun, ActiveLogly G7 Sensor - as directed [facility] ActiveFish Oils (2 sources)take 1 capsule by mouth once dailyFish Oil 1000 MG 1 capsule Orally Once a day ActiveglipiZIDE er 10 mg 24 hr extended release oral tablet (1 source)Sulfonylureatake 1 tablet by mouth once dailyglipiZIDE ER 10 mg TAKE 1 TABLET BY MOUTH DAILY STOP IF HAVING LOW POST MEAL BLOOD SUGARS Active3 ml insulin aspart, human 100 unt/ml pen injector (3 sources)Insulin AnalogStart: 65-48-8481Wwuvjfw Aspart (Niacinamide) (Fiasp Flextouch U-100 Insulin) 100 unit/mL (3 mL) insulin pen Active 1 sliding scale dose SUBCUT Use as Directed October 24, 2024 12:00am Complies with drug therapy3 ml insulin degludec 100 unt/ml pen injector (5 sources)Insulin AnalogStart: 74-46-7343Cmswehm Degludec (Tresiba Flextouch U- 100) 100 unit/mL (3 mL) insulin pen Active 11 UNIT SUBCUT Daily January 23, 2025 10:18am Complies with drug therapyStart: 10-24-2024 End: 43-19-3523Pjqpmaa Degludec (Tresiba Flextouch U-100) 100 unit/mL (3 mL) insulin pen Discontinued 13 UNIT SUBCUT Daily October 24, 2024 11:14am January 23, 2025 10:21amStart: 08-01-2024 End: 69-96-6633Csusyaz Degludec (Tresiba Flextouch U-100) 100 unit/mL (3 mL) insulin pen Discontinued 14 UNIT SUBCUT Daily August 01, 2024 12:00am October 24, 2024 11:18amInsulin Degludec (Tresiba Flextouch U-100) 100 unit/mL (3 mL) insulin pen (6 sources)Start: 57-78-1230Dyjyagp Degludec (Tresiba Flextouch U-100) 100 unit/mL (3 mL) insulin pen Active 13 UNIT SUBCUT Daily October 24, 2024 11:14am Start: 08-01-2024 End: 79-17-8870Xhmrqvj Degludec (Tresiba Flextouch U-100) 100 unit/mL (3 mL) insulin pen Discontinued 14 UNIT SUBCUT Daily August 01, 2024 12:00am October 24, 2024 11:18amStart: 21-44-4878Rfrmvgk Degludec (Tresiba Flextouch U-100) 100 unit/mL (3 mL) insulin pen Active 14 UNIT SUBCUT Daily August 01, 2024 12:00amInsulin Lispro-Aabc (1 source)Start: 25-93-9031txluuw 1 dose by subcutaneous injection once before mealtimeInsulin Lispro-Aabc Active 1 sliding scale dose SUBCUT 3x/Day before meals & bedtime July 01, 2023 12:00amLevemir FlexPen 100 UNIT/ML (4 sources)Start: 67-38-6981Vjrudnk FlexPen 100 UNIT/ML 25 u Subcutaneous daily for 90 days Jun, Activelosartan potassium 100 mg oral tablet (20 sources)Angiotensin 2 Receptor BlockerStart: 03-12-2024 End: 75-76-3422xxol 1 tablet by mouth once dailyLosartan 100 mg tablet Active 100 MG PO Daily May 23, 2024 3:20pm Complies with drug therapyStart: 12-20-2023 End: 09-07-6590hmyn 1 tablet by mouth once dailyLosartan 50 mg tablet Discontinued 0 .ROUTE .COMPLEX December 20, 2023 1:52pm March 12, 2024 3 :59pm TAKE 1 TABLET BY MOUTH EVERY DAYStart: 09-26-2023 End: 82-71-8456bvey 1 tablet by mouth once dailyLosartan 50 mg tablet Discontinued 50 MG PO daily September 26, 2023 12:00am December 20, 2023 1:52pm take 1 tablet by mouth once dailyLosartan Potassium 25 mg TAKE ONE TABLET BY MOUTH ONCE DAILY for ActiveMagnesium (17 sources)take 1 tablet by mouth once dailyMagnesium 400 MG 1 tablet with a meal Orally Once a day ActiveMagnesium - as directed Orally Activemagnesium oxide 400 mg oral tablet (7 sources)Start: 61-99-1714ouqi 1 tablet by mouth once dailyMagnesium Oxide 400 mg (241.3 mg magnesium) tablet Active 400 MG PO Daily October 04, 2023 12:00am Complies with drug therapymecobalamin 1 mg chewable tablet (9 sources)Start: 82-74-6887Stkpijrojvfxcgm 1 MG chewable tablet Daily 10/04/2023 ActiveStart: 10-04-2023 End: 36-67-6096nlto 1 tablet by mouth once dailyMecobalamin (Vitamin B12) 1,000 mcg tablet,chewable Discontinued 1000 MCG PO Daily October 04, 2023 12:00am January 23, 2025 10:18amOneTouch Ultra Mini w/Device (17 sources)OneTouch Ultra Mini w/Device as directed Activepioglitazone 15 mg oral tablet (3 sources)Peroxisome Proliferator Receptor alpha Agonist, Peroxisome Proliferator Receptor gamma Agonist, ThiazolidinedioneStart: 35-04-7307atrf 1 tablet by mouth once dailyPioglitazone 15 mg tablet Active 15 MG PO Daily October 24, 2024 12:00am Complies with drug therapypotassium 99 mg extended release oral tablet (2 sources)take 1 tablet by mouth once dailyPotassium 99 MG 1 tablet Orally Once a day Activepotassium gluconate 2.5 meq oral tablet (7 sources)Start: 37-23-6320gnzu 1 tablet by mouth once dailyPotassium Gluconate 595 mg (99 mg) tablet Active 595 MG PO Daily October 04, 2023 12:00am Complies with drug therapysimvastatin 40 mg oral tablet (20 sources)HMG-CoA Reductase InhibitorStart: 04-07-2024 End: 06-75-3759ypem 1 tablet by mouth once daily at bedtimeSimvastatin 40 mg tablet Active 0 .ROUTE .COMPLEX January 16, 2025 8:44am TAKE 1 TABLET BY MOUTH EVERY DAY AT BEDTIME Complies with drug therapyStart: 10-04-2023 End: 36-65-7115adtx 1 tablet by mouth once dailySimvastatin 40 mg tablet Discontinued 40 MG PO Daily October 04, 2023 12:00am April 07, 2024 8:15am take 1 tablet by mouth once daily at bedtimeSimvastatin 40 mg TAKE ONE TABLET BY MOUTH ONCE DAILY AT BEDTIME for 90 ActiveTrue Metrix Blood Glucose Test - (17 sources)True Metrix Blood Glucose Test - check blood sugars In Vitro 4 times daily for 90 days or insurancepreferred ActiveVitamin B 12 100 MCG (9 sources)Vitamin B 12 100 MCG as directed Orally ActiveVitamin B Complex capsule (1 source)Start: 77-32-7189ftbp 1 capsule by mouth once dailyVitamin B Complex capsule Active 1 CAP PO Daily January 23, 2025 12:00am administer with a mealComplies with drug therapyvitamin b12 0.1 mg oral lozenge (2 sources)Vitamin C75Fkuknys B 12 100 MCG as directed Orally Active Completed/Discontinued Medications MedicationDrug Class(es)DatesSig (Normalized)Sig (Original)Blood-Glucose Meter (True Metrix Glucose Meter) misc (8 sources)Start: 07-01-2023 End: 79-68-0898Wmews-Glucose Meter (True Metrix Glucose Meter) misc Discontinued 0 .Route July 01, 2023 1:00am August 01, 2024 10:03am As directedStart: 58-88-5485Jfkhk-Glucose Meter (True Metrix Glucose Meter) misc Active 0 .Route July 01, 2023 12:00am AsdirectedDexcom G6 History Card Clerk - (12 sources)Start: 17-81-8912Urrbxq G6 History Card Clerk - as directed -- daily for 365 day [facility] [place] Jun, Not-TakingStart: 65-08-0935Qfzwku G6 History Card Clerk - as directed -- daily for 365 day [facility] [place] Jun, ActiveDexcom G6 Sensor - (12 sources)Start: 00-95-6998Yxgkpp G6 Sensor - as directed sub q change every 10 days for 90 days [facility] [place] Jun, Not-TakingStart: 03-76-2534Bqrghi G6 Sensor - as directed sub q change every 10 days for 90 days [facility] [place] Jun, Active Dexcom G6 Transmitter - (12 sources)Start: 96-20-1820Nfyiar G6 Transmitter - as directed sub q change every 90 days for 90 days [facility] [place] Jun, Not-TakingStart: 27-78-7045Abcivv G6 Transmitter - as directed sub q change every 90 days for 90 days [facility] [place] Jun, Activeempagliflozin 25 mg oral tablet (20 sources)Sodium-Glucose Cotransporter 2 InhibitorStart: 10-03-2023 End: 68-77-2691duzt 1 tablet by mouth once dailyEmpagliflozin (Jardiance) 25 mg tablet Discontinued 25 MG PO Daily October 03, 2023 4:30pm November 7:19pm Start: 08-25-2023 End: 39-24-8120oznb 1 tablet by mouth once dailyEmpagliflozin (Jardiance) 25 mg tablet Discontinued 0 .ROUTE .COMPLEX August 25, 2023 5:47pm October 03, 2023 4:31pm TAKE 1 TABLET BY MOUTH EVERY DAYStart: 07-01-2023 End: 12-08-9279swgl 1 tablet by mouth once dailyEmpagliflozin 25 mg tablet Discontinued 25 MG PO Daily July 01, 2023 1:00am August 25, 2023 6:50am Start: 58-75-9723ziip 1 tablet by mouth every twenty-four hoursJardiance 10 MG 1 tablet Orally Once a day for 14 days samples Jan, ActiveStart: 28-93-9945idoe 1 tablet by mouth every twenty-four hoursJardiance 25 MG 1 tablet Orally Once a day Jan, Active3 ml insulin detemir 100 unt/ml pen injector (20 sources)Insulin AnalogStart: 01-11-2024 End: 92-38-4526Znaqdvu Detemir U-100 (Levemir Flexpen) 100 unit/mL (3 mL) insulin pen Discontinued 15 UNIT SUBCUT Daily at bedtime January 11, 2024 10:00am August 01, 2024 10:02am Titrate to 30 u dailyStart: 12-01-2023 End: 83-53-0688Yostxvi Detemir U-100 (Levemir Flexpen) 100 unit/mL (3 mL) insulin pen Discontinued 16 UNIT SUBCUT Daily at bedtime December 01, 2023 6:57am January 11, 2024 10:01am Titrate to 30 u dailyStart: 10-04-2023 End: 25-62-7397Zdhpnhh Detemir U-100 (Levemir Flexpen) 100 unit/mL (3 mL) insulin pen Discontinued 16 UNIT SUBCUT Daily at bedtime October 04, 2023 11:22am December 01, 2023 6:58amStart: 09-26-2023 End: 87-44-0919Gwqmvzh Detemir U-100 (Levemir Flexpen) 100 unit/mL (3 mL) insulin pen Discontinued 15 UNIT SUBCUT Daily at bedtime September 26, 2023 12:00am October 04, 2023 11:26amStart: 52-94-6480Kktabyg FlexPen 100 UNIT/ML 25 u Subcutaneous daily for 90 days Jun, ActiveLevemir FlexPen 100 UNIT/ML 20 u Subcutaneous daily ActiveInsulin Detemir U-100 (Levemir Flexpen) 100 unit/mL (3 mL) insulin pen (15 sources)Start: 12-01-2023 End: 00-48-3432Azivhon Detemir U-100 (Levemir Flexpen) 100 unit/mL (3 mL) insulin pen Discontinued 16 UNIT SUBCUT Daily at bedtime December 01, 2023 6:57am January 11, 2024 10:01am Titrate to 30 u dailyStart: 10-04-2023 End: 30-89-8671Xpdflbl Detemir U-100 (Levemir Flexpen) 100 unit/mL (3 mL) insulin pen Discontinued 16 UNIT SUBCUT Daily at bedtime October 04, 2023 11:22am December 01, 2023 6:58amStart: 09-26-2023 End: 67-87-0408Bnfnxvp Detemir U-100 (Levemir Flexpen) 100 unit/mL (3 mL) insulin pen Discontinued 15 UNIT SUBCUT Daily at bedtime September 26, 2023 12:00am October 04, 2023 11:26am3 ml insulin lispro-aabc 100 unt/ml pen injector (19 sources)Insulin AnalogStart: 07-01-2023 End: 31-41-2212ebsvxj 1 dose by subcutaneous injection once before mealtime Insulin Lispro-Aabc 100 unit/mL insulin pen Discontinued 1 sliding scale dose SUBCUT 3x/Day before meals & bedtime July 01, 2023 1:00am October 24, 2024 11:16amStart: 37-96-9701Kaslqcl KwikPen 100 UNIT/ML as directed Subcutaneous 4 x day for 30 days E11.65 ICR 1:10 and Correction of 1:50 with meals . Expect up to 40 u per day Jun, ActiveInsulin Lispro-Aabc 100 unit/mL insulin pen (5 sources)Start: 07-01-2023 End: 60-49-6086rltkzy 1 dose by subcutaneous injection once before mealtime Insulin Lispro-Aabc 100 unit/mL insulin pen Discontinued 1 sliding scale dose SUBCUT 3x/Day before meals & bedtime July 01, 2023 1:00am October 24, 2024 11:16amStart: 25-43-5751uzblzx 1 dose by subcutaneous injection once before mealtimeInsulin Lispro-Aabc 100 unit/mL insulin pen Active 1 sliding scale dose SUBCUT 3x/Day before meals & bedtime July 01, 2023 1:00ammetFORMIN hydrochloride 1000 mg oral tablet (20 sources)BiguanideStart: 11-04-2023 End: 96-00-6185bcpj 1 tablet by mouth twice daily at mealtimeMetformin 1,000 mg tablet Discontinued 0 .ROUTE .COMPLEX 180 April 19, 2024 9:03am November 15, 2024 4:24pm TAKE 1 TABLET BY MOUTH TWICE A DAY WITH MEALS FOR 90 DAYSStart: 07-01-2023 End: 75-93-8500ebbn 1 tablet by mouth twice daily at mealtimeMetformin 1,000 mg tablet Discontinued 1000 MG PO Twice daily with meals July 01, 2023 1:00am November 04, 2023 1:35pmmetFORMIN HCl 1000 MG 1 tablet with a meals BID Orally Twice a day for 90 days Activeomega-3 fatty acids (Fish Oil) (7 sources)Start: 10-04-2023 End: 54-80-2135kwzs 1000 mg by mouth once dailyomega-3 fatty acids (Fish Oil) Discontinued 0 PO Daily October 04, 2023 12:00am November 15, 2023 10:02am 1000 mg orally daily;pantoprazole 40 mg delayed release oral tablet (6 sources)Proton Pump InhibitorStart: 08-08-2024 End: 57-79-8851bpmr 1 tablet by mouth once dailyPantoprazole 40 mg tablet,delayed release (DR/EC) Discontinued 40 MG PO Daily August 08, 2024 12:00am October 24, 2024 11:17am Problems Active Problems Problem ClassificationProblemDateDocumented DateEpisodic/Chronic Administrative/social admission (20 sources)Dietary counseling and surveillance; 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: [Patient encounter status]EpisodicCataract (2 sources)After-cataract of bilateral eyes; 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: [Other secondary cataract, bilateral]72-91-6103CpdurkgKoouakwx mellitus with complications (20 sources)Hyperglycemia due to type 2 diabetes mellitus; 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: [Type 2 diabetes mellitus with hyperglycemia]Onset: 71-82-6668BfenkydPulvyaaw mellitus without complication (1 source)Type 2 diabetes mellitus; 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: [Type 2 diabetes mellitus without complications]93-58-2541XmabinhPjuvmsjyr of lipid metabolism (20 sources)Hyperlipidemia; 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: [Hyperlipidemia, unspecified]Onset: 29-48-4901RcagnhpT Codes: Natural/environment (2 sources)Exposure to other specified factors, initial encounter; 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: [Bitten or stung by nonvenomous insect and other nonvenomous arthropods, initial encounter]Onset: 04-22-5684FswxzflyRbuojqafyu disorders (8 sources)Esophagitis; 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: [Esophagitis determined by endoscopy] 02-71-7468VmeyntzsGvjmrnaio hypertension (20 sources)Essential hypertension; 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: [Essential (primary) hypertension]ChronicNutritional deficiencies (20 sources)Vitamin D deficiency; 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: [Vitamin D deficiency, unspecified]Onset: 00-95-3854LnbopelKibptcvqtuq deficiencies (20 sources)Deficiency of other specified B group vitamins; 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: [Cobalamin deficiency]EpisodicOther aftercare (20 sources)Long-term current use of insulin; 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: [ocean transportation intermediary (current) use of insulin]79-53-8415TlgxxvfzNnjmw aftercare (18 sources)ocean transportation intermediary (current) use of insulin; 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: [Long-term (current) use of insulin]Onset: 19-42-8061IanioyftGfzhg aftercare (1 source)Other group home (current) drug therapy; 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: [OTH BRIM PRESSER CURRENT DRUG THERAPY]Onset: 74-93-7021XugmvpuaAttva aftercare (1 source)jail (current) use of oral hypoglycemic drugs; 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: [BRIM PRESSER USE ORAL HYPOGLYCEMIC DX]Onset: 47-77-1449FfljulazPefxs circulatory disease (17 sources)Elevated blood-pressure reading without diagnosis of hypertension; 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: [Elevated blood-pressure reading, without diagnosis of hypertension]EpisodicOther injuries and conditions due to external causes (7 sources)Food in esophagus causing other injury, initial encounter; 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: [Foreign body in esophagus]Onset: 99-76-5073FiucahliMmjlv injuries and conditions due to external causes (5 sources)Food lodged in esophagus; 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: [Food in esophagus causing other injury, initial encounter]79-94-1416RqbveichIcsle nervous system disorders (17 sources)Moreland's palsy; 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0-28.9, adultEpisodicOther nutritional; endocrine; and metabolic disorders (8 sources)Body mass index (BMI) 27.0-27.9, adult; 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: [Body Mass Index 27.0-27.9, adult]EpisodicOther nutritional; endocrine; and metabolic disorders (10 sources)Overweight in adulthood with body mass index of 25 or more but less than 30; 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: [Body mass index (BMI) 27.0-27.9, adult]07-01-2023 EpisodicSuperficial injury; contusion (1 source)Insect bite (nonvenomous), right lower leg, initial encounterEpisodic Past or Other Problems Problem ClassificationProblemDateDocumented DateEpisodic/ChronicOther connective tissue disease (3 sources)Facial weakness; 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: [FACIAL WEAKNESS]Onset: 02-25-2022 EpisodicOther nervous system disorders (1 source)Moreland's palsy; 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: [BELLS PALSY]Onset: 02-27-5546Yokxuqoi Results Test NameValueInterpretationReference RangeFacilityCholesterol in LDL Calc [Mass/Vol]Ordered By: Whit Titus on 07-01-4193Durfnrqalgd in LDL [Mass/Vol] 53.0 mg/dLLutheran HospitalComment on above:<100 mg/dl VIIPOQE775-112 mg/dl NEAR OR ABOVE AGQSWRJ412-042 mg/dl BORDERLINE KBTV612-969 mg/dl HIGH>190 mg/dl VERY HIGHCholesterol in VLDL Calc [Mass/Vol]Ordered By: Whit Titus on 90-57-5772Actcxpydpzm in VLDL [Mass/Vol]14.0 mg/dLLutheran HospitalEstimated glomerular filtration rate (GFR) non- AmericanOrdered By: Whit Titus on 06-97-6088RGW/1.73 sq M.predicted among non- blacks MDRD (S/P/Bld) [Vol rate/Area]mL/min/{1.73_m2}>=60 mL/min/1.73m 2 Lutheran HospitalGlobulin Calc (S) [Mass/Vol]Ordered By: Whit Titus on 16-14-0529Trpybtax (S) [Mass/Vol]2.8 g/dLLutheran HospitalLaboratory - Chemistry and Chemistry - challengeOrdered By: Whit Titus on 37-71-7643Peftsaj [Mass/Vol]3.3 g/dLLow3.4-5.0Lutheran HospitalALP [Catalytic activity/Vol]59 U/B30-409XkvvrxcwaLutheran Hospital ALT [Catalytic activity/Vol]22 U/J88-07XjjtsfsumLutheran HospitalAST [Catalytic activity/Vol]16 U/J22-03KslsmaoghLutheran HospitalBilirubin [Mass/Vol]0.7 mg/dL0.2-1.0L[facility] HospitalCalcium [Mass/Vol]8.8 mg/dL8.5-10.1FAdams County Regional Medical CenterChloride [Moles/Vol]106 mmol/L 98-107L[facility]an HospitalCholesterol [Mass/Vol]126 mg/dL<=200 [facility] HospitalCholesterol in HDL [Mass/Vol]59 mg/dL40-60 [facility] HospitalComment on above:> or =60 mg/dl - LOW CARDIOVASCULAR RISK<40 mg/dl - HIGH CARDIOVASCULAR RISKCO2 [Moles/Vol]27.0 mmol/L21.0-32.0L[facility]an HospitalCreatinine [Mass/Vol]0.76 mg/dL 0.70-1.30Lutheran HospitalGFR/1.73 sq M.predicted MDRD (S/P/Bld) [Vol rate/Area]mL/min/{1.73_m2}>=60 mL/min/1.73m 2FAdams County Regional Medical CenterGlucose [Mass/Vol]118 mg/nJBawn92-522YuoyywlgfLutheran Hospital Potassium [Moles/Vol]4.7 mmol/L3.5-5.1FAdams County Regional Medical CenterProtein [Mass/Vol]6.1 g/dLLow6.4-8.2FMercy Health Willard Hospitalodium [Moles/Vol] 140 mmol/Y588-507UrjkubcwsLutheran HospitalTriglyceride [Mass/Vol]70 mg/dL<=150Lutheran HospitalUrea nitrogen [Mass/Vol]24.0 mg/dL High7.0-18.0Lutheran HospitalUrea nitrogen/Creatinine [Mass ratio]31.6 mg/mgLutheran HospitalMicroalbumin [Mass/volume] in UrineOrdered By: Whit Titus on 82-50-2794Blivrqu DL <= 20 mg/L (U) [Mass/Vol] mg/dL<=30.0Lutheran HospitalNo Panel InformationOrdered By: Whit Titus on 52-27-3680Pafsw Random Lukzizvywc200.54 mg/dL20.00-300.00 [facility] Hospitalerum or plasma albumin/globulin mass ratio Ordered By: Whit Titus on 29-76-7452Lnckesh/Globulin [Mass ratio]1.2 {ratio} [facility] Hospitalerum or plasma anion gap determinationOrdered By: Whit Titus on 62-97-1030Dabfc gap [Moles/Vol]11.7 mmol/LFMercy Health Willard Hospitalerum or plasma total cholesterol/high density lipoprotein (HDL) cholesterol mass ratOrdered By: Whit Titus on 11-07-2024 Cholesterol.total/Cholesterol in HDL [Mass ratio]2.1 {ratio}L[facility]an HospitalComment on above:3.3 - 4.4 LOW RISK4.4 - 7.1 AVERAGE RISK7.1 - 11.0 MODERATE RISK>11.0 HIGH RISKNo Panel Informationon 89-22-2143Dtneeyl Lybidts052OaznvqmhnLutheran HospitalHbA1c HPLC (Bld) [Mass fraction]on 00-76-2547UwL9p (Bld) [Mass fraction]Hemoglobin A1c/Hemoglobin.total in Blood by HPLCLutheran HospitalNo Panel Informationon 54-62-8149Wusepbi Ykzkxas360LyjfhqbhnLutheran HospitalBasophils Auto (Bld) [#/Vol]on 95-01-9061Viidquhti (Bld) [#/Vol]Automated basophil count0.0-0.1FAdams County Regional Medical CenterBasophils/100 WBC Auto (Bld)on 11-81-4911Oxmlkvxde/100 WBC (Bld)Automated basophil %0.2-2.0[facility] Eosinophils/100 WBC Auto (Bld)on 43-59-2988Cqwfakmmcrx/100 WBC (Bld)Automated eosinophil %Low0.9-7.0[facility] HospitalErythrocyte distribution width Auto (RBC) [Ratio]on 23-32-7259Ziqqgoiwfbt distribution width (RBC) [Ratio]Erythrocyte distribution width [Ratio] by Automated count11.0-15.0 [facility] HospitalEstimated glomerular filtration rate (GFR) non- Americanon 43-96-9115QPE/1.73 sq M.predicted among non-blacks MDRD (S/P/Bld) [Vol rate/Area]Estimated glomerular filtration rate (GFR) non->=60 mL/min/1.73m 2FAdams County Regional Medical CenterGlobulin Calc (S) [Mass/Vol]on 97-13-3166Yxpnfimf (S) [Mass/Vol]Serum globulin measurement by calculation (mass/volume)[facility] HospitalHematocrit Auto (Bld) [Volume fraction]on 94-81-0096Yemkdppugn (Bld) [Volume fraction]Hematocrit [Volume Fraction] of Blood by Automated count42.0-54.0[facility] HospitalHemoglobin [Mass/volume] in Bloodon 90-91-8328Nqoktqphzc (Bld) [Mass/Vol] Hemoglobin [Mass/volume] in Blood14.0-18.0[facility] - Chemistry and Chemistry - challengeon 45-54-1237Punejav [Mass/Vol] 4.1 g/dL3.4-5.0[facility] HospitalALP [Catalytic activity/Vol]63 U/P43-954YrbuctegsLutheran HospitalALT [Catalytic activity/Vol]22 U/L 16-63[facility] HospitalAST [Catalytic activity/Vol]25 U/L15-37 [facility] HospitalBilirubin [Mass/Vol]0.9 mg/dL0.2-1.0[facility] HospitalCalcium [Mass/Vol]9.5 mg/dL8.5-10.1FAdams County Regional Medical CenterChloride [Moles/Vol]106 mmol/J24-022JvfhqmtbkLutheran HospitalCO2 [Moles/Vol]26.0 mmol/L21.0-32.0[facility] Creatinine [Mass/Vol]1.07 mg/dL0.70-1.30[facility] GFR/1.73 sq M.predicted MDRD (S/P/Bld) [Vol rate/Area]mL/min/{1.73_m2}>=60 mL/min/1.73m 2FAdams County Regional Medical CenterGlucose [Mass/Vol]153 mg/dLHigh 74-106[facility] HospitalPotassium [Moles/Vol]4.5 mmol/L3.5-5.1 [facility] HospitalProtein [Mass/Vol]6.9 g/dL6.4-8.2FMercy Health Willard Hospitalodium [Moles/Vol]142 mmol/A631-059SvalcehssLutheran HospitalUrea nitrogen [Mass/Vol]27.0 mg/dLHigh7.0-18.0[facility] HospitalUrea nitrogen/Creatinine [Mass ratio]25.2 mg/mgLutheran HospitalLaboratory - Hematology and Cell countson 67-03-4678Praapjql granulocytes/100 WBC (Bld)0.4 %0.0-0.5FAdams County Regional Medical Center Leukocytes [#/volume] corrected for nucleated erythrocytes in Blood by Automated counon 86-65-2040CYE corrected for nucl RBC Auto (Bld) [#/Vol]Leukocytes [#/volume] corrected for nucleated erythrocytes in Blood by Automated counW[facility] 4.0-11.0[facility] HospitalLymphocytes Auto (Bld) [#/Vol]on 60-83-6567Dvqsftfglyi (Bld) [#/Vol]Lymphocytes [#/volume] in Blood by Automated count1.2-3.8[facility] HospitalLymphocytes/100 WBC Auto (Bld)on 78-87-1019Bcsgbvizydu/100 WBC (Bld)Lymphocytes/100 leukocytes in Blood by Automated lebpkJuf03.5-60.0[facility] HospitalH Auto (RBC) [Entitic mass]on 33-00-4747RAI (RBC) [Entitic mass]MCH [Entitic mass] by Automated count25.9-34.0[facility] HospitalMCHC Auto (RBC) [Mass/Vol]on 24-33-5650WXTE (RBC) [Mass/Vol]MCHC [Mass/volume] by Automated count29.9-35.2FMercy Health Allen HospitalV Auto (RBC) [Entitic vol]on 15-41-8232HAC (RBC) [Entitic vol]MCV [Entitic volume] by Automated count 80.0-94.0[facility] HospitalMonocytes Auto (Bld) [#/Vol]on 20-78-1725Zdyypmhxn (Bld) [#/Vol]Automated blood monocyte count0.3-0.8[facility] HospitalMonocytes/100 WBC Auto (Bld)on 02-68-4161Joauolvel/100 WBC (Bld)Automated monocyte %1.7-12.0[facility] Neutrophils Auto (Bld) [#/Vol]on 91-28-6930Ukwywqxoclg (Bld) [#/Vol]Neutrophils [#/volume] in Blood by Automated countHigh1.4-6.5FAdams County Regional Medical CenterNeutrophils/100 WBC Auto (Bld)on 80-72-7458Dljvlnspipr/100 WBC (Bld) Automated neutrophil %High43.0-75.0[facility] HospitalNo Panel Informationon 35-66-4195Edznnysikbm # (Auto)0.1 10 3/uL0.0-0.7FAdams County Regional Medical CenterImmature Granulocyte # (Auto)0.05 10 3/uLHigh0.00-0.03[facility] HospitalPlatelet mean volume Auto (Bld) [Entitic vol]on 26-15-1191Fzwlelqy mean volume (Bld) [Entitic vol]Platelet mean volume [Entitic volume] in Blood by Automated count9.5-13.5FAdams County Regional Medical Center Platelets Auto (Bld) [#/Vol]on 68-97-6840Reusqjxfn (Bld) [#/Vol]Platelets [#/volume] in Blood by Automated cmbfa336-722RgdbyvljcLutheran Hospital RBC Auto (Bld) [#/Vol]on 97-58-7332EKS (Bld) [#/Vol]Erythrocytes [#/volume] in Blood by Automated count4.70-6.10[facility] Hospitalerum or plasma albumin/globulin mass ratioon 49-16-9559Astdext/Globulin [Mass ratio] Serum or plasma albumin/globulin mass ratioLutheran Hospital Serum or plasma anion gap determinationon 78-44-9831Houyx gap [Moles/Vol]Serum or plasma anion gap determinationLutheran HospitalA1C HEMOGLOBIN on 00-96-6989EgI8y (Bld) [Mass fraction]6.7 %[employer] Other Glucose - FINGER STICKon 73-17-0297Kgvuief [Mass/Vol] 116 mg/dLNoAeris Communications Other HbA1c (Bld) [Mass fraction]on 90-97-0202K1Z HEMOGLOBIN [employer] Other A1C HEMOGLOBINon 05-24-6815OoI8c (Bld) [Mass fraction] 6.8 %[employer] Other Glucose - FINGER STICKon 43-10-1432Bdcdorq [Mass/Vol] 173 mg/dLNoAeris Communications Other HbA1c (Bld) [Mass fraction]on 51-13-7816B3Z HEMOGLOBIN [employer] Other Glucose - FINGER STICKon 89-25-4851Rensnxb [Mass/Vol] 129 mg/dLNoAeris Communications Other cb AUTO DIFFon 17-56-5739QZLX #0.1 103/ulNormal 0.0-0.1The [facility] HospitalComment on above:Performed By: #### VITB12, VITAD #### [facility] [address] [place] [address] Dr. vE PerezBasophils/100 WBC (Bld)0.7 %Normal0.2-2.0The [facility] Comment on above:Performed By: #### VITB12, VITAD #### [facility] [address] [place] [address] Dr. Ev Molina #0.2 103/ulNormal0.0-0.7The [facility] HospitalComment on above: Performed By: #### VITB12, VITAD #### [facility] [address] [place] [address] Dr. Ev Ramosinophils/100 WBC (Bld)1.5 %Normal0.9-7.0The [facility] Comment on above:Performed By: #### VITB12, VITAD #### [facility] [address] [place] [address] Dr. Ev Ramrythrocyte distribution width (RBC) [Ratio]12.6 %Rxuvad25.0-15.0 The [facility] HospitalComment on above:Performed By: #### VITB12, VITAD #### [facility] [address] [place] [address] Dr. Ev PerezHematocrit (Bld) [Volume fraction]44.1 %Swlzuj86.0-54.0The [facility] HospitalComment on above:Performed By: #### VITB12, VITAD #### [facility] [address] [place] [address] Dr. Ev PerezHemoglobin (Bld) [Mass/Vol]15.1 g/tIFsdddk47.0-18.0The [facility] HospitalComment on above:Performed By: #### VITB12, VITAD #### [facility] [address] [place] [address] Dr. Ev Khalil #0.01 10e3/ulNormal0.00-0.03The [facility] HospitalComment on above:Performed By: #### VITB12, VITAD #### [facility] [address] [place] [address] Dr. Ev Khalil %0.1 %Normal0.0-0.5The [facility] HospitalComment on above: Performed By: #### VITB12, VITAD #### [facility] [address] [place] [address] Dr. Ev Simon #1.5 103/ulNormal1.2-3.8The [facility] HospitalComment on above:Performed By: #### VITB12, VITAD #### [facility] [address] [place] [address] Dr. Ev Thomashocytes/100 WBC (Bld)15.6 %Critically low20.5-60.0The [facility] HospitalComment on above:Performed By: #### VITB12, VITAD #### [facility] [address] [place] [address] Dr. Ev GonzalezUAL DIFF REQNONormalThe [facility] HospitalComment on above: Performed By: #### VITB12, VITAD #### [facility] [address] [place] [address] Dr. Ev Hartmann (RBC) [Entitic mass]29.5 buWpwrhy08.9-34.0The [facility] HospitalComment on above:Performed By: #### VITB12, VITAD #### [facility] [address] [place] [address] Dr. Ev Hartmann (RBC) [Mass/Vol]34.2 g/kAPvsyko78.9-35.2The [facility] HospitalComment on above:Performed By: #### VITB12, VITAD #### [facility] [address] [place] [address] Dr. Ev Hartmann (RBC) [Entitic vol]86.3 pZCxzriu94.0-94.0The [facility] HospitalComment on above:Performed By: #### VITB12, VITAD #### [facility] [address] [place] [address] Dr. Ev Viveros #0.6 103/ulNormal0.3-0.8The [facility] HospitalComment on above:Performed By: #### VITB12, VITAD #### [facility] [address] [place] [address] Dr. Ev Chanocytes/100 WBC (Bld)5.6 %Normal1.7-12.0The [facility] Comment on above:Performed By: #### VITB12, VITAD #### [facility] [address] [place] [address] Dr. Ev Ramirez #7.4 103/ulCritically high1.4-6.5The [facility] Comment on above:Performed By: #### VITB12, VITAD #### [facility] [address] [place] [address] Dr. Ev Whalenutrophils/100 WBC (Bld)76.5 %Critically high43.0-75.0The [facility] HospitalComment on above:Performed By: #### VITB12, VITAD #### [facility] [address] [place] [address] Dr. Ev Levylet mean volume (Bld) [Entitic vol]11.4 fLNormal9.5-13.5The [facility] HospitalComment on above:Performed By: #### VITB12, VITAD #### [facility] [address] [place] [address] Dr. Ev PerezPLT180 103/ciYsvgdl752-799Yqn [facility] HospitalComment on above: Performed By: #### VITB12, VITAD #### [facility] [address] [place] [address] Dr. Ev PerezRBC5.11 106/ulNormal4.70-6.10The [facility] HospitalComment on above:Performed By: #### VITB12, VITAD #### [facility] [address] [place] [address] Dr. Ev PerezWBC9.7 103/ulNormal4.0-11.0The [facility] HospitalComment on above: Performed By: #### VITB12, VITAD #### [facility] [address] [place] [address] Dr. Ev CampbellF CHEM 8 (BAS METB)on 67-17-0641Wtpyf gap [Moles/Vol]13.9 mmol/LNormalThe [facility] HospitalComment on above:Performed By: #### VITB12, VITAD #### [facility] [address] [place] [address] Dr. Ev PerezCalcium [Mass/Vol]9.2 mg/dLNormal8.5-10.1The [facility] Comment on above:Performed By: #### VITB12, VITAD #### [facility] [address] [place] [address] Dr. Ev PerezChloride [Moles/Vol]106 mmol/OCcevat11-339Hjn [facility] Comment on above:Performed By: #### VITB12, VITAD #### [facility] [address] [place] [address] Dr. Ev PerezCO2 [Moles/Vol]24.4 mmol/RXachyx71.0-32.0[facility] Comment on above:Performed By: #### VITB12, VITAD #### [facility] [address] [place] [address] Dr. Ev PerezCreatinine [Mass/Vol]0.91 mg/dLNormal0.70-1.30The [facility] HospitalComment on above:Performed By: #### VITB12, VITAD #### [facility] [address] [place] [address] Dr. Ev RamGFR-AF CAP[place] VERDE[place]>60Normal>=60The [facility] HospitalComment on above:Performed By: #### VITB12, VITAD #### [facility] [address] [place] [address] Dr. Ev RamGFR-NON AF [place]>60Normal>=60The [facility] HospitalComment on above:Performed By: #### VITB12, VITAD #### [facility] [address] [address] [address] Ev PerezGlucose [Mass/Vol]160 mg/dLCritically ldla96-983Jsi [facility] HospitalComment on above:Performed By: #### VITB12, VITAD #### [facility] [address] [address] [address] Ev PerezPotassium [Moles/Vol]4.3 mmol/LNormal3.5-5.1The [facility] Comment on above:Performed By: #### VITB12, VITAD #### [facility] [address] [address] [address] Ev PerezSodium [Moles/Vol]140 mmol/TQjgswn998-042Egs [facility] Comment on above:Performed By: #### VITB12, VITAD #### [facility] [address] [address] [address] Ev PerezUrea nitrogen [Mass/Vol]24.0 mg/dLCritically high7.0-18.0The [facility] HospitalComment on above:Performed By: #### VITB12, VITAD #### [facility] [address] [address] [address] Ev Melgar nitrogen/Creatinine [Mass ratio]26.4 mg/mgNormalThe [facility] HospitalComment on above:Performed By: #### VITB12, VITAD #### [facility] [address] [address] [address] Ev PerezA1C HEMOGLOBINon 51-22-1095GvR7x (Bld) [Mass fraction]7.5 %[employer] Other Glucose - FINGER STICKon 55-99-7926Yozrjfg [Mass/Vol] 126 mg/dLNortQuark Pharmaceuticals Other HbA1c (Bld) [Mass fraction]on 94-47-5133T2H HEMOGLOBIN [place] Other LIPID PROFILEon 67-52-9563XMSR-HDL RATIO NORMSEE BELOW NormalThe [facility] HospitalComment on above:Result Comment: 3.3 - 4.4 LOW RISK 4.4 - 7.1 AVERAGE RISK 7.1 - 11.0 MODERATE RISK >11.0 HIGH RISKPerformed By: #### TSH, LIPID, CMP #### [facility] [address] [place] [address] Dr. Ev PerezCholesterol [Mass/Vol]123 mg/dLNormal<=200The [facility] Comment on above:Performed By: #### TSH, LIPID, CMP #### [facility] [address] [place] [address] Dr. Ev PerezCholesterol in HDL [Mass/Vol]47 mg/sENxsafi70-79LwlMemorial Health SystemComment on above:Performed By: #### TSH, LIPID, CMP #### [facility] [address] [place] [address] Dr. Ev Kauresterol in LDL [Mass/Vol]60.4 mg/dLNoBethesda North HospitalComment on above:Performed By: #### TSH, LIPID, CMP #### [facility] [address] [place] [address] Dr. Ev Kaurestermonica.total/Cholesterol in HDL [Mass ratio]2.6 {ratio} NormalMemorial Health SystemComment on above:Performed By: #### TSH, LIPID, CMP #### [facility] [address] [place] [address] Dr. Ev PerezHDL NORMAL> or = 60 mg/dl - LOW CARDIOVASCULAR RISK <40 mg/dl - HIGH CARDIOVASCULAR RISKHolzer HospitalComment on above:Performed By: #### TSH, LIPID, CMP #### [facility] [address] [place] [address] Dr. Ev PerezLDL CALC NORMALSEE BELOWHolzer HospitalComment on above:Result Comment: <100 mg/dl OPTIMAL 100 - 129 mg/dl NEAR OR ABOVE OPTIMAL 130 - 159 mg/dl BORDERLINE HIGH 160 - 189 mg/dl HIGH >190 mg/dl VERY HIGH Performed By: #### TSH, LIPID, CMP #### [facility] [address] [place] [address] Dr. Ev PerezTriglyceride [Mass/Vol]78 mg/dLNormal<=150[facility] Comment on above:Performed By: #### TSH, LIPID, CMP #### [facility] [address] [place] [address] Dr. Ev BowmanLDL CALC15.6 mg/dLNoBethesda North HospitalComment on above: Performed By: #### TSH, LIPID, CMP #### [facility] [address] [place] [address] Dr. Ev Sawyer CREAT RATIO RANDOMon 59-12-4109xHVG0.3 mg/LNormal<=30.0 The [facility] HospitalComment on above:Performed By: #### MCRR #### [facility] [address] [place] [address] Dr. Ev Miles CR RATIO7.2 mg/gNormal0.0-29.9[facility] Health SystemComment on above:Performed By: #### MCRR #### [facility] [address] [place] [address] Dr. Ev Miles CR RATIO RANGESEE BELOWHolzer HospitalComment on above:Result Comment: NO MICROALBUMINURIA 0-29 MG/G CLINICAL MICROALBUMINURIA 30-300 MG/G MACROALBUMINURIA >300 MG/GPerformed By: #### MCRR #### [facility] [address] [place] [address] Dr. Ev Bee FQNOO070.37 mg/zGYlfqea84.00-300.00[facility] Comment on above:Performed By: #### MCRR #### [facility] [address] [place] [address] Dr. Ev Alamo 14(COMP METB)on 12-03-1505Zgxnjcl [Mass/Vol]3.6 g/dLNormal 3.4-5.0[facility] SystemComment on above:Performed By: #### TSH, LIPID, CMP #### [facility] [address] [address] [address] Ev PerezAlbumin/Globulin [Mass ratio]1.4 {ratio}NormalThe [facility] HospitalComment on above:Performed By: #### TSH, LIPID, CMP #### [facility] [address] [address] [address] Ev Cabezas [Catalytic activity/Vol]66 U/UHprjea56-781Wyr [facility] HospitalComment on above:Performed By: #### TSH, LIPID, CMP #### [facility] [address] [address] [address] Ev Benoit [Catalytic activity/Vol]35 U/YJjmytv95-70Amm [facility] HospitalComment on above:Performed By: #### TSH, LIPID, CMP #### [facility] [address] [address] [address] Ev Yungon gap [Moles/Vol]9.2 mmol/LNormalThe [facility] HospitalComment on above:Performed By: #### TSH, LIPID, CMP #### [facility] [address] [address] [address] Ev PerezAST [Catalytic activity/Vol]30 U/FUwgspr52-19Tiq [facility] Hospitalment on above:Performed By: #### TSH, LIPID, CMP #### [facility] [address] [address] [address] Ev PerezBilirubin [Mass/Vol]0.7 mg/dLNormal0.2-1.0The [facility] Comment on above:Performed By: #### TSH, LIPID, CMP #### [facility] [address] [address] [address] Ev PerezCalcium [Mass/Vol]9.2 mg/dLNormal8.5-10.1The [facility] Comment on above:Performed By: #### TSH, LIPID, CMP #### [facility] [address] [address] [address] Ev PerezChloride [Moles/Vol]105 mmol/VVxhnwe61-782Kru [facility] Comment on above:Performed By: #### TSH, LIPID, CMP #### [facility] [address] [place] [address] Dr. Ev PerezCO2 [Moles/Vol]30.5 mmol/GRakgzl48.0-32.0The [facility] Comment on above:Performed By: #### TSH, LIPID, CMP #### [facility] [address] [place] [address] Dr. Ev PerezCreatinine [Mass/Vol]0.82 mg/dLNormal0.70-1.30The [facility] HospitalComment on above:Performed By: #### TSH, LIPID, CMP #### [facility] [address] [place] [address] Dr. Ev RamGFR-AF [place]E [place]DE[place]>60Normal>=60The [facility] HospitalComment on above:Performed By: #### TSH, LIPID, CMP #### [facility] [address] [place] [address] Dr. Ev RamGFR-NON AF [place]>60Normal>=60The [facility] HospitalComment on above:Performed By: #### TSH, LIPID, CMP #### [facility] [address] [place] [address] Dr. Ev PerezGlobulin (S) [Mass/Vol]2.6 g/dLNormalThe [facility] HospitalComment on above:Performed By: #### TSH, LIPID, CMP #### [facility] [address] [place] [address] Dr. Ev PerezGlucose [Mass/Vol]194 mg/dLCritically vmgp76-719ZdiMemorial Health SystemComment on above:Performed By: #### TSH, LIPID, CMP #### [facility] [address] [place] [address] Dr. Ev PerezPotassium [Moles/Vol]4.7 mmol/LNormal3.5-5.1The [facility] Comment on above:Performed By: #### TSH, LIPID, CMP #### [facility] [address] [place] [address] Dr. Ev PerezProtein [Mass/Vol]6.2 g/dLCritically low6.4-8.2The [facility] HospitalComment on above:Performed By: #### TSH, LIPID, CMP #### [facility] [address] [place] [address] Dr. Ev PerezSodium [Moles/Vol]140 mmol/SFeipnp328-107Sqs [facility] Comment on above:Performed By: #### TSH, LIPID, CMP #### [facility] [address] [place] [address] Dr. Ev PerezUrea nitrogen [Mass/Vol]16.0 mg/dLNormal7.0-18.0The [facility] HospitalComment on above:Performed By: #### TSH, LIPID, CMP #### [facility] [address] [place] [address] Dr. Ev PerezUrea nitrogen/Creatinine [Mass ratio]19.5 mg/mgNormalThe [facility] HospitalComment on above:Performed By: #### TSH, LIPID, CMP #### [facility] [address] [place] [address] Dr. Ev PerezTSHocorine 03-18-2431QLM1.954 uIU/mLNormal0.358-3.740The [facility] HospitalComment on above:Performed By: #### TSH, LIPID, CMP #### [facility] [address] [place] [address] Dr. Ev PerezVITAMIN B12on 92-10-2519Ptzmzfpoe (Vitamin B12) [Mass/Vol]170.0 pg/mLCritically qev216.0-986.0The [facility] HospitalComment on above:Performed By: #### VITB12, VITAD #### [facility] [address] [place] [address] Dr. Ev PerezVITAMIN D 25 OHon 29-45-6264YZS D 25-OH21.9 ng/mLNormalThe [facility] HospitalComment on above:Performed By: #### VITB12, VITAD #### [facility] [address] [place] [address] Dr. Ev VASQUEZ [facility] HospitalComment on above: Result Comment: <20 ng/mL Vit D deficient 20 - <30 ng/mL Vit D insufficient 30 - 100 ng/mL Vit D sufficient >100 ng/mL Potential ToxicityPerformed By: #### VITB12, VITAD #### [facility] [address] [place] [address] Dr. Ev PerezGlucose - FINGER STICKon 56-60-4693Sozsykp [Mass/Vol]302 mg/dL [employer] Other GLYCOHEMOGLOBIN A1Con 57-76-5908XNN RECOMMENDATIONSEE [facility] HospitalComment on above:Result Comment: ADA RECOMMENDED LIMIT 4.0 - 6.0 ADA THERAPEUTIC TARGET < 7.0 ACTION SUGGESTED > 7.0Performed By: #### VITB12, VITAD #### [facility] [address] [place] [address] Dr. Ev PerezGlucose [Mass/Vol]243 mg/dLNoBethesda North HospitalComment on above:Performed By: #### VITB12, VITAD #### [facility] [address] [place] [address] Dr. Ev PerezHbA1c (Bld) [Mass fraction]10.1 %Critically high4.5-6.2The [facility] HospitalComment on above:Performed By: #### VITB12, VITAD #### [facility] [address] [place] [address] Dr. Ev Balderrama AUTO DIFFon 65-21-3909QQNU #0.1 103/ulNormal0.0-0.1The [facility] HospitalComment on above:Performed By: #### CBC #### [facility] [address] [place] [address] Dr. Ev PerezBasophils/100 WBC (Bld)0.8 %Normal0.2-2.0[facility] Comment on above:Performed By: #### CBC #### [facility] [address] [place] [address] Dr. Ev Molina #0.5 103/ulNormal0.0-0.7The [facility] HospitalComment on above: Performed By: #### CBC #### [facility] [address] [place] [address] Dr. Ev Ramosinophils/100 WBC (Bld)6.4 %Normal0.9-7.0The [facility] Comment on above:Performed By: #### CBC #### [facility] [address] [place] [address] Dr. Ev Ramrythrocyte distribution width (RBC) [Ratio]12.5 %Gdmayw54.0-15.0 The [facility] HospitalComment on above:Performed By: #### CBC #### [facility] [address] [place] [address] Dr. Ev PerezHematocrit (Bld) [Volume fraction]43.9 %Hsrifw71.0-54.0The [facility] HospitalComment on above:Performed By: #### CBC #### [facility] [address] [place] [address] Dr. Ev PerezHemoglobin (Bld) [Mass/Vol]15.0 g/qJJpgkks57.0-18.0The [facility] HospitalComment on above:Performed By: #### CBC #### [facility] [address] [place] [address] Dr. Ev Khalil #0.02 10e3/ulNormal0.00-0.03The [facility] HospitalComment on above:Performed By: #### CBC #### [facility] [address] [place] [address] Dr. Ev Khalil %0.3 %Normal0.0-0.5The [facility] HospitalComment on above: Performed By: #### CBC #### [facility] [address] [place] [address] Dr. Ev MccainMPH #2.2 103/ulNormal1.2-3.8The [facility] HospitalComment on above:Performed By: #### CBC #### [facility] [address] [place] [address] Dr. Ev Mccainmphocytes/100 WBC (Bld)30.6 %Rzrvgo24.5-60.0The [facility] HospitalComment on above:Performed By: #### CBC #### [facility] [address] [place] [address] Dr. Ev Cole DIFF REQNONormalThe [facility] HospitalComment on above: Performed By: #### CBC #### [facility] [address] [place] [address] Dr. Ev Hartmann (RBC) [Entitic mass]29.6 veNjvdtd02.9-34.0The [facility] HospitalComment on above:Performed By: #### CBC #### [facility] [address] [place] [address] Dr. Ev Hartmann (RBC) [Mass/Vol]34.2 g/uXIhypak49.9-35.2The [facility] HospitalComment on above:Performed By: #### CBC #### [facility] [address] [place] [address] Dr. Ev Hartmann (RBC) [Entitic vol]86.6 sHUmdebd06.0-94.0The [facility] HospitalComment on above:Performed By: #### CBC #### [facility] [address] [place] [address] Dr. Ev Viveros #0.5 103/ulNormal0.3-0.8The [facility] HospitalComment on above:Performed By: #### CBC #### [facility] [address] [place] [address] Dr. Ev Chanocytes/100 WBC (Bld)6.7 %Normal1.7-12.0The [facility] Comment on above:Performed By: #### CBC #### [facility] [address] [place] [address] Dr. Ev Ramirez #3.9 103/ulNormal1.4-6.5The [facility] HospitalComment on above:Performed By: #### CBC #### [facility] [address] [place] [address] Dr. Ev Whalenutrophils/100 WBC (Bld)55.2 %Buxhnf89.0-75.0The [facility] Hospitalment on above:Performed By: #### CBC #### [facility] [address] [place] [address] Dr. Ev PerezPlatelet mean volume (Bld) [Entitic vol]11.9 fLNormal9.5-13.5The [facility] HospitalComment on above:Performed By: #### CBC #### [facility] [address] [place] [address] Dr. Ev PerezPLT154 103/ohPfvgxg832-642Zbz [facility] HospitalComhur[facility] on above: Performed By: #### CBC #### [facility] [address] [place] [address] Dr. Ev PerezRBC5.07 106/ulNormal4.70-6.10The [facility] HospitalComhur[facility] on above:Performed By: #### CBC #### [facility] [address] [place] [address] Dr. Ev PerezWBC7.1 103/ulNormal4.0-11.0The [facility] on above: Performed By: #### CBC #### [facility] [address] [place] [address] Dr. Ev PerezCT STROKE HEAD WOon [id number] STROKE HEAD WO Begin Addendum #1 Findings [...] change. 2. An acute abnormality is not identified.NormalThe [facility] HospitalPROF 14(COMP METB)on 75-42-1214Oizwlvp [Mass/Vol]3.7 g/dLNormal3.4-5.0The [facility] HospitalComment on above:Performed By: #### CMP #### [facility] [address] [place] [address] Dr. Ev PerezAlbumin/Globulin [Mass ratio]1.3 {ratio}NormalThe [facility] HospitalComment on above:Performed By: #### CMP #### [facility] [address] [place] [address] Dr. Ev Cabezas [Catalytic activity/Vol]61 U/CCzgsgw67-676Nuh [facility] HospitalComment on above:Performed By: #### CMP #### [facility] [address] [place] [address] Dr. Ev Benoit [Catalytic activity/Vol]39 U/UVtzkav76-62Vgo [facility] HospitalComment on above:Performed By: #### CMP #### [facility] [address] [place] [address] Dr. Ev Baker gap [Moles/Vol]11.9 mmol/LNormalThe [facility] Comment on above:Performed By: #### CMP #### [facility] [address] [place] [address] Dr. Ev Isaacs [Catalytic activity/Vol]27 U/BCljfwg98-73Nuj [facility] HospitalComment on above:Performed By: #### CMP #### [facility] [address] [place] [address] Dr. Ev PerezBilirubin [Mass/Vol]1.2 mg/dLCritically high0.2-1.0The [facility] Hospitalment on above:Performed By: #### CMP #### [facility] [address] [address] [address] Ev PerezCalcium [Mass/Vol]9.1 mg/dLNormal8.5-10.1The [facility] Comment on above:Performed By: #### CMP #### [facility] [address] [address] [address] Ev PerezChloride [Moles/Vol]103 mmol/SDjpwjj63-353Nav [facility] Comment on above:Performed By: #### CMP #### [facility] [address] [address] [address] Ev PerezCO2 [Moles/Vol]25.9 mmol/KVnjxvq02.0-32.0[facility] Comment on above:Performed By: #### CMP #### [facility] [address] [address] [address] Ev PerezCreatinine [Mass/Vol]0.91 mg/dLNormal0.70-1.30The [facility] HospitalComment on above:Performed By: #### CMP #### [facility] [address] [address] [address] Ev RamGFR-AF [place]>60Normal>=60The [facility] HospitalComment on above:Performed By: #### CMP #### [facility] [address] [address] [address] Ev RamGFR-NON AF [place]>60Normal>=60The [facility] HospitalComment on above:Performed By: #### CMP #### [facility] [address] [address] [address] Ev PerezGlobulin (S) [Mass/Vol]2.9 g/dLNormalThe [facility] HospitalComment on above:Performed By: #### CMP #### [facility] [address] [address] [address] Ev PerezGlucose [Mass/Vol]269 mg/dLCritically uaix78-212Dlv [facility] HospitalComment on above:Performed By: #### CMP #### [facility] [address] [address] [address] Ev PerezPotassium [Moles/Vol]4.8 mmol/LNormal3.5-5.1The [facility] Comment on above:Performed By: #### CMP #### [facility] [address] [address] [address] Ev PerezProtein [Mass/Vol]6.6 g/dLNormal6.4-8.2The [facility] Comment on above:Performed By: #### CMP #### [facility] [address] [place] [address] Dr. Ev PerezSodium [Moles/Vol]136 mmol/UHwcqdi657-902Rkz [facility] Comment on above:Performed By: #### CMP #### [facility] [address] [place] [address] Dr. Ev PerezUrea nitrogen [Mass/Vol]15.0 mg/dLNormal7.0-18.0The [facility] HospitalComment on above:Performed By: #### CMP #### [facility] [address] [place] [address] Dr. Ev PerezUrea nitrogen/Creatinine [Mass ratio]16.5 mg/mgNoBethesda North HospitalComment on above:Performed By: #### CMP #### [facility] [address] [place] [address] Dr. Ev Merritt 62-40-5789RYX Coag (PPP) [Relative time]1.03 {INR} NormalThe [facility] HospitalComment on above:Performed By: #### PT, PTT #### [facility] [address] [place] [address] Dr. Ev Garcia GUIDELINESSEE BELOWHolzer HospitalComment on above:Result Comment: DESIRED INR: 2.0 - 3.0 CONDITIONS NOT LISTED BELOW 2.5 - 3.5 FOR PROSTHETIC HEART VALVE REPLACEMENT 2.5 - 3.5 RECURRENT THROMBOSIS Performed By: #### PT, PTT #### [facility] [address] [place] [address] Dr. Ev PerezPT Coag (PPP) [Time]11.1 sNormal9.0-11.6The [facility] Comment on above:Performed By: #### PT, PTT #### [facility] [address] [place] [address] Dr. Ev PerezPTTon 92-25-0239wBDN Coag (Bld) [Time]26.5 mMvitue35.3-36.2[facility] SystemComment on above:Performed By: #### VITB12, VITAD #### [facility] [address] [place] [address] Dr. Ev Evangelista, HIGH SENSITIVITYon 05-51-2336OVFVVV2.0 pg/mLNormal 4.0-76.1The [facility] HospitalComment on above:Result Comment: CUT-OFF POINTS HAVE BEEN ESTABLISHED BASED ON THE FOURTH UNIVERSAL DEFINITIONS OF MYOCARDIAL INFARCTION. THE UPPER REFERENCE LIMIT (URL) OF TROPONIN, DEFINED THE 99TH PERCENTILE OF cTnI DISTRIBUTION IN A REFERENCE POPULATION, HAS BEEN CONFIRMED THE DECISION THRESHOLD FOR [place] DIAGNOSIS.Performed By: #### VITB12, VITAD #### [facility] [address] [place] [address] Dr. Ev PerezGLYCOHEMOGLOBIN A1Con 35-32-7266RLB RECOMMENDATIONSEE BELOWNormal [facility] Health SystemComment on above:Result Comment: ADA RECOMMENDED LIMIT 4.0 - 6.0 ADA THERAPEUTIC TARGET < 7.0 ACTION SUGGESTED > 7.0Performed By: #### VITB12, VITAD #### [facility] [address] [place] [address] Dr. Ev PerezGlucose [Mass/Vol]258 mg/dLNormalThSCCI Hospital LimaComhurley medical center on above:Performed By: #### VITB12, VITAD #### [facility] [address] [place] [address] Dr. Ev PerezHbA1c (Bld) [Mass fraction]10.6 %Critically high4.5-6.2The [facility] HospitalComment on above:Performed By: #### VITB12, VITAD #### [facility] [address] [address] [address] Ev Perez Vital Signs Date TimeVital SignValuePerforming MamlhesqyHzwnysyw48-01-7077 10:35-0400 Diastolic blood ibhinjtl75 mm[Hg]Whit Titus MD Work Phone: [phone]24[facility]09-10-2025 10:35-0400 Systolic blood mm[Hg]Whit Titus MD Work Phone: [phone]09-10-2025 10:16-0400 Body .37 cmWhit Titus MD Work Phone: [phone]09-10-2025 10:16-0400 Body mass index (BMI) [Ratio]31.6 kg/o0PdwtimWhit Titus MD Work Phone: [phone]09-10-2025 10:16-0400 Body .5 kgWhit Titus MD Work Phone: [phone]09-10-2025 10:16-0400 Heart rate70 /Briana Titus MD Work Phone: [phone]09-10-2025 10:16-0400 Respiratory rate18 /Briana Titus MD Work Phone: [phone]09-10-2025 10:16-0400 SaO2% (BldA) [Mass fraction]95 %Whit Titus MD Work Phone: [phone] [place], [place] [address]23006-11-2025 11:11-0400 [facility] .37 [facility] 11:11-0400Body mass index (BMI) [Ratio]30.6 kg/c5WqtgairrqLutheran Hospital06-11-2025 11:11-0400Body xlchhe48.7 kg[facility]06-11-2025 11:11-0400Diastolic blood plztcevw96 mm[Hg][facility] 10-24-2024 11:11-0400Heart rate66 /[facility] 10-24-2024 11:11-0400Respiratory rate18 /minL[facility] 10-24-2024 11:11-6870VuN6% (BldA) [Mass fraction]97 %[facility]06-11-2025 11:11-0400Systolic blood puefjbjb855 mm[Hg][facility]06-02-2025 10:58-0400Body cgeixw641.37 cmL[facility]06-02-2025 10:58-0400Body mass index (BMI) [Ratio]27.3 kg/m2 [facility]06-02-2025 10:58-0400Body bixuot32.86 kg [facility]06-02-2025 10:58-0400Diastolic blood ajhnrict80 mm[Hg][facility]06-02-2025 10:58-0400Heart rate71 /min [facility]06-02-2025 10:58-0400Respiratory rate12 /min [facility]06-02-2025 10:58-4516EvS3% (BldA) [Mass fraction]96 %[facility]06-02-2025 10:58-0400Systolic blood oclxheyc695 mm[Hg][facility]03-26-2025 10:38-0400 Body xtookv960.37 cmL[facility]03-26-2025 10:38-0400Body mass index (BMI) [Ratio]30.2 kg/i4AzzjreztlLutheran Hospital03-26-2025 10:38-0400Body uuxufk68.57 kgL[facility]03-26-2025 10:38-0400Diastolic blood radfsieo28 mm[Hg][facility] 08-08-2024 10:38-0400Heart rate81 /minL[facility] 08-08-2024 10:38-0400Systolic blood qxqvlcoe474 mm[Hg][facility]03-19-2025 09:54-0400Body akbhje269.37 cmL[facility]03-19-2025 09:54-0400Body mass index (BMI) [Ratio]30 kg/g0OlfhsgskpLutheran Hospital03-19-2025 09:54-0400Body fxikko70.2 kgL[facility]03-19-2025 09:54-0400Diastolic blood weihgmyy91 mm[Hg][facility]03-19-2025 09:54-0400Heart rate76 /[facility]03-19-2025 09:54-0400Respiratory rate18 /[facility]03-19-2025 09:54-4174SsV3% (BldA) [Mass fraction]95 %[facility]03-19-2025 09:54-0400Systolic blood moszvfpf334 mm[Hg] [facility]02-19-2024 12:26-0500Diastolic blood ihbxuaev29 mm[Hg]MD Whit Titus Work Phone: [phone] [place], [place] 5023002-19-2024 12:26-0500 Systolic blood wcxnwdeq689 mm[Hg]MD Whit Titus Work Phone: [phone] [place], [place] 5023002-19-2024 11:37-0500 Body xbnwim723.91 cmMD Whit Titus Work Phone: [phone]02-19-2024 11:37-0500 Body mass index (BMI) [Ratio]27.8 kg/m2MD Whit Titus Work Phone: [phone]02-19-2024 11:37-0500 Body piezrq25.43 kgMD Whit Titus Work Phone: [phone] [place], [place] 5023002-19-2024 11:37-0500 Heart rate70 /minMD Whit Titus Work Phone: [phone]02-19-2024 11:37-0500 Respiratory rate18 /minMD Whit Titus Work Phone: [phone]02-19-2024 11:37-0500 SaO2% (BldA) [Mass fraction]95 %MD Whit Titus Work Phone: [phone]12-26-2023 10:15-0500 Body .91 cmDeborah Scally Other [facility]12-26-2023 10:15-0500 Body mass index (BMI) [Ratio]27.28 kg/o9Qehhphf Scally Other [employer] [facility] Other 12-26-2023 10:15-0500Body qgecod31.84 kgDeborah Scally Other [employer] Other 12-26-2023 10:15-0500Body nbydfv21.83 kgMD Whit Titus Work Phone: [facility]12-26-2023 10:15-0500 Diastolic blood pysqikxd47 mm[Hg]Kathryn Scally Other [facility]12-26-2023 10:15-0500 Respiratory rate18 /minDeborah Scally Other [employer] Other 12-26-2023 10:15-5949HyS3% (BldA) [Mass fraction]95 % Kathryn Scally Other [employer] Other 12-26-2023 10:15-0500Systolic blood jtkdlefh774 mm[Hg] Kathryn Scally Other [facility]09-19-2023 10:15-0400 Body xcsfti870.91 cmDeborah Scally Other [employer] Other 09-19-2023 10:15-0400Body mass index (BMI) [Ratio] 28.69 kg/a7Ezssjwt Scally Other [employer] [place] Other 09-19-2023 10:15-0400Body .87 kgDeborah Scally Other [employer] Other 09-19-2023 10:15-0400Diastolic blood wlqtlhyl29 mm[Hg] Kathryndiane Salasly Other [employer] Other 09-19-2023 10:15-0400Respiratory rate18 /minDeborah Josuely Other [employer] Other 09-19-2023 10:15-8888PqO2% (BldA) [Mass fraction]97 % Kathryn Resendiz Other [employer] Other 09-19-2023 10:15-0400Systolic blood mm[Hg] Kathryn Resendiz Other [employer] Other 08-16-2023 11:45-0400Body .91 cmWhit Titus Other [employer] Other 08-16-2023 11:45-0400Body mass index (BMI) [Ratio] 30.05 kg/u0QgrrckWhit Titus Other [employer] Other 08-16-2023 11:45-0400Body .73 kgWhit Titus Other [employer] Other 08-16-2023 11:45-0400Diastolic blood gpjdehiw30 mm[Hg] Whit Titus Other [employer] Other 08-16-2023 11:45-0400Systolic blood nqpuseeg872 mm[Hg] Whit Titus Other [employer] Other 07-13-2023 11:00-0400Body kwauld353.91 cmWhit Titus Other [employer] Other 07-13-2023 11:00-0400Body mass index (BMI) [Ratio] 28.61 kg/t9PodnvyWhit Titus Other [employer] Other 07-13-2023 11:00-0400Body ysgnrz01.65 kgWhit Titus Other [employer] Other 07-13-2023 11:00-0400Diastolic blood oaolxkwe13 mm[Hg] Whit Freedom Other [employer] Other 07-13-2023 11:00-0400Systolic blood npxffiyc661 mm[Hg] Whitchrissie Titus Other [employer] Other 06-13-2023 12:45-0400Body laatir961.91 cmDebormary Resendiz Other [employer] Other 06-13-2023 12:45-0400Body mass index (BMI) [Ratio] 28.44 kg/b1Jhjyaqz [employer] Other [employer] Other 06-13-2023 12:45-0400Body .15 kgDeborah Scally Other [employer] Other 06-13-2023 12:45-0400Diastolic blood dwahzxqv21 mm[Hg] Kathryn Scally Other [employer] Other 06-13-2023 12:45-0400Respiratory rate18 /minDeborah Scally Other [employer] Other 06-13-2023 12:45-8116QdP1% (BldA) [Mass fraction]97 % Kathryn Scally Other [employer] Other 06-13-2023 12:45-0400Systolic blood mm[Hg] Kathryn Scally Other [employer] Other 04-24-2023 11:15-0400Body sxtgeq402.91 cmDeborah Josuely Other [employer] Other 04-24-2023 11:15-0400Body mass index (BMI) [Ratio] 28.92 kg/t8Dgpwmdz Josuely Other [employer] Other 04-24-2023 11:15-0400Body rbmnro98.51 kgDeborah Josuely Other [employer] Other 04-24-2023 11:15-0400Diastolic blood pressureDeborah Astrid Other [employer] Other 04-24-2023 11:15-0400Respiratory rate18 /minDeborah Scally Other [employer] Other 04-24-2023 11:15-8849WsX9% (BldA) [Mass fraction]95 % Kathryn Scally Other [employer] Other 04-24-2023 11:15-0400Systolic blood mwpetxaw486 mm[Hg] Kathryn Scally Other [employer] Other 02-15-2023 12:00-0500Body asywja305.91 cmDemar Resendiz Other [employer] Other 02-15-2023 12:00-0500Body mass index (BMI) [Ratio] 29.38 kg/b9Hmgdgfjmar Resendiz Other [employer] Other 02-15-2023 12:00-0500Body jffbcu74.83 kgDemar Salasly Other [employer] Other 02-15-2023 12:00-0500Diastolic blood mmovrwyr60 mm[Hg] Kathryn Scally Other [employer] Other 02-15-2023 12:00-0500Respiratory rate18 /minDeborah Scally Other [employer] Other 02-15-2023 12:00-9067OqP1% (BldA) [Mass fraction]95 % Kathryn Scally Other [employer] Other 02-15-2023 12:00-0500Systolic blood wlxusvlf144 mm[Hg] Kathryn Scally Other [employer] Other 01-13-2023 11:00-0500Body atsygu911.91 cmWhit Titus Other [employer] Other 01-13-2023 11:00-0500Body mass index (BMI) [Ratio] 29.09 kg/u6RmkwhoWhit Titus Other [employer] Other 01-13-2023 11:00-0500Body ypjlue37.01 kgArgeliasofie Freedom Other [facility] [place] Other 01-13-2023 11:00-0500Diastolic blood jffrbjud00 mm[Hg] Whit Freedom Other [facility] Other 01-13-2023 11:00-4470SdV9% (BldA) [Mass fraction]98 % Whit Freedom Other [facility] Other 01-13-2023 11:00-0500Systolic blood ghawepdg023 mm[Hg] Whit Titus Other [employer] [place] Other Encounters Encounter DateEncounter TypeCare ProviderFacilityStart: 01-23-2025 End: 80-76-3364fqsgxzuwjnYfwgex E Braun MD Work Phone: [facility] Work Phone: Start: 01-23-2025 End: 96-59-8154Tkzdnok encounter procedureKathryn Resendiz [employer] WORK[employer]-[facility] Work Phone: Start: 12-21-2024 End: 48-49-5454jjsazzukwyZthubv E Braun MD Work Phone: [facility] Work Phone: Start: 12-21-2024 End: 54-96-0579Gyxghyu encounter procedureAaron Borrego -[facility] Work Phone: Start: 12-03-2024 End: 79-99-9210Yyqhbt Denilson Liz MD Work Phone: [facility] OPHTStart: 12-03-2024 End: 94-66-0724Igpxqdgenevieve Liz MD Work Phone: [facility] OPHTStart: 12-03-2024 End: 10-22-1451wjhkjgheqkGBXCI M ALLENNot AvailableStart: 58-65-9133Jsv-patient / Non-visitWhit Titus MD-[facility] Work Phone: Start: 10-24-2024 End: 32-46-5359ldsuqveoztUqlcdrhyrMercy Health [facility] Hospital Work Phone: Start: 10-24-2024 End: 64-88-7419Ogjiser encounter procedureFiralleenes Physician Group-[facility] Work Phone: Start: 10-15-2024 End: 19-40-6685kohdegjrmbVfztcgbxpMercy Health Anderson Hospital Work Phone: Start: 10-15-2024 End: 69-48-4405Tgwvmeu encounter procedureFiralleenes Physician Group-[facility] Work Phone: Start: 09-12-2024 End: 50-73-5291odqjmeudevHnwzqxebbMercy Health [facility] Hospital Work Phone: Start: 09-12-2024 End: 76-13-2723Czusuta encounter procedureFiralleenes Physician [facility] Work Phone: Start: 08-08-2024 End: 43-46-9433hwyjxwhzlqRyjfmpzahMercy Health Anderson Hospital Work Phone: Start: 08-08-2024 End: 79-77-3521Iavdgdl encounter procedureFirelands Physician Group-[facility] Work Phone: Start: 53-07-9003Dqy-patient / Non-visitFirelands Physician Group-[facility] Work Phone: Start: 08-01-2024 End: 35-86-9107uufatobuxvFvpusydccMercy Health Anderson Hospital Work Phone: Start: 08-01-2024 End: 66-57-7779Iyrjagx encounter procedureFiralleenes Physician Group-[facility] Work Phone: Start: 91-89-4444bruwjndzluWvgydsl NILLFacility:[facility] HospitalkStart: 03-30-1739Bqp-patient / Non-visitAlleghany Health Physician Group-[facility] Professional [employer] Work Phone: Start: 07-25-2024 End: 48-83-1592sxapgephqjTmrvdqk R NILLFacility:CD:[id number]: 06-12-2024 End: 26-39-5141Zdmipty encounter procedureAlleghany Health Physician [facility] Work Phone: Start: 88-72-1710Yrauitr encounter procedureSheltering Arms Hospitaltart: 95-61-4524mwfmxajbqhZtnpzt E Braun Facility[facility]: 07-04-2023 End: 23-00-0744Pberesj encounter procedureMD Whit Titus Work Phone: [facility] Work Phone: Start: 05-19-2023 End: 73-67-4107rymionqvnpDagncjh Scally Other [employer] Other Start: 38-51-9045Zgzulpwwp encounterHasbro Children'S [facility] ClinicStart: 05-10-2023(DM) DiabetesDeBradley Hospital Coordinated Care ClinicStart: 05-10-2023 End: 32-27-8133dgellqxrmkWJ Marcia E Braun Work Phone: [employer] Other Start: 05-10-2023 End: 44-00-0142Kydpsjjlvp RecurringMD Whit Titus Work Phone: [facility] Work Phone: Start: 05-10-2023 End: 97-49-0211Cujihev encounter procedureMD Whit Titus Work Phone: [facility] Work Phone: Start: 03-29-2023 End: 05-38-2161nfylxkjiziRaujphj Scally Other [employer] Other Start: 56-68-8422Kdevupu evaluation of patient and reportKathryn Shaw Coordinated Care ClinicStart: 02-01-2023(DM) DiabetesKathryn Shaw Coordinated Care ClinicStart: 02-01-2023 End: 58-56-4230vedfnuplfzRtjxtyr Scally Other [employer] Other Start: 12-29-2022 End: 80-16-1012hxiswplxpuViujrq Braun Other [employer] Other Start: 00-44-1800Trswfq outpatient visit 15 minutes Whit [facility] ClinicStart: 12-27-2022 End: 36-45-6080vikdwfigtgSqoeok Braun Other [employer] Other Start: 68-23-5423Rtpkribqz encounterMarcisofie [facility] ClinicStart: 11-25-2022 End: 21-16-3790inkacerdynXlpwxh Braun Other [employer] Other Start: 53-78-3998Oyhecmq encounter procedureIvacisofie Cintron [facility] ClinicStart: 10-26-2022(PUMP/CGM) Pump / SensorKathryn Shaw Coordinated Care ClinicStart: 10-26-2022 End: 79-35-7815njqzefdnxsJrlteen Scally Other [employer] Other Start: 10-19-2022 End: 29-92-9446sghgtvmbyeDrdkes Braun Other [employer] Other Start: 89-60-8024Npxdksjgt encounterMarcia BraunFPG [facility] ClinicStart: 10-18-2022 End: 12-78-0323zbidvsbhplMahueq Braun Other [employer] [place] Other Start: 48-01-2568Bzirbqwjc encounterWhit ShookG [facility] ClinicStart: 09-22-2022 End: 68-54-9096ontugycesdFKIDC PARKERFacility:C9Imvmb: 09-06-2022(PUMP/CGM) Pump / SensorDebormary ScallyFirelands Coordinated Care ClinicStart: 09-06-2022 End: 18-13-6190cmcfqkkhlvXswpnsi Josuely Other [employer] Other Start: 07-29-2022 End: 05-96-5783esatvhurdrOnexddy Scally Other [employer] [place] Other Start: 05-36-0985Okrqijm evaluation of patient and reportDemar SalaslyFirdebs Coordinated Care ClinicStart: 07-13-2022 End: 98-61-9807bezexrzlvzMywenac Scally Other [facility] Other Start: 72-76-1065Xhpvaexta encounterDeBradley Hospital Coordinated Care ClinicStart: 13-29-8675Uxomtswvi encounterDemar ResendizFPG Referral CoordinatorStart: 07-06-2022 End: 86-40-1863wkvqbndqtfRTLRATN JOSUELYC[employer]ot [facility] Other Start: 07-05-2022 End: 36-46-2593gruiwxwovcAcubrer Scally Other [employer] Other Start: 40-91-3296Wcppuvxbh encounterDeBradley Hospital Coordinated Care ClinicStart: 06-30-2022(New DM) New DiabetesDeSt. Aloisius Medical CenterlyFirelands Coordinated Care ClinicStart: 06-30-2022 End: 77-72-5084thqoykaroiXhblles Scally Other [facility] Other Start: 05-28-2022 End: 77-48-3188igyyhcieynHwtwdu Braun Other [facility] Other Start: 96-56-1628Uxvveu outpatient visit 15 minutes Whit Cintron [facility] ClinicStart: 42-80-2068Wrvna health examination Whit Titus Other [facility] Other Start: 05-24-2022 End: 28-98-9240ynlqwmtolzAW NONE LISTED REQUESTFacility:H1Kgoyg: 02-25-2022 End: 40-83-9396bkqyviincmGL CARMELO PRUITTFacility:Z7Bstyl: 12-09-2021 End: 86-69-3856dgztrulzauYL NONE LISTED REQUESTFacility:H1 Procedures DateProcedureProcedure DetailPerforming ClinicianStart: 12-03-2024 End: 66-73-2345Mzytr medical xm&eval comprhnsv estab pt 1/>Type 2 diabetes mellitus without complication, without long-term current use of insulin (HCC) Suzie Liz MD Work Phone: comment on above:Type 2 diabetes mellitus without complication, without long-term current use of insulin (HCC) (Primary Dx); PCO (posterior capsular opacification), bilateral; Pseudophakia Plan of Treatment DateCare ActivityDetailAuthorStart: 37-62-4420Fbagoigfg vaccinationInfluenza Vaccine (#1)[facility] HealthcareStart: 12-03-2024 End: 48-18-3199Ycilyro encounter hfhfkpsyj79/21/2025 11:00 AM EDT Office Visit [facility] [address] [place] [address] Suzie Liz MD [address] [place] [address] ArrivedTRENTONSOUTHEAST MISSOU[facility] OPHTComment on above:ArrivedStart: 1950 Screening for malignant neoplasm of [facility] HealthcareComprehensive metabolic 2000 panel - Serum or PlasmaLutheran HospitalGlutamate decarboxylase 65 Ab [Units/volume] in [facility] Insulin Ab [Units/volume] in [facility] CampusInsulin C- peptide measurementLutheran HospitalPancreatic islet cell Ab [Titer] in [facility] Immunizations Immunization DateImmunizationNotesCare VlfhnesfGqyrfdrc67-81-8934jpimkvzwh virus vaccine, unspecified formulationSuzie Liz MD Work Phone: [facility] Payers DatePayer CategoryPayerPolicy [id number] (Managed Care)[employer] ..[id number] [id number] .[id number] [id number] 2..[id number] [id number] [id number] [id number] [id number] [id number] 2..840.1.403854.3.579.2.531 Social History DateTypeDetailFacilityUnknown if ever smokedCabot [facility] Other Sex Assigned At [facility] Other Start: 81-82-1916Nfb Assigned At [facility]: 10-04-2023 End: 56-02-8395Hmuukdm smoking status NHISNever smoked tobacco (finding) [facility]: 08-01-2024 End: 78-36-0215FloKyyx (finding)[facility] HospitalTomt. [facility]inai hospital smoking status NHISTobacco smoking consumption [facility]ighStart: 1950 Sex assigned at birthNot on [facility] Medical Equipment Procedure CodeEquipment CodeEquipment Original TextEquipment IdentifierDates Start: 06-44-9316Qsskc Sugar Diagnostic (Onetouch Ultra Test) stripStart: 32-24-8055MquzumpKmqrt: 44-21-0616Aoy Needle, Diabetic (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) 31 gauge x 5/16 needleStart: 89-67-9605Weace Sugar Diagnostic (Onetouch Ultra Test) stripStart: 40-96-9289Hkwgvta (Onetouch Delica Plus Lancet) 33 gauge miscStart: 85-39-2319Dnzmtrh 33 gauge miscStart: 84-31-7240Qvr Needle, Diabetic (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) 31 gauge x 5/16 needleStart: 14-99-9791Exr Needle, Diabetic (Bd Ultra-Fine Mini Pen Needle) 31 gauge x 3/16 needleStart: 30-97-0632Lwngv Sugar Diagnostic (Onetouch Ultra Test) stripStart: 07-01-2023 End: 28-67-3442Lblrj Sugar Diagnostic (Onetouch Ultra Test) stripStart: 60-95-4950Ohbjgrc (Onetouch Delica Plus Lancet) 33 gauge miscStart: 08-01-2024 Lancets 33 gauge miscStart: 36-03-4532Mat Needle, Diabetic (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) 31 gauge x 5/16 needleStart: 57-33-4506Tjx Needle, Diabetic (Bd Ultra- Fine Mini Pen Needle) 31 gauge x 3/16 needleStart: 18-59-6940Vdfwj Sugar Diagnostic (Onetouch Ultra Test) stripStart: 07-01-2023 End: 23-85-6711Lvaah Sugar Diagnostic (Onetouch Ultra Test) stripStart: 30-96-1881Hsxfcna (Onetouch Delica Plus Lancet) 33 gauge miscStart: 08-01-2024 Lancets 33 gauge miscStart: 34-66-4420Sgm Needle, Diabetic (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) 31 gauge x 5/16 needleStart: 28-92-4123Twl Needle, Diabetic (Bd Ultra- Fine Mini Pen Needle) 31 gauge x 3/16 needleStart: 61-95-9561Rondj Sugar Diagnostic (Onetouch Ultra Test) stripStart: 07-01-2023 End: 88-51-0459Zcqrs Sugar Diagnostic (Onetouch Ultra Test) stripStart: 81-32-2216Zclsede (Onetouch Delica Plus Lancet) 33 gauge miscStart: 08-01-2024 Lancets 33 gauge miscStart: 38-62-1689Bqe Needle, Diabetic (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) 31 gauge x 5/16 needleStart: 16-92-9639Ypq Needle, Diabetic (Bd Ultra- Fine Mini Pen Needle) 31 gauge x 3/16 needleStart: 41-80-7094Zdujw Sugar Diagnostic (Onetouch Ultra Test) stripStart: 07-01-2023 End: 03-56-7719Baarp Sugar Diagnostic (Onetouch Ultra Test) stripStart: 57-50-4924Inspasm (Onetouch Delica Plus Lancet) 33 gauge miscStart: 08-01-2024 Pen Needle, Diabetic (Bd Ultra-Fine Mini Pen Needle) 31 gauge x 3/16 needle Start: 87-46-9524Mgodv Sugar Diagnostic (Onetouch Ultra Test) stripStart: 07-01-2023 End: 29-43-2624Twvksfb 33 gauge miscStart: 07-01-2023 End: 43-39-5482Ahx Needle, Diabetic (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) 31 gauge x 5/16 needleStart: 07-01-2023 End: 94-79-7687Bmgtj Sugar Diagnostic (Onetouch Ultra Test) stripStart: 90-80-7893Xglhpwn (Onetouch Delica Plus Lancet) 33 gauge miscStart: 08-01-2024 Pen Needle, Diabetic (Bd Ultra-Fine Mini Pen Needle) 31 gauge x 3/16 needle Start: 24-77-0047Tjrcu Sugar Diagnostic (Onetouch Ultra Test) stripStart: 07-01-2023 End: 50-28-0355Ojrwsfx 33 gauge miscStart: 07-01-2023 End: 89-56-0303Sqy Needle, Diabetic (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) 31 gauge x 5/16 needleStart: 07-01-2023 End: 28-40-1131Zgmne Sugar Diagnostic (Onetouch Ultra Test) stripStart: 20-27-1173Yrnjwjj (Onetouch Delica Plus Lancet) 33 gauge miscStart: 08-01-2024 Pen Needle, Diabetic (Bd Ultra-Fine Mini Pen Needle) 31 gauge x 3/16 needle Start: 57-61-8833Vxdzl Sugar Diagnostic (Onetouch Ultra Test) stripStart: 07-01-2023 End: 85-58-5322Sknufps 33 gauge miscStart: 07-01-2023 End: 50-76-9415Jda Needle, Diabetic (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) 31 gauge x 5/16 needleStart: 07-01-2023 End: 10-24-2024 Clinical Notes 05-28-2022 to 12-21-2024 Note Date & PvueJcgvGgmtxggf58-95-3826 Evaluation note* Diagnosis Onset Date Resolution Status Admit Date Type 2 diabetes mellitus with hyperglyce cory acuteAugust 2024 8:47amBMI 27.0-27.9,adultacuteSeptember 2024 10:06am Dietary counseling and surveillanceacuteSeptember 2024 10:06amHTN (hypertension)acuteSeptember 2024 10:06amHyperlipidemiaacuteSeptember 2024 10:06amLong term current use of insulinacuteSeptember 2024 10:06amType 2 diabetes mellitus with hyperglycemiaacuteSeptember 2024 10:06amVitamin B 12 deficiencyacuteSeptember 2024 10:06amVitamin D deficiencyacuteSeptsoutheast [facility] 2024 10:06am [facility] Work Phone: 1(707) 178-668707-21-2025 History of Present illness Narrative* Suzie Liz [...] any problems or concerns. documented in this encounterSSM Health CareAshstbvmls07-81-7017 Evaluation note* Diagnosis Onset Date Resolution Status Admit Date HTN (hypertension) acuteJune 2024 10:44amHyperlipidemiaacuteJune 2024 10:44amMedicare annual wellness visit, subsequentacuteJune 2024 10:44amType 2 diabetes mellitus with hyperglycemiaacuteJune 2024 10:44amBMI 27.0-27.9,adultacute October 24, 2024 10:58amDietary counseling and surveillanceacuteJun2024 10:58amHTN (hypertension)acuteJun2024 10:58amHyperlipidemiaacuteJun2024 10:58amLong term current use of insulinacuteJun2024 10:58am Type 2 diabetes mellitus with hyperglycemiaacuteJun2024 10:58amVitamin B 12 deficiencyacuteJun2024 10:58amVitamin D deficiencyacuteJun2024 10:58amType 2 diabetes mellitus with hyperglycemiaacuteA[facility]2024 8:47am [facility] Work Phone: 1(445) 599-544603-19-2025 Evaluation note* Diagnosis Onset Date Resolution Status Admit Date BMI 27.0-27.9,[facility] 20[facility] 9:43amDietary counseling and surveillanceacuteMer[facility] 2024 9:43amHTN (hypertension)acuteMer[facility] 2024 9:43amHyperlipidemiaacute August 01, 2024 9:43amLong term current use of insulinacuteMercy Health [facility] 2024 9:43amType 2 diabetes mellitus with hyperglycemiaacuteMer[facility] 2024 9:43am Vitamin B [address] [facility] 2024 9:43amVitamin D deficiencyacute August 01, 2024 9:43amEsophagitis determined by endoscopyacuteJul 2024 10:25amFood impaction of esophagusacuteJul 2024 10:25amType 2 diabetes mellitus with hyperglycemiaacuteSt. [facility]ch 2024 10:25amType 2 diabetes mellitus with hyperglycemiaacuteApril 2024 9:58am [facility] Work Phone: 1(204) 890-768503-19-2025 Evaluation note* Diagnosis Onset Date Resolution Status Admit Date BMI 27.0-27.9,adult [facility] 2024 9:43amDietary counseling and surveillanceacuteMer[facility] Health [facility] 2024 9:43amHTN (hypertension)acuteMer[facility] 2024 9:43amHyperlipidemiaacute August 01, 2024 9:43amLong term current use of insulinacuteMarch 2024 9:43amType 2 diabetes mellitus with hyperglycemiaacuteMarch 2024 9:43am Vitamin B 12 deficiencyacuteMar2024 9:43amVitamin D deficiencyacute August 01, 2024 9:43amEsophagitis determined by endoscopyacuteJulch 2024 10:25amFood impaction of esophagusacuteJulch 2024 10:25amType 2 diabetes mellitus with hyperglycemiaacuteMarch 2024 10:25amType 2 diabetes mellitus with hyperglycemiaacuteApril 2024 9:58amHTN (hypertension)acuteJune 2024 10:44amHyperlipidemiaacuteJune 2024 10:44amMedicare annual wellness visit, subsequentacuteJun2024 10:44amType 2 diabetes mellitus with hyperglycemiaacuteJune 2024 10:44am [facility] Work Phone: 1(557) 233-163103-19-2025 Evaluation note* Diagnosis Onset Date Resolution Status Admit Date BMI 27.0-27.9,adult [facility] 2024 9:43amDietary counseling and surveillanceacuteJul 2024 9:43amHTN (hypertension)acuteMer[facility] 2024 9:43amHyperlipidemiaacute August 01, 2024 9:43amLong term current use of insulinacuteJul 2024 9:43amType 2 diabetes mellitus with hyperglycemiaacuteMarch 2024 9:43am Vitamin B 12 deficiencyacuteMarch 2024 9:43amVitamin D deficiencyacute August 01, 2024 9:43amEsophagitis determined by endoscopyacuteJulch 2024 10:25amFood impaction of esophagusacuteJulch 2024 10:25amType 2 diabetes mellitus with hyperglycemiaacuteMarch 2024 10:25amType 2 diabetes mellitus with hyperglycemiaacuteApril 2024 9:58amHTN (hypertension)acuteJune 2024 10:44amHyperlipidemiaacuteJune 2024 10:44amMedicare annual wellness visit, subsequentacuteJun2024 10:44amType 2 diabetes mellitus with hyperglycemiaacuteJune 2024 10:44amBMI 27.0-27.9,adultacuteJune 2024 10:58amDietary counseling and surveillanceacuteJune 2024 10:58amHTN (hypertension)acuteJune 2024 10:58amHyperlipidemiaacuteJune 2024 10:58amLong term current use of insulinacuteJune 2024 10:58amType 2 diabetes mellitus with hyperglycemiaacuteJune 2024 10:58amVitamin B 12 deficiencyacuteJune 2024 10:58amVitamin D deficiencyacuteJune 2024 10:58am [facility] Work Phone: 1(332) 821-887401-28-2025 Evaluation note* Diagnosis Onset Date Resolution Status Admit Date Type 2 diabetes mellitus with hyperglyce cory acuteJanuary 2024 10:49amBMI 27.0-27.9,adultacuteMarch 2024 9:43am Dietary counseling and surveillanceacuteMarch 2024 9:43amHTN (hypertension)acuteMarch 2024 9:43amHyperlipidemiaacuteMarch 2024 9:43amLong term current use of insulinacuteMarch 2024 9:43amType 2 diabetes mellitus with hyperglycemiaacuteMarch 2024 9:43amVitamin B 12 deficiencyacuteMarch 2024 9:43amVitamin D deficiencyacuteMarch 2024 9:43am [facility] Work Phone: 1(299) 944-309501-04-2024 Evaluation note* Encounter Date Diagnosis Assessment Notes Treatment Notes Treatment Clinical Notes May, Type 2 diabetes mellitus with hy perglycemia (ICD-10 - E11.65) [employer] Other 12-26-2023 Evaluation note* Encounter Date Diagnosis Assessment Notes Treatment Notes Treatment Clinical Notes Apr, Type 2 diabetes mellitus with hy perglycemia (ICD-10 - E11.65) ASSESSMENT: 1. Controlled, a Type 2 diabetes with A1c of 6.7% down from 7.5. GMI today 6.9 % 2. Progressive improvement in glycemia. Continued reduction of overbasalization appropriately. Willfurther reduce Levemir to 16 u once daily, [...] he will have labs soon. We will havehim return to clinic in 8 weeks for download see me in 3 months. MAINTAIN SIMPLICITY. BMI improving. DL 8 weeks appt and attempt to initate GLP Ongoing will necessitate CGM for titration of insulin. Research shows that stamina with the currentregime may fatigue, as would outcomes and CGM is equitable compared to disease instability. Patientalso maintains active lifestyle which increases cumbersome nature [...] diabetes, progressive beta cell , concepts of basal/bolus/corrective insulin requirements. Basal: The goal is fasting [...] or sores that do not appear to behealing. 4. Meter: Plan to check blood glucose: [...] Prescriptions: Request refills for Metformin 05-10-2023 uses [facility]/[employer]. Apr,Vitamin D deficiency (ICD-10 - E55.9)Learning About Vitamin D material was published to [employer] Apr,ietary counseling and surveillance (ICD-10 - Z71.3)Learning About Healthy Weight material was published to portal Apr,HTN (hypertension) (ICD-10 - I10)High Blood Pressure: Care Instructions material was published to portal Slightly above goal today, goal systolic under 130, diastolic under 80.-- continue to monitor at home, if sustained above goal notify PCP Apr,Long term current use of insulin (ICD-10 - Z79.4) Apr,Insulin long-term use (ICD-10 - Z79.4) Apr,Hyperlipidemia LDL goal <100 (ICD-10 - E78.5)Learning About High Cholesterol material was published to portal Apr,Vitamin B 12 deficiency (ICD-10 - E53.8)OTC B12 sublingually 1000 mcg daily. Apr,MI 27.0-27.9,adult (ICD-10 - Z68.27) Apr,OtherLearning About High Cholesterol material was published to [employer] Other 11-14-2023 Evaluation note* Encounter Date Diagnosis Assessment Notes Treatment Notes Treatment Clinical Notes Mar, Type 2 diabetes mellitus with hy perglycemia (ICD-10 - E11.65) Jayme came in today [...] findings with him by Elis Borrego RN, [facility]. [employer] Other 09-19-2023 Evaluation note* Encounter Date Diagnosis Assessment Notes Treatment Notes Treatment Clinical Notes Jan, Type 2 diabetes mellitus with hy perglycemia (ICD-10 - E11.65) ASSESSMENT: 1. Uncontrolled, a Type 2 diabetes with A1c of 6.8% down from 7.5. GMI today 7.4 % 2. Progressive improvement in glycemia. Slight overbasalization and making room for Jardiance, willreduce Levemir to 20 units once daily noting decreased vegetables at any time of day running under 100 consistently a.m. fasting or otherwise. We will continue Lyumjev insulin to carb ratio of 1 unitfor every 10 carbohydrates and 1 unit for every 40 mg/dL above goal. He will continue metformin 1000 mg twice daily we will consider GLP-1 in the future. We will start Jardiance 10 mg x 2 weeks then escalate to prescription dose of 25 mg thereafter. Stressed maintaining hydration encouraged vitaminD and B12, he will have labs soon. We will have him return to clinic in 8 weeks for download see me in 3 months. Consider GLP1RA next. MAINTAIN SIMPLICITY. He does desire some weight loss, defers today return to clinic in 3 months. Ongoing will necessitate CGM for titration of insulin. Research shows that stamina with the currentregime may fatigue, as would outcomes and CGM is equitable compared to disease instability. Patientalso maintains active lifestyle which increases cumbersome nature [...] diabetes, progressive beta cell , concepts of basal/bolus/corrective insulin requirements. Basal: The goal is fasting [...] or sores that do not appear to behealing. 4. Meter: Plan to check blood glucose: [...] Prescriptions: None needed at this time 02-01-2023. Jan,Vitamin D deficiency (ICD-10 - E55.9)Learning About Vitamin D material was published to [employer] Jan,ietary counseling and surveillance (ICD-10 - Z71.3)Learning About Healthy Weight material was published to portal Jan,HTN (hypertension) (ICD-10 - I10)High Blood Pressure: Care Instructions material was published to [employer] Slightly above goal today, 138/74, goal systolic under 130, diastolic under 80. Jan,Long term current use of insulin (ICD-10 - Z79.4) Jan,Insulin long-term use (ICD-10 - Z79.4) Jan,Hyperlipidemia LDL goal <100 (ICD-10 - E78.5)Learning About High Cholesterol material was published to [employer] Jan,MI 28.0-28.9,adult (ICD-10 - Z68.28) Jan,Vitamin B 12 deficiency (ICD-10 - E53.8)OTC B12 sublingually 1000 mcg daily. Jan,OtherLearning About High Cholesterol material was published to [employer] Other 08-16-2023 Evaluation note* Encounter Date Diagnosis Assessment Notes Treatment Notes Treatment Clinical Notes Dec, Insect bite (nonveno mous), right lower leg, initial encounter (ICD- 10 - S80.861A) Does not appear infected. Pt states it is improved. No further med or treatment is indicated. Dec,itten or stung by nonvenomous insect and other nonvenomous arthropods, initial encounter (ICD-10 -W57.XXXA) Dec,Hyperglycemia due to type 2 diabetes mellitus (ICD-10 - E11.65) Healthy diet and exercise encouraged. Weight loss helps to reduce blood sugars and A1C. Wear supportive shoes, avoid open toed shoes. Check feet daily. [employer] Other 07-13-2023 Evaluation note* Encounter Date Diagnosis [...] reviewed and amended by provider signed below. Nov,Vitamin D deficiency (ICD-10 - E55.9)chronic problem. taking supplement. reviewed labs from 11/24 w pt Nov,Type 2 diabetes mellitus with hyperglycemia (ICD-10 - E11.65)chronic problem A1C 6.6 - immensely improved. Was previously consistently >10. Continue to follow with diabetes clinic. [employer] Other 06-13-2023 Evaluation note* Encounter Date Diagnosis Assessment Notes Treatment Notes Treatment Clinical Notes Oct, Type 2 diabetes mellitus with hy perglycemia (ICD-10 - E11.65) ASSESSMENT: 1. Uncontrolled, a Type 2 diabetes with A1c of 7.5% down from 10.1. GMI today 7.3% 2. Blood glucose showing significant improvement likely component of Dexcom surveillance, GMI todayis consistent with hemoglobin A1c. We will reduce [...] insulin. Research shows that stamina with the currentregime may fatigue, as would outcomes and CGM is equitable compared to disease instability. Patientalso maintains active lifestyle which increases cumbersome nature [...] diabetes, progressive beta cell , concepts of basal/bolus/corrective insulin requirements. Basal: The goal is fasting [...] or sores that do not appear to behealing. 4. Meter: Plan to check blood glucose: [...] 6. Prescriptions: None needed at this time 13 Sean, 2023Vitamin D deficiency (ICD-10 - E55.9)Learning About Vitamin D material was published to [employer] Oct,ietary counseling and surveillance (ICD-10 - Z71.3)Learning About Healthy Weight material was published to portal Oct,HTN (hypertension) (ICD-10 - I10)High Blood Pressure: Care Instructions material was published to [employer] Slightly above goal today, 138/74, goal systolic under 130, diastolic under 80. Oct,Long term current use of insulin (ICD-10 - Z79.4) Oct,Insulin long-term use (ICD-10 - Z79.4) Oct,Hyperlipidemia LDL goal <100 (ICD-10 - E78.5)Learning About High Cholesterol material was published to [employer] Oct,MI 28.0-28.9,adult (ICD-10 - Z68.28) Oct,Vitamin B 12 deficiency (ICD-10 - E53.8)OTC B12 sublingually 1000 mcg daily. Oct,OtherLearning About High Cholesterol material was published to [employer] Other 06-06-2023 Evaluation note* Encounter Date Diagnosis Assessment Notes Treatment Notes Treatment Clinical Notes Oct, Type 2 diabetes mellitus with hy perglycemia (ICD-10 - E11.65) [employer] Other 06-05-2023 Evaluation note* Encounter Date Diagnosis Assessment Notes Treatment Notes Treatment Clinical Notes Oct, Type 2 diabetes mellitus with hy perglycemia (ICD-10 - E11.65) [employer] Other 04-24-2023 Evaluation note* Encounter Date Diagnosis Assessment Notes Treatment Notes Treatment Clinical Notes Aug, Type 2 diabetes mellitus with hy perglycemia (ICD-10 - E11.65) ASSESSMENT: 1. Uncontrolled, a Type 2 diabetes with A1c of 7.5% down from 10.1. 2. Blood glucose showing significant improvement likely component of Dexcom surveillance, GMI todayis consistent with hemoglobin A1c. We will reduce [...] insulin. Research shows that stamina with the currentregime may fatigue, as would outcomes and CGM is equitable compared to disease instability. Patientalso maintains active lifestyle which increases cumbersome nature [...] diabetes, progressive beta cell , concepts of basal/bolus/corrective insulin requirements. Basal: The goal is fasting [...] or sores that do not appear to behealing. 4. Meter: Plan to check blood glucose: [...] Prescriptions: None needed at this time 09-06-2022. Aug,Vitamin D deficiency (ICD-10 - E55.9)Learning About Vitamin D material was published to portal Aug,ietary counseling and surveillance (ICD-10 - Z71.3)Learning About Healthy Weight material was published to portal Aug,HTN (hypertension) (ICD-10 - I10)High Blood Pressure: Care Instructions material was published to portal Above goal today, discussed goal of <130/80-- Could lconsider Jardiance Aug,Long term current use of insulin (ICD-10 - Z79.4) Aug,Insulin long-term use (ICD-10 - Z79.4) Aug,Hyperlipidemia LDL goal <100 (ICD-10 - E78.5)Learning About High Cholesterol material was published to portal Aug,MI 28.0-28.9,adult (ICD-10 - Z68.28) Aug,Vitamin B 12 deficiency (ICD-10 - E53.8)OTC B12 sublingually 1000 mcg daily. Aug,OtherLearning About High Cholesterol material was published to [employer] Other 03-16-2023 Evaluation note* Encounter Date Diagnosis Assessment Notes Treatment Notes Treatment Clinical Notes Jul, Type 2 diabetes mellitus with hy perglycemia (ICD-10 - E11.65) Jayme came in today for [employer] G7 training. He brought a sensor and a reciever. He installed the G7 coleman on his phone and logged in. He was taught how to apply the sensor using the coleman instructions andhandouts. He successfully applied the sensor to the [...] Educating the pateint by Elis Borrego RN, [facility]. [employer] Other 02-15-2023 Evaluation note* Encounter Date Diagnosis Assessment Notes Treatment Notes Treatment Clinical Notes Jun, Type 2 diabetes mellitus with hy perglycemia (ICD-10 - E11.65) ASSESSMENT: 1. Uncontrolled, a Type 2 diabetes with A1c of 10.1% 05/24/22 2. Blood glucose levels are persistently above goal May A1c is consistent of mid year 2021 in the 10% range. He is on Levemir 25 units once daily has been since 2020 i SUSPECT VARIABILITY, havingonly daily BG levels and once daily checks. [...] insulin. Research shows that stamina with the currentregime may fatigue, as would outcomes and CGM is equitable compared to disease instability. Patientalso maintains active lifestyle which increases cumbersome nature [...] diabetes, progressive beta cell , concepts of basal/bolus/corrective insulin requirements. Basal: The goal is fasting [...] or sores that do not appear to behealing. 4. Meter: Plan to check blood glucose: [...] 6. Prescriptions: None needed at this time. Jun,Vitamin D deficiency (ICD-10 - E55.9)Learning About Vitamin D material was published to portal Jun,ietary counseling and surveillance (ICD-10 - Z71.3)Learning About Healthy Weight material was published to portal Jun,HTN (hypertension) (ICD-10 - I10)High Blood Pressure: Care Instructions material was published to portal Jun,Long term current use of insulin (ICD-10 - Z79.4) Jun,Insulin long-term use (ICD-10 - Z79.4) Jun,Hyperlipidemia LDL goal <100 (ICD-10 - E78.5)Learning About High Cholesterol material was published to portal Jun,OtherLearning About High Cholesterol material was published to portal [facility] Other 01-13-2023 Evaluation note* Encounter Date Diagnosis Assessment Notes Treatment Notes Treatment Clinical Notes May, Hyperglycemia due to type 2 diab etes mellitus (ICD-10 - E11.65) Increasing levemir from 20 to 25 units pt agrees to referral to [facility]. May,Essential hypertension (ICD-10 - I10)Blood pressure remains well controlled at this time. Denies cardiac symptoms. Shows no signs or symptoms or poor control. Patient to continue with above medication and we will continue to monitor. Advised to pay attention to body and symptoms. Any developing patterns. Stay well hydrated. [facility] Other Chief complaint+Reason for visit Narrative* Chief Complaint Dm DMReason for VisitBMI 27.0-27.9,adult Dietary counseling and surveillance HTN (hypertension) Hyperlipidemia jail current use of insulin Type 2 diabetes mellitus with hyperglycemia Vitamin B 12 deficiency Vitamin D deficiency [facility] Work Phone: Evaluation noteNo InformationNort [place] Other Evaluation note* Diagnosis Onset Date Resolution Status BMI 27.0-27.9,adult acuteDietary counseling and surveillanceacuteHTN (hypertension)acute HyperlipidemiaacuteLong term current use of insulinacuteType 2 diabetes mellitus with hyperglycemiaacuteVitamin B 12 deficiencyacuteVitamin D deficiencyacute [facility] Work Phone: Evaluation note* Diagnosis Type 2 diabetes mellitus without complication, without long-term current use of insulin (HCC)- Primary PCO (posterior capsular opacification), bilateral Unspecified after-cataract Pseudophakia Lens replaced by other means documented in this encounter [facility] HealthcareHistory general Narrative - Reported* Type Description Date Medical History Moreland's palsy Medical HistoryBorderline systolic hypertensionMedical HistoryBMI 28.0-28.9,adultMedical HistoryEssential hypertensionMedical HistoryHyperglycemia due to type 2 diabetes mellitusMedical HistoryLeft shoulder painMedical History HyperlipidemiaMedical HistoryRight hip painMedical HistoryEncounter for wellness examination in adultSurgical HistorytonsillectomySurgical HistoryEGD for food [id number] Historycataract surgery01/2022, 03/2022Hospitalization History See AboveHospitalization HistoryBell's Palsy02/2022 [facility] Other History general Narrative - Reported* Type Description Date Medical History Moreland's palsy Medical HistoryBorderline systolic hypertensionMedical HistoryBMI 28.0-28.9,adultMedical HistoryEssential hypertensionMedical HistoryHyperglycemia due to type 2 diabetes mellitusMedical HistoryLeft shoulder painMedical History HyperlipidemiaMedical HistoryRight hip painMedical HistoryEncounter for wellness examination in adultSurgical HistorytonsillectomySurgical HistoryEGD for food [id number] Historycataract surgery01/2022, 03/2022Hospitalization History See AboveHospitalization HistoryBell's Palsy02/2022Hospitalization History [place] [facility]- hiatal her[place] [facility] Other Reason for referral (narrative)No reason for referral information availableUniversity [facility]als [facility] Work Phone: Reason for visit NarrativeDM 3 month F/U, Referral [facility] Other Reason for visit NarrativeDM, DM 3 month F/U, Referral [facility] Other Reason for Referral Reason 06/30/22 Type 2 di abetes. A1C 10.1 Diagnosis 1 Hyperglycemia due to type 2 diabetes mellitus (E11.65) Referral Organization [facility] lineric Referring Provider First Name Whit Referring Provider Last Name Freedom Referring Provider Specialty [facility] Referred Organization [facility] Referred Provider Kathryn Resendiz Referred Address [address],[place],[address] Referred Provider Specialty Nurse Glenn melendez Referral [...] Recorded Date/T ike father Unknown Disorder of lungUnknownNot SpecifiedDeceasedUnknown Relationship Condition Age at Onset Recorded Date/T ike father Unknown Disorder of lungUnknownmotherDeceasedUnknown Advance Directives Advance Directive Response Recorded Date/ Time Advance Directives No June 11:01am Advance Directive Response Recorded Date/ Time Advance Directives No June 12:01pm Chief Complaint and Reason for Visit Chief Complaint Admit Date 8 week June 12, 2024 1 0:49am 3 month-DMN f/u August 01, 2024 9:4 3am Reason for Visit Admit Date Type 2 diabetes mellitus with hyperglyce [facility] June 12, 2024 10:49am BMI 27.0-27.9,adult August 01, 2024 9:4 3am Dietary counseling and surveillance [facility] 2024 9:43am HTN (hypertension) August 01, 2024 9:4 3am Hyperlipidemia August 01, 2024 9:4 3am [employer] current use of insulin July 142024 9:43am Type 2 diabetes mellitus with hyperglyce cory August 01, 2024 9:43am Vitamin B 12 deficiency August 01, 2024 9:43am Vitamin D deficiency August 01, 2024 9: 43am Chief Complaint Admit Date 8 week June 12, 2024 1 0:49am 3 month-DMN f/u August 01, 2024 9:4 3am Amb Documentation August 06, 2024 10: 44am TB August 08, 2024 10: 25am Chief Complaint Admit Date 3 month-DMN f/u August 01, 2024 9:4 3am Amb Documentation August 06, 2024 10: 44am [facility] August 08, 2024 10: 25am 5 week-on phone September 12, 2024 9:5 8am Reason for Visit Admit Date BMI 27.0-27.9,adult August 01, 2024 9:4 3am Dietary counseling and surveillance [facility] 2024 9:43am HTN (hypertension) August 01, 2024 9:4 3am Hyperlipidemia August 01, 2024 9:4 3am [employer] current use of insulin July 142024 9:43am Type 2 diabetes mellitus with hyperglyce [facility] August 01, 2024 9:43am Vitamin B 12 deficiency August 01, 2024 9:43am Vitamin D deficiency August 01, 2024 9: 43am Esophagitis determined by endoscopy [facility] 2024 10:25am Food impaction of esophagus August 08, 2024 10:25am Type 2 diabetes mellitus with hyperglyce [facility] August 08, 2024 10:25am Type 2 diabetes mellitus with hyperglyce [facility] September 12, 2024 9:58am Chief Complaint Admit Date 3 month-DMN f/u August 01, 2024 9:4 3am Amb Documentation August 06, 2024 10: 44am [facility] August 08, 2024 10: 25am 5 week-on phone September 12, 2024 9:5 8am Wellness October 15, 2024 10:44 am Reason for Visit Admit Date BMI 27.0-27.9,adult August 01, 2024 9:4 3am Dietary counseling and surveillance [facility] 2024 9:43am HTN (hypertension) August 01, 2024 9:4 3am Hyperlipidemia August 01, 2024 9:4 3am [employer] current use of insulin July 142024 9:43am Type 2 diabetes mellitus with hyperglyce [facility] August 01, 2024 9:43am Vitamin B 12 deficiency August 01, 2024 9:43am Vitamin D deficiency August 01, 2024 9: 43am Esophagitis determined by endoscopy [facility] 2024 10:25am Food impaction of esophagus [...] 2024 9:4 3am Dietary counseling and surveillance [facility] 2024 9:43am HTN (hypertension) August 01, 2024 9:4 3am Hyperlipidemia August 01, 2024 9:4 3am [employer] current use of insulin July 142024 9:43am Type 2 diabetes mellitus with hyperglyce cory August 01, 2024 9:43am Vitamin B 12 deficiency August 01, 2024 9:43am Vitamin D deficiency August 01, 2024 9: 43am Esophagitis determined by endoscopy [facility] 2024 10:25am Food impaction of esophagus August 08, 2024 10:25am Type 2 diabetes mellitus with hyperglyce cory August 08, 2024 10:25am Type 2 diabetes mellitus with hyperglyce croy September 12, 2024 9:58am HTN (hypertension) October 15, 2024 10:44 am Hyperlipidemia October 15, 2024 10:44 am Medicare annual wellness visit, [facility] October 15, 2024 10:44am Type 2 diabetes mellitus with hyperglyce cory October 15, 2024 10:44am BMI 27.0-27.9,adult October 24, 2024 10:5 8am Dietary counseling and surveillance October 24, 2024 10:58am HTN (hypertension) October 24, 2024 10:5 8am Hyperlipidemia October 24, 2024 10:5 8am [employer] current use of insulin October 242024 10:58am [...] 8am Hyperlipidemia October 24, 2024 10:5 8am [employer] current use of insulin October 242024 10:58am [...] 2025 10:06am Hyperlipidemia January 23, 2025 10:06am [employer] current use of insulin Septemb er 2024 10:06am Type 2 diabetes mellitus with hyperglyce cory January 23, 2025 10:06am Vitamin B 12 deficiency January 23, 2025 10:06am Vitamin D deficiency January 23 10:06am Additional Source Comments REASON FOR VISIT (unrecogniz ed section and content) ReasonCommentsDiabetic Eye Exam (unrecognized sect ion and content) No Status Records FoundNo Status Records FoundNo Status Records FoundNo Status Records Found INFORMATION SOURCE (unrecogn ized section and content) DATE CREATED AUTHOR 09/24/2022 [facility] DATE CREATED AUTHOR AUTHOR'S ORGANIZ ATION 07/05/2023 [facility] DATE CREATED AUTHOR AUTHOR'S ORGANIZ ATION 08/06/[address] [facility] DATE CREATED AUTHOR AUTHOR'S ORGANIZ ATION 12/04/2024 [facility] EPIC Care Teams (unrecognized sec tion and content) Team Status: Active Member Role Status Dates Whit Titus MD Primary Care Provider Active Team Status: Active Member Role Status Dates Whit Titus MD Primary Care Provider Active Start: November 07, 2024 Whit Titus MDAttsaurabh ProviderActiveStart: November 07, 2024 Team Status: Inactive Member Role Status Dates Whit Titus MD Primary Care Provider Active Start: December 21, 2024 End: December 21, 2024Juan Mendiola ProviderActiveStart: December 21, 2024 End: December 21, 2024 Team Status: Inactive Member Role Status Dates Whit Titus MD Primary Care Provider Active Start: January 23, 2025 End: January 23, 2025Evan Anderson ProviderActiveStart: January 23, 2025 End: January 23, 2025 Team Status: Active Member Role Status Dates Whit Titus MD Primary Care Provider Active Team Status: Inactive Member Role Status Dates Kathryn Resendiz APRN Attending Provider Active Start: August 01, 2024 End: August 01, 2024NON STAFFPrimary Care ProviderActiveStart: August 01, 2024 End: August 01, 2024 Team Status: Active Member Role Status Dates NON STAFF Primary Care Provider Active Start: August 06, 2024 Marli Arellano CMAAttsaurabh ProviderActiveStart: August 06, 2024 Team Status: Inactive Member Role Status Dates Whit Titus MD Primary Care Provide r, Attending Provider Active Start: August 08, 2024 End: August 08, 2024 Team Status: Inactive Member Role Status Dates Aaron Borrego RN Attending Provider Active St art: September 12, 2024 End: September 12, 2024Demar Resendiz , APRNActiveStart: September 12, 2024 End: September 12, 2024Whit Titus , MDPrimary Care ProviderActiveStart: September 12, 2024 End: September 12, 2024 Team Status: Inactive Member Role Status Dates Whit Titus MD Primary Care Provide r, Attending Provider Active Start: October 15, 2024 End: October 15, 2024 Team Status: Inactive Member Role Status Dates Kathryn Resendiz , [employer] WORK[employer] Attending Provider Active Start: October 24, 2024 End: October 24, 2024Whit Titus , YAArimary Care ProviderActiveStart: October 24, 2024 End: October 24, 2024 Team Status: Active Member Role Status Dates NON STAFF Primary Care Provider Active Start: July 25, 2024 Olivier Bellaending ProviderActiveStart: July 25, 2024 Team Status: Inactive Member Role Status Dates Kathryn Resendiz , FREE[employer] WORKER Attending Provider Active Start: May 10, 2023 End: May 10, 2023 Team Status: Inactive Member Role Status Dates Whit Titus MD Primary Care Provide r, Attending Provider Active Start: May 10, 2023 End: May 10, 2023 Team Status: Inactive Member Role Status Dates Whit Titus MD Primary Care Provider Active Start: July 04, 2023 End: July 04ebdinae Resendiz , APRNAttending ProviderActiveStart: July 04, 2023 End: July 04, 2023 Team Status: Active Member Role Status Dates NON STAFF Primary Care Provider Active Team Status: Inactive Member Role Status Dates Zhanna Sheridan RN Attending Provider Active Start: June 12, 2024 End: June 12, 2024Demar Resendiz , APRNActiveStart: June 12, 2024 End: June 12, 2024NON STAFFPrimary Care ProviderActiveStart: June 12, 2024 End: June 12, 2024Team MemberRelationshipSpecialtyStart DateEnd Date Whit Titus MD [address] [place] [address] PCP - [facility]11/29/23Team MemberRelationshipSpecialtyStart DateEnd Date Whit Titus MD [address] [place] [address] [facility]11/29/23 Team Status: Inactive Member Role Status Dates Whit Titus MD Primary Care Provider Active Start: October 15, 2024 End: October 15, 2024Kathy Salvador ProviderActiveStart: October 15, 2024 End: October 15, 2024 Team Status: Active Member Role Status Dates Whit Titus MD Primary Care Provider Active Start: November 07, 2024 Kathy Salvador ProviderActiveStart: November 07, 2024 Team Status: Inactive Member Role Status Dates Whit Titus MD Primary Care Provider Active Start: December 21, 2024 End: December 21, 2024Juan Mendiola ProviderActiveStart: December 21, 2024 End: December 21, 2024 Team Status: Inactive Member Role Status Dates Whit Titus MD Primary Care Provider Active Start: January 23, 2025 End: January 23, 2025Evan Anderson ProviderActiveStart: January 23, 2025 End: January 23, 2025 [...] BE BASED ON THE PRIMARY CLINICAL RECORDS. [facility] [employer] [facility]. provides no warranty or guarantee of the accuracy or completeness of information in this document.
[2025-04-16 03:07] LABS: Vitamin B12 510 pg/mL (232-1245)
== END 2025-04-15 09:40 | disposition home or self-care (01) ==
LOC: LAB 09:39
PROVIDERS: PCP Family Medicine; Visit Provider Nurse Practitioner Family
DX: E55.9 Vitamin D deficiency, unspecified (principal); E78.2 Mixed hyperlipidemia; I10 Essential (primary) hypertension; E11.65 Type 2 diabetes mellitus with hyperglycemia; Z79.4 Long term (current) use of insulin
CPT/HCPCS: 36415; 82607; 86337